=== PATIENT | male | born 1970 | race Caucasian/White ===

== ENCOUNTER 2017-10-23 16:49 | Emergency (ER) | payer MEDICAID, SELFPAY ==
[2017-10-23 16:50] VITALS: BP 145/109; PULSE 76; RESP 18; TEMP 36.4; O2SAT 100; BMI 28.5
[2017-10-23 17:08] LABS: Bacteria 0 SEEN /hpf (None Seen); Mucous, Urine 0 SEEN /hpf (<or=2+); Squamous Epithelial Cells - UA 0 SEEN /hpf (0-5); White Blood Cells 0 SEEN /hpf (0-5)
[2017-10-23 17:09] LABS: Color, Urine Yellow (Yellow); Glucose, Dipstick Normal (Normal); Ketone-Dipstick Negative (Negative); Leukocyte Esterase-Dipstick 25 /ul (Negative); Nitrite-Dipstick Negative (Negative); Occult Blood-Urine 250 /ul (Negative); Protein-Dipstick 30 mg/dl (Negative); Specific Gravity, Urine 1.025 (1.002-1.030); Urine Bilirubin Dipstick Negative (Negative); Urine Clarity Clear (Clear); Urine Urobilinogen 1 mg/dl (Normal)
[2017-10-23 17:15] LABS: Red Blood Cells-Urine 25-50 SEEN /hpf (0-5)
[2017-10-23 17:16] LABS: Yeast-Urine 1+ /hpf (None Seen)
--- NOTE | 2017-10-23 18:10 | CT_ITS ---
STUDY: CT ABDOMEN AND PELVIS WITHOUT CONTRAST REASON FOR EXAM: Male, 47 years old. Dysuria with lower abdominal pain. Patient has history of kidney stones and appendectomy. RADIATION DOSAGE (If Supplied By Facility): CTDIvol = ( 9.99 ) mGy, DLP = ( 809.05 ) mGycm TECHNIQUE: Transaxial images were obtained from the dome of the diaphragm to the symphysis pubis without oral contrast, and without intravenous contrast. Sagittal and coronal images were reconstructed. Individualized dose optimization techniques were used for this CT. COMPARISON: CT of the abdomen and pelvis dated October 11, 2017 and September 13, 2017. FINDINGS: There is bilateral basilar dependent atelectasis. There is heterogeneous groundglass attenuation at the lung bases suggesting possible pneumonia. There is patchy right middle lobe airspace disease. The visualized portions of the heart are within normal limits. There is decreased attenuation of the liver consistent with steatosis. There appears to be sparing of fatty infiltration surrounding the gallbladder fossa. Normal gallbladder and extrahepatic biliary system. Normal spleen. Normal pancreas. Normal bilateral adrenal glands. Normal right kidney. Normal left kidney. Normal visualized stomach. There is no evidence for dilated bowel, ascites or pneumoperitoneum. Small bowel has a grossly normal appearance. Stool is visible throughout the colon with scattered diverticula. There are surgical clips in the region of the appendix consistent with a prior appendectomy. Normal abdominal aorta. Normal inferior vena cava. There is borderline retroperitoneal lymphadenopathy with enlarged nodes no greater than 10mm in the short axis diameter. Normal urinary bladder. Normal visualized prostate gland. There is a small umbilical hernia containing fat. Appears to be ankylosis of the anterior left sacroiliac joint secondary to bridging osteophytes. The skeletal structures are otherwise within normal limits. CT/Abdomen/Pelvis without Cont IMPRESSION: 1. Apparent chronic bilateral basilar airspace disease since previous CT dated August 2017. 2. Hepatic steatosis. 3. No CT evidence of acute intra-abdominal disease. Electronically Signed: Carole Kessler MD at 19:14 EST , Service support ,
[2017-10-23] MEDS: 0.9% Normal Saline 1,000 ML 1000 ML IV ×2 (18:32→18:33)
[2017-10-23 18:35] LABS: Absolute Neutrophil Count 3.3 X10^3/uL (2.0-7.7); Basophil# 0.03 X10^3/uL; Basophil% 0.5 % (0-1); Eosinophil# 0.19 X10^3/uL; Eosinophils% 3.2 % (0-5); Hematocrit 41.4 % (40-54); Lymphocyte % 35.3 % (19-41); Mean Corp Hgb Conc 31.4 g/gl (32-36); Mean Corpuscular Hgb 25.5 pg (27.0-32.0); Mean Corpuscular Volume 81.2 fL (80-94); Mean Platelet Vol. 9.3 fl (6.2-12.0); Monocyte# 0.34 X10^3/uL; Monocyte% 5.7 % (0-10); Neutrophil # 3.28 X10^3/uL (2.7-7.7); Neutrophil % 55.1 % (47-70); POSITIVE COUNT NO; POSITIVE DIFFERENTIAL NO; POSITIVE MORPHOLOGY NO; Platelet Count 225 K/mm3 (150-450); RBC Distribution Width CV 16.7 % (11.6-14.6); RBC Distribution Width SD 50.1 fl (35.1-43.9)
[2017-10-23 18:47] LABS: Anion Gap 7 (5-15); BUN 15 mg/dL (7-18); Calcium,Total 8.3 mg/dL (8.5-10.1); Chloride 108 mmol/L (98-107); Creatinine, Serum 1.07 mg/dL (0.70-1.30); EST Glomerular Filtration Rate 79 mL/min (>60); Est Glom Filt Rate - Afr Amer 96 mL/min (>60); Estimated Creatinine Clearance 98.53 ml/min; Glucose 90 mg/dL (70-110); Potassium 3.9 mmol/L (3.5-5.1); Sodium Level 142 mmol/L (136-145)
--- NOTE | 2017-10-23 19:21 | US_ITS ---
STUDY: SCROTUM ULTRASOUND REASON FOR EXAM: Male, 47 years old. Testicular pain TECHNIQUE: Ultrasound evaluation of the scrotum was performed with color Doppler and static sun-scale imaging. COMPARISON: None. FINDINGS: RIGHT TESTICLE INTRATESTICULAR: There is a normal size of the right testicle. The right testicle measures 4.3 x 3.1 x 2.4 cm. There is a homogenous echotexture. There is normal arterial and normal venous vascularity. There is no demonstrated right testicular mass or cyst. EXTRATESTICULAR: The epididymis is normal in size. The epididymis head measures 1.2 x 1.0 cm. There is normal vascularity of the epididymis. There is no demonstrated epididymal cystic structure. There is a moderate size hydrocele. There is no demonstrated varicocele. There is no demonstrated extratesticular mass or cyst. LEFT TESTICLE INTRATESTICULAR: There is a normal size of the left testicle. The left testicle measures 4.2 x 2.9 x 2.1 cm. There is a homogenous echotexture. There is normal arterial and normal venous vascularity. There is no demonstrated left testicular mass or cyst. EXTRATESTICULAR: The epididymis is normal in size. The epididymis head measures 1.3 x 1 point cm. There is normal vascularity of the epididymis. There is no demonstrated epididymal cystic structure. There is a moderate size hydrocele. There is no demonstrated varicocele. There is no demonstrated extratesticular mass or cyst. US/Testicular with Arterial Flow IMPRESSION: Normal testicles with normal Doppler flow. Moderate bilateral hydroceles. Electronically Signed: Maged Bryant, at 21:24 EST Tel , Service support ,
--- NOTE | 2017-10-23 19:35 | RAD_ITS ---
STUDY: X-RAY CHEST REASON FOR EXAM: Male, 47 years old. Chest pain TECHNIQUE: Frontal and lateral views of the chest COMPARISON: None. FINDINGS: There is atelectasis noted at the lung bases. The lungs are otherwise clear. There are no pleural effusions. There is no pneumothorax. The heart is normal in size. The visualized osseous structures are within normal limits. RAD/Chest PA and Lateral IMPRESSION: Bibasilar atelectasis. Otherwise, clear lungs. Electronically Signed: Maged Bryant, at 21:13 EST Tel , Service support ,
[2017-10-23] MEDS: Ondansetron 4 MG/2 ML Vial IV (19:57)
[2017-10-23 20:02] VITALS: RESP 14
--- NOTE | 2017-10-23 23:03 | ED.DCSUM_ITS ---
- ER Visit Summary Date of Service: 10/23/17 Chief Complaint: Pain with urination History of Present Illness: The patient is a 47 M presenting with dysuria, dark urine, suprapubic abdominal pain. He states that this started 5 days ago. Pain has been persistent. He has had subjective fever. He has had nausea, vomiting. He denies diarrhea or constipation. He has a history of kidney stones. He states the pain is in the suprapubic area and radiates to his groin. Denies other complaints. Physical Examination: Vitals are stable. Patient is afebrile. Alert no acute distress. HEENT exam is unremarkable. Neck is supple. Lungs are clear and equal bilaterally. Heart is regular rate and rhythm. Abdomen is soft suprapubic tenderness with no rebound or guarding. : Normal lie, bilateral mild testicular tenderness. No rash or discharge Extremities are unremarkable. Skin is warm and dry. Remainder of exam is unremarkable. Emergency Department Course and Treatment: CBC, chemistries are unremarkable. Urinalysis shows 25-50 red blood cells, [address] abdomen pelvis shows no acute process. Testicular ultrasound shows normal testicles with normal flow , bilateral hydroceles. Chest x-ray shows atelectasis. Patient given morphine and Zofran with improvement of his pain. On reevaluation patient is resting comfortably. He is advised to follow up with Dr. Kidd. Advised return ED if worsening complaints. Disposition: Discharge home Impression: Hematuria This note was generated with [employer] dictation software. It may contain incorrect words, spelling, and punctuation that were not noted in review of the chart prior to signing ED Disposition - Plan for ED Patient: Chief Complaint: Complaint Referrals: Care Physician,No Primary [Primary Care Provider] -
--- NOTE | 2017-10-23 23:08 | ED.DEP ---
ED Disposition - Plan for ED Patient: Chief Complaint: Complaint Instructions: ED Hematuria Referrals: Care Physician,No Primary [Primary Care Provider] - Timothy Kidd MD [STAFF PHYSICIAN] -
[2017-10-23 23:13] VITALS: BP 126/78; PULSE 80; RESP 16; O2SAT 95
== END 2017-10-23 23:13 | disposition home or self-care (01) ==
PROVIDERS: Emergency Provider Emergency Medicine
DX: R31.9 Hematuria, unspecified (principal); N43.3 Hydrocele, unspecified; Z87.442 Personal history of urinary calculi; J98.11 Atelectasis; Z72.0 Tobacco use
CPT/HCPCS: 71046; 74176; 76870; 80048; 81001; 85025; 87086; 87088; 93976; 96361; 96374; 96375; 99283; J7030; A4216; J2405

== ENCOUNTER 2017-12-09 14:47 | Emergency (ER) | payer MEDICAID, SELFPAY ==
[2017-12-09 14:48] VITALS: BP 154/106; PULSE 88; RESP 18; TEMP 36.6; O2SAT 99; BMI 29.9
--- NOTE | 2017-12-09 15:36 | ED.VISSUMM ---
- ER Visit Summary Date of Service: 12/09/17 Chief Complaint: Back pain History of Present Illness: The patient is a 47 M presenting with 4-5 days of lower back pain. He does not recall specific injury. He has a history of chronic low back pain. He also complains of nausea and decreased appetite. He denies vomiting or diarrhea. Denies fever. Denies chest pain or shortness of breath. Physical Examination: Vitals are stable. Patient is afebrile. Alert no acute distress. HEENT exam is unremarkable. Neck is supple. Lungs are clear and equal bilaterally. Heart is regular rate and rhythm. Abdomen is soft mild suprapubic tenderness, no rebound or guarding Back: mild bilateral paraspinal lumbar muscle tenderness, no midline tenderness Extremities are unremarkable. Skin is warm and dry. No focal neurologic deficit. Remainder of exam is unremarkable. Emergency Department Course and Treatment: Patient is given IV fluids, Toradol, Zofran. CBC, chemistries unremarkable. Urinalysis is unremarkable. Patient is feeling improved on reevaluation. His abdomen is soft and nontender with no guarding or rebound. He is given a prescription for Zofran for home. Advised to follow-up with Dr. Gardner juvenile corrections officer for no doc. Advised return to ED if worsening complaints. Disposition: Discharged home Impression: Back pain acute on chronic, abdominal pain This note was generated with [employer] dictation software. It may contain incorrect words, spelling, and punctuation that were not noted in review of the chart prior to signing ED Disposition - Plan for ED Patient: Chief Complaint: Back Referrals: Care Physician,No Primary [Primary Care Provider] -
[2017-12-09 15:59] LABS: Bacteria 0 SEEN /hpf (None Seen); Mucous, Urine 0 SEEN /hpf (<or=2+); White Blood Cells 0 SEEN /hpf (0-5)
--- NOTE | 2017-12-09 15:59 | ED.RN ---
PT STATES HE HAS TERRIBLE BACK PAIN BUT HAS NO DIFFICULTY RAISING BOTH LEGS OFF THE BED AT THE SAME TIME TO ASSIST HIMSELF IN SITTING. PT DROPPED SOMETHING ON THE FLOOR AND BEND OVER VERY SMOOTHLY AND APPEARED TO BE PAIN FREE WHILE DOING IT. WHEN ASKED PT HOW NAD HIS PAIN WAS HE SAID IT WAS A 10/10 BUT AMBULATED WITHOUT AND SIGN OF DISTRESS OR COMPROMISE.
[2017-12-09 16:12] LABS: Absolute Lymphocyte Count 1.31 X10^3/ul (0.83-4.51); Absolute Neutrophil Count 5.6 X10^3/uL (2.0-7.7); Basophil# 0.03 X10^3/uL; Basophil% 0.4 % (0-1); Eosinophil# 0.06 X10^3/uL; Eosinophils% 0.8 % (0-5); Hematocrit 41.7 % (40-54); Hemoglobin 13.5 g/dl (13.0-16.5); Lymphocyte # 1.31 X10^3/ul (4.0); Lymphocyte % 17.3 % (19-41); Mean Corp Hgb Conc 32.4 g/gl (32-36); Mean Corpuscular Hgb 25.5 pg (27.0-32.0); Mean Corpuscular Volume 78.8 fL (80-94); Mean Platelet Vol. 10.2 fl (6.2-12.0); Monocyte% 6.6 % (0-10); Neutrophil # 5.63 X10^3/uL (2.7-7.7); Neutrophil % 74.5 % (47-70); Platelet Count 258 K/mm3 (150-450); RBC Distribution Width CV 15.9 % (11.6-14.6); Red Blood Count 5.29 M/mm3 (4.6-6.2); White Blood Count 7.6 K/mm3 (4.4-11.0)
[2017-12-09 16:13] LABS: POSITIVE COUNT NO; POSITIVE DIFFERENTIAL NO; POSITIVE MORPHOLOGY NO
[2017-12-09 16:16] LABS: Anion Gap 7 (5-15); BUN 11 mg/dL (7-18); BUN/Creat Ratio 14.3 RATIO (10-20); Calcium,Total 8.6 mg/dL (8.5-10.1); Chloride 107 mmol/L (98-107); Creatinine, Serum 0.77 mg/dL (0.70-1.30); EST Glomerular Filtration Rate 117 mL/min (>60); Est Glom Filt Rate - Afr Amer 141 mL/min (>60); Estimated Creatinine Clearance 136.91 ml/min; Glucose 100 mg/dL (74-106); Potassium 3.9 mmol/L (3.5-5.1); Sodium Level 141 mmol/L (136-145)
[2017-12-09 16:17] LABS: Color, Urine Yellow (Yellow); Glucose, Dipstick Normal (Normal); Ketone-Dipstick Negative (Negative); Leukocyte Esterase-Dipstick Negative /ul (Negative); Nitrite-Dipstick Negative (Negative); Occult Blood-Urine 10 /ul (Negative); Protein-Dipstick Negative (Negative); Urine Bilirubin Dipstick Negative (Negative); Urine Clarity Clear (Clear); Urine Urobilinogen Normal (Normal)
[2017-12-09] MEDS: 0.9% Normal Saline 1,000 ML 1000 ML IV (16:28)
[2017-12-09] MEDS: Ondansetron 4 MG/2 ML Vial IV (16:28)
[2017-12-09] MEDS: Ketorolac 30 MG/ML Syringe IV (16:28)
[2017-12-09 16:55] LABS: Red Blood Cells-Urine 0-5 SEEN /hpf (0-5); Squamous Epithelial Cells - UA 0-5 SEEN /hpf (0-5)
--- NOTE | 2017-12-09 17:44 | ED.DEP ---
ED Disposition - Plan for ED Patient: Chief Complaint: Back Instructions: ED Neck Back Pain General Prescriptions: Ondansetron [Zofran Odt] 4 mg PO Q8H PRN PRN #10 tablet PRN Reason: Nausea Referrals: Care Physician,No Primary [Primary Care Provider] - Dhiraj Gardner DO [STAFF PHYSICIAN] -
[2017-12-09 17:56] VITALS: BP 118/64; PULSE 72; RESP 15; O2SAT 98
== END 2017-12-09 17:56 | disposition home or self-care (01) ==
PROVIDERS: Emergency Provider Emergency Medicine
DX: M54.5 Low back pain (principal); G89.29 Other chronic pain; R10.30 Lower abdominal pain, unspecified; Z72.0 Tobacco use
CPT/HCPCS: 80048; 81001; 85025; 96374; 96375; 99284; J7030; J2405

== ENCOUNTER 2017-12-12 13:48 | Emergency (ER) | payer MEDICAID, SELFPAY ==
[2017-12-12 13:49] VITALS: BP 134/98; PULSE 96; RESP 14; TEMP 36.6; BMI 30.1
--- NOTE | 2017-12-12 15:01 | CT_ITS ---
STUDY: CT ABDOMEN AND PELVIS WITHOUT CONTRAST REASON FOR EXAM: Male, 47 years old. Left flank pain. RADIATION DOSAGE (If Supplied By Facility): CTDIvol = ( 14.44 ) mGy, DLP = ( 802.26 ) mGycm TECHNIQUE: Transaxial images were obtained from the dome of the diaphragm to the symphysis pubis without oral contrast, and without intravenous contrast. Sagittal and coronal images were reconstructed. Individualized dose optimization techniques were used for this CT. COMPARISON: October 23, 2017. FINDINGS: There are chronic interstitial fibrotic changes of the lung bases. The right middle lobe atelectasis. The visualized portions of the heart are within normal limits. There is hepatomegaly with diffuse hepatic enlargement. There is decreased attenuation of the liver consistent with steatosis.There is sparing adjacent to the gallbladder fossa. Normal gallbladder and extrahepatic biliary system. Normal spleen. Normal pancreas. Normal bilateral adrenal glands. Normal right kidney. Normal left kidney. No stones or hydronephrosis. Normal visualized stomach. Normal small intestine. Normal colon. There are surgical clips in the region of the appendix consistent with a prior appendectomy. There is atherosclerotic calcification of the abdominal aorta, without a demonstrated aneurysm. Normal inferior vena cava. There is borderline retroperitoneal lymphadenopathy with enlarged nodes no greater than 10mm in the short axis diameter. Normal urinary bladder. There is no free fluid in the abdomen or pelvis. There is a small umbilical hernia containing fat. Normal osseous structures. CT/Abdomen/Pelvis without Cont IMPRESSION: No stones or hydronephrosis Liver is enlarged with diffuse fatty infiltration. No dilated loops of bowel. Electronically Signed: Erwin Tee MD at 17:05 EDT , Service support ,
[2017-12-12 15:58] LABS: Bacteria 0 SEEN /hpf (None Seen); Mucous, Urine 0 SEEN /hpf (<or=2+); Squamous Epithelial Cells - UA 0 SEEN /hpf (0-5); White Blood Cells 0 SEEN /hpf (0-5)
[2017-12-12 16:05] LABS: Color, Urine Yellow (Yellow); Glucose, Dipstick Normal (Normal); Ketone-Dipstick Negative (Negative); Leukocyte Esterase-Dipstick Negative /ul (Negative); Nitrite-Dipstick Negative (Negative); Occult Blood-Urine 250 /ul (Negative); Protein-Dipstick 15 mg/dl (Negative); Urine Bilirubin Dipstick Negative (Negative); Urine Clarity Sl. Cloudy (Clear); Urine Urobilinogen Normal (Normal)
[2017-12-12] MEDS: 0.9% Normal Saline 1,000 ML 250 ML IV (16:08)
[2017-12-12] MEDS: Ketorolac 30 MG/ML Syringe IV (16:08)
[2017-12-12] MEDS: Ondansetron 4 MG/2 ML Vial IV (16:09)
[2017-12-12 16:12] LABS: Red Blood Cells-Urine > 100 SEEN /hpf (0-5)
--- NOTE | 2017-12-12 17:38 | ED.DCSUM_ITS ---
- ER Visit Summary Date of Service: 12/12/17 Chief Complaint: Left flank/back pain and LLQ since December 07. History of Present Illness: The patient is a 47 M who was seen on December 09. Workup at that time was unremarkable. He presents now with left flank pain and left lower quadrant abdominal pain. States he cannot find a position of comfort. He does have history of renal/ureteral calculi. He denies fever, chills night sweats. He denies hematuria or frequency. Does complain of discomfort with urination. He denies any penile lesions or discharge. He denies testicular pain. There is no history of trauma. He has no history of diverticulosis or diverticulitis. He denies shortness of breath, cough, dyspnea on exertion, orthopnea or PND. He denies any chest pain or palpitations. Review of systems was otherwise negative. Physical Examination: Blood pressure slightly elevated 134/98. Head is atraumatic normocephalic. Pupils are equal round reactive. Extraocular muscles are intact. TMs are pearly white with landmarks noted. Nares patent with no drainage. Posterior pharynx without erythema or exudate. Uvula is midline. There is no dysphonia or dysphasia. Trachea is midline. There is no stridor with auscultation of the neck. Heart is regular without murmur, gallop or rub. S1 and S2 are normal. Lungs are clear to auscultation with good movement of air bilaterally. Abdomen is marked for tenderness left side. There is no guarding or rebound tenderness. Equivocal CVA tenderness on the left. There is no inguinal lymphadenopathy or hernia. No pathology. Neuro exam is nonfocal. Test Results: UA is remarkable for blood on macro and greater than 100 RBCs on micro. There is no evidence of infection. CT of the abdomen and pelvis without contrast reveals no acute urologic pathology. Emergency Department Course and Treatment: Chart from the was reviewed. Because he describes prior history of renal/ureteral calculus, urinary symptoms and flank pain UA was obtained. Sensors blood CT was obtained. He was medicated with Toradol and Zofran. Treatment Plan: Patient's workup on the was unremarkable. Workup today is unremarkable. Patient was informed he may be that 10-50% to has blood in his urine and it is normal. Disposition: Discharge to home with appropriate home going instructions and outpatient referral Impression: Left flank and abdominal pain of unknown etiology Hematuria unknown etiology This note was generated with [employer] dictation software. It may contain incorrect words, spelling, and punctuation that were not noted in review of the chart prior to signing ED Disposition - Plan for ED Patient: Disposition: Home or Assisted Living Chief Complaint: Back Instructions: ED Flank Pain Uncertain Cause Referrals: Care Physician,No Primary [Primary Care Provider] - 3-5 Days if not improving Additional Instructions: Take either ibuprofen or Naprosyn for your pain. Recommend following up with the Dr. turner by your insurance carrier [facility].
[2017-12-12 17:58] VITALS: BP 120/92; PULSE 73; RESP 19; O2SAT 98
== END 2017-12-12 17:59 | disposition home or self-care (01) ==
PROVIDERS: Emergency Provider Emergency Medicine
DX: R10.9 Unspecified abdominal pain (principal); R31.9 Hematuria, unspecified; Z87.442 Personal history of urinary calculi; Z72.0 Tobacco use
CPT/HCPCS: 74176; 81001; 96361; 96374; 96375; 99284; J7030; J2405

== ENCOUNTER 2018-02-04 17:05 | Emergency (ER) | payer MEDICAID, SELFPAY ==
[2018-02-04 17:05] VITALS: BP 160/125; PULSE 98; RESP 16; TEMP 36.9; O2SAT 95; BMI 28.3
--- NOTE | 2018-02-04 17:57 | CT_ITS ---
STUDY: CT BRAIN WITHOUT CONTRAST REASON FOR EXAM: Male, 47 years old. Dizzy, not feeling right. RADIATION DOSAGE (If Supplied By Facility): CTDIvol = ( 44.99 ) mGy, DLP = ( 863.50 ) mGycm TECHNIQUE: Transaxial CT imaging of the brain was performed without administration of intravenous contrast material. Individualized dose optimization techniques were used for this CT. COMPARISON: None. FINDINGS: Normal soft tissue structures. Normal calvarium. Normal size ventricles and extra-axial spaces for the patient's age. Normal white matter tracts of the cerebral hemispheres. Normal basal ganglia and thalami. Normal brainstem. Normal cerebellum. There is no intracranial hemorrhage. There are no findings of an acute ischemic infarction. Normal visualized paranasal sinuses. CT/Brain/Head without Contrast IMPRESSION: Normal unenhanced CT scan of the brain. Electronically Signed: Pineda Ontiveros MD at 18:34 EDT , Service support ,
--- NOTE | 2018-02-04 17:58 | EKG12_ITS ---
Test Reason : Blood Pressure : / mmHG Vent. Rate : 084 BPM Atrial Rate : 084 BPM P-R Int : 128 ms QRS Dur : 098 ms QT Int : 364 ms P-R-T Axes : 056 046 046 degrees QTc Int : 430 ms Sinus rhythm with Premature supraventricular complexes Otherwise normal ECG Confirmed by HAROON ZAMORA, RADHA ([id number]), food expeditor JOHN CROFT ([id number]) on 02/07/2018 1:12:48 PM Referred By: SANDRA Confirmed By:RADHA PATIÑO MD
--- NOTE | 2018-02-04 18:05 | RAD_ITS ---
STUDY: X-RAY CHEST REASON FOR EXAM: Male, 47 years old. Dizziness TECHNIQUE: Frontal and lateral views of the chest. COMPARISON: 10/23/2017 FINDINGS: The lungs are clear and expanded. There is no demonstrated pleural abnormality. Normal size heart. Normal mediastinum and heidy. Normal visualized pulmonary arteries. Normal visualized aortic arch and descending thoracic aorta. Normal visualized thoracic spine. Normal visualized ribs, clavicles, and shoulders. There is no demonstrated abnormality of the visualized soft tissue structures of the upper abdomen. RAD/Chest PA and Lateral IMPRESSION: Normal x-ray examination of the chest. Electronically Signed: Jordy Walker MD at 18:40 EDT Tel , Service support ,
[2018-02-04 18:11] LABS: Absolute Lymphocyte Count 1.67 X10^3/ul (0.83-4.51); Absolute Neutrophil Count 5.4 X10^3/uL (2.0-7.7); Basophil# 0.03 X10^3/uL; Basophil% 0.4 % (0-1); Eosinophil# 0.12 X10^3/uL; Eosinophils% 1.5 % (0-5); Hematocrit 44.2 % (40-54); Hemoglobin 13.9 g/dl (13.0-16.5); Lymphocyte # 1.67 X10^3/ul (4.0); Mean Corp Hgb Conc 31.4 g/gl (32-36); Mean Corpuscular Hgb 25.4 pg (27.0-32.0); Mean Corpuscular Volume 80.7 fL (80-94); Monocyte# 0.76 X10^3/uL; Monocyte% 9.6 % (0-10); Neutrophil # 5.36 X10^3/uL (2.7-7.7); Neutrophil % 67.4 % (47-70); Platelet Count 270 K/mm3 (150-450); RBC Distribution Width CV 16.7 % (11.6-14.6); RBC Distribution Width SD 49.1 fl (35.1-43.9); Red Blood Count 5.48 M/mm3 (4.6-6.2)
[2018-02-04] MEDS: 0.9% Normal Saline 1,000 ML 1000 ML IV (18:22)
[2018-02-04] MEDS: Acetaminophen 500 MG Tablet 1000 MG PO (18:22)
[2018-02-04 18:24] LABS: ALB/GLOB Ratio 1.1 RATIO (0.9-2.4); AST(SGOT) 11 U/L (15-37); Alanine Aminotransfer ALT/SGPT 37 U/L (16-61); Albumin, Serum 3.8 g/dL (3.2-5.0); Alkaline Phosphatase 84 U/L (45-117); Anion Gap 6 (5-15); BUN 8 mg/dL (7-18); BUN/Creat Ratio 8.7 RATIO (10-20); Calcium,Total 8.6 mg/dL (8.5-10.1); Chloride 110 mmol/L (98-107); Creatinine, Serum 0.92 mg/dL (0.70-1.30); EST Glomerular Filtration Rate 95 mL/min (>60); Est Glom Filt Rate - Afr Amer 114 mL/min (>60); Estimated Creatinine Clearance 114.59 ml/min; Globulin 3.4 g/dL (2.2-4.2); Glucose 87 mg/dL (74-106); Protein, Total 7.2 g/dL (6.4-8.2); Sodium Level 142 mmol/L (136-145)
--- NOTE | 2018-02-04 18:30 | CT_ITS ---
STUDY: CT ABDOMEN AND PELVIS WITHOUT CONTRAST REASON FOR EXAM: Male, 47 years old. Dizziness, groin pain RADIATION DOSAGE (If Supplied By Facility): CTDIvol = ( 9.59 ) mGy, DLP = ( 565.76 ) mGycm TECHNIQUE: Transaxial images were obtained from the dome of the diaphragm to the symphysis pubis without oral contrast, and without intravenous contrast. Sagittal and coronal images were reconstructed. Individualized dose optimization techniques were used for this CT. COMPARISON: 12/12/2017 FINDINGS: The visualized lung bases are unremarkable. The visualized portions of the heart are within normal limits. There is decreased attenuation of the liver consistent with steatosis. Normal gallbladder and extrahepatic biliary system. Normal spleen. Normal pancreas. Normal bilateral adrenal glands. Normal right kidney. Normal left kidney. Normal visualized stomach. Normal small intestine. Normal colon. Prior appendectomy. Normal abdominal aorta. Normal inferior vena cava. Normal retroperitoneum. Normal urinary bladder. Normal abdominal wall. Normal osseous structures. CT/Abdomen/Pelvis without Cont IMPRESSION: No evidence of acute intestinal pathology or acute obstructive uropathy. Fatty liver. Electronically Signed: Jordy Walker MD at 19:22 EDT Tel , Service support ,
[2018-02-04 18:35] LABS: POSITIVE COUNT NO; POSITIVE DIFFERENTIAL NO; POSITIVE MORPHOLOGY NO
[2018-02-04] MEDS: Morphine 4 MG/ML Syringe IV (19:02)
[2018-02-04] MEDS: Ondansetron 4 MG/2 ML Vial IV (19:03)
[2018-02-04 19:12] LABS: Mucous, Urine 0 SEEN /hpf (<or=2+); Squamous Epithelial Cells - UA 0 SEEN /hpf (0-5); White Blood Cells 0 SEEN /hpf (0-5)
[2018-02-04 19:16] LABS: Color, Urine Yellow (Yellow); Glucose, Dipstick Normal (Normal); Ketone-Dipstick Negative (Negative); Leukocyte Esterase-Dipstick Negative /ul (Negative); Nitrite-Dipstick Negative (Negative); Occult Blood-Urine Negative /ul (Negative); Protein-Dipstick Negative (Negative); Urine Bilirubin Dipstick Negative (Negative); Urine Clarity Clear (Clear); Urine Urobilinogen Normal (Normal)
[2018-02-04 19:46] LABS: Bacteria 0 SEEN /hpf (None Seen)
[2018-02-04 19:48] LABS: Red Blood Cells-Urine 0-5 SEEN /hpf (0-5)
--- NOTE | 2018-02-04 20:15 | ED.VISSUMM ---
- ER Visit Summary Date of Service: 02/04/18 Chief Complaint: Multiple complaints History of Present Illness: The patient is a 47 M who presents with multiple complaints over the past 5 months. He complains of his ears ringing. He complains of memory loss. He complains of intermittent sharp pains in his head. Complains of headache. He complains of dizziness which she describes as near syncope. He also complains of bilateral groin pain. He also complains of chest pain intermittently for the last 3 weeks. He denies any chest pain currently. He is also had shortness of breath and occasional dry nonproductive cough although he is not short of breath currently. He complains of urinary frequency. Physical Examination: Blood pressure 160/125 vitals otherwise normal. Repeat blood pressure was 137/101. Patient resting comfortably Moist mucous membranes Heart regular rate and rhythm Lungs are clear Abdomen soft nontender Patient has some bilateral tenderness in the groin I do not appreciate an obvious hernia he has a normal genitourinary examination with normal inspection of the testes no erythema no scrotal edema no testicular tenderness Alert No focal or lateralizing neurological deficits no ataxia normal cerebellar testing Test Results: EKG shows sinus rhythm at a rate of 84 with occasional PACs. CBC BMP hepatic function urinalysis troponin all normal. Chest x-ray normal. CT of the head normal. CT of the abdomen shows no acute process. Emergency Department Course and Treatment: Patient's workup is unremarkable. He has an extensive list of complaints. At this time I do not see any evidence of life-threatening illness. I do believe he requires further outpatient workup. He was instructed on specific signs and symptoms which she should return to the emergency department for reevaluation. He was given a referral for a primary care physician. All questions answered bedside. Patient discharged. Treatment Plan: [] Disposition: Discharge Impression: Headache Bilateral groin pain Chest pain Memory loss Dizziness Elevated blood pressure This note was generated with [employer] dictation software. It may contain incorrect words, spelling, and punctuation that were not noted in review of the chart prior to signing ED Disposition - Plan for ED Patient: Chief Complaint: Dizziness Referrals: Care Physician,No Primary [Primary Care Provider] -
[2018-02-04 20:17] VITALS: BP 160/93; PULSE 78
--- NOTE | 2018-02-04 20:19 | ED.DEP ---
ED Disposition - Plan for ED Patient: Chief Complaint: Dizziness Instructions: ED Dizziness UKO, ED Chest Pain Atypical Unkn Cause, ED Strain Groin, ED Hypertension Poss Referrals: Care Physician,No Primary [Primary Care Provider] - Malu Denton MD [STAFF PHYSICIAN] -
== END 2018-02-04 20:23 | disposition home or self-care (01) ==
PROVIDERS: Emergency Provider Emergency Medicine
DX: R51 Headache (principal); R07.9 Chest pain, unspecified; R42 Dizziness and giddiness; R10.32 Left lower quadrant pain; R10.31 Right lower quadrant pain; R41.3 Other amnesia; R03.0 Elevated blood-pressure reading, without diagnosis of hypertension; Z72.0 Tobacco use
CPT/HCPCS: 70450; 71046; 74176; 80053; 81001; 84484; 85025; 93005; 96374; 96375; 99285; J7030; A4216; J2405

== ENCOUNTER 2018-02-05 04:40 | Emergency (ER) | payer MEDICAID, SELFPAY ==
[2018-02-05 04:41] VITALS: BP 145/93; PULSE 85; RESP 18; TEMP 36.4; O2SAT 100; BMI 28.4
--- NOTE | 2018-02-05 04:55 | ED.VISSUMM ---
- ER Visit Summary Date of Service: 02/05/18 Chief Complaint: I am being monitored by [facility] History of Present Illness: The patient is a 47 M reportedly history of schizophrenia, bipolar and ADHD. With the patient currently states that that is not true. It has been dictated on prior evaluations. Patient denies currently being the care of a psychiatrist or primary care physician or the counseling center. He states that [facility] has been monitoring his actions and has hepatitis him for the last year and a half. He is also complaining of dizziness. He denies headache or chest pain. Denies shortness of breath abdominal pain. Said he has not been ill recently. He denies nausea, vomiting, diarrhea or fever. He denies any head trauma. Denies being suicidal or homicidal. Physical Examination: Well-appearing middle-aged male vital signs stable afebrile. No acute distress. Pulse ox 100% on room air no signs of hypoxia. H EENT exam unremarkable. Normal speech. No facial droop. Pupils round reactive light. No signs of trauma to his face or scalp. Neck nontender no lymphadenopathy. Lungs clear all station bilaterally. Heart regular rate and rhythm no murmur. Abdomen soft nontender. He is moving all 4 extremities. They are neurovascularly intact. Calves are nontender without edema or cords. He is moving all 4 extremities. He has equal symmetrical netbackup admin strength. Fingertip to nose heel lynch within normal limits. Back exam nontender. Neurologically is awake and alert. He is following commands. Has no motor deficits. There is no acute smell of alcohol or any obvious signs of acute toxidrome. Test Results: CBC normal. BMP unremarkable. Alcohol level is less than 3 and his tox screen shows positive opiates. Emergency Department Course and Treatment: Patient is paranoid. He will undergo ED mental health screening labs. Treatment Plan: Patient has been calm and relaxed entire time in the emergency department. I spoke to him about his paranoid delusions and he absolutely does not want to talk the counseling center. He is not homicidal or suicidal. He is not disheveled. He does not need to be pink slipped. Disposition: Pt refused crisis evaluation Impression: Paranoid behavior History of schizophrenia and bipolar disorder. This note was generated with [employer] dictation software. It may contain incorrect words, spelling, and punctuation that were not noted in review of the chart prior to signing ED Disposition - Plan for ED Patient: Chief Complaint: Mental Health Referrals: Care Physician,No Primary [Primary Care Provider] -
--- NOTE | 2018-02-05 04:58 | ED.DCSUM_ITS ---
- ER Visit Summary Date of Service: 02/05/18 Chief Complaint: I am being monitored by [facility] History of Present Illness: The patient is a 47 M reportedly history of schizophrenia, bipolar and ADHD. With the patient currently states that that is not true. It has been dictated on prior evaluations. Patient denies currently being the care of a psychiatrist or primary care physician or the counseling center. He states that [facility] has been monitoring his actions and has hepatitis him for the last year and a half. He is also complaining of dizziness. He denies headache or chest pain. Denies shortness of breath abdominal pain. Said he has not been ill recently. He denies nausea, vomiting , diarrhea or fever. He denies any head trauma. Denies being suicidal or homicidal. Physical Examination: Well-appearing middle-aged male vital signs stable afebrile. No acute distress. Pulse ox 100% on room air no signs of hypoxia. H EENT exam unremarkable. Normal speech. No facial droop. Pupils round reactive light. No signs of trauma to his face or scalp. Neck nontender no lymphadenopathy. Lungs clear all station bilaterally. Heart regular rate and rhythm no murmur. Abdomen soft nontender. He is moving all 4 extremities. They are neurovascularly intact. Calves are nontender without edema or cords. He is moving all 4 extremities. He has equal symmetrical administrator of home health strength. Fingertip to nose heel lynch within normal limits. Back exam nontender. Neurologically is awake and alert. He is following commands. Has no motor deficits. There is no acute smell of alcohol or any obvious signs of acute toxidrome. Test Results: CBC normal. BMP unremarkable. Alcohol level is less than 3 and his tox screen shows positive opiates. Emergency Department Course and Treatment: Patient is paranoid. He will undergo ED mental health screening labs. Treatment Plan: Patient has been calm and relaxed entire time in the emergency department. I spoke to him about his paranoid delusions and he absolutely does not want to talk the counseling center. He is not homicidal or suicidal. He is not disheveled. He does not need to be pink slipped. Disposition: Pt refused crisis evaluation Impression: Paranoid behavior History of schizophrenia and bipolar disorder. This note was generated with [employer] dictation software. It may contain incorrect words, spelling, and punctuation that were not noted in review of the chart prior to signing ED Disposition - Plan for ED Patient: Chief Complaint: Mental Health Referrals: Care Physician,No Primary [Primary Care Provider] -
[2018-02-05 05:18] LABS: Absolute Neutrophil Count 6.6 X10^3/uL (2.0-7.7); Basophil# 0.03 X10^3/uL; Basophil% 0.3 % (0-1); Eosinophil# 0.08 X10^3/uL; Eosinophils% 0.9 % (0-5); Hematocrit 43.4 % (40-54); Hemoglobin 13.9 g/dl (13.0-16.5); Lymphocyte % 18.3 % (19-41); Mean Corpuscular Hgb 25.7 pg (27.0-32.0); Mean Corpuscular Volume 80.2 fL (80-94); Mean Platelet Vol. 9.8 fl (6.2-12.0); Monocyte# 0.41 X10^3/uL; Monocyte% 4.7 % (0-10); Neutrophil % 75.7 % (47-70); POSITIVE COUNT NO; POSITIVE DIFFERENTIAL NO; POSITIVE MORPHOLOGY NO; Platelet Count 257 K/mm3 (150-450); RBC Distribution Width CV 16.8 % (11.6-14.6); RBC Distribution Width SD 49.1 fl (35.1-43.9); Red Blood Count 5.41 M/mm3 (4.6-6.2); White Blood Count 8.7 K/mm3 (4.4-11.0)
[2018-02-05 05:23] LABS: Amphetamine Urine VISTA NEGATIVE (<1000 ng/mL); Barbiturate Urine VISTA NEGATIVE (< 200 ng/mL); Benzodiazepine Urine VISTA NEGATIVE (< 200 ng/mL); Cocaine Urine VISTA NEGATIVE (< 300 ng/mL); Ecstacy Urine VISTA NEGATIVE (< 500 ng/mL); Methadone Urine VISTA NEGATIVE (< 300 ng/mL); PCP Urine VISTA NEGATIVE (< 25 ng/mL); THC Urine VISTA NEGATIVE (< 50 ng/mL); Vista UDS pH Range 7
[2018-02-05 05:24] LABS: Anion Gap 8 (5-15); BUN 7 mg/dL (7-18); BUN/Creat Ratio 8.4 RATIO (10-20); Chloride 111 mmol/L (98-107); Creatinine, Serum 0.83 mg/dL (0.70-1.30); EST Glomerular Filtration Rate 107 mL/min (>60); Est Glom Filt Rate - Afr Amer 129 mL/min (>60); Estimated Creatinine Clearance 127.02 ml/min; Glucose 111 mg/dL (74-106); Sodium Level 142 mmol/L (136-145)
[2018-02-05 05:37] LABS: Alcohol, Blood (Medical)-Serum < 3.0 mg/dL
--- NOTE | 2018-02-05 05:46 | ED.DEP ---
ED Disposition - Plan for ED Patient: Disposition: Home or Assisted Living Chief Complaint: Mental Health Instructions: ED Paranoid Schizophrenia Referrals: Counseling,Center [GROUP OF PHYSICIANS] - As soon as possible
== END 2018-02-05 05:53 | disposition home or self-care (01) ==
PROVIDERS: Emergency Provider Emergency Medicine
DX: H81.10 Benign paroxysmal vertigo, unspecified ear (principal); F20.0 Paranoid schizophrenia; F31.9 Bipolar disorder, unspecified; F90.9 Attention-deficit hyperactivity disorder, unspecified type; Z72.0 Tobacco use
CPT/HCPCS: 80048; 80307; 80320; 85025; G0480

== ENCOUNTER 2018-02-05 08:34 | Emergency (ER) | payer MEDICAID, SELFPAY ==
[2018-02-05 08:35] VITALS: BP 163/115; PULSE 89; RESP 18; TEMP 36.6; O2SAT 99; BMI 28.3
--- NOTE | 2018-02-05 08:53 | ED.VISSUMM ---
- ER Visit Summary Date of Service: 02/05/18 Chief Complaint: Room spinning History of Present Illness: The patient is a 47 M presenting complaining of room spinning. He states this has been ongoing for 1-2 months. He states it is worse when he stands or turns his head. He also complains of memory loss which has been ongoing for several months. This is his third visit in the past 24 hours to the emergency department. On his initial visit he had multiple complaints. On his second visit he complained of paranoid thoughts and declined a crisis evaluation. He continues to complain of paranoid thoughts but denies suicidal or homicidal ideation. He initially denied any mental health disorders but later admitted to having schizophrenia and bipolar disorder. He states he is not on any medications. He presents with his mother and girlfriend who would like a counseling center evaluation. Physical Examination: Vitals are stable. Patient is afebrile. Alert no acute distress. HEENT exam is unremarkable. Neck is supple. No meningismus Lungs are clear and equal bilaterally. Heart is regular rate and rhythm. Abdomen is soft nontender nondistended. Extremities are unremarkable. Skin is warm and dry. No focal neurologic deficit. Paranoid thoughts, denies suicidal or homicidal ideation Remainder of exam is unremarkable. Emergency Department Course and Treatment: Patient was given valium po. Alcohol and tox are negative. CT head yesterday showed no acute process. On reevaluation, his symptoms have resolved. He was evaluated by the counseling center in the emergency department. They feel there is no criteria for admission at this time. They set him up for an intake appointment this week. He continues to deny suicidal or homicidal ideation. Family and patient are agreeable with discharge. He is advised return to ED for any worsening complaints. Disposition: Discharge home Impression: Paranoid behavior, positional vertigo This note was generated with [employer] dictation software. It may contain incorrect words, spelling, and punctuation that were not noted in review of the chart prior to signing ED Disposition - Plan for ED Patient: Disposition: Home or Assisted Living Chief Complaint: Headache Instructions: ED BPV Vertigo Prescriptions: Meclizine HCl [Antivert] 12.5 mg PO 4X/DAY PRN PRN #20 tablet PRN Reason: Dizziness Referrals: Counseling,Center [GROUP OF PHYSICIANS] - Sherry Schmitt DO [STAFF PHYSICIAN] - Care Physician,No Primary [Primary Care Provider] -
--- NOTE | 2018-02-05 09:04 | NURSING ---
PAGED THE COUNSELING CENTER FOR PATIENT
--- NOTE | 2018-02-05 09:06 | NURSING ---
RYLAND WOODARD CALLED AND HAS 2 PEOPLE TO SEE AT THE SNF AND THEN HE WILL BE OVER
[2018-02-05] MEDS: diazePAM 2 MG Tablet PO (09:10)
[2018-02-05 09:24] LABS: Amphetamine Urine VISTA NEGATIVE (<1000 ng/mL); Barbiturate Urine VISTA NEGATIVE (< 200 ng/mL); Benzodiazepine Urine VISTA NEGATIVE (< 200 ng/mL); Cocaine Urine VISTA NEGATIVE (< 300 ng/mL); Ecstacy Urine VISTA NEGATIVE (< 500 ng/mL); Methadone Urine VISTA NEGATIVE (< 300 ng/mL); PCP Urine VISTA NEGATIVE (< 25 ng/mL); THC Urine VISTA NEGATIVE (< 50 ng/mL); Vista UDS pH Range 7
[2018-02-05 09:57] LABS: Alcohol, Blood (Medical)-Serum < 3.0 mg/dL
[2018-02-05 10:15] VITALS: BP 129/92; BP 129/96; BP 131/98; PULSE 83; PULSE 87; PULSE 91
[2018-02-05 10:41] VITALS: RESP 15
[2018-02-05 11:42] VITALS: BP 125/85; PULSE 78; RESP 14; O2SAT 100
--- NOTE | 2018-02-05 11:44 | ED.RN ---
PT INFORMED CRISIS COUNSELOR [facility] WILL BE COMING, BUT TIME OF ARRIVAL IS STILL UNKNOWN. THIS RN OFFERED PT FOOD. PT REFUSES AT THIS TIME. PT REPORTS DIZZINESS IS RETURNING. DR. SEYMOUR INFORMED.
[2018-02-05 12:00] VITALS: BP 125/85; PULSE 79; RESP 17; O2SAT 98
--- NOTE | 2018-02-05 12:46 | ED.DEP ---
ED Disposition - Plan for ED Patient: Chief Complaint: Headache Instructions: ED BPV Vertigo Referrals: Care Physician,No Primary [Primary Care Provider] - Sherry Schmitt DO [STAFF PHYSICIAN] - Counseling,Center [GROUP OF PHYSICIANS] -
--- NOTE | 2018-02-05 12:52 | ED.DEP ---
ED Disposition - Plan for ED Patient: Chief Complaint: Headache Instructions: ED BPV Vertigo Prescriptions: Meclizine HCl [Antivert] 12.5 mg PO 4X/DAY PRN PRN #20 tablet PRN Reason: Dizziness Referrals: Counseling,Center [GROUP OF PHYSICIANS] - Sherry Schmitt DO [STAFF PHYSICIAN] - Care Physician,No Primary [Primary Care Provider] -
--- NOTE | 2018-02-05 12:56 | ED.RN ---
PT UPSET WITH BECAUSE NO NEW MEDICATION ORDERED. IV D/C BY THIS RN AND PT DRESSES SELF. RFUSING D.C VITALS. EDUCATED TO WAIT FOR D/C PAPERWORK.
== END 2018-02-05 12:59 | disposition home or self-care (01) ==
PROVIDERS: Emergency Provider Emergency Medicine
DX: H81.10 Benign paroxysmal vertigo, unspecified ear (principal); F20.0 Paranoid schizophrenia; F31.9 Bipolar disorder, unspecified; F90.9 Attention-deficit hyperactivity disorder, unspecified type; Z72.0 Tobacco use
CPT/HCPCS: 80048; 80307; 80320; 85025; 99283; 99284; G0480

== ENCOUNTER 2018-02-13 04:53 | Emergency (ER) | payer MEDICAID, SELFPAY ==
[2018-02-13 04:54] VITALS: BP 129/88; PULSE 80; RESP 16; TEMP 36.6; O2SAT 96; BMI 28.0
--- NOTE | 2018-02-13 05:08 | ED.VISSUMM ---
- ER Visit Summary Date of Service: 02/13/18 Chief Complaint: [] Low back pain History of Present Illness: The patient is a 47 M with low back pain since yesterday. He fell asleep in the car last 4 hours the night made it worse. He has been using Aleve. Hurts in his low back. He has a history of DJD. His movement related. Denies associated symptoms. Frequent visits for back pain Physical Examination: Vital signs reviewed General: Well-nourished well-developed Head: Normocephalic atraumatic Eyes: Pupils equal round and reactive to light extraocular movements intact ENT: TMs clear no hemotympanum no trauma Neck: Nontender full range of motion Cardiovascular: Regular rate rhythm no murmurs normal S1-S2 Respiratory: No distress clear to auscultation bilaterally chest nontender Abdomen: Soft nontender nondistended normal bowel sounds no masses Back: Tenderness lower lumbar spine mild with mild decreased range of motion. Normal gait no CVA tenderness Extremities: Nontender active range of motion ?4 extremities no trauma Skin: Normal color no trauma Neuro alert oriented cranial nerves II through XII intact normal strength sensation reflexes Test Results: [] Emergency Department Course and Treatment: [] At this time I think it is likely musculoskeletal back strain and/or spasm. Given a shot of Toradol. We will continue anti-inflammatories. I do not feel he needs imaging. Treatment Plan: [] Disposition: [] Impression: [] Acute on chronic back pain This note was generated with [employer] dictation software. It may contain incorrect words, spelling, and punctuation that were not noted in review of the chart prior to signing ED Disposition - Plan for ED Patient: Chief Complaint: Back Referrals: Care Physician,No Primary [Primary Care Provider] -
--- NOTE | 2018-02-13 05:09 | ED.DEP ---
ED Disposition - Plan for ED Patient: Disposition: Home or Assisted Living Chief Complaint: Back Instructions: ED Sprain Strain Lumbar Referrals: Care Physician,No Primary [Primary Care Provider] - Evaristo Hudson MD [STAFF PHYSICIAN] -
[2018-02-13] MEDS: Ketorolac 60 MG/2 ML Vial IM (05:26)
[2018-02-13 05:39] VITALS: BP 125/78; PULSE 76; RESP 16; O2SAT 98
== END 2018-02-13 05:41 | disposition home or self-care (01) ==
PROVIDERS: Emergency Provider Emergency Medicine
DX: M54.5 Low back pain (principal); G89.29 Other chronic pain; Z87.442 Personal history of urinary calculi
CPT/HCPCS: 96372

== ENCOUNTER 2018-02-13 17:14 | Emergency (ER) | payer MEDICAID, SELFPAY ==
[2018-02-13 17:16] VITALS: BP 119/93; PULSE 84; RESP 16; TEMP 36.6; O2SAT 100; BMI 25.0
[2018-02-13 17:24] VITALS: BP 128/84; PULSE 80; RESP 16; O2SAT 97
--- NOTE | 2018-02-13 17:30 | ED.VISSUMM ---
- ER Visit Summary Date of Service: 02/13/18 Chief Complaint: Dizziness History of Present Illness: The patient is a 47 M since to the emergency department with dizziness requesting a refill on his Valium. Patient states that he has a history of vertigo. He states that he was taking Valium for years but took himself off of all of his medications within the past year. He states he has been following at the counseling center is being fast tracked to be seen. He states that his dizziness is just returned. He states it is worse when he moves his head. He denies any nausea or vomiting. He denies any other systemic symptoms. Physical Examination: Vital signs reviewed General: Well-nourished, well-developed Head: Normocephalic, atraumatic Eyes: Pupils equal and reactive, extraocular muscles intact Neck, supple, no lymphadenopathy Heart: Regular rate and rhythm Respiratory: No distress, clear bilaterally Abdomen: Soft, nontender, nondistended, no peritoneal signs Back: Nontender Extremities: Nontender, no edema, no cords Skin: Normal color no rash Neuro: Alert and oriented, no focal or lateralizing deficits Test Results: [] Emergency Department Course and Treatment: I did review automated prescription reporting. The patient is a multiple prescriptions for various substances within the past year. I do not feel comfortable prescribing him controlled substances. Patient was given 1 Valium here and I offered him prescription for meclizine. I did admissions counselor him he needs to follow with his primary care physician or the counseling center to have controlled substances written for chronic problems. He will be discharged home. Treatment Plan: [] Disposition: Charge Impression: 1. Vertigo 2. Medication refill This note was generated with [employer] dictation software. It may contain incorrect words, spelling, and punctuation that were not noted in review of the chart prior to signing ED Disposition - Plan for ED Patient: Chief Complaint: Med Refill Instructions: Med Refill Prescriptions: Meclizine HCl 25 mg PO TID PRN PRN #30 tab PRN Reason: Dizziness Referrals: Care Physician,No Primary [Primary Care Provider] -
--- NOTE | 2018-02-13 17:33 | ED.DCSUM_ITS ---
- ER Visit Summary Date of Service: 02/13/18 Chief Complaint: Dizziness History of Present Illness: The patient is a 47 M since to the emergency department with dizziness requesting a refill on his Valium. Patient states that he has a history of vertigo. He states that he was taking Valium for years but took himself off of all of his medications within the past year. He states he has been following at the counseling center is being fast tracked to be seen. He states that his dizziness is just returned. He states it is worse when he moves his head. He denies any nausea or vomiting. He denies any other systemic symptoms. Physical Examination: Vital signs reviewed General: Well-nourished, well-developed Head: Normocephalic, atraumatic Eyes: Pupils equal and reactive, extraocular muscles intact Neck, supple, no lymphadenopathy Heart: Regular rate and rhythm Respiratory: No distress, clear bilaterally Abdomen: Soft, nontender, nondistended, no peritoneal signs Back: Nontender Extremities: Nontender, no edema, no cords Skin: Normal color no rash Neuro: Alert and oriented, no focal or lateralizing deficits Test Results: [] Emergency Department Course and Treatment: I did review automated prescription reporting. The patient is a multiple prescriptions for various substances within the past year. I do not feel comfortable prescribing him controlled substances. Patient was given 1 Valium here and I offered him prescription for meclizine. I did elementary school counselor him he needs to follow with his primary care physician or the counseling center to have controlled substances written for chronic problems. He will be discharged home. Treatment Plan: [] Disposition: Charge Impression: 1. Vertigo 2. Medication refill This note was generated with [employer] dictation software. It may contain incorrect words, spelling, and punctuation that were not noted in review of the chart prior to signing ED Disposition - Plan for ED Patient: Chief Complaint: Med Refill Instructions: Med Refill Prescriptions: Meclizine HCl 25 mg PO TID PRN PRN #30 tab PRN Reason: Dizziness Referrals: Care Physician,No Primary [Primary Care Provider] -
[2018-02-13] MEDS: diazePAM 5 MG Tablet PO (17:42)
[2018-02-13 17:43] VITALS: BP 134/95; PULSE 99; RESP 14; O2SAT 97
== END 2018-02-13 17:44 | disposition home or self-care (01) ==
LOC: ED 17:37
PROVIDERS: Emergency Provider Emergency Medicine
DX: R42 Dizziness and giddiness (principal); M54.5 Low back pain; G89.29 Other chronic pain; Z76.0 Encounter for issue of repeat prescription; Z87.442 Personal history of urinary calculi; Z72.0 Tobacco use
CPT/HCPCS: 96372; 99282

== ENCOUNTER 2018-03-19 13:41 | Emergency (ER) | payer MEDICAID, SELFPAY ==
[2018-03-19 13:42] VITALS: BP 123/72; PULSE 84; RESP 16; TEMP 36.4; O2SAT 98; BMI 27.1
[2018-03-19] MEDS: Ketorolac 60 MG/2 ML Vial IM (14:15)
--- NOTE | 2018-03-19 14:38 | ED.DCSUM_ITS ---
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 indicates do that activity has lumbar back pain there is no radiation to his legs he denies perineal anesthesia or any direct trauma no nausea or vomiting no abdominal pain or paresthesias he presents as he has no primary care physician help manage his pain denies any other past history Physical Examination: [] No distress his vitals are within normal range head neck chest unremarkable the abdomen [place] soft and nontender midline back is nontender the back itself diffusely is nontender he is able to stand and walk without difficulty his strength lower extremities are normal he can heel raise toe raise and walk and knee bend without any difficulty the abdomen is completely nontender upper extremities unremarkable heart tones normal the lungs are clear clinically looks well Test Results: [] Emergency Department Course and Treatment: [] Explained findings to him he agrees to Toradol prescription strength Naprosyn and he will be referred to the [facility] for further management Treatment Plan: [] Disposition: [] Home stable Impression: [] Lumbar back pain related to laborious work This note was generated with [employer] dictation software. It may contain incorrect words, spelling, and punctuation that were not noted in review of the chart prior to signing ED Disposition - Plan for ED Patient: Chief Complaint: Back Referrals: Care Physician,No Primary [Primary Care Provider] -
--- NOTE | 2018-03-19 14:38 | ED.DEP ---
ED Disposition - Plan for ED Patient: Chief Complaint: Back Instructions: ED Spasm Back No Trauma Prescriptions: Naproxen [Naprosyn] 500 mg PO BID PRN #20 tab Referrals: Care Physician,No Primary [Primary Care Provider] -
== END 2018-03-19 14:45 | disposition home or self-care (01) ==
PROVIDERS: Emergency Provider Emergency Medicine
DX: M54.5 Low back pain (principal)
CPT/HCPCS: 96372; 99282

== ENCOUNTER 2018-05-01 09:18 | Emergency (ER) | payer MEDICAID, SELFPAY ==
[2018-05-01 09:19] VITALS: BP 125/75; PULSE 68; RESP 20; TEMP 37; O2SAT 100; BMI 28.2
--- NOTE | 2018-05-01 10:04 | CT_ITS ---
STUDY: CT ABDOMEN AND PELVIS WITHOUT CONTRAST REASON FOR EXAM: Male, 47 years old. Lower abdominal pain with painful urination. RADIATION DOSAGE (If Supplied By Facility): CTDIvol = ( 12.38 ) mGy, DLP = ( 680.65 ) mGycm TECHNIQUE: Transaxial images were obtained from the dome of the diaphragm to the symphysis pubis without oral contrast, and without intravenous contrast. Sagittal and coronal images were reconstructed. Individualized dose optimization techniques were used for this CT. COMPARISON: CT abdomen and pelvis 02/04/2018.. FINDINGS: Body wall soft tissues: CT abdomen and pelvis 02/04/2018. Osseous structures: No acute process. Inferior chest: Mild bibasilar compressive atelectasis. Normal distal esophagus. Normal cardiac base. Hepatobiliary: Normal. Pancreas: No acute process. Spleen: Normal. Adrenal glands: Normal. Urogenital: Normal bilateral kidneys, collecting systems, ureters, urinary bladder, urethra, prostate and seminal vesicles. Pelvic floor and sidewalls and retroperitoneum: No mass or adenopathy. Vasculature: No acute process. Stomach: No acute process. Small bowel and mesentery: Normal. Large bowel: There are postsurgical changes at the base of the cecum suggesting prior appendectomy. Large bowel and rectum are normal. Free fluid or free air: None. CT/Abdomen/Pelvis without Cont IMPRESSION: No acute abdominopelvic process is evident. There is no evidence of urolithiasis. No retained calculus. No secondary evidence of recently completed calculus passage. Electronically Signed: Wilner Choi, at 11:13 EDT Tel , Service support ,
[2018-05-01 10:19] LABS: Absolute Lymphocyte Count 1.16 X10^3/ul (0.83-4.51); Absolute Neutrophil Count 4.4 X10^3/uL (2.0-7.7); Basophil# 0.02 X10^3/uL; Basophil% 0.3 % (0-1); Eosinophils% 1.7 % (0-5); Hematocrit 42.6 % (40-54); Hemoglobin 13.1 g/dl (13.0-16.5); Lymphocyte # 1.16 X10^3/ul (4.0); Lymphocyte % 19.4 % (19-41); Mean Corp Hgb Conc 30.8 g/gl (32-36); Mean Corpuscular Hgb 25.6 pg (27.0-32.0); Mean Corpuscular Volume 83.4 fL (80-94); Mean Platelet Vol. 10.2 fl (6.2-12.0); Monocyte# 0.27 X10^3/uL; Monocyte% 4.5 % (0-10); Neutrophil # 4.41 X10^3/uL (2.7-7.7); Neutrophil % 73.9 % (47-70); Platelet Count 196 K/mm3 (150-450); RBC Distribution Width CV 16.8 % (11.6-14.6); RBC Distribution Width SD 51.7 fl (35.1-43.9); Red Blood Count 5.11 M/mm3 (4.6-6.2)
[2018-05-01 10:22] LABS: POSITIVE COUNT NO; POSITIVE DIFFERENTIAL NO; POSITIVE MORPHOLOGY NO
[2018-05-01] MEDS: 0.9% Normal Saline 1,000 ML 1000 ML IV (10:41)
[2018-05-01] MEDS: Ondansetron 4 MG/2 ML Vial IV (10:42)
[2018-05-01] MEDS: Ketorolac 30 MG/ML Syringe IV (10:43)
[2018-05-01 10:49] VITALS: BP 114/72; PULSE 58; RESP 14; O2SAT 99
[2018-05-01 10:49] LABS: AST(SGOT) 16 U/L (15-37); Alanine Aminotransfer ALT/SGPT 31 U/L (16-61); Alkaline Phosphatase 57 U/L (45-117); Anion Gap 5 (5-15); BUN 8 mg/dL (7-18); BUN/Creat Ratio 9.1 RATIO (10-20); Calcium,Total 8.1 mg/dL (8.5-10.1); Chloride 113 mmol/L (98-107); Creatinine, Serum 0.88 mg/dL (0.70-1.30); EST Glomerular Filtration Rate 100 mL/min (>60); Est Glom Filt Rate - Afr Amer 120 mL/min (>60); Estimated Creatinine Clearance 116.35 ml/min; Globulin 3.1 g/dL (2.2-4.2); Glucose 100 mg/dL (74-106); Lipase 133 U/L (73-393); Potassium 4.2 mmol/L (3.5-5.1); Protein, Total 6.1 g/dL (6.4-8.2); Sodium Level 143 mmol/L (136-145)
--- NOTE | 2018-05-01 11:07 | ED.VISSUMM ---
- ER Visit Summary Date of Service: 05/01/18 Chief Complaint: Abdominal pain History of Present Illness: The patient is a 47 M with lower abdominal pain that started about 3 days ago. This is in the bilateral inguinal region. He says he never had this before. It is associate with nausea, vomiting, and dysuria. He has a history of kidney stones, but they do not feel like this. Physical Examination: Afebrile and vital signs unremarkable. Heart regular. Lungs clear. Abdomen soft and nontender. Back is nontender. Skin appears normal. Test Results: CBC, BMP, hepatic panel, lipase unremarkable. Urinalysis and CT pending. Emergency Department Course and Treatment: Patient treated with fluids, Toradol, and Zofran while awaiting results. Consider GI, , infectious pathologies primarily. While awaiting results, nursing informed me that the patient was leaving. Patient was advised that his results are still pending and we do not have the results of his CAT scan. He voiced understanding to the nurse. He gave no specific reason for wanting to leave. Patient left AGAINST MEDICAL ADVICE. Treatment Plan: As above Disposition: AMA Impression: 1. Abdominal pain This note was generated with [employer] dictation software. It may contain incorrect words, spelling, and punctuation that were not noted in review of the chart prior to signing ED Disposition - Plan for ED Patient: Chief Complaint: Abd Pain Referrals: Care Physician,No Primary [Primary Care Provider] -
--- NOTE | 2018-05-01 11:10 | ED.DEP ---
ED Disposition - Plan for ED Patient: Chief Complaint: Abd Pain Instructions: ED Abdominal Pain Unkn Cause Male
--- NOTE | 2018-05-01 11:10 | ED.RN ---
1057 PT ASKED TO SEE NURSE. RYLEE GREWAL ENTERED ROOM AND PT STATES I WANT THIS IV OUT AND I WANT TO LEAVE, CAN I GET SOME PAPERS SO I CAN LEAVE RYLEE GREWAL STATES OK LET ME TELL THE DOCTOR AND I'LL GET YOU AMA PAPERS DR SMITH AWARE, AMA PAPERS OBTAINED. PT UNDERSTANDS RESULTS ARE NOT BACK AND STATES HE WILL COME BACK TO ED IF HE FEELS WORSE. IV D/C, AMA PAPERS SIGNED.
== END 2018-05-01 11:12 | disposition home or self-care (01) ==
PROVIDERS: Emergency Provider Emergency Medicine
DX: R10.30 Lower abdominal pain, unspecified (principal); Z87.442 Personal history of urinary calculi; F17.210 Nicotine dependence, cigarettes, uncomplicated
CPT/HCPCS: 74176; 80053; 83690; 85025; 96374; 96375; 99283; J7030; J2405

== ENCOUNTER 2018-05-25 03:28 | Emergency (ER) | payer MEDICAID, SELFPAY ==
[2018-05-25 03:29] VITALS: BP 144/91; PULSE 118; RESP 20; TEMP 36.4; O2SAT 97; BMI 29.9
--- NOTE | 2018-05-25 03:41 | ED.DCSUM_ITS ---
- ER Visit Summary Date of Service: 05/25/18 Chief Complaint: [] [place] dizzy at work History of Present Illness: The patient is a 47 M stated he felt lightheaded with little bit of room spinning at work. It came on gradually is gone currently. It helps when he got out of the hot work environment. He does heavy lifting at work in the temperature at work is hot he thinks might of had heat exhaustion. He felt sweaty his face was flushed. He had some mild shortness of breath. His symptoms have resolved. He has had multiple ER visits for various complaints including vertigo. He has had multiple CTs as well and frequent lab work evaluation. Physical Examination: [] Vital signs reviewed General: Well-nourished well-developed Head: Normocephalic atraumatic Eyes: Pupils equal round and reactive to light extraocular movements intact ENT: TMs clear no hemotympanum no trauma Neck: Nontender full range of motion Cardiovascular: Regular cardia with normal rhythm no murmurs normal S1-S2 Respiratory: No distress clear to auscultation bilaterally chest nontender Abdomen: Soft nontender nondistended normal bowel sounds no masses Back: Nontender no CVA tenderness Extremities: Nontender active range of motion ?4 extremities no trauma Skin: Normal color no trauma Neuro alert oriented cranial nerves II through XII intact normal strength sensation reflexes Test Results: [] Emergency Department Course and Treatment: [] Patient given IV fluids Zofran and lab work obtained did lab work shows nothing acute except for chloride 110. BUN 20. At this time I think the patient likely has a little bit of heat exhaustion felt better after treatment. Will be discharged. I do not feel he needs further workup or imaging. Treatment Plan: [] Disposition: [] Impression: [] Heat exhaustion This note was generated with [employer] dictation software. It may contain incorrect words, spelling, and punctuation that were not noted in review of the chart prior to signing ED Disposition - Plan for ED Patient: Chief Complaint: Dizziness Referrals: Care Physician,No Primary [Primary Care Provider] -
[2018-05-25] MEDS: 0.9% Normal Saline 1,000 ML 1000 ML IV (03:44)
[2018-05-25] MEDS: Ondansetron 4 MG/2 ML Vial IV (03:44)
[2018-05-25 03:52] LABS: Absolute Lymphocyte Count 1.67 X10^3/ul (0.83-4.51); Absolute Neutrophil Count 7.1 X10^3/uL (2.0-7.7); Basophil# 0.03 X10^3/uL; Basophil% 0.3 % (0-1); Eosinophils% 1.1 % (0-5); Hematocrit 43.5 % (40-54); Hemoglobin 14.5 g/dl (13.0-16.5); Lymphocyte # 1.67 X10^3/ul (4.0); Lymphocyte % 17.8 % (19-41); Mean Corp Hgb Conc 33.3 g/gl (32-36); Mean Corpuscular Hgb 26.2 pg (27.0-32.0); Mean Corpuscular Volume 78.7 fL (80-94); Mean Platelet Vol. 10.3 fl (6.2-12.0); Monocyte# 0.43 X10^3/uL; Monocyte% 4.6 % (0-10); Neutrophil # 7.11 X10^3/uL (2.7-7.7); Neutrophil % 75.6 % (47-70); POSITIVE COUNT NO; POSITIVE DIFFERENTIAL NO; POSITIVE MORPHOLOGY NO; Platelet Count 270 K/mm3 (150-450); RBC Distribution Width CV 17.4 % (11.6-14.6); RBC Distribution Width SD 49.9 fl (35.1-43.9); Red Blood Count 5.53 M/mm3 (4.6-6.2); White Blood Count 9.4 K/mm3 (4.4-11.0)
[2018-05-25 03:59] LABS: Anion Gap 10 (5-15); BUN 20 mg/dL (7-18); BUN/Creat Ratio 18.3 RATIO (10-20); Calcium,Total 9.3 mg/dL (8.5-10.1); Chloride 110 mmol/L (98-107); Creatinine, Serum 1.09 mg/dL (0.70-1.30); EST Glomerular Filtration Rate 78 mL/min (>60); Est Glom Filt Rate - Afr Amer 94 mL/min (>60); Estimated Creatinine Clearance 93.93 ml/min; Glucose 127 mg/dL (74-106); Potassium 3.7 mmol/L (3.5-5.1); Sodium Level 143 mmol/L (136-145)
--- NOTE | 2018-05-25 04:06 | ED.DEP ---
ED Disposition - Plan for ED Patient: Disposition: Home or Assisted Living Chief Complaint: Dizziness Instructions: ED Exhaustion Heat Referrals: Care Physician,No Primary [Primary Care Provider] -
[2018-05-25 04:57] VITALS: BP 128/87; PULSE 85; RESP 24; O2SAT 99
== END 2018-05-25 05:01 | disposition home or self-care (01) ==
PROVIDERS: Emergency Provider Emergency Medicine
DX: T67.5XXA Heat exhaustion, unspecified, initial encounter (principal); Z87.442 Personal history of urinary calculi; Z72.0 Tobacco use
CPT/HCPCS: 80048; 85025; 96361; 96374; 99285; J7030; A4216; J2405

== ENCOUNTER 2018-07-03 17:23 | Emergency (ER) | payer MEDICAID, SELFPAY ==
[2018-07-03 17:23] VITALS: BP 139/84; PULSE 84; RESP 18; TEMP 36.6; O2SAT 98; BMI 29.7
--- NOTE | 2018-07-03 17:57 | ED.VISSUMM ---
- ER Visit Summary Date of Service: 07/03/18 Chief Complaint: Low back pain History of Present Illness: The patient is a 47 M complaining of 3-day history of low back pain. Denies any trauma. Denies any fever. No prior back surgery. He states this feels like when he strained his back before. H he has been helping his father carry wood recently. He denies any fever. He is on no anticoagulation. He denies any weakness or numbness to his lower extremities. He denies any bowel or bladder retention. States he is urinating normally. Physical Examination: Vital signs stable afebrile. Middle-age male. No acute distress. Sitting upright in bed. Sits up and stands easily without significant pain. HEENT exam unremarkable. Neck nontender. Full range of motion. Lungs clear to auscultation bilaterally. Heart regular rhythm no murmur. Abdomen soft nontender. Normal bowel sounds no peritoneal signs. He is moving all 4 extremities. They are neurovascularly intact. He has 5 out of 5 child support investigator in both upper extremities. Equal symmetrical. Normal sensation. Normal range of motion. He has 5 out of 5 dorsi and plantar flexion flexion bilaterally both lower extremities. No foot drop. No cauda equina. No saddle anesthesia. Normal medial thigh sensation. Normal range of motion of both lower extremities. Negative straight leg raise bilaterally. He can lift both heels off the bed without any difficulty. Back he complains of some mild paralumbar soft tissue tenderness. The spine itself is nontender. There is no signs of trauma. No redness or warmth. No specific vertebral tenderness. Neurologic exam normal. Normal motor strength and sensation of both upper and lower extremities. Test Results: None Emergency Department Course and Treatment: Patient will be treated with NSAIDs at home. He prefers to use [id number] Motrin. He needs no workup at this time. There is no signs of any acute disc or cord compression. Treatment Plan: Motrin 600 mg 3 times a day. Hot shower warm bath. Massage. Disposition: Discharge Impression: Acute back pain secondary to lumbar strain This note was generated with [employer] dictation software. It may contain incorrect words, spelling, and punctuation that were not noted in review of the chart prior to signing ED Disposition - Plan for ED Patient: Chief Complaint: Back Referrals: Care Physician,No Primary [Primary Care Provider] -
--- NOTE | 2018-07-03 18:01 | ED.DCSUM_ITS ---
- ER Visit Summary Date of Service: 07/03/18 Chief Complaint: Low back pain History of Present Illness: The patient is a 47 M complaining of 3-day history of low back pain. Denies any trauma. Denies any fever. No prior back surgery. He states this feels like when he strained his back before. H he has been helping his father carry wood recently. He denies any fever. He is on no anticoagulation. He denies any weakness or numbness to his lower extremities. He denies any bowel or bladder retention. States he is urinating normally. Physical Examination: Vital signs stable afebrile. Middle-age male. No acute distress. Sitting upright in bed. Sits up and stands easily without significant pain. HEENT exam unremarkable. Neck nontender. Full range of motion. Lungs clear to auscultation bilaterally. Heart regular rhythm no murmur. Abdomen soft nontender. Normal bowel sounds no peritoneal signs. He is moving all 4 extremities. They are neurovascularly intact. He has 5 out of 5 associate media director in both upper extremities. Equal symmetrical. Normal sensation. Normal range of motion. He has 5 out of 5 dorsi and plantar flexion flexion bilaterally both lower extremities. No foot drop. No cauda equina. No saddle anesthesia. Normal medial thigh sensation. Normal range of motion of both lower extremities. Negative straight leg raise bilaterally. He can lift both heels off the bed without any difficulty. Back he complains of some mild paralumbar soft tissue tenderness. The spine itself is nontender. There is no signs of trauma. No redness or warmth. No specific vertebral tenderness. Neurologic exam normal. Normal motor strength and sensation of both upper and lower extremities. Test Results: None Emergency Department Course and Treatment: Patient will be treated with NSAIDs at home. He prefers to use [id number] Motrin. He needs no workup at this time. There is no signs of any acute disc or cord compression. Treatment Plan: Motrin 600 mg 3 times a day. Hot shower warm bath. Massage. Disposition: Discharge Impression: Acute back pain secondary to lumbar strain This note was generated with [employer] dictation software. It may contain incorrect words, spelling, and punctuation that were not noted in review of the chart prior to signing ED Disposition - Plan for ED Patient: Chief Complaint: Back Referrals: Care Physician,No Primary [Primary Care Provider] -
--- NOTE | 2018-07-03 18:01 | ED.DEP ---
ED Disposition - Plan for ED Patient: Disposition: Home or Assisted Living Chief Complaint: Back Instructions: ED Sprain Strain Lumbar Referrals: Rm Woodruff MD [STAFF PHYSICIAN] - 1 Week if not improving Additional Instructions: Hot shower and warm bath. Motrin 600 mg 3 times a day for pain and inflammation. Massage. Return if a lot worse. Follow-up with a primary care physician as needed.
== END 2018-07-03 18:12 | disposition home or self-care (01) ==
LOC: ED 18:08
PROVIDERS: Emergency Provider Emergency Medicine
DX: S39.012A Strain of muscle, fascia and tendon of lower back, initial encounter (principal); M54.5 Low back pain; Z72.0 Tobacco use; X58.XXXA Exposure to other specified factors, initial encounter; Y93.89 Activity, other specified; Y92.89 Other specified places as the place of occurrence of the external cause; Y99.8 Other external cause status
CPT/HCPCS: 99283

== ENCOUNTER 2018-09-07 00:17 | Emergency (ER) | payer MEDICAID, SELFPAY ==
[2018-09-07 00:18] VITALS: BP 147/100; PULSE 84; RESP 18; TEMP 36.2; O2SAT 98; BMI 33.0
--- NOTE | 2018-09-07 00:31 | ED.VISSUMM ---
- ER Visit Summary Date of Service: 09/07/18 Chief Complaint: right foot swelling History of Present Illness: The patient is a 47 M worsening right foot swelling after work this evening. Denies any pain. He is on his feet throughout the day. No chest pains or shortness of breath. No orthopnea symptoms. He does have a rash right leg left leg mild pruritic. 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 No fevers. No history of diabetes. Physical Examination: General: Alert and oriented ?3, no acute distress HEENT: Normocephalic, atraumatic. Moist mucosa membranes Neck: supple, nontender. Cardiovascular: Regular rate and rhythm, no murmurs Respiratory: Normal breath sounds, symmetric, no distress Abdomen: Soft, nontender, nondistended Extremities: Nontender, minimal lower extremity pitting edema bilaterally. A slight increased swelling right distal leg and foot. Pulses are intact distally. There is no calf or medial thigh pain bilaterally. Neuro: no focal neurological deficits. Skin: Patches rash right lower extremity at the proximal leg and upper thigh. Nontender with no induration and no drainage. Left leg patch distal left leg and proximal thigh. Nontender. No drainage. Skin intact. Test Results: [] Emergency Department Course and Treatment: Discussed peripheral edema right lower extremity with the patient. He is nontender with pulses intact. Raffi wrap provided, discussed elevation. No risk factors for DVT. 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 Given short course of steroids. He will follow-up with his PCP. Treatment Plan: [] Disposition: Discharge Impression: 1. Peripheral edema 2. Contact dermatitis This note was generated with [employer] dictation software. It may contain incorrect words, spelling, and punctuation that were not noted in review of the chart prior to signing ED Disposition - Plan for ED Patient: Disposition: Home or Assisted Living Chief Complaint: Lower Extremity Injury Diagnosis: Peripheral edema, Contact dermatitis Instructions: ED Leg Swelling Bilateral, ED Dermatitis Contact Prescriptions: predniSONE tablet 40 mg PO DAILY #14 tablet Referrals: Care Physician,No Primary [Primary Care Provider] - Additional Instructions: follow up with your doctor in 1 week.
[2018-09-07] MEDS: predniSONE 20 MG Tablet 40 MG PO (00:32)
--- NOTE | 2018-09-07 00:35 | ED.DCSUM_ITS ---
- ER Visit Summary Date of Service: 09/07/18 Chief Complaint: right foot swelling History of Present Illness: The patient is a 47 M worsening right foot swelling after work this evening. Denies any pain. He is on his feet throughout the day. No chest pains or shortness of breath. No orthopnea symptoms. He does have a rash right leg left leg mild pruritic. 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 No fevers. No history of diabetes. Physical Examination: General: Alert and oriented ?3, no acute distress HEENT: Normocephalic, atraumatic. Moist mucosa membranes Neck: supple, nontender. Cardiovascular: Regular rate and rhythm, no murmurs Respiratory: Normal breath sounds, symmetric, no distress Abdomen: Soft, nontender, nondistended Extremities: Nontender, minimal lower extremity pitting edema bilaterally. A slight increased swelling right distal leg and foot. Pulses are intact distally. There is no calf or medial thigh pain bilaterally. Neuro: no focal neurological deficits. Skin: Patches rash right lower extremity at the proximal leg and upper thigh. Nontender with no induration and no drainage. Left leg patch distal left leg and proximal thigh. Nontender. No drainage. Skin intact. Test Results: [] Emergency Department Course and Treatment: Discussed peripheral edema right lower extremity with the patient. He is nontender with pulses intact. Raffi wrap provided, discussed elevation. No risk factors for DVT. 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 Given short course of steroids. He will follow-up with his PCP. Treatment Plan: [] Disposition: Discharge Impression: 1. Peripheral edema 2. Contact dermatitis This note was generated with [employer] dictation software. It may contain incorrect words, spelling, and punctuation that were not noted in review of the chart prior to signing ED Disposition - Plan for ED Patient: Disposition: Home or Assisted Living Chief Complaint: Lower Extremity Injury Diagnosis: Peripheral edema, Contact dermatitis Instructions: ED Leg Swelling Bilateral, ED Dermatitis Contact Prescriptions: predniSONE tablet 40 mg PO DAILY #14 tablet Referrals: Care Physician,No Primary [Primary Care Provider] - Additional Instructions: follow up with your doctor in 1 week.
--- OUTSIDE RECORDS SUMMARY | 2018-10-23 23:08 | XMS RPT_ITS ---
:1970 Author Organization OHIP Support Name Relationship Address Phone ARTIFLEX Unavailable [address] + [address] [place] [address] RONAK HICKEYY Unavailable [address] + [place] [address] MARI TRINH Unavailable [address] + [address] [place] [address] ARTIFLEX Unavailable [address] + [address] [place] [address] RUPERTO JOSSY Unavailable [address] + [place] [address] MARI, TRINH Unavailable [address] + [address] [place] [address] ARTIFLEX Unavailable [address] + [address] [place] [address] RUPERTO, JOSSY Unavailable [address] + [place] [address] MARI TRINH Unavailable [address] + [address] [place] [address] RUPERTO JOSSY Unavailable [address] + [place] [address] MARI TRINH Unavailable [address] + [address] [place] [address] UE Unavailable Unavailable Unavailable RUPERTO, JOSSY Unavailable [address] + [place] [address] MARI, TRINH Unavailable [address] + [address] [place] [address] UE Unavailable Unavailable Unavailable RUPERTO, JOSSY Unavailable [address] + [place] [address] MARI, TRINH Unavailable [address] + [address] [place] [address] EVERETT Unavailable [address] + [place] [address] RUPERTO, JOSSY Unavailable [address] + [place] [address] MARI, TRINH Unavailable [address] + [address] [place] [address] EVERETT Unavailable [address] + [place] [address] RUPERTO, JOSSY Unavailable [address] + [place] [address] MARI, TRINH Unavailable [address] + [address] [place] [address] UE Unavailable Unavailable Unavailable PADMINI, TRINH Unavailable Unavailable + NOT GIVEN Unavailable Unavailable Unavailable PADMINI, TRINH Unavailable Unavailable + NOT GIVEN Unavailable Unavailable Unavailable RUPERTO, JOSSY Unavailable [address] + [place] [address] MARI, TRINH Unavailable [address] + [address] [place] [address] UE Unavailable Unavailable Unavailable RUPERTO, JOSSY Unavailable [address] + [place] [address] MARI, TRINH Unavailable [address] + [address] [place] [address] UE Unavailable Unavailable Unavailable RUPERTO, JOSSY Unavailable [address] + [place] [address] MARI, TRINH Unavailable [address] + [address] [place] [address] UE Unavailable Unavailable Unavailable RUPERTO, JOSSY Unavailable [address] + [place] [address] MARI, TRINH Unavailable [address] + [address] [place] [address] UE Unavailable Unavailable Unavailable RUPERTO, JOSSY Unavailable [address] + [place] [address] MARI, TRINH Unavailable [address] + [address] [place] [address] UE Unavailable Unavailable Unavailable RUPERTO, JOSSY Unavailable [address] + [place] [address] MARI, TRINH Unavailable [address] + [address] [place] [address] UE Unavailable Unavailable Unavailable PADMINI, TRINH Unavailable Unavailable + NOT GIVEN Unavailable Unavailable Unavailable RUPERTO, JOSSY Unavailable [address] + [place] [address] MARI, TRINH Unavailable [address] + [address] [place] [address] UE Unavailable Unavailable Unavailable RUPERTO, JOSSY Unavailable [address] + [place] [address] MARI, TRINH Unavailable [address] [facility] [address] + [address] [place] [address] UE Unavailable Unavailable Unavailable PADMINI, TRINH Unavailable Unavailable + NOT GIVEN Unavailable Unavailable Unavailable Care Team Providers Name Role Phone Primay Care Physicia, No Primary Care Unavailable Shakir Ingram Attending Unavailable Maged Spring Attending Unavailable Primay Care Physicia, No Referring Unavailable Primay Care Physicia, No Primary Care Unavailable Maurice Gannon Attending Unavailable Primay Care Physicia, No Primary Care Unavailable Suman Scott Attending Unavailable Primay Care Physicia, No Primary Care Unavailable Diana Roper Attending Unavailable Primay Care Physicia, No Primary Care Unavailable Diana Roper Attending Unavailable Primay Care Physicia, No Primary Care Unavailable Kuldeep Gutpa Attending Unavailable Primay Care Physicia, No Primary Care Unavailable Guilherme Dueñas Attending Unavailable Primay Care Physicia, No Primary Care Unavailable Hi Ribeiro Attending Unavailable Primay Care Physicia, No Primary Care Unavailable Diana Roper Attending Unavailable Primay Care Physicia, No Primary Care Unavailable Marty Le Attending Unavailable Primay Care Physicia, No Primary Care Unavailable Suman Mary Attending Unavailable Primay Care Physicia, No Primary Care Unavailable Hannah Wei Attending Unavailable Primay Care Physicia, No Primary Care Unavailable Manoj Irby Attending Unavailable Primay Care Physicia, No Primary Care Unavailable Marty Le Attending Unavailable Primay Care Physicia, No Primary Care Unavailable Hi Ribeiro Attending Unavailable CARLOS SALAS Admitting Unavailable CARLOS SALAS Attending Unavailable NO, DOCTOR ON Referring Unavailable CARLOS SALAS Primary Care Unavailable NO, DOCTOR ON Consulting Unavailable LAWS, DR JONI Orona Admitting Unavailable LAWS, DR JONI Orona Attending Unavailable NO, DOCTOR ON Referring Unavailable LAWS, DR JONI Orona Primary Care Unavailable NO, DOCTOR ON Consulting Unavailable ELENO CHOE DO Admitting Unavailable DIDURELENO DO Attending Unavailable NO, DOCTOR ON Referring Unavailable ELENO CHOE DO Primary Care Unavailable NO, DOCTOR ON Consulting Unavailable VOLBRIAN Ferguson DO Admitting Unavailable VOLLBRIAN DO Attending Unavailable NO, DOCTOR ON Referring Unavailable VOLLBRIAN DO Primary Care Unavailable NO, DOCTOR ON Consulting Unavailable Doug Noonan Admitting Unavailable Doug Noonan Attending Unavailable No Doctor Assigned, Nodr Primary Care Unavailable Harjeet, Dr. Batsheva Azul Attending Unavailable Harjeet, Dr. Batsheva Azul Referring Unavailable Harjeet, Dr. Batsheva Azul Primary Care Unavailable Harjeet, Dr. Batsheva Azul Attending Unavailable Harjeet, Dr. Batsheva Azul Referring Unavailable Harjeet, Dr. Batsheva Azul Primary Care Unavailable Harjeet, Dr. Batsheva Azul Attending Unavailable Harjeet, Dr. Batsheva Azul Primary Care Unavailable PROBLEMS PROBLEMS DATE TYPE CONDITION / CODE ATTENDING STATUS SOURCE 10/16/2018 Unknown J02.9 - Acute RuSuman barrientos Active [place] pharyngitis, Community unspecified / Hospital J02.9(ICD-10) Repository 05/26/2018 Unknown R10.9 - Mahamed, Manoj Active [place] Unspecified [facility] abdominal pain / Hospital R10.9(ICD-10) Repository PROCEDURES PROCEDURES No Procedure Records FoundRESULTS RESULTS PROGRESS Observed: 10/06/2018 Status: COMPLETED Source: [place] 10:28 AM [facility] REPOSITORY HNO ID: [id number] Author: Jarad Vang Service: (none) Author Type: Technology Solutions Architect Type: Progress Notes Filed: 10/06/2018 10:31 AM Note Text: ED Follow Up: Patient discharged from [facility] ED on 10/04/18. 1. How are you feeling since your ED visit? Phone number no longer in service. Have your symptoms improved or resolved? Phone number no longer in service. 2. Were you prescribed any medications while in the ED or advised to stop any medication? Phone number no longer in service. - If yes, were you able to fill your prescriptions? Phone number no longer in service. -if stopped medication, what was the medication? Phone number no longer in service. 3. Were you advised to schedule a follow up appointment with your provider? Phone number no longer in service. - If no, Do you feel like you need an appointment scheduled? Phone number no longer in service. - If yes, Do you need this scheduled now or has this already been scheduled? Phone number no longer in service. 4. Were you able to contact the office or solids control technician provider prior to your ED visit? Phone number no longer in service. 5. Is there anything else I can do for you today? Phone number no longer in service. Pt seen at [facility] 10/04/18 for Viral Sinuitis. Could not leave message as phone number is no longer in service. Jarad Vang MA CNPTOUTREACH Observed: 10/06/2018 Status: COMPLETED Source: [place] 12:00 AM [facility] REPOSITORY Patient Outreach (AGINTMLW) ELENO LEBLANC ([id number]) 1970 M DEF Date Time Provider Department 1/11/19 DIANE PLAZA AGINTMLW During your visit today, we recorded the following information about you: Jarad Vang MA 10/06/2018 10:31 AM Signed ED Follow Up: Patient discharged from [facility] ED on 10/04/18. 1. How are you feeling since your ED visit? Phone number no longer in service. Have your symptoms improved or resolved? Phone number no longer in service. 2. Were you prescribed any medications while in the ED or advised to stop any medication? Phone number no longer in service. - If yes, were you able to fill your prescriptions? Phone number no longer in service. -if stopped medication, what was the medication? Phone number no longer in service. 3. Were you advised to schedule a follow up appointment with your provider? Phone number no longer in service. - If no, Do you feel like you need an appointment scheduled? Phone number no longer in service. - If yes, Do you need this scheduled now or has this already been scheduled? Phone number no longer in service. 4. Were you able to contact the office or solids control technician provider prior to your ED visit? Phone number no longer in service. 5. Is there anything else I can do for you today? Phone number no longer in service. Pt seen at [facility] 10/04/18 for Viral Sinuitis. Could not leave message as phone number is no longer in service. Jarad Vang MA Allergies As of Date: 10/06/2018 (No Known Allergies) Date Reviewed: 01/19/2017 Reviewed by: Diane Plaza - Fully Assessed Reason for Visit: ER F/U [41] Prescriptions as of 10/06/2018 Sig: LOPERAMIDE 2 MG TABLET Take 1 tablet by mouth as nee* ONDANSETRON 4 MG DISINTEGRATI* Take 1 tablet by mouth every * NICOTINE 21 MG/24 HR DAILY TR* Apply 1 Patch as directed katelyn* NICOTINE (POLACRILEX) 2 MG BU* Place 2 mg between cheek and * DEXTROAMPHETAMINE-AMPHETAMINE* Take 1 tablet by mouth twice * CLONAZEPAM 1 MG TABLET Take 0.5 tablets by mouth twi* OMEPRAZOLE 20 MG CAPSULE,DARIN* Take 1 capsule by mouth once * Problem List As Of Date 10/06/2018 Noted Resolved Mitral valve disorder [I05.9] INVALID FOR*10/28/2016 ADHD (attention deficit hyperactivity disorder)*INVALID FOR* Chronic back pain [M54.9, G89.29] INVALID FOR* 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] INVALID FOR* Encounter Status:Closed by JARAD VANG MA on 10/06/18 EMERGENCY DEPARTMENT Observed: 10/04/2018 Status: F Source: [place] SUMMARY 4:22 PM REPOSITORY [facility] Medical Records Department [address] [place] [address] Emergency Department Summary 10/04/18 1229 MR#: [id number] Acct: [id number] Name: ELENO LEBLANC Rep #: [id number] : 1970 48 From: Suman Scott MD PCP: Edmund Proctor, No Primary Status: DEP ER - ER Visit Summary Date of Service: 10/04/18 Chief Complaint: Sore throat cough History of Present Illness: The patient is a 48 M presenting for evaluation secondary to a respiratory illness. Patient reports that over the course last 4 days he has had runny nose sore throat congestion and a nonproductive cough. Denies any presence of fevers. Denies any nausea vomiting or diarrhea associated with this. Patient is concerned because he missed work for this. Physical Examination: Vital signs within normal limits. Well- nourished male no acute distress. No sinus tenderness. Swollen nasal turbinates noted. Oropharynx clear. Neck supple. Heart regular rate and rhythm lungs sound clear. Test Results: None indicated Emergency Department Course and Treatment: Patient presented for evaluation secondary to respiratory illness. This appears consistent with viral sinusitis. Patient will be treated with Afrin and Sanjuanasin-DM Disposition: Discharged Impression: 1. Viral sinusitis This note was generated with Whitetruffle dictation software. It may contain incorrect words, spelling, and punctuation that were not noted in review of the chart prior to signing ED Disposition - Plan for ED Patient: Disposition: Home or Assisted Living Chief Complaint: Cold Sx Diagnosis: Acute non-recurrent sinusitis Instructions: ED Upper Resp Infec No Abx Tx Prescriptions: Guaifenesin/Dextromethorphan [Mucinex Dm ER 1,200-60 mg Tab] 1 ea PO BID PRN PRN #[id number].[id number] PRN Reason: Cough Referrals: Care Physician,No Primary [Primary Care Provider] - What to do if you have Problems For any increased pain, shortness of breath, bleeding, nausea or vomiting, chest pain, or any unexpected problems, contact your Primary Care Provider. Call [facility] ([phone]) or report to the closest Emergency Room. Call 911 if necessary. 10/04/18 1622 <Electronically signed by Suman Scott MD> Date Suman Scott MD Cosigner Signature (If Indicated): Date CC: No Primary Care Physician PROGRESS Observed: 09/08/2018 Status: COMPLETED Source: [place] 10:59 AM [facility] REPOSITORY O ID: [id number] Author: Lynne Bañuelos Service: (none) Author Type: Technology Solutions Architect Type: Progress Notes Filed: 09/08/2018 11:02 AM Note Text: ED Follow Up: Patient discharged from [facility] ED on 09/07/18. 1. How are you feeling since your ED visit? Left message Have your symptoms improved or resolved? left message 2. Were you prescribed any medications while in the ED or advised to stop any medication? no report, left message - If yes, were you able to fill your prescriptions? Not applicable -if stopped medication, what was the medication? na 3. Were you advised to schedule a follow up appointment with your provider? left message - If no, Do you feel like you need an appointment scheduled? left message - If yes, Do you need this scheduled now or has this already been scheduled? left message 4. Were you able to contact the office or solids control technician provider prior to your ED visit? left message 5. Is there anything else I can do for you today? Not applicable Patient was seen in [facility] for right leg edema and instructed on message to all office with how he is feeling. Lynne Bañuelos CMA CNPTOUTREACH Observed: 09/08/2018 Status: COMPLETED Source: [place] 12:00 AM [facility] REPOSITORY Patient Outreach (AGFAMPLE) ELENO LEBLANC ([id number]) 1970 M DEF Date Time Provider Department 09/08/18 LYNNE BAÑUELOS ([facility]) DEEJAY During your visit today, we recorded the following information about you: Lynne Bañuelos CMA 09/08/2018 11:02 AM Signed ED Follow Up: Patient discharged from [facility] ED on 09/07/18. 1. How are you feeling since your ED visit? Left message Have your symptoms improved or resolved? left message 2. Were you prescribed any medications while in the ED or advised to stop any medication? no report, left message - If yes, were you able to fill your prescriptions? Not applicable -if stopped medication, what was the medication? na 3. Were you advised to schedule a follow up appointment with your provider? left message - If no, Do you feel like you need an appointment scheduled? left message - If yes, Do you need this scheduled now or has this already been scheduled? left message 4. Were you able to contact the office or solids control technician provider prior to your ED visit? left message 5. Is there anything else I can do for you today? Not applicable Patient was seen in [facility] for right leg edema and instructed on message to all office with how he is feeling. Lynne Bañuelos CMA Allergies As of Date: 09/08/2018 (No Known Allergies) Date Reviewed: 01/19/2017 Reviewed by: Diane Plaza - Fully Assessed Reason for Visit: ED Follow Up [973] Prescriptions as of 09/08/2018 Sig: CLONAZEPAM 1 MG TABLET Take 0.5 tablets by mouth twi* DEXTROAMPHETAMINE-AMPHETAMINE* Take 1 tablet by mouth twice * LOPERAMIDE 2 MG TABLET Take 1 tablet by mouth as nee* NICOTINE 21 MG/24 HR DAILY TR* Apply 1 Patch as directed katelyn* NICOTINE (POLACRILEX) 2 MG BU* Place 2 mg between cheek and * OMEPRAZOLE 20 MG CAPSULE,DARIN* Take 1 capsule by mouth once * ONDANSETRON 4 MG DISINTEGRATI* Take 1 tablet by mouth every * Problem List As Of Date 09/08/2018 Noted Resolved Mitral valve disorder [I05.9] INVALID FOR*10/28/2016 ADHD (attention deficit hyperactivity disorder)*INVALID FOR* Chronic back pain [M54.9, G89.29] INVALID FOR* 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 Status: Signed Intake Vital Signs09/07/18 Body Mass Index (BMI) 33.0 09/07/18 Height 6 ft 09/07/18 Weight: 245 lb Intake Visit Reasons: Swollen Foot Chief Complaint: Right lower extremity swelling, rash Cellulose Insulation Helper Required: No Accompanied by: self Is patient in pain?: No (pt denies pain) Allergies No Known Allergies Allergy (Verified 09/07/18 09:18) [facility] Social History Smoking Status: Current every day smoker alcohol intake: never HPI HPI Chief Complaint: Right lower extremity swelling, rash Details: ELENO LEBLANC, is a 47 M who presents to the office today for initial evaluation right lower leg and foot swelling first noticed yesterday morning. 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 He notes his right foot feels slightly cool to touch. He notes no loss of sensation or strength in his ankle and digits x5. He does note mild Discomfort in the right leg. He notes pain to the same is aggravated to touch and with prolonged weightbearing. He notes no complaints of chest pains or shortness of breath. Patient admits to being a tobacco smoker. He notes no other associated symptoms and no other alleviating or aggravating factors. ROS Const Constitutional: No other (ROS negative x10 other than as noted above.) Exam Const General: cooperative, healthy appearing, no acute distress, comfortable Nutritional Appearance: average body habitus Orientation: alert, awake, oriented x3 HENMT Head: normal to inspection Ears: hearing grossly normal bilaterally, external ears normal Nose: external nose normal Eyes General: appearance normal, both eyes and all related structures Neck Neck: normal visual inspection, full ROM, no lymphadenopathy, no meningeal signs, supple Neck mass: No Thyroid: thyroid normal Lymphatic: no lymphadenopathy noted Chest Chest palpation AND inspection: normal inspection of the chest Resp Effort AND Inspection: normal respiratory effort, able to speak in complete sentences, symmetric chest movement, no cough Auscultation: Bilateral: Clear to Auscultation Cardio Palpation: normal PMI Rate: regular rate Rhythm: regular rhythm Heart Sounds: S1 normal, S2 normal, no gallops, no murmurs, no rubs Pulses: radial pulses present, dorsalis pedis pulses present, posterior tibial pulses present, other (Mild right calf tenderness to palpation) GI Inspection: normal to inspection Palpation: soft Skin Lesions: no lesions Rashes: rashes noted (Fine erythematous papular lesions bilateral anterior lower legs) Neuro General: alert, awake, oriented x3, gait normal Cognition: normal cognition Speech: speech normal Gait: normal gait Motor: muscle tone normal throughout Sensory Exam: no sensory deficits noted Extrem General: normal to inspection (Except right distal half of RLE and R foot swelling/erythema) Psych Appearance: grossly normal Mental Status: mental status grossly normal Mood: congruent mood Affect: normal affect Speech and Movement: speech and movement normal Attitude: cooperative Thought Process: normal Thought Content: normal Judgment: judgment good Assessment AND Plan Problems 1. Right leg swelling M79.89 2. Contact dermatitis L25.9 Plan Due to acute onset of unilateral symptoms as described above, recommend report to emergency room at this time for further evaluation. Patient states acknowledging understanding all the above. This note was generated with [employer] software. It may contain incorrect words, spelling, and punctuation that were not noted in checking the note before signing. Coding Level of Care Code Off vis,est,level 3 Diagnoses Right leg swelling M79.89 Contact dermatitis L25.9 09/07/18 0958 <Electronically signed by Maged BERNAL> Date Maged BERNAL Cosigner Signature: Date (if applicable) CC: EMERGENCY DEPARTMENT Observed: 09/07/2018 Status: F Source: [place] SUMMARY 9:50 AM REPOSITORY [facility] Medical Records Department [address] [facility] [place] [address] Emergency Department Summary 09/07/18 0927 MR#: [id number] Acct: [id number] Name: ELENO LEBLANC Rep #: [id number] : 1970 47 From: Maurice Gannon DO PCP: Care Physician, No Primary Status: PRE ER - ER Visit Summary Date of Service: 09/07/18 Chief Complaint: Right leg swelling History of Present Illness: The patient is a 47 M who presents with right leg swelling. Patient was seen here last night and was instructed to elevate his leg. Patient has no risk factors for DVT. Patient was also diagnosed with contact dermatitis and was given a prescription for prednisone. Patient states he followed up today at the [facility]. Patient was referred to the emergency department from the [facility]. Patient denies any calf pain. Patient denies any chest pain or shortness of breath. Patient denies any recent trauma or injury. Physical Examination: Vital signs are stable. Patient is afebrile. Patient is in no acute distress. Oral mucosa is pink and moist. Neck is supple. Trachea is midline. There is no JVD noted. Heart was regular rate and rhythm. Lungs are clear and equal bilaterally. Abdomen is soft. Bowel sounds are normal. Extremities are intact. There is 1+ edema of the right lower extremity. There is no edema of the left. There is no calf tenderness. Homans sign is negative. Remaining physical exam is within normal limits. Emergency Department Course and Treatment: I do not feel venous duplex of the lower extremities necessary at this time. Patient has no risk factor for DVT. Patient has no calf tenderness and no signs of DVT. Patient was instructed to elevate his right leg. Patient was instructed to follow-up with his primary care physician in 5-7 days. Patient understood and was agreeable with the plan. All questions were answered. Patient was given a note for work for the next couple days. Disposition: Discharged home Impression: Right leg edema This note was generated with Whitetruffle dictation software. It may contain incorrect words, spelling, and punctuation that were not noted in review of the chart prior to signing ED Disposition - Plan for ED Patient: Disposition: Home or Assisted Living Chief Complaint: Edema Diagnosis: Peripheral edema Instructions: ED Leg Swelling Unilateral Referrals: Care Physician,No Primary [Primary Care Provider] - What to do if you have Problems For any increased pain, shortness of breath, bleeding, nausea or vomiting, chest pain, or any unexpected problems, contact your Primary Care Provider. Call [facility] ([phone]) or report to the closest Emergency Room. Call 911 if necessary. 09/07/18 0950 <Electronically signed by Maurice Gannon DO> Date Maurice Gannon DO Cosigner Signature (If Indicated): Date CC: No Primary Care Physician EMERGENCY DEPARTMENT Observed: 09/07/2018 Status: F Source: [place] SUMMARY 12:35 AM REPOSITORY [facility] Medical Records Department [address] [place] [address] Emergency Department Summary 09/07/18 0031 MR#: [id number] Acct: [id number] Name: ELENO LEBLANC Rep #: [id number] : 1970 47 From: Shakir Wei PCP: Care Physician, No Primary Status: PRE ER - ER Visit Summary Date of Service: 09/07/18 Chief Complaint: right foot swelling History of Present Illness: The patient is a 47 M worsening right foot swelling after work this evening. Denies any pain. He is on his feet throughout the day. No chest pains or shortness of breath. No orthopnea symptoms. He does have a rash right leg left leg mild pruritic. 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 No fevers. No history of diabetes. Physical Examination: General: Alert and oriented 3, no acute distress HEENT: Normocephalic, atraumatic. Moist mucosa membranes Neck: supple, nontender. Cardiovascular: Regular rate and rhythm, no murmurs Respiratory: Normal breath sounds, symmetric, no distress Abdomen: Soft, nontender, nondistended Extremities: Nontender, minimal lower extremity pitting edema bilaterally. A slight increased swelling right distal leg and foot. Pulses are intact distally. There is no calf or medial thigh pain bilaterally. Neuro: no focal neurological deficits. Skin: Patches rash right lower extremity at the proximal leg and upper thigh. Nontender with no induration and no drainage. Left leg patch distal left leg and proximal thigh. Nontender. No drainage. Skin intact. Test Results: [] Emergency Department Course and Treatment: Discussed peripheral edema right lower extremity with the patient. He is nontender with pulses intact. Raffi wrap provided, discussed elevation. No risk factors for DVT. 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 Given short course of steroids. He will follow-up with his PCP. Treatment Plan: [] Disposition: Discharge Impression: 1. Peripheral edema 2. Contact dermatitis This note was generated with [employer]et[employer] dictation software. It may contain incorrect words, spelling, and punctuation that were not noted in review of the chart prior to signing ED Disposition - Plan for ED Patient: Disposition: Home or Assisted Living Chief Complaint: Lower Extremity Injury Diagnosis: Peripheral edema, Contact dermatitis Instructions: ED Leg Swelling Bilateral, ED Dermatitis Contact Prescriptions: predniSONE tablet 40 mg PO DAILY #14 tablet Referrals: Care Physician,No Primary [Primary Care Provider] - Additional Instructions: follow up with your doctor in 1 week. What to do if you have Problems For any increased pain, shortness of breath, bleeding, nausea or vomiting, chest pain, or any unexpected problems, contact your Primary Care Provider. Call [employer] [facility] ([phone]) or report to the closest Emergency Room. Call 911 if necessary. 09/07/18 0035 <Electronically signed by Shakir Wei> Date Shakir Wei Cosigner Signature (If Indicated): Date CC: No Primary Care Physician EMERGENCY DEPARTMENT Observed: 07/04/2018 Status: F Source: [place] [facility] 12:20 AM REPOSITORY [facility] Medical Records Department [address] [place] [address] Emergency Department Summary 07/03/18 1757 MR#: [id number] Acct: [id number] Name: ELENO LEBLANC Umu Rep #: [id number] : 1970 47 From: Hi Ribeiro MD PCP: Care Physician, No Primary Status: DEP ER - ER Visit Summary Date of Service: 07/03/18 Chief Complaint: Low back pain History of Present Illness: The patient is a 47 M complaining of 3-day history of low back pain. Denies any trauma. Denies any fever. No prior back surgery. He states this feels like when he strained his back before. H he has been helping his father carry wood recently. He denies any fever. He is on no anticoagulation. He denies any weakness or numbness to his lower extremities. He denies any bowel or bladder retention. States he is urinating normally. Physical Examination: Vital signs stable afebrile. Middle- age male. No acute distress. Sitting upright in bed. Sits up and stands easily without significant pain. HEENT exam unremarkable. Neck nontender. Full range of motion. Lungs clear to auscultation bilaterally. Heart regular rhythm no murmur. Abdomen soft nontender. Normal bowel sounds no peritoneal signs. He is moving all 4 extremities. They are neurovascularly intact. 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 Equal symmetrical. Normal sensation. Normal range of motion. He has 5 out of 5 dorsi and plantar flexion flexion bilaterally both lower extremities. No foot drop. No cauda equina. No saddle anesthesia. Normal medial thigh sensation. Normal range of motion of both lower extremities. Negative straight leg raise bilaterally. He can lift both heels off the bed without any difficulty. Back he complains of some mild paralumbar soft tissue tenderness. The spine itself is nontender. There is no signs of trauma. No redness or warmth. No specific vertebral tenderness. Neurologic exam normal. Normal motor strength and sensation of both upper and lower extremities. Test Results: None Emergency Department Course and Treatment: Patient will be treated with NSAIDs at home. He prefers to use [id number] Motrin. He needs no workup at this time. There is no signs of any acute disc or cord compression. Treatment Plan: Motrin 600 mg 3 times a day. Hot shower warm bath. Massage. Disposition: Discharge Impression: Acute back pain secondary to lumbar strain This note was generated with Whitetruffle dictation software. It may contain incorrect words, spelling, and punctuation that were not noted in review of the chart prior to signing ED Disposition - Plan for ED Patient: Chief Complaint: Back Referrals: Care Physician,No Primary [Primary Care Provider] - What to do if you have Problems For any increased pain, shortness of breath, bleeding, nausea or vomiting, chest pain, or any unexpected problems, contact your Primary Care Provider. Call [facility] ([phone]) or report to the closest Emergency Room. Call 911 if necessary. 07/04/18 0020 <Electronically signed by Hi Ribeiro MD> Date Hi Ribeiro MD Cosigner Signature (If Indicated): Date CC: No Primary Care Physician DISCHARGE INSTRUCTION Observed: 07/04/2018 Status: F Source: [place] 12:20 AM REPOSITORY [facility] Medical Records Department [address] [place] [address] Discharge Instruction 07/03/18 1801 MR#: [id number] Acct: [id number] Name: ELENO LEBLANC Rep #: [id number] : 1970 47 From: Hi Ribeiro MD PCP: Care Physician, No Primary Status: DEP ER ED Disposition - Plan for ED Patient: Disposition: Home or Assisted Living Chief Complaint: Back Instructions: ED Sprain Strain Lumbar Referrals: Rm Woodruff MD [STAFF PHYSICIAN] - 1 Week if not improving Additional Instructions: Hot shower and warm bath. Motrin 600 mg 3 times a day for pain and inflammation. Massage. Return if a lot worse. Follow-up with a primary care physician as needed. What to do if you have Problems For any increased pain, shortness of breath, bleeding, nausea or vomiting, chest pain, or any unexpected problems, contact your Primary Care Provider. Call [employer] [facility] ([phone]) or report to the closest Emergency Room. Call 911 if necessary. 07/04/18 0020 <Electronically signed by Hi Ribeiro MD> Date Hi Ribeiro MD Cosigner Signature (If Indicated): Date CC: No Primary Care Physician EMERGENCY DEPARTMENT Observed: 05/25/2018 Status: F Source: [place] SUMMARY 6:48 AM REPOSITORY [facility] Medical Records Department [address] [place] [address] Emergency Department Summary 05/25/18 0339 MR#: [id number] Acct: [id number] Name: ELENO LEBLANC Rep #: [id number] : 1970 47 From: Marty Le MD PCP: Care Physician, No Primary Status: DEP ER - ER Visit Summary Date of Service: 05/25/18 Chief Complaint: [] [place] dizzy at work History of Present Illness: The patient is a 47 M stated he felt lightheaded with little bit of room spinning at work. It came on gradually is gone currently. It helps when he got out of the hot work environment. He does heavy lifting at work in the temperature at work is hot he thinks might of had heat exhaustion. He felt sweaty his face was flushed. He had some mild shortness of breath. His symptoms have resolved. He has had multiple ER visits for various complaints including vertigo. He has had multiple CTs as well and frequent lab work evaluation. Physical Examination: [] Vital signs reviewed General: Well-nourished well-developed Head: Normocephalic atraumatic Eyes: Pupils equal round and reactive to light extraocular movements intact ENT: TMs clear no hemotympanum no trauma Neck: Nontender full range of motion Cardiovascular: Regular cardia with normal rhythm no murmurs normal S1-S2 Respiratory: No distress clear to auscultation bilaterally chest nontender Abdomen: Soft nontender nondistended normal bowel sounds no masses Back: Nontender no CVA tenderness Extremities: Nontender active range of motion 4 extremities no trauma Skin: Normal color no trauma Neuro alert oriented cranial nerves II through XII intact normal strength sensation reflexes Test Results: [] Emergency Department Course and Treatment: [] Patient given IV fluids Zofran and lab work obtained did lab work shows nothing acute except for chloride 110. BUN 20. At this time I think the patient likely has a little bit of heat exhaustion felt better after treatment. Will be discharged. I do not feel he needs further workup or imaging. Treatment Plan: [] Disposition: [] Impression: [] Heat exhaustion This note was generated with Whitetruffle dictation software. It may contain incorrect words, spelling, and punctuation that were not noted in review of the chart prior to signing ED Disposition - Plan for ED Patient: Chief Complaint: Dizziness Referrals: Care Physician,No Primary [Primary Care Provider] - What to do if you have Problems For any increased pain, shortness of breath, bleeding, nausea or vomiting, chest pain, or any unexpected problems, contact your Primary Care Provider. Call [facility] ([phone]) or report to the closest Emergency Room. Call 911 if necessary. 05/25/18 4080 <Electronically signed by Marty Le MD> Date Marty Le MD Cosigner Signature (If Indicated): Date CC: No Primary Care Physician DISCHARGE INSTRUCTION Observed: 05/25/2018 Status: F Source: [place] 6:48 AM REPOSITORY [facility] Medical Records Department [address] [place] [address] Discharge Instruction 05/25/18 0406 MR#: [id number] Acct: [id number] Name: ELENO LEBLANC Rep #: [id number] : 1970 47 From: Marty Le MD PCP: Care Physician, No Primary Status: DEP ER ED Disposition - Plan for ED Patient: Disposition: Home or Assisted Living Chief Complaint: Dizziness Instructions: ED Exhaustion Heat Referrals: Care Physician,No Primary [Primary Care Provider] - What to do if you have Problems For any increased pain, shortness of breath, bleeding, nausea or vomiting, chest pain, or any unexpected problems, contact your Primary Care Provider. Call [facility] ([phone]) or report to the closest Emergency Room. Call 911 if necessary. 05/25/18 0648 <Electronically signed by Marty Le MD> Date Marty Le MD Cosigner Signature (If Indicated): Date CC: No Primary Care Physician CBC W/DIFF, AUTOMATED Collected: 05/25/2018 Status: F Source: [facility] 3:40 AM REPOSITORY TYPE CODE TESTS RESULT OUT OF RANGE REFERENCE UNITS LAB L100.1000 4.4-11.0 K/mm3 Normal WBC 9.4 LAB L100.1200 4.6-6.2 M/mm3 Normal RBC 5.53 LAB L100.1300 13.0-16.5 g/dl Normal HGB 14.5 LAB L100.1400 40-54 % Normal HCT 43.5 LAB L100.1500 80-94 fL Low MCV 78.7 LAB L100.1600 27.0-32.0 pg Low MCH 26.2 LAB L100.1700 32-36 g/gl Normal MCHC 33.3 LAB L100.1810 11.6-14.6 % High RDW CV 17.4 LAB L100.1820 35.1-43.9 fl High RDW SD 49.9 LAB L100.1900 150-450 K/mm3 Normal PLT 270 LAB L100.2000 6.2-12.0 fl Normal MPV 10.3 LAB L100.2100 47-70 % High NEUT% 75.6 LAB L100.2200 19-41 % Low LY% 17.8 LAB L100.2300 0-10 % Normal MONO% 4.6 LAB L100.2400 0-5 % Normal EO% 1.1 LAB L100.2500 0-1 % Normal BASO% 0.3 LAB L100.2550 0.0-0.9 % Normal IM GRAN % 0.600 Result Comment: IG% - Immature Granulocytes (promyelocytes, myelocytes and metamyelocytes) > 1% indicates that a LEFT SHIFT is Present. LAB L100.2620 2.0-7.7 X10 3/uL Normal Absolute Neut 7.1 LAB L100.2720 0.83-4.51 X10 3/ul Normal Absolute Lymph 1.67 Performed By: #### L100.0100 #### [facility] [address] [place], [address] BASIC METABOLIC Collected: 05/25/2018 Status: F Source: [place] PROFILE ([facility]) 3:40 AM REPOSITORY TYPE CODE TESTS RESULT OUT OF RANGE REFERENCE UNITS LAB L501.0100 74-106 mg/dL High GLU 127 Result Comment: Fasting Glucose result greater than or equal to 126 mg/dL suggests DIABETES MELLITUS per A.D.A. criteria. Please note revised GLUCOSE reference range effective 2017. LAB L501.1000 7-18 mg/dL High BUN 20 LAB L501.1100 0.70-1.30 mg/dL Normal CREAT,SERUM 1.09 Result Comment: The validity of the calculated GFR AND GFRAA in patients over 70 years has not been determined. Clinical correlation is essential. LAB L501.1110 >60 mL/min Normal EST GFR 78 Result Comment: Non- GFR Calc LAB L501.1115 >60 mL/min Normal EST GFR - AA 94 Result Comment: GFR Calc LAB L501.1255 ml/min Normal Estimated CRCL 93.93 LAB L501.1300 10-20 RATIO Normal BUN/CRE 18.3 LAB L501.2200 8.5-10 mg/dL Normal .1 CA 9.3 LAB L501.5300 136-14 mmol/L Normal 5 NA 143 LAB L501.5600 3.5-5. mmol/L Normal 1 K 3.7 LAB L501.5900 98-107 mmol/L High CL 110 LAB L501.6100 21.0-3 mmol/L Normal 2.0 CO2 23.0 LAB L501.6200 5-15 Normal GAP 10 Performed By: #### L500.2500 #### [facility] [address] [facility] [place], [address] EMERGENCY DEPARTMENT Observed: 05/02/2018 Status: F Source: [place] SUMMARY 7:55 AM REPOSITORY [facility] Medical Records Department [address] [place] [address] Emergency Department Summary 05/01/18 1107 MR#: [id number] Acct: [id number] Name: ELENO LEBLANC Rep #: [id number] : 1970 47 From: Manoj Irby MD PCP: Care Physician, No Primary Status: DEP ER - ER Visit Summary Date of Service: 05/01/18 Chief Complaint: Abdominal pain History of Present Illness: The patient is a 47 M with lower abdominal pain that started about 3 days ago. This is in the bilateral inguinal region. He says he never had this before. It is associate with nausea, vomiting, and dysuria. He has a history of kidney stones, but they do not feel like this. Physical Examination: Afebrile and vital signs unremarkable. Heart regular. Lungs clear. Abdomen soft and nontender. Back is nontender. Skin appears normal. Test Results: CBC, BMP, hepatic panel, lipase unremarkable. Urinalysis and CT pending. Emergency Department Course and Treatment: Patient treated with fluids, Toradol, and Zofran while awaiting results. Consider GI, , infectious pathologies primarily. While awaiting results, nursing informed me that the patient was leaving. Patient was advised that his results are still pending and we do not have the results of his CAT scan. He voiced understanding to the nurse. He gave no specific reason for wanting to leave. Patient left AGAINST MEDICAL ADVICE. Treatment Plan: As above Disposition: AMA Impression: 1. Abdominal pain This note was generated with [employer] software. It may contain incorrect words, spelling, and punctuation that were not noted in review of the chart prior to signing ED Disposition - Plan for ED Patient: Chief Complaint: Abd Pain Referrals: Care Physician,No Primary [Primary Care Provider] - What to do if you have Problems For any increased pain, shortness of breath, bleeding, nausea or vomiting, chest pain, or any unexpected problems, contact your Primary Care Provider. Call [employer] [facility] ([phone]) or report to the closest Emergency Room. Call 911 if necessary. 05/02/18 0755 <Electronically signed by Manoj Irby MD> Date Manoj Irby MD Cosigner Signature (If Indicated): Date CC: No Primary Care Physician DISCHARGE INSTRUCTION Observed: 05/02/2018 Status: F Source: [place] 7:55 AM REPOSITORY [facility] Medical Records Department [address] [facility] [place] [address] Discharge Instruction 05/01/18 1110 MR#: [id number] Acct: [id number] Name: ELENO LEBLANC Rep #: [id number] : 1970 47 From: Manoj Irby MD PCP: Care Physician, No Primary Status: [facility] ER ED Disposition - Plan for ED Patient: Chief Complaint: Abd Pain Instructions: ED Abdominal Pain Unkn Cause Male What to do if you have Problems For any increased pain, shortness of breath, bleeding, nausea or vomiting, chest pain, or any unexpected problems, contact your Primary Care Provider. Call [facility] ([phone]) or report to the closest Emergency Room. Call 911 if necessary. 05/02/18 0755 <Electronically signed by Manoj Irby MD> Date Manoj Irby MD Cosigner Signature (If Indicated): Date CC: No Primary Care Physician CBC W/DIFF, AUTOMATED Collected: 05/01/2018 Status: F Source: [place] 10:10 AM REPOSITORY TYPE CODE TESTS RESULT OUT OF RANGE REFERENCE UNITS LAB L100.1000 4.4-11.0 K/mm3 Normal WBC 6.0 LAB L100.1200 4.6-6.2 M/mm3 Normal RBC 5.11 LAB L100.1300 13.0-16.5 g/dl Normal HGB 13.1 LAB L100.1400 40-54 % Normal HCT 42.6 LAB L100.1500 80-94 fL Normal MCV 83.4 LAB L100.1600 27.0-32.0 pg Low MCH 25.6 LAB L100.1700 32-36 g/gl Low MCHC 30.8 LAB L100.1810 11.6-14.6 % High RDW CV 16.8 LAB L100.1820 35.1-43.9 fl High RDW SD 51.7 LAB L100.1900 150-450 K/mm3 Normal PLT 196 LAB L100.2000 6.2-12.0 fl Normal MPV 10.2 LAB L100.2100 47-70 % High NEUT% 73.9 LAB L100.2200 19-41 % Normal LY% 19.4 LAB L100.2300 0-10 % Normal MONO% 4.5 LAB L100.2400 0-5 % Normal EO% 1.7 LAB L100.2500 0-1 % Normal BASO% 0.3 LAB L100.2550 0.0-0.9 % Normal IM GRAN % 0.200 Result Comment: IG% - Immature Granulocytes (promyelocytes, myelocytes and metamyelocytes) > 1% indicates that a LEFT SHIFT is Present. LAB L100.2620 2.0-7.7 X10 3/uL Normal Absolute Neut 4.4 LAB L100.2720 0.83-4.51 X10 3/ul Normal Absolute Lymph 1.16 Performed By: #### L100.0100 #### [facility] [address] [place], [place], [address] COMPREHENSIVE METABOLIC Collected: 05/01/2018 Status: F Source: [facility] 10:10 AM REPOSITORY TYPE CODE TESTS RESULT OUT OF RANGE REFERENCE UNITS LAB L501.0100 74-106 mg/dL Normal GLU 100 Result Comment: Fasting Glucose result from 100 to 125 mg/dL suggests IMPAIRED HOMEOSTASIS per A.D.A. criteria. Please note revised GLUCOSE reference range effective 2017. LAB L501.1000 7-18 mg/dL Normal BUN 8 LAB L501.1100 0.70-1.30 mg/dL Normal CREAT,SERUM 0.88 Result Comment: The validity of the calculated GFR AND GFRAA in patients over 70 years has not been determined. Clinical correlation is essential. LAB L501.1110 >60 mL/min Normal EST GFR 100 Result Comment: Non- GFR Calc LAB L501.1115 >60 mL/min Normal EST GFR - AA 120 Result Comment: GFR Calc LAB L501.1255 ml/min Normal Estimated CRCL 116.35 LAB L501.1300 10-20 RATIO Low BUN/CRE 9.1 LAB L501.1500 6.4-8. g/dL Low 2 T PROT 6.1 LAB L501.1800 3.2-5. g/dL Low 0 ALB 3.0 LAB L501.1950 2.2-4. g/dL 2 GLOB Normal 3.1 LAB L501.2000 0.9-2. RATIO 4 A/G Normal 1.0 LAB L501.2200 8.5-10 mg/dL Low .1 CA 8.1 LAB L501.4100 15-37 U/L AST Normal 16 LAB L501.4305 45-117 U/L ALK P Normal 57 LAB L501.4405 16-61 U/L ALT Normal 31 LAB L501.4600 0.20-1 mg/dL .00 T BILI Normal 0.40 LAB L501.5300 136-14 mmol/L 5 NA Normal 143 LAB L501.5600 3.5-5. mmol/L 1 K Normal 4.2 LAB L501.5900 98-107 mmol/L High CL 113 LAB L501.6100 21.0-3 mmol/L 2.0 CO2 Normal 25.0 LAB L501.6200 5-15 GAP Normal 5 Performed By: #### L500.4050, L501.2450 #### [facility] [address] [place], [address] LIPASE Collected: 05/01/2018 Status: F Source: [place] 10:10 AM REPOSITORY TYPE CODE TESTS RESULT OUT OF RANGE REFERENCE UNITS LAB 01.2450 73-393 U/L Normal LIPASE 133 Performed By: #### L500.4050, L501.2450 #### [facility] [address] [place], [address] ABDOMEN/PELVIS WITHOUT Observed: 05/01/2018 Status: F Source: [facility] CONT 10:05 AM REPOSITORY [facility] Imaging Services [address] [place] [address] Abdomen/Pelvis without Cont MR#: [id number] Acct: [id number] Name: ELENO LEBLANC Rep #: [id number] : 1970 M 47 From: Wilner Choi MD PCP: Care Physician, No Primary Status: DEP ER Study: Abdomen/Pelvis without Cont Date of Exam: 05/01/18 Exam# [id number] Ordering Dr: Manoj Irby MD STUDY: CT ABDOMEN AND PELVIS WITHOUT CONTRAST REASON FOR EXAM: Male, 47 years old. Lower abdominal pain with painful urination. RADIATION DOSAGE (If Supplied By Facility): CTDIvol = ( 12.38 ) mGy, DLP = ( 680.65 ) mGycm TECHNIQUE: Transaxial images were obtained from the dome of the diaphragm to the symphysis pubis without oral contrast, and without intravenous contrast. Sagittal and coronal images were reconstructed. Individualized dose optimization techniques were used for this CT. COMPARISON: CT abdomen and pelvis 02/04/2018.. FINDINGS: Body wall soft tissues: CT abdomen and pelvis 02/04/2018. Osseous structures: No acute process. Inferior chest: Mild bibasilar compressive atelectasis. Normal distal esophagus. Normal cardiac base. Hepatobiliary: Normal. Pancreas: No acute process. Spleen: Normal. Adrenal glands: Normal. Urogenital: Normal bilateral kidneys, collecting systems, ureters, urinary bladder, urethra, prostate and seminal vesicles. Pelvic floor and sidewalls and retroperitoneum: No mass or adenopathy. Vasculature: No acute process. Stomach: No acute process. Small bowel and mesentery: Normal. Large bowel: There are postsurgical changes at the base of the cecum suggesting prior appendectomy. Large bowel and rectum are normal. Free fluid or free air: None. CT/Abdomen/Pelvis without Cont IMPRESSION: No acute abdominopelvic process is evident. There is no evidence of urolithiasis. No retained calculus. No secondary evidence of recently completed calculus passage. Electronically Signed: Wilner Choi, at 11:13 EDT Tel , Service support , CC: No Primary Care Physician; Manoj Irby MD Route Delivery Supervisor: Signed OFFICE VISIT (PHYSICAL Observed: 04/07/2018 Status: UNK Source: [facility]) 5:22 PM HOSPITALS REPOSITORY Chief Complaint OPI addiction Reference Documentation See scanned note Office Note: . History of Present Illness Patient presents for buprenorphine induction. 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 The medication is in the stapled original bag. Patient is obviously in withdrawal Review of Systems Constitutional: no fever, no chills, not feeling tired, no recent weight gain and no recent weight loss. ENT: no nosebleeds. Cardiovascular: no chest pain. Respiratory: no shortness of breath and no cough. Gastrointestinal: no abdominal pain, no nausea, no diarrhea and no vomiting. Musculoskeletal: no arthralgias. Integumentary: no rashes and no skin wound. Neurological: no headache. Psychiatric: no sleep disturbances and no depression. Endocrine: no muscle cramps. Hematologic/Lymphatic: no swollen glands and no tendency for easy bruising. 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) Cocaine abuse (305.60) (F14.10) Opioid abuse (305.50) (F11.10) Tobacco abuse (305.1) (Z72.0) Past Medical History History of Lumbar radiculitis (724.4) (M54.16) Surgical History History of Appendectomy History of Tonsillectomy 1989 Family History Family history of Healthy adult Family history of Healthy adult Social History Caffeine use (V49.89) (Z78.9) Completed 12th grade Currently working Daily caffeine consumption Has no children History of tobacco abuse (V15.82) (Z87.891) No alcohol use Single Smokes 2 packs of cigarettes per day (305.1) (F17.210) Allergies No Known Allergies Recorded By: Robby Heart; 04/06/2018 12:46:11 PM Current Meds Suboxone 8-2 MG Sublingual Film; One sublingal film twice per day; Therapy: [id number] to (Evaluate:[id number]); Last Rx:[id number] Ordered Rx By: Batsheva Cosby; Dispense: 7 Days ; #:14 Film; Refill: 0;For: ADHD, adult residual type; [place]SANA = N; Print Rx; Msg to Pharmacy: [id number] Fill on/after 04-06-2018 Start 04-06-2018 Vitals Vital Signs Recorded: 07Apr2018 12:43PM Heart Rate64 [id number] Height6 ft [id number] lb BMI Thkpqqyimk82.48 BSA Calculated2.18 Diagnoses/Problems Opioid abuse (305.50) (F11.10) Cocaine abuse (305.60) (F14.10) 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 Hands shaking, nervous. Skin: flushed, no needle odom Addiction Clinic Opioid abuse, remission Cocaine abuse, remission Amphetamine abuse, remission All medication in original container and no used wrappers Induction completed without complication. Patient released with the remainder of his medication. [ x ] Smoking cessation. Counseled [ ] Weight loss: Behavioral modification, exercise, diet. [ ] Exercise routine 20 minutes each day. [ ] Constipation. Discussed diet, fiber, water, exercise, medications. [x ] QANDA to patient satisfaction Addiction control [ ] good [ ] fair [ x] poor Acceptable [ ] yes [ x] no Functional level [ x ] full [ ] moderate [ ] sedentary [ ] light sedentary Home exercises [ ] Controlled Substance Contract: risk, benefit, aberrant behavior, abuse discussed 04-06-2018 Notice of Privacy Practices: 04-06-2018 Opioid Risk: High 04-06-2018 OARRS reviewed w/ patient 0 04-06-2018 (11-24-2017 14.40 mg buprenorphine) I have personally reviewed the OARRS report for this patient. This report is scanned into the electronic medical record. I have considered the risks of abuse, dependence, addiction and diversion. I elle katelyn that it is clinically appropriate for this patient to be prescribed this medication. Urine drug test 04-06-2018 Pending Follow-up [ ]1 month [x] 1 week [ ] 2 weeks [ ] 3 week[ ] months Follow-up prn also [x] Procedure: Patient understands and agrees to the procedure. [ ] Risks, benefits, and instructions have been given. [ ] See PCP health maintenance/immunizations. Additional person at the clinic appointment: Time Time Stamp_: Time Spent With Patient: 60 minutes of which greater than 50 percent was spent counseling and or coordinating care. End of Encounter Meds Suboxone 8-2 MG Sublingual Film (Buprenorphine HCl-Naloxone HCl); One sublingal film twice per day; Therapy: [id number] to (Evaluate:[id number]); Last Rx:[id number] Ordered Signatures Electronically signed by : Batsheva Cosby MD; Apr 07 2018 5:22PM EST (Author) OFFICE VISIT (PHYSICAL Observed: 04/06/2018 Status: UNK Source: [facility]) 7:35 PM HOSPITALS REPOSITORY Chief Complaint OPI addiction Reference Documentation See scanned note Office Note: . History of Present Illness This is a 47 yo male who has addiction to pain medication. His addiction began in 2000. He was being treated for a work injury to the lower back. He was initially treated with morphine and later OxyCont in. He was seen in this clinic in 2004. His used of prescription medication begain to get out of control in 2004 or 2005. He just needed more of the pills. Later, it was real bad while was in [facility]. He was spending about $150.00 per day until he started on Opana with $200.00 to $400.00 daily habit. He went into treatment August 2017. He was treated with Suboxone. He did well for five months . He was unable to work and go to the mandatory classes so he drop out of the classes. He started taking pills off the street again. He also used uppers and cocaine. He denies stealing, sexual favors, r unning drugs. He worked in [employer] to pay for his habit. He denies and other controlled medications or street drugs including marijuana. He last used Tuesday -- opioid. The day before he used a line of speed or cocaine. Overdoses: none Seizure: none SI/HI: none Employment: [employer], [employer] Education: 12th grade. Did not graduate. Legal: none Home life: lives with girlfriend. Going okay. Review of Systems Constitutional: no fever, no chills, not feeling tired, no recent weight gain and no recent weight loss. ENT: no nosebleeds. Cardiovascular: no chest pain. Respiratory: no shortness of breath and no cough. Gastrointestinal: no abdominal pain, no nausea, no diarrhea and no vomiting. Musculoskeletal: no arthralgias. Integumentary: no rashes and no skin wound. Neurological: no headache. Psychiatric: no sleep disturbances and no depression. Endocrine: no muscle cramps. Hematologic/Lymphatic: no swollen glands and no tendency for easy bruising. Active Problems Opioid abuse (305.50) (F11.10) Past Medical History History of Lumbar radiculitis (724.4) (M54.16) Surgical History History of Appendectomy History of Tonsillectomy 1989 Family History Family history of Healthy adult Family history of Healthy adult Social History Caffeine use (V49.89) (Z78.9) Completed 12th grade Currently working Daily caffeine consumption Has no children History of tobacco abuse (V15.82) (Z87.891) No alcohol use Single Smokes 2 packs of cigarettes per day (305.1) (F17.210) Allergies No Known Allergies Recorded By: Robby Heart; 04/06/2018 12:46:11 PM Vitals Vital Signs Recorded: 06Apr2018 12:45PM Heart Rate60 Ohhlbxyr408 Yzigexljn68 Height6 ft Fogncf641 lb BMI Gbsnbkxuci86.35 BSA Calculated2.17 Diagnoses/Problems Opioid abuse (305.50) (F11.10) Tobacco abuse (305.1) (Z72.0) History of Lumbar radiculitis (724.4) (M54.16) History of Tonsillectomy 1989 Family history of Healthy adult : Mother, Father History of tobacco abuse (V15.82) (Z87.891) Caffeine use (V49.89) (Z78.9) Currently working Has no children No alcohol use ADHD, adult residual type (314.01) (F90.8) 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) Cocaine abuse (305.60) (F14.10) Orders ADHD, adult residual type Start: Suboxone 8-2 MG Sublingual Film (Buprenorphine HCl- Naloxone HCl); One sublingal film twice per day Rx By: Batsheva Cosby; Dispense: 7 Days ; #:14 Film; Refill: 0;For: ADHD, adult residual type; OKSANA = N; Print Rx; Msg to Pharmacy: [id number] Fill on/after 04-06-2018 Start 04-06-2018 Opioid abuse Benzodiazepines Confirm, Urine; Status:Active; Requested for:06Apr2018; Perform:Lab Services - Lab To Draw (Non-Blood Test); Due:05Jul2018;Ordered; For:Opioid abuse; Ordered By:Batsheva Cosby; Cannabinoid Screen, Urine; Status:Active; Requested for:[id number]; Perform:Lab Services - Lab To Draw (Non-Blood Test); Due:05Jul2018;Ordered; For:Opioid abuse; Ordered By:Batsheva Cosby; Cocaine Confirm, Urine; Status:Active; Requested for:[id number]; Perform:Lab Services - Lab To Draw (Non-Blood Test); Due:05Jul2018;Ordered; For:Opioid abuse; Ordered By:Batsheva Cosby; Drug Screen, Pain Management with Reflex if Positive; Status:Active; Requested for:[id number]; Perform:Lab Services - Lab To Draw (Non-Blood Test); Due:05Jul2018;Ordered; For:Opioid abuse; Ordered By:Batsheva Cosby; Fentanyl Confirm, Urine; Status:Hold For - Specimen/Data Collection; Requested for:06Apr2018; Perform:Lab Services - Office to Draw (Non-Blood Test); Due:05Jul2018;Ordered; For:Opioid abuse; Ordered By:Batsheva Cosby; Opiates, oxycodone/ oxymorphone confirm, urine; Status:Hold For - Specimen/Data Collection; Requested for:06Apr2018; Perform:Lab Services - Office to Draw (Non-Blood Test); Due:05Jul2018;Ordered; For:Opioid abuse; Ordered By:Batsheva Cosby; Provider Impressions Pleasant, NAD, affect full, OX3A Fidgeting, Skin: flushed, no needle odom, no erythema or increased heat. Static posture: WNL PERRLA CN II-XII grossly intact TM/fundi not checked - Rhombreg - Pronator driftNL CASSIE UL/LL HEENT NC/ATOral edentulous upper and lower No Thyromegaly, Lymphadenopathy, Bruits, JVD Ht RRR No R, G, M Lungs CAP Abdomen +BS all quads- HSM- masses - POP Cervical ROM: Full all planes Tone: NL. POP: None. Bilateral upper strength: 5/5 Muscle bulk: NL Sensation: NL LT Jts - effusion- heat- crepitus- synovitisNL ROM Muscle Stretch Reflexes bilateral: Biceps: 2+ Triceps: 2+ BR: 2+ Thoracic ROM: FROM Lumbar ROM: FROM Tone: normal. Straight leg raising: Right, NL Left, NL Hips ROM. Full. Bilateral Lower limb strength: 5/5 POP: None Muscle bulk: NL Sensation: NL LT Knees: NL Gait: WNLHeel walk: NLToe walk: NL Muscle Stretch Reflexes bilateral: Knees: 2+ Achilles tendons: 2+ Toes down going bilaterally OPIOID RISK TOOLDate: __[id number] FemaleMale 1.Family History of Substance Abuse a.Alcohol1[ ]3 b.Illegal Drugs2[ ]3 c.Prescription Drugs 4[ ]4 2.Personal History of Substance Abuse a.Alcohol3[ ]3 b.Illegal Drugs4[ x ]4 c.Prescription Drugs 5[ x ]5 3.Age 16-45 years1[ x ]1 4.History of Preadolescence Sexual Abuse1[ ]0 5.Psychological Disease a.Atten-Deficit/Hyperactivity* 2[ x ]2 b.Disorder c.Obsessive Compulsive Disorder d.Bipolar Disorder 6.Schizophrenia 7.Depression 1[ ]1 Total Score __12 Risk Category__High Low Risk 0-3 Moderate Risk 4-7 High Risk >7 Addiction Clinic Opioid abuse, remission Cocaine abuse, remission Amphetamine abuse, remission Patient appears to be a good candidate for transfer to this outpatient addiction clinic. Regimen to be followed in clinic discussed. Meetings 3/wk with documentation Counseling Documentation forwarded to this office Keep daily journal All medication in original container and used wrappers Obtain recent lab from his other addiction clinic. 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 He was unable to obtain medication. He brought the prescription back to clinic. 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 He is restricted to only one pharmacy. It [place] drive away. He will need a RTW slip on tomorrow. [ x ] Smoking cessation. Counseled [ ] Weight loss: Behavioral modification, exercise, diet. [ ] Exercise routine 20 minutes each day. [ ] Constipation. Discussed diet, fiber, water, exercise, medications. [x ] QANDA to patient satisfaction Addiction control [ ] good [ ] fair [ x] poor Acceptable [ ] yes [ x] no Functional level [ x ] full [ ] moderate [ ] sedentary [ ] light sedentary Home exercises [ ] Controlled Substance Contract: risk, benefit, aberrant behavior, abuse discussed 04-06-2018 Notice of Privacy Practices: 04-06-2018 Opioid Risk: High 04-06-2018 OARRS reviewed w/ patient 0 04-06-2018 (11-24-2017 14.40 mg buprenorphine) I have personally reviewed the OARRS report for this patient. This report is scanned into the electronic medical record. I have considered the risks of abuse, dependence, addiction and diversion. I elle katelyn that it is clinically appropriate for this patient to be prescribed this medication. Urine drug test 04-06-2018 Pending Follow-up [ ]1 month [x] 1 week [ ] 2 weeks [ ] 3 week[ ] months Follow-up prn also [x] Procedure: Patient understands and agrees to the procedure. [ ] Risks, benefits, and instructions have been given. [ ] See PCP health maintenance/immunizations. Additional person at the clinic appointment: Time Time Stamp_UH: Time Spent With Patient: 120 minutes of which greater than 50 percent was spent counseling and or coordinating care. End of Encounter Meds Suboxone 8-2 MG Sublingual Film (Buprenorphine HCl-Naloxone HCl); One sublingal film twice per day; Therapy: [id number] to (Evaluate:[id number]); Last Rx:[id number] Ordered Signatures Electronically signed by : Batsheva Cosby MD; Apr 06 2018 7:35PM EST (Author) DRUG SCREEN,PAIN Collected: 04/06/2018 Status: F Source: [facility] W/ REFLEX 3:37 PM HOSPITALS REPOSITORY TYPE CODE TESTS RESULT OUT OF REFERENCE UNITS RANGE LAB PMCOM(LOINC ) DRUG SCREEN SEE BELOW COMMENT. Result Comment: Drug screen results are presumptive and should not be used to assess compliance with prescribed medication. Definitive confirmatory drug testing has been added to this sample for any positive screen result and will be reported separately. . Toxicology screening results are reported qualitatively. The concentration must be greater than or equal to the cutoff to be reported as positive. The concentration at which the screening test can detect an individual drug or metabolite varies. The absence of expected drug(s) and/or drug metabolite(s) may indicate non-compliance, inappropriate timing of specimen collection relative to drug administration, poor drug absorption, diluted/adulterated urine, or limitations of testing. For medical purposes only; not valid for forensic use. . Interpretive questions should be directed to the laboratory medical directors. LAB AMPH(LOINC) NEGATIVE AMPHETAMINE PRESUMPTIVE SCREEN,U NEGATIVE Result Comment: CUTOFF LEVEL: 500 NG/ML Cross-reactivity has been reported with high concentrations of the following drugs: buproprion, chloroquine, chlorpromazine, ephedrine, mephentermine, fenfluramine, phentermine, phenylpropanolamine, pseudoephedrine, and propranolol. LAB RADHA(LOINC) NEGATIVE BARBITURATES PRESUMPTIVE SCREEN,U NEGATIVE Result Comment: CUTOFF LEVEL: 200 NG/ML LAB BENZO(LOINC) NEGATIVE BENZODIAZEPINES SCREEN,U PRESUMPTIVE NEGATIVE Result Comment: CUTOFF LEVEL: 200 NG/ML Benzodiazepine Confirmatory testing has been sent to a reference laboratory and will be reported separately. Although the benzodiazepine screening test provides rapid results; the confirmatory test provide the most sensitive and specific assessment of drug presence or absence in the urine. LAB ERLIN(LOINC) NEGATIVE CANNABINOIDS PRESUMPTIVE SCREEN,U NEGATIVE Result Comment: CUTOFF LEVEL: 50 NG/ML LAB COCAI(LOINC) NEGATIVE COCAINE PRESUMPTIVE METABOLITE NEGATIVE SCREEN,U Result Comment: CUTOFF LEVEL: 150 NG/ML LAB METHD(LOINC) NEGATIVE PRESUMPTIVE METHADONE NEGATIVE SCREEN,U Result Comment: CUTOFF LEVEL: 150 NG/ML The metabolite L-kpwzx-bwiizjbsietkkx (LAAM) is not detected by this method in concentrations that would be found in the urine of patients on LAAM therapy. LAB OPIAT(LOINC) NEGATIVE PRESUMPTIVE OPIATES NEGATIVE SCREEN,U Result Comment: CUTOFF LEVEL: 300 NG/ML The opiate screen does not detect fentanyl, meperidine, or tramadol. Oxycodone is not consistently detected (refer to Oxycodone Screen, Urine result). Opiate/Oxycodone Confirmatory testing has been sent to a reference laboratory and will be reported separately. Although the screening tests provide rapid results; the confirmatory tests provide the most sensitive and specific assessment of drug presence or absence in the urine. LAB PCP(LOINC) NEGATIVE PCP PRESUMPTIVE SCREEN,U NEGATIVE Result Comment: CUTOFF LEVEL: 25 NG/ML Cross-reactivity has been reported with dextromethorphan. Performed By: #### DSPMR #### [facility] [address] [place] [address] OPIATE CONFIRMATION,URINE Collected: Status: F Source: [facility] 04/06/2018 3:37 PM HOSPITALS REPOSITORY TYPE CODE TESTS RESULT OUT OF RANGE REFERENCE UNITS LAB 6ACET(LOINC ng/mL ) <10 6-ACETYLMORP KANG Result Comment: INTERPRETIVE INFORMATION: Opiates, Urine, Quantitative Methodology: Quantitative Liquid Chromatography-Tandem Mass Spectrometry Positive cutoff: 20 ng/mL except as specified below 6-acetylmorphine 10 ng/mL For medical purposes only; not valid for forensic use. Identification of specific drug(s) taken by specimen donor is problematic due to common metabolites, some of which are prescription drugs themselves. The absence of expected drug(s) and/or drug metabolite(s) may indicate non-compliance, inappropriate timing of specimen collection relative to drug administration, poor drug absorption, diluted/adulterated urine, or limitations of testing. All drug analytes covered are in the non-glucuronidated (free) forms. The concentration value must be greater than or equal to the cutoff to be reported as positive. A very small amount of an unexpected drug analyte in the presence of a large amount of an expected drug analyte may reflect pharmaceutical impurity. Interpretive questions should be directed to the laboratory. Test developed and characteristics determined by [facility]. See Compliance Statement B: [facility]/ LAB GRANULATING BLENDER(LOINC) ng/mL CODEINE <20 LAB HYCOD(LOINC) ng/mL HYDROCODONE <20 LAB HYMOR(LOINC) ng/mL HYDROMORPHONE <20 LAB MORPR(LOINC) ng/mL MORPHINE <20 LAB NORHY(LOINC) ng/mL NORHYDROCODONE <20 Result Comment: Performed by [facility], [address] [facility] [address] [place] [address] www.[email or web address], Elie Olguin MD - Lab. Director LAB NOROX(LOINC) ng/mL NOROXYCODONE 86 Result Comment: Noroxycodone is a metabolite of oxycodone; consistent with use of a drug containing oxycodone. LAB NOROM(LOINC) ng/mL NOROXYMORPHONE <20 LAB OXYCR(LOINC) ng/mL OXYCODONE <20 LAB OXYMO(LOINC) ng/mL OXYMORPHONE <20 Performed By: #### OPIC2 #### [facility] [address] [place] [address] FENTANYL CONFIRM, Collected: 04/06/2018 Status: F Source: [facility] 3:37 PM HOSPITALS REPOSITORY TYPE CODE TESTS RESULT OUT OF REFERENCE UNITS RANGE LAB NORFU(LOIN ng/mL C) NORFENTANYL CONFIRM,U <1.0 Result Comment: Performed by [facility], [address] [facility] [place] [address] www.[email or web address], Elie Olguin MD - Lab. Director LAB FENUR(LOINC) ng/mL FENTANYL CONFIRM,U <1.0 Result Comment: INTERPRETIVE INFORMATION: Fentanyl and Metabolite, Urine Methodology: Quantitative Liquid Chromatography-Tandem Mass Spectrometry Positive cutoff: 1.0 ng/mL For medical purposes only; not valid for forensic use. The absence of expected drug(s) and/or drug metabolite(s) may indicate non-compliance, inappropriate timing of specimen collection relative to drug administration, poor drug absorption, diluted/adulterated urine, or limitations of testing. The concentration value must be greater than or equal to the cutoff to be reported as positive. Interpretive questions should be directed to the laboratory. Test developed and characteristics determined by [facility]. See Compliance Statement B: [facility]/ Performed By: #### FENTU #### [facility] [address] [place] [address] BENZODIAZEPINES CONF,URINE Collected: 04/06/2018 Status: F Source: [facility] 3:37 PM HOSPITALS REPOSITORY TYPE CODE TESTS RESULT OUT OF RANGE REFERENCE UNITS LAB BEACL(LOINC ng/mL ) <5 7-AMINOCLONA ZEPAM LAB BEALP(LOINC ng/mL ) <5 ALPHA-HYDROX YALPRAZOLAM LAB BEAMD(LOINC ng/mL ) <20 ALPHA-HYRDOX YMIDAZOLAM Result Comment: Performed by [facility], [address] [facility] [place] [facility] [address] www.[email or web address], Elie Olguin MD - Lab. Director LAB BENAL(LOINC) ng/mL ALPRAZOLAM <5 LAB BECDO(LOINC) ng/mL CHLORDIAZEPOXIDE <20 LAB BE7AC(LOINC) ng/mL CLONAZEPAM <5 LAB BEDIA(LOINC) ng/mL DIAZEPAM <20 Result Comment: INTERPRETIVE INFORMATION: Benzodiazepines, Urine, Quantitative Methodology: Quantitative Liquid Chromatography-Tandem Mass Spectrometry Positive cutoff: 20 ng/mL unless specified below: Alprazolam 5 ng/mL Alpha-hydroxyalprazolam 5 ng/mL Clonazepam 5 ng/mL 7-aminoclonazepam 5 ng/mL For medical purposes only; not valid for forensic use. Identification of specific drug(s) taken by specimen donor is problematic due to common metabolites, some of which are prescription drugs themselves. The absence of expected drug(s) and/or drug metabolite(s) may indicate non-compliance, inappropriate timing of specimen collection relative to drug administration, poor drug absorption, diluted/adulterated urine, or limitations of testing. The concentration value must be greater than or equal to the cutoff to be reported as positive. Interpretive questions should be directed to the laboratory. Test developed and characteristics determined by [facility]. See Compliance Statement B: [facility] LAB BENLO(LOINC) ng/mL LORAZEPAM <20 LAB BEMDZ(LOINC) ng/mL MIDAZOLAM <20 LAB BENNO(LOINC) ng/mL NORDIAZEPAM <20 LAB BENOX(LOINC) ng/mL OXAZEPAM <20 LAB BENTM(LOINC) ng/mL TEMAZEPAM <20 Performed By: #### BENCN #### [facility] [address] [place] [address] OPIATE CONFIRMATION,URINE Collected: Status: F Source: [facility] 04/06/2018 3:37 PM HOSPITALS REPOSITORY TYPE CODE TESTS RESULT OUT OF RANGE REFERENCE UNITS LAB 6ACET(LOINC ng/mL ) <10 6-ACETYLMORP KANG Result Comment: INTERPRETIVE INFORMATION: Opiates, Urine, Quantitative Methodology: Quantitative Liquid Chromatography-Tandem Mass Spectrometry Positive cutoff: 20 ng/mL except as specified below 6-acetylmorphine 10 ng/mL For medical purposes only; not valid for forensic use. Identification of specific drug(s) taken by specimen donor is problematic due to common metabolites, some of which are prescription drugs themselves. The absence of expected drug(s) and/or drug metabolite(s) may indicate non-compliance, inappropriate timing of specimen collection relative to drug administration, poor drug absorption, diluted/adulterated urine, or limitations of testing. All drug analytes covered are in the non-glucuronidated (free) forms. The concentration value must be greater than or equal to the cutoff to be reported as positive. A very small amount of an unexpected drug analyte in the presence of a large amount of an expected drug analyte may reflect pharmaceutical impurity. Interpretive questions should be directed to the laboratory. Test developed and characteristics determined by [facility]. See Compliance Statement B: [facility]/[facility] LAB GRANULATING BLENDER(LOINC) ng/mL CODEINE <20 LAB HYCOD(LOINC) ng/mL HYDROCODONE <20 LAB HYMOR(LOINC) ng/mL HYDROMORPHONE <20 LAB MORPR(LOINC) ng/mL MORPHINE <20 LAB NORHY(LOINC) ng/mL NORHYDROCODONE <20 Result Comment: Performed by [facility], [address] [place] [address],[place] [address] www.[email or web address], Elie Olguin MD - Lab. Director LAB NOROX(LOINC) ng/mL NOROXYCODONE 84 Result Comment: Noroxycodone is a metabolite of oxycodone; consistent with use of a drug containing oxycodone. LAB NOROM(LOINC) ng/mL NOROXYMORPHONE <20 LAB OXYCR(LOINC) ng/mL OXYCODONE <20 LAB OXYMO(LOINC) ng/mL OXYMORPHONE <20 Performed By: #### OPIC2 #### [facility] [address] [place] [address] COCAINE CONFIRM,URINE Collected: 04/06/2018 Status: F Source: [facility] 3:37 PM HOSPITALS REPOSITORY TYPE CODE TESTS RESULT OUT OF RANGE REFERENCE UNITS LAB COCME(LOINC ng/mL ) <50 BENZOYLECGON INE,U Result Comment: INTERPRETIVE INFORMATION: Cocaine Metabolite, Urine, Quantitative Methodology: Quantitative Gas Chromatography-Mass Spectrometry. Positive cutoff: 50 ng/mL For medical purposes only; not valid for forensic use. The concentration value must be greater than or equal to the cutoff to be reported as positive. Interpretive questions should be directed to the laboratory. Test developed and characteristics determined by [facility]. See Compliance Statement B: [facility]/ Performed by [facility], [address] [place] [address],[place] [address] www.[employer], Elie Olguin MD - Lab. Director Performed By: #### COCCN #### [facility] [address] [place] [id number] EMERGENCY DEPARTMENT Observed: 03/19/2018 Status: F Source: [place] SUMMARY 3:24 PM REPOSITORY [facility] Medical Records Department [address] [facility] [place] [address] Emergency Department Summary 03/19/18 1436 MR#: [id number] Acct: [id number] Name: ELENO LEBLANC Rep #: [id number] : 1970 47 From: Hannah Wei MD PCP: [facility] Physician, No Primary Status: DEP ER 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 indicates do that activity has lumbar back pain there is no radiation to his legs he denies perineal anesthesia or any direct trauma no nausea or vomiting no abdominal pain or paresthesias he presents as he has no primary care physician help manage his pain denies any other past history Physical Examination: [] No distress his vitals are within normal range head neck chest unremarkable the abdomen Apsley soft and nontender midline back is nontender the back itself diffusely is nontender he is able to stand and walk without difficulty his strength lower extremities are normal he can heel raise toe raise and walk and knee bend without any difficulty the abdomen is completely nontender upper extremities unremarkable heart tones normal the lungs are clear clinically looks well Test Results: [] Emergency Department Course and Treatment: [] Explained findings to him he agrees to Toradol prescription strength Naprosyn and he will be referred to [facility] for further management Treatment Plan: [] Disposition: [] Home stable Impression: [] Lumbar back pain related to laborious work This note was generated with Whitetruffle dictation software. It may contain incorrect words, spelling, and punctuation that were not noted in review of the chart prior to signing ED Disposition - Plan for ED Patient: Chief Complaint: Back Referrals: Care Physician,No Primary [Primary Care Provider] - What to do if you have Problems For any increased pain, shortness of breath, bleeding, nausea or vomiting, chest pain, or any unexpected problems, contact your Primary Care Provider. Call [facility] ([phone]) or report to the closest Emergency Room. Call 911 if necessary. 03/19/18 1524 <Electronically signed by Hannah Wei MD> Date Hannah Wei MD Cosigner Signature (If Indicated): Date CC: No Primary Care Physician DISCHARGE INSTRUCTION Observed: 03/19/2018 Status: F Source: [facility] 2:39 PM [facility] Medical Records Department [address] [place] [address] Discharge Instruction 03/19/18 1438 MR#: [id number] Acct: [id number] Name: ELENO LEBLANC Rep #: [id number] : 1970 47 From: Hannah Wei MD PCP: Care Physician, No Primary Status: REG ER ED Disposition - Plan for ED Patient: Chief Complaint: Back Instructions: ED Spasm Back No Trauma Prescriptions: Naproxen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 middle-aged male vital signs stable afebrile. No acute distress. Pulse ox 100% on room air no signs of hypoxia. H EENT exam unremarkable. Normal speech. No facial droop. Pupils round reactive light. No signs of trauma to his face or scalp. Neck nontender no lymphadenopathy. Lungs clear all station bilaterally. Heart regular rate and rhythm no murmur. Abdomen soft nontender. He is moving all 4 extremities. They are neurovascularly intact. Calves are nontender without edema or cords. He is moving all 4 extremities. He has equal symmetrical pumping station supervisor strength. Fingertip to nose heel lynch within normal limits. Back exam nontender. Neurologically is awake and alert. He is following commands. Has no motor deficits. There is no acute smell of alcohol or any obvious signs of acute toxidrome. Test Results: CBC normal. BMP unremarkable. Alcohol level is less than 3 and his tox screen shows positive opiates. Emergency Department Course and Treatment: Patient is paranoid. He will undergo ED mental health screening labs. Treatment Plan: Patient has been calm and relaxed entire time in the emergency department. I spoke to him about his paranoid delusions and he absolutely does not want to talk the counseling center. He is not homicidal or suicidal. He is not disheveled. He does not need to be pink slipped. Disposition: Pt refused crisis evaluation Impression: Paranoid behavior History of schizophrenia and bipolar disorder. This note was generated with Whitetruffle dictation software. It may contain incorrect words, spelling, and punctuation that were not noted in review of the chart prior to signing ED Disposition - Plan for ED Patient: Chief Complaint: Mental Health Referrals: Care Physician,No Primary [Primary Care Provider] - What to do if you have Problems For any increased pain, shortness of breath, bleeding, nausea or vomiting, chest pain, or any unexpected problems, contact your Primary Care Provider. Call [facility] ([phone]) or report to the closest Emergency Room. Call 911 if necessary. 02/06/18 0336 <Electronically signed by Hi Ribeiro MD> Date Hi Ribeiro MD Cosigner Signature (If Indicated): Date CC: No Primary Care Physician DISCHARGE INSTRUCTION Observed: 02/06/2018 Status: F Source: [place] 3:36 AM REPOSITORY [facility] Medical Records Department [address] [place] [address] Discharge Instruction 02/05/18 0546 MR#: [id number] Acct: [id number] Name: ELENO LEBLANC Rep #: [id number] : 1970 47 From: Hi Ribeiro MD PCP: Care Physician, No Primary Status: DEP ER ED Disposition - Plan for ED Patient: Disposition: Home or Assisted Living Chief Complaint: Mental Health Instructions: ED Paranoid Schizophrenia Referrals: Counseling,Center [GROUP OF PHYSICIANS] - As soon as possible What to do if you have Problems For any increased pain, shortness of breath, bleeding, nausea or vomiting, chest pain, or any unexpected problems, contact your Primary Care Provider. Call [facility] ([phone]) or report to the closest Emergency Room. Call 911 if necessary. 02/06/18 0336 <Electronically signed by Hi Ribeiro MD> Date Hi Ribeiro MD Cosigner Signature (If Indicated): Date CC: No Primary Care Physician EMERGENCY DEPARTMENT Observed: 02/05/2018 Status: F Source: [place] SUMMARY 2:53 PM [facility] Medical Records Department [address] [place] [address] Emergency Department Summary 02/05/18 0853 MR#: [id number] Acct: [id number] Name: ELENO LEBLANC Rep #: [id number] : 1970 47 From: Diana Roper MD PCP: Care Physician, No Primary Status: DEP ER - ER Visit Summary Date of Service: 02/05/18 Chief Complaint: Room spinning History of Present Illness: The patient is a 47 M presenting complaining of room spinning. He states this has been ongoing for 1-2 months. He states it is worse when he stands or turns his head. He also complains of memory loss which has been ongoing for several months. This is his third visit in the past 24 hours to the emergency department. On his initial visit he had multiple complaints. On his second visit he complained of paranoid thoughts and declined a crisis evaluation. He continues to complain of paranoid thoughts but denies suicidal or homicidal ideation. He initially denied any mental health disorders but later admitted to having schizophrenia and bipolar disorder. He states he is not on any medications. He presents with his mother and girlfriend who would like a counseling center evaluation. Physical Examination: Vitals are stable. Patient is afebrile. Alert no acute distress. HEENT exam is unremarkable. Neck is supple. No meningismus Lungs are clear and equal bilaterally. Heart is regular rate and rhythm. Abdomen is soft nontender nondistended. Extremities are unremarkable. Skin is warm and dry. No focal neurologic deficit. Paranoid thoughts, denies suicidal or homicidal ideation Remainder of exam is unremarkable. Emergency Department Course and Treatment: Patient was given valium po. Alcohol and tox are negative. CT head yesterday showed no acute process. On reevaluation, his symptoms have resolved. He was evaluated by the counseling center in the emergency department. They feel there is no criteria for admission at this time. They set him up for an intake appointment this week. He continues to deny suicidal or homicidal ideation. Family and patient are agreeable with discharge. He is advised return to ED for any worsening complaints. Disposition: Discharge home Impression: Paranoid behavior, positional vertigo This note was generated with Whitetruffle dictation software. It may contain incorrect words, spelling, and punctuation that were not noted in review of the chart prior to signing ED Disposition - Plan for ED Patient: Disposition: Home or Assisted Living Chief Complaint: Headache Instructions: ED BPV Vertigo Prescriptions: Meclizine HCl [Antivert] 12.5 mg PO 4X/DAY PRN PRN #20 tablet PRN Reason: Dizziness Referrals: Counseling,Center [GROUP OF PHYSICIANS] - Sherry Schmitt DO [STAFF PHYSICIAN] - Care Physician,No Primary [Primary Care Provider] - What to do if you have Problems For any increased pain, shortness of breath, bleeding, nausea or vomiting, chest pain, or any unexpected problems, contact your Primary Care Provider. Call [employer] [facility] ([phone]) or report to the closest Emergency Room. Call 911 if necessary. 02/05/18 1453 <Electronically signed by Diana Roper MD> Date Diana Roper MD Cosigner Signature (If Indicated): Date CC: No Primary Care Physician DISCHARGE INSTRUCTION Observed: 02/05/2018 Status: F Source: [place] 12:53 PM REPOSITORY [facility] Medical Records Department [address] [place] [address] Discharge Instruction 02/05/18 125 MR#: [id number] Acct: [id number] Name: ELENO LEBLANC Rep #: [id number] : 1970 47 From: Diana Roper MD PCP: Care Physician, No Primary Status: REG ER ED Disposition - Plan for ED Patient: Chief Complaint: Headache Instructions: ED BPV Vertigo Prescriptions: Meclizine HCl [Antivert] 12.5 mg PO 4X/DAY PRN PRN #20 tablet PRN Reason: Dizziness Referrals: Counseling,Center [GROUP OF PHYSICIANS] - Sherry Schmitt DO [STAFF PHYSICIAN] - Care Physician,No Primary [Primary Care Provider] - What to do if you have Problems For any increased pain, shortness of breath, bleeding, nausea or vomiting, chest pain, or any unexpected problems, contact your Primary Care Provider. Call [facility] ([phone]) or report to the closest Emergency Room. Call 911 if necessary. 02/05/18 1253 <Electronically signed by Diana Roper MD> Date Diana Roper MD Cosigner Signature (If Indicated): Date CC: No Primary Care Physician DISCHARGE INSTRUCTION Observed: 02/05/2018 Status: F Source: [place] 12:47 PM REPOSITORY [facility] Medical Records Department [address] [place] [address] Discharge Instruction 02/05/18 1246 MR#: [id number] Acct: [id number] Name: ELENO LEBLANC Rep #: [id number] : 1970 47 From: Diana Roper MD PCP: Care Physician, No Primary Status: REG ER ED Disposition - Plan for ED Patient: Chief Complaint: Headache Instructions: ED BPV Vertigo Referrals: Care Physician,No Primary [Primary Care Provider] - Sherry Schmitt DO [STAFF PHYSICIAN] - Counseling,Center [GROUP OF PHYSICIANS] - What to do if you have Problems For any increased pain, shortness of breath, bleeding, nausea or vomiting, chest pain, or any unexpected problems, contact your Primary Care Provider. Call [facility] ([phone]) or report to the closest Emergency Room. Call 911 if necessary. 02/05/18 1247 <Electronically signed by Diana Roper MD> Date Diana Roper MD Cosigner Signature (If Indicated): Date CC: No Primary Care Physician ALCOHOL, BLOOD Collected: 02/05/2018 Status: F Source: [facility] (MEDICAL)-SERUM 9:05 AM REPOSITORY TYPE CODE TESTS RESULT OUT OF RANGE REFERENCE UNITS LAB L501.9100 mg/dL Normal SERUM < 3.0 ETOH Result Comment: The serum:whole blood ethanol ratio is approximately 1.14 and varies slightly with hematocrit. Medical Alcohol reference interval and critical value in non-tolerant individuals; 50 - 100 Impairment 100 Intoxication 100 - 250 Severe Poisoning 250 - 400 Deep/possible fatal coma Performed By: #### L501.9100 #### [facility] [address] [place], [place], [address] URINE DRUG SCREEN Collected: 02/05/2018 Status: F Source: [facility] (VISTA) 9:00 AM REPOSITORY TYPE CODE TESTS RESULT OUT OF RANGE REFERENCE UNITS LAB L505.0075 TO BE Normal CONFIRMED Result Comment: CONFIRMATORY TESTING FOR ALL POSITIVE URINE DRUG SCREEN RESULTS WILL ONLY BE SENT OUT UPON PHYSICIAN ORDER. VISTA Urine Drug Screen methods provide only preliminary analytical test results. A more specific alternate chemical method must be used in order to obtain a confirmed analytical result. Gas chromatography/mass spectrometery (GC/MS) is the preferred confirmatory method. Clinical consideration and professional judgement should be applied to any drug of abuse test result, particularly when preliminary positive results are used. URINE TCA TESTING MUST BE ORDERED SEPARATELY. USE TEST MNEMONIC: [facility] LAB L505.5005 VISTA UDS PH 7 Normal LAB L505.5015 <1000 ng/mL AMPHETAMINES Normal NEGATIVE LAB L505.5025 < 200 ng/mL BARBITIURATES Normal NEGATIVE LAB L505.5035 < 200 ng/mL BENZODIAZIPINE Normal NEGATIVE LAB L505.5045 < 300 ng/mL COCAINE Normal NEGATIVE LAB L505.5055 < 500 ng/mL ECSTACY Normal NEGATIVE LAB L505.5065 < 300 ng/mL METHADONE Normal NEGATIVE LAB L505.5075 < 300 ng/mL OPIATES Normal NEGATIVE LAB L505.5085 < 25 ng/mL PCP Normal NEGATIVE LAB L505.5095 < 50 ng/mL THC Normal NEGATIVE Performed By: #### L505.5000 #### [facility] [address] [place], [address] URINE DRUG SCREEN Collected: 02/05/2018 Status: F Source: [facility] (VISTA) 5:00 AM REPOSITORY TYPE CODE TESTS RESULT OUT OF RANGE REFERENCE UNITS LAB L505.0075 TO BE Normal CONFIRMED Result Comment: CONFIRMATORY TESTING FOR ALL POSITIVE URINE DRUG SCREEN RESULTS WILL ONLY BE SENT OUT UPON PHYSICIAN ORDER. VISTA Urine Drug Screen methods provide only preliminary analytical test results. A more specific alternate chemical method must be used in order to obtain a confirmed analytical result. Gas chromatography/mass spectrometery (GC/MS) is the preferred confirmatory method. Clinical consideration and professional judgement should be applied to any drug of abuse test result, particularly when preliminary positive results are used. URINE TCA TESTING MUST BE ORDERED SEPARATELY. USE TEST MNEMONIC: [facility] LAB L505.5005 VISTA UDS PH 7 Normal LAB L505.5015 <1000 ng/mL AMPHETAMINES Normal NEGATIVE LAB L505.5025 < 200 ng/mL BARBITIURATES Normal NEGATIVE LAB L505.5035 < 200 ng/mL BENZODIAZIPINE Normal NEGATIVE LAB L505.5045 < 300 ng/mL COCAINE Normal NEGATIVE LAB L505.5055 < 500 ng/mL ECSTACY Normal NEGATIVE LAB L505.5065 < 300 ng/mL METHADONE Normal NEGATIVE LAB L505.5075 < 300 High ng/mL OPIATES POSITIVE LAB L505.5085 < 25 ng/mL PCP Normal NEGATIVE LAB L505.5095 < 50 ng/mL THC Normal NEGATIVE Performed By: #### L505.5000 #### [facility] [address] [place], [address] CBC W/DIFF, AUTOMATED Collected: 02/05/2018 Status: F Source: [place] 5:00 AM REPOSITORY TYPE CODE TESTS RESULT OUT OF RANGE REFERENCE UNITS LAB L100.1000 4.4-11.0 K/mm3 Normal WBC 8.7 LAB L100.1200 4.6-6.2 M/mm3 Normal RBC 5.41 LAB L100.1300 13.0-16.5 g/dl Normal HGB 13.9 LAB L100.1400 40-54 % Normal HCT 43.4 LAB L100.1500 80-94 fL Normal MCV 80.2 LAB L100.1600 27.0-32.0 pg Low MCH 25.7 LAB L100.1700 32-36 g/gl Normal MCHC 32.0 LAB L100.1810 11.6-14.6 % High RDW CV 16.8 LAB L100.1820 35.1-43.9 fl High RDW SD 49.1 LAB L100.1900 150-450 K/mm3 Normal PLT 257 LAB L100.2000 6.2-12.0 fl Normal MPV 9.8 LAB L100.2100 47-70 % High NEUT% 75.7 LAB L100.2200 19-41 % Low LY% 18.3 LAB L100.2300 0-10 % Normal MONO% 4.7 LAB L100.2400 0-5 % Normal EO% 0.9 LAB L100.2500 0-1 % Normal BASO% 0.3 LAB L100.2550 0.0-0.9 % Normal IM GRAN % 0.100 Result Comment: IG% - Immature Granulocytes (promyelocytes, myelocytes and metamyelocytes) > 1% indicates that a LEFT SHIFT is Present. LAB L100.2620 2.0-7.7 X10 3/uL Normal Absolute Neut 6.6 LAB L100.2720 0.83-4.51 X10 3/ul Normal Absolute Lymph 1.60 Performed By: #### L100.0100 #### [facility] [address] [place], [address] BASIC METABOLIC Collected: 02/05/2018 Status: F Source: [place] PROFILE (BMP) 5:00 AM REPOSITORY TYPE CODE TESTS RESULT OUT OF RANGE REFERENCE UNITS LAB L501.0100 74-106 mg/dL High GLU 111 Result Comment: Fasting Glucose result from 100 to 125 mg/dL suggests IMPAIRED HOMEOSTASIS per A.D.A. criteria. Please note revised GLUCOSE reference range effective 2017. LAB L501.1000 7-18 mg/dL Normal BUN 7 LAB L501.1100 0.70-1.30 mg/dL Normal CREAT,SERUM 0.83 Result Comment: The validity of the calculated GFR AND GFRAA in patients over 70 years has not been determined. Clinical correlation is essential. LAB L501.1110 >60 mL/min Normal EST GFR 107 Result Comment: Non- GFR Calc LAB L501.1115 >60 mL/min Normal EST GFR - AA 129 Result Comment: GFR Calc LAB L501.1255 ml/min Normal Estimated CRCL 127.02 LAB L501.1300 10-20 RATIO Low BUN/CRE 8.4 LAB L501.2200 8.5-10 mg/dL .1 CA Normal 9.0 LAB L501.5300 136-14 mmol/L 5 NA Normal 142 LAB L501.5600 3.5-5. mmol/L 1 K Normal 4.0 LAB L501.5900 98-107 mmol/L High CL 111 LAB L501.6100 21.0-3 mmol/L 2.0 CO2 Normal 23.0 LAB L501.6200 5-15 GAP Normal 8 Performed By: #### L500.2500 #### [facility] [address] [place], [address] ALCOHOL, BLOOD Collected: 02/05/2018 Status: F Source: [place] (MEDICAL)-SERUM 5:00 AM REPOSITORY TYPE CODE TESTS RESULT OUT OF RANGE REFERENCE UNITS LAB L501.9100 mg/dL Normal SERUM < 3.0 ETOH Result Comment: The serum:whole blood ethanol ratio is approximately 1.14 and varies slightly with hematocrit. Medical Alcohol reference interval and critical value in non-tolerant individuals; 50 - 100 Impairment 100 Intoxication 100 - 250 Severe Poisoning 250 - 400 Deep/possible fatal coma Performed By: #### L501.9100 #### [facility] [address] [place], [address] DISCHARGE INSTRUCTION Observed: 02/04/2018 Status: F Source: [place] 8:20 PM REPOSITORY [facility] Medical Records Department [address] [place] [address] Discharge Instruction 02/04/182018 MR#: [id number] Acct: [id number] Name: ELENO LEBLANC Rep #: [id number] : 1970 47 From: Guilherme Dueñas MD PCP: Edmund Physician, No Primary Status: REG ER ED Disposition - Plan for ED Patient: Chief Complaint: Dizziness Instructions: ED Dizziness UKO, ED Chest Pain Atypical Unkn Cause, ED Strain Groin, ED Hypertension Poss Referrals: Care Physician,No Primary [Primary Care Provider] - Malu Denton MD [STAFF PHYSICIAN] - What to do if you have Problems For any increased pain, shortness of breath, bleeding, nausea or vomiting, chest pain, or any unexpected problems, contact your Primary Care Provider. Call [facility] ([phone]) or report to the closest Emergency Room. Call 911 if necessary. 02/04/182019 <Electronically signed by Guilherme Dueñas MD> Date Guilherme Dueñas MD Cosigner Signature (If Indicated): Date CC: No Primary Care Physician EMERGENCY DEPARTMENT Observed: 02/04/2018 Status: F Source: [place] SUMMARY 8:19 PM REPOSITORY [facility] Medical Records Department [address] [place] [address] Emergency Department Summary 02/04/182014 MR#: [id number] Acct: [id number] Name: ELENO LEBLANC Rep #: [id number] : 1970 47 From: Guilherme Dueñas MD PCP: Care Physician, No Primary Status: REG ER - ER Visit Summary Date of Service: 02/04/18 Chief Complaint: Multiple complaints History of Present Illness: The patient is a 47 M who presents with multiple complaints over the past 5 months. He complains of his ears ringing. He complains of memory loss. He complains of intermittent sharp pains in his head. Complains of headache. He complains of dizziness which she describes as near syncope. He also complains of bilateral groin pain. He also complains of chest pain intermittently for the last 3 weeks. He denies any chest pain currently. He is also had shortness of breath and occasional dry nonproductive cough although he is not short of breath currently. He complains of urinary frequency. Physical Examination: Blood pressure 160/125 vitals otherwise normal. Repeat blood pressure was 137/101. Patient resting comfortably Moist mucous membranes Heart regular rate and rhythm Lungs are clear Abdomen soft nontender Patient has some bilateral tenderness in the groin I do not appreciate an obvious hernia he has a normal genitourinary examination with normal inspection of the testes no erythema no scrotal edema no testicular tenderness Alert No focal or lateralizing neurological deficits no ataxia normal cerebellar testing Test Results: EKG shows sinus rhythm at a rate of 84 with occasional PACs. CBC BMP hepatic function urinalysis troponin all normal. Chest x-ray normal. CT of the head normal. CT of the abdomen shows no acute process. Emergency Department Course and Treatment: Patient's workup is unremarkable. He has an extensive list of complaints. At this time I do not see any evidence of life-threatening illness. I do believe he requires further outpatient workup. He was instructed on specific signs and symptoms which she should return to the emergency department for reevaluation. He was given a referral for a primary care physician. All questions answered bedside. Patient discharged. Treatment Plan: [] Disposition: Discharge Impression: Headache Bilateral groin pain Chest pain Memory loss Dizziness Elevated blood pressure This note was generated with Whitetruffle dictation software. It may contain incorrect words, spelling, and punctuation that were not noted in review of the chart prior to signing ED Disposition - Plan for ED Patient: Chief Complaint: Dizziness Referrals: Care Physician,No Primary [Primary Care Provider] - What to do if you have Problems For any increased pain, shortness of breath, bleeding, nausea or vomiting, chest pain, or any unexpected problems, contact your Primary Care Provider. Call [facility] ([phone]) or report to the closest Emergency Room. Call 911 if necessary. 02/04/18 2019 <Electronically signed by Guilherme Dueñas MD> Date Guilherme Dueñas MD Cosigner Signature (If Indicated): Date CC: No Primary Care Physician URINALYSIS, COMPLETE Collected: 02/04/2018 Status: F Source: [facility]J 7:05 PM REPOSITORY Order Comment: Order Date: 02/04/18 How was Urine Obtained? CLEAN CATCH TYPE CODE TESTS RESULT OUT OF RANGE REFERENCE UNITS LAB L400.3000 Yellow COLOR Normal Yellow LAB L400.3050 Clear Normal CLARITY Clear LAB L400.3200 Normal mg/dl Normal GLUCOSE, UR Normal LAB L400.3300 Negative mg/dL Normal BILIRUBIN URINE Negative LAB L400.3400 Negative mg/dl Normal KETONE UR Negative LAB L400.3465 1.002-1.030 Normal SP.GR. DIPSTX 1.010 LAB L400.3550 5.0 - 8.0 pH UR Normal 7.0 LAB L400.3600 Negative mg/dl PROT Normal DIPSTX Negative LAB L400.3700 Normal mg/dl Normal UROBILI Normal LAB L400.3750 Negative Normal NITRITE UR Negative LAB L400.3780 Negative /ul Normal OCCULT BLOOD-UR Negative LAB L400.3800 Negative /ul LEUK Normal ESTERASE Negative LAB L400.4050 0-5 /hpf WBC 0 Normal SEEN LAB L400.4100 0-5 /hpf Normal RBC-UA 0-5 SEEN Result Comment: RARE SPERMATOZOA PRESENT LAB L400.4150 0-5 /hpf Normal SQUAM EPI 0 SEEN LAB L400.4300 None Seen /hpf Normal BACTERIA 0 SEEN LAB L400.4350 <or=2+ /hpf Normal MUCUS, URINE 0 SEEN Performed By: #### L400.0001 #### [facility] [address] [place], [address] ABDOMEN/PELVIS WITHOUT Observed: 02/04/2018 Status: F Source: [place] CONT 6:31 PM REPOSITORY [facility] Imaging Services [address] [place] [address] Abdomen/Pelvis without Cont MR#: [id number] Acct: [id number] Name: ELENO LEBLANC [employer] Rep #: [id number] : 1970 M 47 From: Jordy Walker MD PCP: Care Physician, No Primary Status: REG ER Study: Abdomen/Pelvis without Cont Date of Exam: 02/04/18 Exam# [id number] Ordering Dr: Guilherme Dueñas MD STUDY: CT ABDOMEN AND PELVIS WITHOUT CONTRAST REASON FOR EXAM: Male, 47 years old. Dizziness, groin pain RADIATION DOSAGE (If Supplied By Facility): CTDIvol = ( 9.59 ) mGy, DLP = ( 565.76 ) mGycm TECHNIQUE: Transaxial images were obtained from the dome of the diaphragm to the symphysis pubis without oral contrast, and without intravenous contrast. Sagittal and coronal images were reconstructed. Individualized dose optimization techniques were used for this CT. COMPARISON: 12/12/2017 FINDINGS: The visualized lung bases are unremarkable. The visualized portions of the heart are within normal limits. There is decreased attenuation of the liver consistent with steatosis. Normal gallbladder and extrahepatic biliary system. Normal spleen. Normal pancreas. Normal bilateral adrenal glands. Normal right kidney. Normal left kidney. Normal visualized stomach. Normal small intestine. Normal colon. Prior appendectomy. Normal abdominal aorta. Normal inferior vena cava. Normal retroperitoneum. Normal urinary bladder. Normal abdominal wall. Normal osseous structures. CT/Abdomen/Pelvis without Cont IMPRESSION: No evidence of acute intestinal pathology or acute obstructive uropathy. Fatty liver. Electronically Signed: Jordy Walker MD at 19:22 EDT Tel , Service support , CC: No Primary Care Physician; Guilherme Dueñas MD Route Delivery Supervisor: Signed BRAIN/HEAD WITHOUT Observed: 02/04/2018 Status: F Source: [place] CONTRAST 5:59 PM REPOSITORY [facility] Imaging Services [address] [place] [address] Brain/Head without Contrast MR#: [id number] Acct: [id number] Name: ELENO LEBLANC Rep #: [id number] : 1970 M 47 From: Patrick Ontiveros MD PCP: Care Physician, No Primary Status: REG ER Study: Brain/Head without Contrast Date of Exam: 02/04/18 Exam# [id number] Ordering Dr: Guilherme Dueñas MD STUDY: CT BRAIN WITHOUT CONTRAST REASON FOR EXAM: Male, 47 years old. Dizzy, not feeling right. RADIATION DOSAGE (If Supplied By Facility): CTDIvol = ( 44.99 ) mGy, DLP = ( 863.50 ) mGycm TECHNIQUE: Transaxial CT imaging of the brain was performed without administration of intravenous contrast material. Individualized dose optimization techniques were used for this CT. COMPARISON: None. FINDINGS: Normal soft tissue structures. Normal calvarium. Normal size ventricles and extra-axial spaces for the patient's age. Normal white matter tracts of the cerebral hemispheres. Normal basal ganglia and thalami. Normal brainstem. Normal cerebellum. There is no intracranial hemorrhage. There are no findings of an acute ischemic infarction. Normal visualized paranasal sinuses. CT/Brain/Head without Contrast IMPRESSION: Normal unenhanced CT scan of the brain. Electronically Signed: Pineda Ontiveros MD at 18:34 EDT , Service support , CC: No Primary Care Physician; Guilherme Dueñas MD Route Delivery Supervisor: Signed CHEST PA AND LATERAL Observed: 02/04/2018 Status: F Source: [place] 5:59 PM REPOSITORY [facility] Imaging Services [address] [place] [address] Chest PA and Lateral MR#: [id number] Acct: [id number] Name: ELENO LEBLANC Rep #: [id number] : 1970 M 47 From: Jordy Walker MD PCP: Care Physician, No Primary Status: REG ER Study: Chest PA and Lateral Date of Exam: 02/04/18 Exam# [id number] Ordering Dr: Guilherme Dueñas MD STUDY: X-RAY CHEST REASON FOR EXAM: Male, 47 years old. Dizziness TECHNIQUE: Frontal and lateral views of the chest. COMPARISON: 10/23/2017 FINDINGS: The lungs are clear and expanded. There is no demonstrated pleural abnormality. Normal size heart. Normal mediastinum and heidy. Normal visualized pulmonary arteries. Normal visualized aortic arch and descending thoracic aorta. Normal visualized thoracic spine. Normal visualized ribs, clavicles, and shoulders. There is no demonstrated abnormality of the visualized soft tissue structures of the upper abdomen. RAD/Chest PA and Lateral IMPRESSION: Normal x-ray examination of the chest. Electronically Signed: Jordy Walker MD at 18:40 EDT Tel , Service support , CC: No Primary Care Physician; Guilherme Dueñas MD Route Delivery Supervisor: Signed COMPREHENSIVE METABOLIC Collected: 02/04/2018 Status: F Source: [facility] PROFIL 5:25 PM REPOSITORY TYPE CODE TESTS RESULT OUT OF RANGE REFERENCE UNITS LAB L501.0100 74-106 mg/dL Normal GLU 87 Result Comment: Please note revised GLUCOSE reference range effective 2017. LAB L501.1000 7-18 mg/dL Normal BUN 8 LAB L501.1100 0.70-1.30 mg/dL Normal CREAT,SERUM 0.92 Result Comment: The validity of the calculated GFR AND GFRAA in patients over 70 years has not been determined. Clinical correlation is essential. LAB L501.1110 >60 mL/min Normal EST GFR 95 Result Comment: Non- GFR Calc LAB L501.1115 >60 mL/min Normal EST GFR - AA 114 Result Comment: GFR Calc LAB L501.1255 ml/min Normal Estimated CRCL 114.59 LAB L501.1300 10-20 RATIO Low BUN/CRE 8.7 LAB L501.1500 6.4-8. g/dL 2 T PROT Normal 7.2 LAB L501.1800 3.2-5. g/dL 0 ALB Normal 3.8 LAB L501.1950 2.2-4. g/dL 2 GLOB Normal 3.4 LAB L501.2000 0.9-2. RATIO 4 A/G Normal 1.1 LAB L501.2200 8.5-10 mg/dL .1 CA Normal 8.6 LAB L501.4100 15-37 U/L Low AST 11 LAB L501.4305 45-117 U/L ALK P Normal 84 LAB L501.4405 16-61 U/L ALT Normal 37 LAB L501.4600 0.20-1 mg/dL .00 T BILI Normal 0.30 LAB L501.5300 136-14 mmol/L 5 NA Normal 142 LAB L501.5600 3.5-5. mmol/L 1 K Normal 4.0 LAB L501.5900 98-107 mmol/L High CL 110 LAB L501.6100 21.0-3 mmol/L 2.0 CO2 Normal 26.0 LAB L501.6200 5-15 GAP Normal 6 Performed By: #### L500.4050, L501.4010 #### [facility] [address] [place], [address] TROPONIN-I Collected: 02/04/2018 Status: F Source: [place] 5:25 PM REPOSITORY TYPE CODE TESTS RESULT OUT OF RANGE REFERENCE UNITS LAB L501.4010 <0.045 ng/mL Normal < 0.015 TROPONIN-I Result Comment: TROPONIN-I EXPECTED VALUES <0.045 NEGATIVE 0.045 - 0.590 AT RISK OF MN > OR = 0.600 SUGGEST MN Not every elevated troponin is indicative of MN. These values should be used with clinical judgement in examining the patient's clinical picture for diagnosis. To establish a diagnosis of MN versus myocardial injury, there must be a demonstrated rise and/or fall in the troponin values, in addition to ischemic symptoms, EKG changes, new regional wall motion abnormality, and/or angiographical evidence. PLEASE NOTE: REFERENCE RANGES EDITED 18 Performed By: #### L500.4050, L501.4010 #### [facility] [address] [facility] [place], [address] CBC W/DIFF, AUTOMATED Collected: 02/04/2018 Status: F Source: [place] 5:25 PM REPOSITORY TYPE CODE TESTS RESULT OUT OF RANGE REFERENCE UNITS LAB L100.1000 4.4-11.0 K/mm3 Normal WBC 8.0 LAB L100.1200 4.6-6.2 M/mm3 Normal RBC 5.48 LAB L100.1300 13.0-16.5 g/dl Normal HGB 13.9 LAB L100.1400 40-54 % Normal HCT 44.2 LAB L100.1500 80-94 fL Normal MCV 80.7 LAB L100.1600 27.0-32.0 pg Low MCH 25.4 LAB L100.1700 32-36 g/gl Low MCHC 31.4 LAB L100.1810 11.6-14.6 % High RDW CV 16.7 LAB L100.1820 35.1-43.9 fl High RDW SD 49.1 LAB L100.1900 150-450 K/mm3 Normal PLT 270 LAB L100.2000 6.2-12.0 fl Normal MPV 10.0 LAB L100.2100 47-70 % Normal NEUT% 67.4 LAB L100.2200 19-41 % Normal LY% 21.0 LAB L100.2300 0-10 % Normal MONO% 9.6 LAB L100.2400 0-5 % Normal EO% 1.5 LAB L100.2500 0-1 % Normal BASO% 0.4 LAB L100.2550 0.0-0.9 % Normal IM GRAN % 0.100 Result Comment: IG% - Immature Granulocytes (promyelocytes, myelocytes and metamyelocytes) > 1% indicates that a LEFT SHIFT is Present. LAB L100.2620 2.0-7.7 X10 3/uL Normal Absolute Neut 5.4 LAB L100.2720 0.83-4.51 X10 3/ul Normal Absolute Lymph 1.67 Performed By: #### L100.0100 #### [facility] [address], [address] XR SPINE LUMBOSACRAL Observed: 01/06/2018 Status: F Source: [facility] MINIMUM 4 VIEWS 1:34 PM [facility] REPOSITORY Exam Date/Time: 01/06/2018 13:38 EDT Reason for Exam: Back pain Report XR SPINE LUMBOSACRAL MINIMUM 4 VIEWS CLINICAL STATEMENT: Back pain. COMPARISON: None. TECHNIQUE: AP, oblique, and lateral views with a lateral cone- down view of the lumbosacral junction. FINDINGS: There are 5 lumbar type segments. The vertebral bodies and intervertebral disc spaces are maintained in height. The pedicles are intact. No listhesis or obvious osseous destructive lesion. Sacroiliac joints appear unremarkable. IMPRESSION: Unremarkable lumbar spine series. No acute osseous abnormality or listhesis. FINAL REPORT Dictated: 01/06/2018 1:59 pm Hi Michelle DO Signed (Electronic Signature): 01/06/2018 1:59 pm Signed by: Hi Michelle DO Technologist: [facility] EMERGENCY DEPARTMENT Observed: 12/12/2017 Status: F Source: [place] SUMMARY 5:40 PM REPOSITORY [facility] Medical Records Department [address] [place] [address] Emergency Department Summary 12/12/17 1732 MR#: [id number] Acct: [id number] Name: ELENO LEBLANC Rep #: [id number] : 1970 47 From: Kuldeep Gupta MD PCP: Care Physician, No Primary Status: REG ER - ER Visit Summary Date of Service: 12/12/17 Chief Complaint: Left flank/back pain and LLQ since December 07. History of Present Illness: The patient is a 47 M who was seen on December 09. Workup at that time was unremarkable. He presents now with left flank pain and left lower quadrant abdominal pain. States he cannot find a position of comfort. He does have history of renal/ureteral calculi. He denies fever, chills night sweats. He denies hematuria or frequency. Does complain of discomfort with urination. He denies any penile lesions or discharge. He denies testicular pain. There is no history of trauma. He has no history of diverticulosis or diverticulitis. He denies shortness of breath, cough, dyspnea on exertion, orthopnea or PND. He denies any chest pain or palpitations. Review of systems was otherwise negative. Physical Examination: Blood pressure slightly elevated 134/98. Head is atraumatic normocephalic. Pupils are equal round reactive. Extraocular muscles are intact. TMs are pearly white with landmarks noted. Nares patent with no drainage. Posterior pharynx without erythema or exudate. Uvula is midline. There is no dysphonia or dysphasia. Trachea is midline. There is no stridor with auscultation of the neck. Heart is regular without murmur, gallop or rub. S1 and S2 are normal. Lungs are clear to auscultation with good movement of air bilaterally. Abdomen is marked for tenderness left side. There is no guarding or rebound tenderness. Equivocal CVA tenderness on the left. There is no inguinal lymphadenopathy or hernia. No pathology. Neuro exam is nonfocal. Test Results: UA is remarkable for blood on macro and greater than 100 RBCs on micro. There is no evidence of infection. CT of the abdomen and pelvis without contrast reveals no acute urologic pathology. Emergency Department Course and Treatment: Chart from the was reviewed. Because he describes prior history of renal/ureteral calculus, urinary symptoms and flank pain UA was obtained. Sensors blood CT was obtained. He was medicated with Toradol and Zofran. Treatment Plan: Patient's workup on the was unremarkable. Workup today is unremarkable. Patient was informed he may be that 10-50% to has blood in his urine and it is normal. Disposition: Discharge to home with appropriate home going instructions and outpatient referral Impression: Left flank and abdominal pain of unknown etiology Hematuria unknown etiology This note was generated with Whitetruffle dictation software. It may contain incorrect words, spelling, and punctuation that were not noted in review of the chart prior to signing ED Disposition - Plan for ED Patient: Disposition: Home or Assisted Living Chief Complaint: Back Instructions: ED Flank Pain Uncertain Cause Referrals: Care Physician,No Primary [Primary Care Provider] - 3-5 Days if not improving Additional Instructions: Take either ibuprofen or Naprosyn for your pain. Recommend following up with the Dr. turner by your insurance carrier [employer]. What to do if you have Problems For any increased pain, shortness of breath, bleeding, nausea or vomiting, chest pain, or any unexpected problems, contact your Primary Care Provider. Call [facility] ([phone]) or report to the closest Emergency Room. Call 911 if necessary. 12/12/17 1740 <Electronically signed by Kuldeep Gupta MD> Date Kuldeep Gupta MD Cosigner Signature (If Indicated): Date CC: No Primary Care Physician URINALYSIS, COMPLETE Collected: 12/12/2017 Status: F Source: [facility] 3:50 PM REPOSITORY Order Comment: Order Date: 12/12/17 Has pt arrived? Y How was Urine Obtained? CLEAN CATCH TYPE CODE TESTS RESULT OUT OF RANGE REFERENCE UNITS LAB L400.3000 Yellow COLOR Normal Yellow LAB L400.3050 Clear Normal CLARITY Sl. Cloudy LAB L400.3200 Normal mg/dl Normal GLUCOSE, UR Normal LAB L400.3300 Negative mg/dL Normal BILIRUBIN URINE Negative LAB L400.3400 Negative mg/dl Normal KETONE UR Negative LAB L400.3465 1.002-1.030 Normal SP.GR. DIPSTX 1.020 LAB L400.3550 5.0 - 8.0 pH UR Normal 6.0 LAB L400.3600 Negative mg/dl High PROT 15 DIPSTX LAB L400.3700 Normal mg/dl Normal UROBILI Normal LAB L400.3750 Negative Normal NITRITE UR Negative LAB L400.3780 Negative /ul High OCCULT BLOOD-UR 250 LAB L400.3800 Negative /ul LEUK Normal ESTERASE Negative LAB L400.4050 0-5 /hpf WBC 0 Normal SEEN LAB L400.4100 0-5 /hpf > Normal RBC-UA 100 SEEN LAB L400.4150 0-5 /hpf SQUAM 0 Normal EPI SEEN LAB L400.4300 None Seen /hpf 0 Normal BACTERIA SEEN LAB L400.4350 <or=2+ /hpf 0 Normal MUCUS, URINE SEEN Performed By: #### L400.0001 #### [facility] [address] [facility] [place], [address] ABDOMEN/PELVIS WITHOUT Observed: 12/12/2017 Status: F Source: [place] CONT 3:02 PM REPOSITORY [facility] Imaging Services [address] [place] [address] Abdomen/Pelvis without Cont MR#: [id number] Acct: [id number] Name: ELENO LEBLANC Rep #: [id number] : 1970 M 47 From: Erwin Tee MD PCP: Care Physician, No Primary Status: REG ER Study: Abdomen/Pelvis without Cont Date of Exam: 12/12/17 Exam# [id number] Ordering Dr: Kuldeep Gupta MD STUDY: CT ABDOMEN AND PELVIS WITHOUT CONTRAST REASON FOR EXAM: Male, 47 years old. Left flank pain. RADIATION DOSAGE (If Supplied By Facility): CTDIvol = ( 14.44 ) mGy, DLP = ( 802.26 ) mGycm TECHNIQUE: Transaxial images were obtained from the dome of the diaphragm to the symphysis pubis without oral contrast, and without intravenous contrast. Sagittal and coronal images were reconstructed. Individualized dose optimization techniques were used for this CT. COMPARISON: October 23, 2017. FINDINGS: There are chronic interstitial fibrotic changes of the lung bases. The right middle lobe atelectasis. The visualized portions of the heart are within normal limits. There is hepatomegaly with diffuse hepatic enlargement. There is decreased attenuation of the liver consistent with steatosis.There is sparing adjacent to the gallbladder fossa. Normal gallbladder and extrahepatic biliary system. Normal spleen. Normal pancreas. Normal bilateral adrenal glands. Normal right kidney. Normal left kidney. No stones or hydronephrosis. Normal visualized stomach. Normal small intestine. Normal colon. There are surgical clips in the region of the appendix consistent with a prior appendectomy. There is atherosclerotic calcification of the abdominal aorta, without a demonstrated aneurysm. Normal inferior vena cava. There is borderline retroperitoneal lymphadenopathy with enlarged nodes no greater than 10mm in the short axis diameter. Normal urinary bladder. There is no free fluid in the abdomen or pelvis. There is a small umbilical hernia containing fat. Normal osseous structures. CT/Abdomen/Pelvis without Cont IMPRESSION: No stones or hydronephrosis Liver is enlarged with diffuse fatty infiltration. No dilated loops of bowel. Electronically Signed: Erwin Tee MD at 17:05 EDT , Service support , CC: No Primary Care Physician; Kuldeep Gupta MD Route Delivery Supervisor: Signed DISCHARGE INSTRUCTION Observed: 12/09/2017 Status: F Source: [place] 5:45 PM REPOSITORY [facility] Medical Records Department [address] [place] [address] Discharge Instruction 12/09/17 1744 MR#: [id number] Acct: [id number] Name: ELENO LEBLANC Rep #: [id number] : 1970 47 From: Diana Roper MD PCP: Care Physician, No Primary Status: REG ER ED Disposition - Plan for ED Patient: Chief Complaint: Back Instructions: ED Neck Back Pain General Prescriptions: Ondansetron [Zofran Odt] 4 mg PO Q8H PRN PRN #10 tablet PRN Reason: Nausea Referrals: Care Physician,No Primary [Primary Care Provider] - Dhiraj Gardner, [STAFF PHYSICIAN] - What to do if you have Problems For any increased pain, shortness of breath, bleeding, nausea or vomiting, chest pain, or any unexpected problems, contact your Primary Care Provider. Call [facility] ([phone]) or report to the closest Emergency Room. Call 911 if necessary. 12/09/17 1745 <Electronically signed by Diana Roper MD> Date Diana Roper MD Cosigner Signature (If Indicated): Date CC: No Primary Care Physician EMERGENCY DEPARTMENT Observed: 12/09/2017 Status: F Source: [place] SUMMARY 5:44 PM REPOSITORY [facility] Medical Records Department [address] [place] [address] Emergency Department Summary 12/09/17 1536 MR#: [id number] Acct: [id number] Name: ELENO LEBLANC Rep #: [id number] : 1970 47 From: Diana Roper MD PCP: Edmund Physician, No Primary Status: REG ER - ER Visit Summary Date of Service: 12/09/17 Chief Complaint: Back pain History of Present Illness: The patient is a 47 M presenting with 4-5 days of lower back pain. He does not recall specific injury. He has a history of chronic low back pain. He also complains of nausea and decreased appetite. He denies vomiting or diarrhea. Denies fever. Denies chest pain or shortness of breath. Physical Examination: Vitals are stable. Patient is afebrile. Alert no acute distress. HEENT exam is unremarkable. Neck is supple. Lungs are clear and equal bilaterally. Heart is regular rate and rhythm. Abdomen is soft mild suprapubic tenderness, no rebound or guarding Back: mild bilateral paraspinal lumbar muscle tenderness, no midline tenderness Extremities are unremarkable. Skin is warm and dry. No focal neurologic deficit. Remainder of exam is unremarkable. Emergency Department Course and Treatment: Patient is given IV fluids, Toradol, Zofran. CBC, chemistries unremarkable. Urinalysis is unremarkable. Patient is feeling improved on reevaluation. His abdomen is soft and nontender with no guarding or rebound. He is given a prescription for Zofran for home. Advised to follow-up with Dr. Gadrner solids control technician for no doc. Advised return to ED if worsening complaints. Disposition: Discharged home Impression: Back pain acute on chronic, abdominal pain This note was generated with Whitetruffle dictation software. It may contain incorrect words, spelling, and punctuation that were not noted in review of the chart prior to signing ED Disposition - Plan for ED Patient: Chief Complaint: Back Referrals: Care Physician,No Primary [Primary Care Provider] - What to do if you have Problems For any increased pain, shortness of breath, bleeding, nausea or vomiting, chest pain, or any unexpected problems, contact your Primary Care Provider. Call [facility] ([phone]) or report to the closest Emergency Room. Call 911 if necessary. 12/09/17 9904 <Electronically signed by Diana Roper MD> Date Diana Roper MD Cosigner Signature (If Indicated): Date CC: No Primary Care Physician CBC W/DIFF, AUTOMATED Collected: 12/09/2017 Status: F Source: [facility] 3:55 PM REPOSITORY TYPE CODE TESTS RESULT OUT OF RANGE REFERENCE UNITS LAB L100.1000 4.4-11.0 K/mm3 Normal WBC 7.6 LAB L100.1200 4.6-6.2 M/mm3 Normal RBC 5.29 LAB L100.1300 13.0-16.5 g/dl Normal HGB 13.5 LAB L100.1400 40-54 % Normal HCT 41.7 LAB L100.1500 80-94 fL Low MCV 78.8 LAB L100.1600 27.0-32.0 pg Low MCH 25.5 LAB L100.1700 32-36 g/gl Normal MCHC 32.4 LAB L100.1810 11.6-14.6 % High RDW CV 15.9 LAB L100.1820 35.1-43.9 fl High RDW SD 46.0 LAB L100.1900 150-450 K/mm3 Normal PLT 258 LAB L100.2000 6.2-12.0 fl Normal MPV 10.2 LAB L100.2100 47-70 % High NEUT% 74.5 LAB L100.2200 19-41 % Low LY% 17.3 LAB L100.2300 0-10 % Normal MONO% 6.6 LAB L100.2400 0-5 % Normal EO% 0.8 LAB L100.2500 0-1 % Normal BASO% 0.4 LAB L100.2550 0.0-0.9 % Normal IM GRAN % 0.400 Result Comment: IG% - Immature Granulocytes (promyelocytes, myelocytes and metamyelocytes) > 1% indicates that a LEFT SHIFT is Present. LAB L100.2620 2.0-7.7 X10 3/uL Normal Absolute Neut 5.6 LAB L100.2720 0.83-4.51 X10 3/ul Normal Absolute Lymph 1.31 Performed By: #### L100.0100 #### [facility] [address] [place], [address] BASIC METABOLIC Collected: 12/09/2017 Status: F Source: [facility] PROFILE (BMP) 3:55 PM REPOSITORY TYPE CODE TESTS RESULT OUT OF RANGE REFERENCE UNITS LAB L501.0100 74-106 mg/dL Normal GLU 100 Result Comment: Fasting Glucose result from 100 to 125 mg/dL suggests IMPAIRED HOMEOSTASIS per A.D.A. criteria. Please note revised GLUCOSE reference range effective 2017. LAB L501.1000 7-18 mg/dL Normal BUN 11 LAB L501.1100 0.70-1.30 mg/dL Normal CREAT,SERUM 0.77 Result Comment: The validity of the calculated GFR AND GFRAA in patients over 70 years has not been determined. Clinical correlation is essential. LAB L501.1110 >60 mL/min Normal EST GFR 117 Result Comment: Non- GFR Calc LAB L501.1115 >60 mL/min Normal EST GFR - AA 141 Result Comment: GFR Calc LAB L501.1255 ml/min Normal Estimated CRCL 136.91 LAB L501.1300 10-20 RATIO BUN/CRE Normal 14.3 LAB L501.2200 8.5-10 mg/dL .1 CA Normal 8.6 LAB L501.5300 136-14 mmol/L 5 NA Normal 141 LAB L501.5600 3.5-5. mmol/L 1 K Normal 3.9 LAB L501.5900 98-107 mmol/L CL Normal 107 LAB L501.6100 21.0-3 mmol/L 2.0 CO2 Normal 27.0 LAB L501.6200 5-15 GAP Normal 7 Performed By: #### L500.2500 #### [facility] [address] [place], [place], [address] URINALYSIS, COMPLETE Collected: 12/09/2017 Status: F Source: MJ 3:54 PM REPOSITORY Order Comment: Order Date: 12/09/17 Has pt arrived? Y How was Urine Obtained? CLEAN CATCH TYPE CODE TESTS RESULT OUT OF RANGE REFERENCE UNITS LAB L400.3000 Yellow COLOR Normal Yellow LAB L400.3050 Clear Normal CLARITY Clear LAB L400.3200 Normal mg/dl Normal GLUCOSE, UR Normal LAB L400.3300 Negative mg/dL Normal BILIRUBIN URINE Negative LAB L400.3400 Negative mg/dl Normal KETONE UR Negative LAB L400.3465 1.002-1.030 Normal SP.GR. DIPSTX 1.010 LAB L400.3550 5.0 - 8.0 pH UR Normal 7.0 LAB L400.3600 Negative mg/dl PROT Normal DIPSTX Negative LAB L400.3700 Normal mg/dl Normal UROBILI Normal LAB L400.3750 Negative Normal NITRITE UR Negative LAB L400.3780 Negative /ul High 10 OCCULT BLOOD-UR LAB L400.3800 Negative /ul LEUK Normal ESTERASE Negative LAB L400.4050 0-5 /hpf WBC 0 Normal SEEN LAB L400.4100 0-5 /hpf Normal RBC-UA 0-5 SEEN LAB L400.4150 0-5 /hpf SQUAM Normal EPI 0-5 SEEN LAB L400.4300 None Seen /hpf 0 Normal BACTERIA SEEN LAB L400.4350 <or=2+ /hpf 0 Normal MUCUS, URINE SEEN Performed By: #### L400.0001 #### [facility] [address] [place], [place], [address] DISCHARGE INSTRUCTION Observed: 10/23/2017 Status: F Source: [place] 11:09 PM REPOSITORY [facility] Medical Records Department [address] [place] [address] Discharge Instruction 10/23/172307 MR#: [id number] Acct: [id number] Name: BENJIELENO Umu Rep #: [id number] : 1970 47 From: Diana Roper MD PCP: Edmund Physician, No Primary Status: REG ER ED Disposition - Plan for ED Patient: Chief Complaint: Complaint Instructions: ED Hematuria Referrals: Care Physician,No Primary [Primary Care Provider] - Timothy Kidd MD [STAFF PHYSICIAN] - What to do if you have Problems For any increased pain, shortness of breath, bleeding, nausea or vomiting, chest pain, or any unexpected problems, contact your Primary Care Provider. Call [facility] ([phone]) or report to the closest Emergency Room. Call 911 if necessary. 10/23/172308 <Electronically signed by Diana Roper MD> Date Diana Roper MD Cosigner Signature (If Indicated): Date CC: No Primary Care Physician EMERGENCY DEPARTMENT Observed: 10/23/2017 Status: F Source: [place] SUMMARY 11:08 PM REPOSITORY [facility] Medical Records Department [address] [place] [address] Emergency Department Summary 10/23/17 2303 MR#: [id number] Acct: [id number] Name: ELENO LEBLANC Rep #: [id number] : 1970 47 From: Diana Roper MD PCP: Care Physician, No Primary Status: REG ER - ER Visit Summary Date of Service: 10/23/17 Chief Complaint: Pain with urination History of Present Illness: The patient is a 47 M presenting with dysuria, dark urine, suprapubic abdominal pain. He states that this started 5 days ago. Pain has been persistent. He has had subjective fever. He has had nausea, vomiting. He denies diarrhea or constipation. He has a history of kidney stones. He states the pain is in the suprapubic area and radiates to his groin. Denies other complaints. Physical Examination: Vitals are stable. Patient is afebrile. Alert no acute distress. HEENT exam is unremarkable. Neck is supple. Lungs are clear and equal bilaterally. Heart is regular rate and rhythm. Abdomen is soft suprapubic tenderness with no rebound or guarding. : Normal lie, bilateral mild testicular tenderness. No rash or discharge Extremities are unremarkable. Skin is warm and dry. Remainder of exam is unremarkable. Emergency Department Course and Treatment: CBC, chemistries are unremarkable. Urinalysis shows 25-50 red blood cells, [address] abdomen pelvis shows no acute process. Testicular ultrasound shows normal testicles with normal flow, bilateral hydroceles. Chest x-ray shows atelectasis. Patient given morphine and Zofran with improvement of his pain. On reevaluation patient is resting comfortably. He is advised to follow up with Dr. Kidd. Advised return ED if worsening complaints. Disposition: Discharge home Impression: Hematuria This note was generated with Whitetruffle dictation software. It may contain incorrect words, spelling, and punctuation that were not noted in review of the chart prior to signing ED Disposition - Plan for ED Patient: Chief Complaint: Complaint Referrals: Care Physician,No Primary [Primary Care Provider] - What to do if you have Problems For any increased pain, shortness of breath, bleeding, nausea or vomiting, chest pain, or any unexpected problems, contact your Primary Care Provider. Call [facility] ([phone]) or report to the closest Emergency Room. Call 911 if necessary. 10/23/17 2308 <Electronically signed by Diana Roper MD> Date Diana Roper MD Cosigner Signature (If Indicated): Date CC: No Primary Care Physician CHEST PA AND LATERAL Observed: 10/23/2017 Status: F Source: [place] 7:37 PM REPOSITORY [facility] Imaging Services [address] [place] [address] Chest PA and Lateral MR#: [id number] Acct: [id number] Name: ELENO LEBLANC Umu Rep #: [id number] : 1970 M 47 From: Maged Bryant MD PCP: Care Physician, No Primary Status: REG ER Study: Chest PA and Lateral Date of Exam: 10/23/17 Exam# [id number] Ordering Dr: Diana Roper MD STUDY: X-RAY CHEST REASON FOR EXAM: Male, 47 years old. Chest pain TECHNIQUE: Frontal and lateral views of the chest COMPARISON: None. FINDINGS: There is atelectasis noted at the lung bases. The lungs are otherwise clear. There are no pleural effusions. There is no pneumothorax. The heart is normal in size. The visualized osseous structures are within normal limits. RAD/Chest PA and Lateral IMPRESSION: Bibasilar atelectasis. Otherwise, clear lungs. Electronically Signed: Maged Bryant, at 21:13 EST Tel , Service support , CC: No Primary Care Physician; Diana Roper MD Route Delivery Supervisor: Signed TESTICULAR WITH Observed: 10/23/2017 Status: F Source: MJ ARTERIAL FLOW 7:22 PM REPOSITORY [facility] Imaging Services [address] [place] [address] Testicular with Arterial Flow MR#: [id number] Acct: [id number] Name: ELENO LEBLANC Rep #: [id number] : 1970 M 47 From: Maged Bryant MD PCP: Care Physician, No Primary Status: REG ER Study: Testicular with Arterial Flow Date of Exam: 10/23/17 Exam# [id number] Ordering Dr: Diana Roper MD STUDY: SCROTUM ULTRASOUND REASON FOR EXAM: Male, 47 years old. Testicular pain TECHNIQUE: Ultrasound evaluation of the scrotum was performed with color Doppler and static sun-scale imaging. COMPARISON: None. FINDINGS: RIGHT TESTICLE INTRATESTICULAR: There is a normal size of the right testicle. The right testicle measures 4.3 x 3.1 x 2.4 cm. There is a homogenous echotexture. There is normal arterial and normal venous vascularity. There is no demonstrated right testicular mass or cyst. EXTRATESTICULAR: The epididymis is normal in size. The epididymis head measures 1.2 x 1.0 cm. There is normal vascularity of the epididymis. There is no demonstrated epididymal cystic structure. There is a moderate size hydrocele. There is no demonstrated varicocele. There is no demonstrated extratesticular mass or cyst. LEFT TESTICLE INTRATESTICULAR: There is a normal size of the left testicle. The left testicle measures 4.2 x 2.9 x 2.1 cm. There is a homogenous echotexture. There is normal arterial and normal venous vascularity. There is no demonstrated left testicular mass or cyst. EXTRATESTICULAR: The epididymis is normal in size. The epididymis head measures 1.3 x 1 point cm. There is normal vascularity of the epididymis. There is no demonstrated epididymal cystic structure. There is a moderate size hydrocele. There is no demonstrated varicocele. There is no demonstrated extratesticular mass or cyst. US/Testicular with Arterial Flow IMPRESSION: Normal testicles with normal Doppler flow. Moderate bilateral hydroceles. Electronically Signed: Maged Parmarjeffryshashi, at 21:24 EST Tel , Service support , CC: No Primary Care Physician; Diana Roper MD Route Delivery Supervisor: Signed CBC W/DIFF, AUTOMATED Collected: 10/23/2017 Status: F Source: [place] 6:29 PM REPOSITORY TYPE CODE TESTS RESULT OUT OF RANGE REFERENCE UNITS LAB L100.1000 4.4-11.0 K/mm3 Normal WBC 6.0 LAB L100.1200 4.6-6.2 M/mm3 Normal RBC 5.10 LAB L100.1300 13.0-16.5 g/dl Normal HGB 13.0 LAB L100.1400 40-54 % Normal HCT 41.4 LAB L100.1500 80-94 fL Normal MCV 81.2 LAB L100.1600 27.0-32.0 pg Low MCH 25.5 LAB L100.1700 32-36 g/gl Low MCHC 31.4 LAB L100.1810 11.6-14.6 % High RDW CV 16.7 LAB L100.1820 35.1-43.9 fl High RDW SD 50.1 LAB L100.1900 150-450 K/mm3 Normal PLT 225 LAB L100.2000 6.2-12.0 fl Normal MPV 9.3 LAB L100.2100 47-70 % Normal NEUT% 55.1 LAB L100.2200 19-41 % Normal LY% 35.3 LAB L100.2300 0-10 % Normal MONO% 5.7 LAB L100.2400 0-5 % Normal EO% 3.2 LAB L100.2500 0-1 % Normal BASO% 0.5 LAB L100.2550 0.0-0.9 % Normal IM GRAN % 0.200 Result Comment: IG% - Immature Granulocytes (promyelocytes, myelocytes and metamyelocytes) > 1% indicates that a LEFT SHIFT is Present. LAB L100.2620 2.0-7.7 X10 3/uL Normal Absolute Neut 3.3 LAB L100.2720 0.83-4.51 X10 3/ul Normal Absolute Lymph 2.10 Performed By: #### L100.0100 #### [facility] [address] [place], [address] BASIC METABOLIC Collected: 10/23/2017 Status: F Source: [place]J PROFILE (BMP) 6:29 PM REPOSITORY TYPE CODE TESTS RESULT OUT OF RANGE REFERENCE UNITS LAB L501.0100 70-110 mg/dL Normal GLU 90 LAB L501.1000 7-18 mg/dL Normal BUN 15 LAB L501.1100 0.70-1.30 mg/dL Normal 1.07 CREAT,SERUM Result Comment: The validity of the calculated GFR AND GFRAA in patients over 70 years has not been determined. Clinical correlation is essential. LAB L501.1110 >60 mL/min Normal EST GFR 79 Result Comment: Non- GFR Calc LAB L501.1115 >60 mL/min Normal EST GFR - AA 96 Result Comment: GFR Calc LAB L501.1255 ml/min Normal Estimated CRCL 98.53 LAB L501.1300 10-20 RATIO Normal BUN/CRE 14.0 LAB L501.2200 8.5-10 mg/dL Low .1 CA 8.3 LAB L501.5300 136-14 mmol/L Normal 5 NA 142 LAB L501.5600 3.5-5. mmol/L Normal 1 K 3.9 LAB L501.5900 98-107 mmol/L High CL 108 LAB L501.6100 21.0-3 mmol/L Normal 2.0 CO2 27.0 LAB L501.6200 5-15 Normal GAP 7 Performed By: #### L500.2500 #### [facility] [address] [place], [place], [address] ABDOMEN/PELVIS WITHOUT Observed: 10/23/2017 Status: F Source: [place] CONT 6:10 PM REPOSITORY [facility] Imaging Services [address] [place] [address] Abdomen/Pelvis without Cont MR#: [id number] Acct: [id number] Name: ELENO LEBLANC Rep #: [id number] : 1970 M 47 From: Carole Croft MD PCP: Care Physician, No Primary Status: REG ER Study: Abdomen/Pelvis without Cont Date of Exam: 10/23/17 Exam# [id number] Ordering Dr: Diana Roper MD STUDY: CT ABDOMEN AND PELVIS WITHOUT CONTRAST REASON FOR EXAM: Male, 47 years old. Dysuria with lower abdominal pain. Patient has history of kidney stones and appendectomy. RADIATION DOSAGE (If Supplied By Facility): CTDIvol = ( 9.99 ) mGy, DLP = ( 809.05 ) mGycm TECHNIQUE: Transaxial images were obtained from the dome of the diaphragm to the symphysis pubis without oral contrast, and without intravenous contrast. Sagittal and coronal images were reconstructed. Individualized dose optimization techniques were used for this CT. COMPARISON: CT of the abdomen and pelvis dated October 11, 2017 and September 13, 2017. FINDINGS: There is bilateral basilar dependent atelectasis. There is heterogeneous groundglass attenuation at the lung bases suggesting possible pneumonia. There is patchy right middle lobe airspace disease. The visualized portions of the heart are within normal limits. There is decreased attenuation of the liver consistent with steatosis. There appears to be sparing of fatty infiltration surrounding the gallbladder fossa. Normal gallbladder and extrahepatic biliary system. Normal spleen. Normal pancreas. Normal bilateral adrenal glands. Normal right kidney. Normal left kidney. Normal visualized stomach. There is no evidence for dilated bowel, ascites or pneumoperitoneum. Small bowel has a grossly normal appearance. Stool is visible throughout the colon with scattered diverticula. There are surgical clips in the region of the appendix consistent with a prior appendectomy. Normal abdominal aorta. Normal inferior vena cava. There is borderline retroperitoneal lymphadenopathy with enlarged nodes no greater than 10mm in the short axis diameter. Normal urinary bladder. Normal visualized prostate gland. There is a small umbilical hernia containing fat. Appears to be ankylosis of the anterior left sacroiliac joint secondary to bridging osteophytes. The skeletal structures are otherwise within normal limits. CT/Abdomen/Pelvis without Cont IMPRESSION: 1. Apparent chronic bilateral basilar airspace disease since previous CT dated August 2017. 2. Hepatic steatosis. 3. No CT evidence of acute intra-abdominal disease. Electronically Signed: Carole Croft MD at 19:14 EST , Service support , CC: No Primary Care Physician; Diana Roper MD Route Delivery Supervisor: Signed URINALYSIS, COMPLETE Collected: 10/23/2017 Status: F Source: [place] 5:00 PM REPOSITORY Order Comment: How was Urine Obtained? CLEAN CATCH TYPE CODE TESTS RESULT OUT OF RANGE REFERENCE UNITS LAB L400.3000 Yellow COLOR Normal Yellow LAB L400.3050 Clear Normal CLARITY Clear LAB L400.3200 Normal mg/dl Normal GLUCOSE, UR Normal LAB L400.3300 Negative mg/dL Normal BILIRUBIN URINE Negative LAB L400.3400 Negative mg/dl Normal KETONE UR Negative LAB L400.3465 1.002-1.030 Normal SP.GR. DIPSTX 1.025 LAB L400.3550 5.0 - 8.0 pH UR Normal 5.0 LAB L400.3600 Negative mg/dl High PROT 30 DIPSTX LAB L400.3700 Normal mg/dl High 1 UROBILI LAB L400.3750 Negative Normal NITRITE UR Negative LAB L400.3780 Negative /ul High OCCULT BLOOD-UR 250 LAB L400.3800 Negative /ul High LEUK 25 ESTERASE LAB L400.4050 0-5 /hpf WBC 0 Normal SEEN LAB L400.4100 0-5 /hpf Normal RBC-UA 25-50 SEEN LAB L400.4150 0-5 /hpf SQUAM 0 Normal EPI SEEN LAB L400.4300 None Seen /hpf 0 Normal BACTERIA SEEN LAB L400.4350 <or=2+ /hpf 0 Normal MUCUS, URINE SEEN LAB L400.5200 None Seen /hpf 1+ Normal YEAST-URINE Performed By: #### L400.0001 #### [facility] [address] [place], [address] Observed: 10/23/2017 Status: F Source: [place]J CULTURE, URINE 5:00 PM REPOSITORY Order Date: 10/23/17 Has pt arrived? Y Urine Culture Below infection level. ORGANISM 1: Mixed Gram Positive Organisms Mancos Count <1000 MIX CULTURE Mixed contaminants. Submit a new specimen if indicated. Performed By: #### M100.0650 #### [facility] [address] [place], [address] EMERGENCY DEPARTMENT Observed: 10/22/2017 Status: F Source: [facility] SUMMARY 10:00 AM [facility] EMERGENCY DEPARTMENT SUMMARY NAME NUMBER SEX AGE ADMIT DISC TYPE MED.RECORD# BENJI Sanz [id number] M 47 10/15/17 10/15/17 Pal [id number] ROOM:ER-F DATE OF :1970 PHYSICIAN NO.:[id number] PHYSICIAN NAME:E-Sign Carlos Salas M.D. PHYSICIAN:NO DOCTOR ON ADMISSION SHEET CHIEF COMPLAINT: Back pain. HISTORY OF PRESENT ILLNESS: The patient is a 47-year-old male who presents to the emergency room because of pain in his lower back. He states it happened after lifting a bag of concrete mix. The pain is localized to the back. No radiation according to him. No trouble urinating. No numbness or tingling to the extremities. No trouble breathing. No other associated symptoms. PAST MEDICAL HISTORY: Although he denied chronic pain, he gives a history of kidney stones in the past. MEDICATIONS: Looking at his OARRS report, he is on Suboxone. He denied having a prescription lately, and he states that he is not on it anymore, but he just got one filled on the 4th of this month for 28 day supply. He also has been visiting many different locations and different prescribers, as well as different pharmacies, and I did it feel it would be appropriate to give him any narcotic pain medications. He states he did not want any narcotics, and just something to help with the pain. He is agreeable to take Flexeril. REVIEW OF SYSTEMS: As per assessment sheet. PHYSICAL EXAMINATION: He is well-appearing, alert, awake, color is good. Heart regular rhythm. No murmurs, gallops, or rubs. Lungs are clear to auscultation. No rales, rhonchi, or wheezes. Back: Tender in the left lumbar area. No midline tenderness. EMERGENCY DEPARTMENT COURSE AND TREATMENT: The patient was given a prescription for Flexeril. He was discharged home. DIAGNOSIS: Acute back strain. PLAN/DISPOSITION: Discharge plan as above. Discharge condition is stable. D: Carlos Salas MD TD: 18:57 JOB #: [id number] Electronically signed by: ESorin Salas M.D. 10/22/17 09:59 Transcribed by: am 10/16/2017 00:14 ELECTRONICALLY SIGNED BY: Dc Salas M.D. 10/22/17 09:59 ALLERGIES ALLERGIES DATE TYPE / CODE NAME / CODE REACTION SEVERITY SOURCE 10/04/2018 Drug No Known Unknown [place] Allergy/362443543(S Allergies/F0019 [facility] [place] [address]([place] Hospital Repository Drug/428587645(SNOM No Known Restorationist ED CT) Allergies [facility] Repository Environmental 09/13/17 (-) U Abad Brandzahida Allergy/790393477(S MRSA SCREEN [facility]) Hospital Repository ENCOUNTERS ENCOUNTERS ADMIT/DISCHARGE ACCOUNT ADMITTING ENCOUNTER LOCATION SOURCE NUMBER CLASS 10/04/2018/10/04/19 [id number] Emergency [facility] 19 [facility] ing:ED Repository 09/07/2018/09/07/20 [id number] Emergency [place] Mj 18 [facility] ing:ED Repository 09/07/2018/09/07/20 [id number] Ambulatory BMSBuilding:B [place] 18 [facility] Repository 09/07/2018/09/07/20 [id number] Emergency [address] ing:ED Repository 07/03/2018/07/03/20 [id number] Emergency [address] ing:ED Repository 05/25/2018/05/25/20 [id number] Emergency [facility] 18 [facility] ing:ED Repository 05/01/2018/05/01/20 [id number] Emergency Mj Mj 18 [facility] ing:ED Repository 04/18/2018 [id number] Ambulatory [address] [place] [address] Repository 04/07/2018 [id number] Ambulatory [address] [place] [address] Repository 04/06/2018 [id number] Ambulatory [address] [place] [address] Repository 03/19/2018/03/19/20 [id number] Emergency Mj Mj[address] [facility] ing:ED Repository 03/05/2018/03/05/20 [id number] BRIAN WHITE [facility] oom: ERBed: [facility] Repository 02/26/2018/02/27/20 [id number] ELENO CHOE Emergency BuildinR [facility] 18 DO oom: ERBed: [facility] Repository 02/13/2018/02/14/20 [id number] Emergency Mj[address] [facility] ing:ED Repository 02/13/2018/02/14/20 [id number] Emergency Mj [place] [facility] ing:ED Repository 02/05/2018/02/06/20 [id number] [place] [facility] ing:ED Repository 02/05/2018/02/06/20 [id number] Emergency [address] ing:ED Repository 02/04/2018/02/05/20 [id number] Emergency Mj [place] [facility] ing:ED Repository 01/06/2018/01/07/20 [id number] Doug Noonan Emergency [place] [address] [facility] ing:[facility] EDRoom: WR Repository 12/12/2017/12/13/19 [id number] [place] [facility] ing:ED Repository 12/12/2017/12/13/[id number] JONI LAWS [facility] C oom: ERBed: [facility] Repository 12/09/2017/12/10/19 [id number] Emergency Mj [place] ing:ED Repository 10/23/2017/10/23/19 [id number] Emergency Mj Mj 18 [facility] ing:ED Repository 10/15/2017/10/15/19 [id number] ZAYDA SALASJeronimo Emergency Buildin[address] [place] [address] 18 oom: ERBed: [facility] Repository PAYERS PAYERS ENCOUNTER GUARANTOR PAYER SUBSCRIBER SOURCE 10/04/2018 ELENO Sanz Primary Insurance:[facility] ELENO LEBLANC[address] [facility] PLANPolSouth Central Regional Medical CenterB: [facility] Number: [id number] [id number] Repository [address]Oso: ([phone]) Date:4062-57-00HI [phone] () [address] [place] [address]SG: 10/04/2018 Secondary NOT GIVENUNK [place] Insurance:SELF PAY [facility] Number: Effective Repository Date:2018-10-04 09/07/2018 ELEON Sanz Primary Insurance:[facility] ELENO LEBLANC[address] [facility] PLANHCA [facility] HospitalB: [facility] Number: [id number] [id number] Repository [address]Jwn: ([phone]) Date:3153-10-55XA [phone] () [address] [place] [address] 54388OS: 09/07/2018 Secondary NOT GIVENUNK [place] Insurance:SELF PAY [facility] Number: Effective Repository Date:2018-09-07 09/07/2018 ELENO Sanz Primary Insurance:[facility] ELENO LEBLANC[address] [facility] PLANHCA [facility]le[facility] HospitalB: [facility] Number: [id number] [id number] Repository [address]Edi: ([phone]) Date:0582-36-84QE [phone] () [address] [place] [address] 25916HC: 09/07/2018 Secondary NOT GIVENUNK [place] Insurance:SELF PAY [facility] Number: Effective Repository Date:2018-09-07 09/07/2018 ELENO Sanz Primary Insurance:[facility] ELENO LEBLANC[address] [facility]: Community [place] [address] Number: [id number] [address] [id number] Repository [address]Dkd: [phone]) Date:6275-55-25WZ [phone] () [address] [place] [address]AA: 09/07/2018 Secondary NOT GIVENUNK Mj Insurance:SELF PAY [facility] Number: Effective Repository Date:2018-09-07 07/03/2018 ELENO Sanz Primary Insurance:[facility] ELENO LEBLANC[address] [facility]: [facility] [place] Number: [id number] [address] [id number] Repository [address]Kum: ([phone]) Date:5267-68-09KC [phone] () [address] [place] [address] 81477QQ: 07/03/2018 Secondary NOT GIVENUNK Mj Insurance:SELF PAY [facility] Number: Effective Repository Date:2018-07-03 05/25/2018 ELENO Sanz Primary Insurance:[facility] ELENO LEBLANC[address] [facility]Or[facility]: [facility] [place] Number: [id number] [address] [id number] Repository [address]Udr: ([phone]) Date:5123-59-18YS [phone] () [address] [place] [address] 76855AO: 05/25/2018 Secondary NOT GIVENUNK Mj Insurance:SELF PAY [facility] Number: Effective Repository Date:2018-05-25 05/01/2018 ELENO Sanz Primary Insurance:[facility] ELENO LEBLANC[address] [facility]Or[facility]: [facility] [place] Number: [id number] [id number] Repository [address]Yrd: ([phone]) Date:4727-28-62WJ [phone] () [address] [place] [address] 634[address]FP: 05/01/2018 Secondary NOT GIVENUNK [place] Insurance:SELF PAY [facility] Number: Effective Repository Date:2018-05-01 04/18/2018 ELENO Sanz Primary ELENO Sanz [facility]: Insurance:[facility]: [facility] [id number] Repository [facility]ELVan Diest Medical CenterPolicy Number: [address] [place] [id number] [place], [place] [address]Urh: (330) Date:Plan Name:[facility] [address]Icr: (HP) O [address] [phone] (HP) [address]VO: 04/07/2018 ELENO Sanz Primary ELENO Sanz [facility]: Insurance:[facility]: [facility] [id number] Repository [facility]ELUniversity [facility] Iowa Hospitals and Clinicsicy Number: [address] [place] [id number] [place], [place] [address]Czi: ([phone]) Date:Plan Name:[facility] [address]Uie: () O [address] [phone] () 125[address]BE: 04/06/2018 ELENO Sanz Primary ELENO [facility]: Insurance:[facility]: [facility] [id number] Repository [facility] Number: [address] [place] [id number] [place], [place] [address]Clu: ([phone]) Date:Plan Name:[facility] [address]Nug: (HP) O [address] [phone] (HP) [address]OP: 03/19/2018 ELENO Sanz Primary Insurance:[facility] [address] [id number] [facility] PLANOr[facility]: [facility] Number: [id number] [address] [id number] Repository [address]Axq: ([phone]) Date:3530-21-92MC [phone] (HP) [address] [place] [address] 975[address]XQ: 03/19/2018 Secondary NOT GIVENUNK [place] Insurance:SELF PAY [facility] Number: Effective Repository Date:2018-03-19 03/05/2018 ELENO Sanz Primary ELENO HALEB: [facility] [id number] [place], [place] [address]T PLAN OUTPATPolicy [address] Repository [address] Number: [address], [place] [address]Ntf: (330 [id number] [phone] (HP) Date:Plan Name:X4 02/26/2018 ELENO Sanz Primary ELENO HALEB: [facility]: [facility] E [facility]ALTHCARE [facility] [id number] [place] [address] PLAN OUTPATPolicy [address] Repository [address] Number: [address], [place] [address]Byp: 330 [id number] [phone] (HP) Date:Plan Name:X4 02/13/2018 ELENO Sanz Primary Insurance:[facility] ELENO LEBLANC[address] E [facility] PLANHCA [facility] HospitalB: [facility] Number: [id number] Hospital [address], [place] [id number] Repository [address]Yiu: ([phone]) Date:4653-05-60DS [phone] () [address] [place] [address] 21147EW: 02/13/2018 Secondary NOT GIVENUNK [place] Insurance:SELF PAY [facility] Number: Effective Repository Date:2018-02-13 02/13/2018 ELENO Sanz Primary Insurance:[facility] ELENO LEBLANC[address] [facility] PLANHCA [facility] HospitalB: [facility] Number: [id number] [facility] [address], [place] [id number] Repository [address]Anr: ([phone]) Date:4289-71-60AP [phone] () [address] [place] [address] [id number]: 02/13/2018 Secondary NOT GIVENUNK Mj Insurance:SELF PAY [facility] Number: Effective Repository Date:2018-02-13 02/05/2018 ELENO Sanz Primary Insurance:[facility] ELENO LEBLANC[address] [facility] [place]: [facility] STAPT Number: [id number] [id number] Repository [address]Ckw: ([phone]) Date:3901-68-15[address] () [address] [place] [address] 34673IP: 02/05/2018 Secondary NOT GIVENUNK [place] Insurance:SELF PAY [facility] Number: Effective Repository Date:2018-02-05 02/05/2018 ELENO Sanz Primary Insurance:[facility] ELENO Floresashwini LE[address]ANC[address] [facility]: [facility] STAPT Number: [id number] [id number] Repository [address]Mcr: ([phone]) Date:[id number] [address] () [address] [place] [address] 46828MZ: 02/05/2018 Secondary NOT GIVENUNK [place] Insurance:SELF PAY [facility] Number: Effective Repository Date:2018-02-05 02/04/2018 ELENO Sanz Primary Insurance:[facility] ELENO Floresashwini LEBLANC[address] [facility]: [facility] STAPT Number: [id number] [id number] Repository [address]Vey: ([phone]) Date:2416-00-20IF [address] () [address] [place] [address] 56652YW: 02/04/2018 Secondary NOT GIVENUNK [place] Insurance:SELF PAY [facility] Number: Effective Repository Date:2018-02-04 01/06/2018 ELENO Sanz Primary ELENO Sanz [facility]: Insurance:[facility]: [facility] [id number] System [facility] Number: Effective [facility] Repository [facility] [place] Date:2018-01-06 - [facility] [place] [address]Lqg: [phone] [id number] 352[address]Wez: () Name:CD:[id number] [address] () [address] [place] [address] 90099IA: 12/12/2017 ELENO Sanz Primary Insurance:[facility] ELENO LEBLANC[address] [facility] PLANPolSouth [facility] Regional Medical CenterB: [facility] STAPT Number: [id number] [facility] [address] [id number] Repository [address]Exo: [phone]) Date:5584-89-61ZK [phone] (HP) [address] [place] [address] 18275AU: 12/12/2017 Secondary NOT GIVENUNK Mj Insurance:SELF PAY [facility] Number: Effective Repository Date:2017-12-12 12/12/2017 ELENO Sanz Primary ELENO [facility]oney [facility]: Insurance:[facility]: [facility] E [facility] [id number] Hospital [facility] OUTPATPolicy E [facility] Repository [place] Number: [id number] [address]Swi: ([phone] [id number] [phone] (HP) Date:Plan Name:X4 12/09/2017 ELENO Sanz Primary Insurance:[facility] ELENO Sanz Mj [address] [facility]: [facility] STAPT Number: [id number] Hospital [address], [place] [id number] Repository [address]Ong: ([phone]) Date:7383-30-24XB [phone] (HP) [address] [place] [address] 35737KP: 12/09/2017 Secondary NOT GIVENUNK Mj Insurance:SELF PAY [facility] Number: Effective Repository Date:2017-12-09 10/23/2017 ELENO Sanz Primary Insurance:[facility] ELENO Floresashwini [address] E [facility] PLANHCA [facility] HospitalB: [facility] STAPT Number: [id number] [facility] [address], [place] [id number] Repository [address]Gah: ([phone]) Date:7890-77-24MB [phone] (HP) [address] [place] [address] 27896GV: 10/23/2017 Secondary NOT GIVENUNK Mj Insurance:SELF PAY [facility] Number: Effective Repository Date:2017-10-23 10/15/[address] [facility]: Insurance:[facility]: [facility] [id number] E [facility] [id number] [facility] PLAN OUTPATPolicy E [facility] Repository [address], [place] Number: [id number] [address]Zbo: [phone] [id number] [phone] () Date:Plan Name:X4
== END 2018-09-07 00:46 | disposition home or self-care (01) ==
LOC: ED 00:43
PROVIDERS: Emergency Provider Emergency Medicine
DX: R60.0 Localized edema (principal); L25.9 Unspecified contact dermatitis, unspecified cause; Z72.0 Tobacco use
CPT/HCPCS: 99283

== ENCOUNTER 2018-09-07 09:17 | Emergency (ER) | payer MEDICAID, SELFPAY ==
[2018-09-07 08:45] VITALS: BMI 33.0
[2018-09-07 09:19] VITALS: BP 158/92; PULSE 82; RESP 16; TEMP 36.8; O2SAT 98; BMI 33.0
--- NOTE | 2018-09-07 09:27 | ED.VISSUMM ---
- ER Visit Summary Date of Service: 09/07/18 Chief Complaint: Right leg swelling History of Present Illness: The patient is a 47 M who presents with right leg swelling. Patient was seen here last night and was instructed to elevate his leg. Patient has no risk factors for DVT. Patient was also diagnosed with contact dermatitis and was given a prescription for prednisone. Patient states he followed up today at the [facility]. Patient was referred to the emergency department from the [facility]. Patient denies any calf pain. Patient denies any chest pain or shortness of breath. Patient denies any recent trauma or injury. Physical Examination: Vital signs are stable. Patient is afebrile. Patient is in no acute distress. Oral mucosa is pink and moist. Neck is supple. Trachea is midline. There is no JVD noted. Heart was regular rate and rhythm. Lungs are clear and equal bilaterally. Abdomen is soft. Bowel sounds are normal. Extremities are intact. There is 1+ edema of the right lower extremity. There is no edema of the left. There is no calf tenderness. Homans sign is negative. Remaining physical exam is within normal limits. Emergency Department Course and Treatment: I do not feel venous duplex of the lower extremities necessary at this time. Patient has no risk factor for DVT. Patient has no calf tenderness and no signs of DVT. Patient was instructed to elevate his right leg. Patient was instructed to follow-up with his primary care physician in 5-7 days. Patient understood and was agreeable with the plan. All questions were answered. Patient was given a note for work for the next couple days. Disposition: Discharged home Impression: Right leg edema This note was generated with [employer] dictation software. It may contain incorrect words, spelling, and punctuation that were not noted in review of the chart prior to signing ED Disposition - Plan for ED Patient: Disposition: Home or Assisted Living Chief Complaint: Edema Diagnosis: Peripheral edema Instructions: ED Leg Swelling Unilateral Referrals: Care Physician,No Primary [Primary Care Provider] -
--- NOTE | 2018-09-07 09:44 | ED.DCSUM_ITS ---
- ER Visit Summary Date of Service: 09/07/18 Chief Complaint: Right leg swelling History of Present Illness: The patient is a 47 M who presents with right leg swelling. Patient was seen here last night and was instructed to elevate his leg. Patient has no risk factors for DVT. Patient was also diagnosed with contact dermatitis and was given a prescription for prednisone. Patient states he followed up today at the [facility]. Patient was referred to the emergency department from the [facility]. Patient denies any calf pain. Patient denies any chest pain or shortness of breath. Patient denies any recent trauma or injury. Physical Examination: Vital signs are stable. Patient is afebrile. Patient is in no acute distress. Oral mucosa is pink and moist. Neck is supple. Trachea is midline. There is no JVD noted. Heart was regular rate and rhythm. Lungs are clear and equal bilaterally. Abdomen is soft. Bowel sounds are normal. Extremities are intact. There is 1+ edema of the right lower extremity. There is no edema of the left. There is no calf tenderness. Homans sign is negative. Remaining physical exam is within normal limits. Emergency Department Course and Treatment: I do not feel venous duplex of the lo wer extremities necessary at this time. Patient has no risk factor for DVT. Patient has no calf tenderness and no signs of DVT. Patient was instructed to elevate his right leg. Patient was instructed to follow-up with his primary care physician in 5-7 days. Patient understood and was agreeable with the plan. All questions were answered. Patient was given a note for work for the next couple days. Disposition: Discharged home Impression: Right leg edema This note was generated with [employer] dictation software. It may contain incorrect words, spelling, and punctuation that were not noted in review of the chart prior to signing ED Disposition - Plan for ED Patient: Disposition: Home or Assisted Living Chief Complaint: Edema Diagnosis: Peripheral edema Instructions: ED Leg Swelling Unilateral Referrals: Care Physician,No Primary [Primary Care Provider] -
--- OUTSIDE RECORDS SUMMARY | 2018-10-24 04:10 | XMS RPT_ITS ---
:1970 Author Organization OHIP Support Name Relationship Address Phone [employer] Unavailable [address] + [address] [place] [address] RONAK HICKEYY Unavailable [address] + [place] [address] MARI TRINH Unavailable [address] + [address] [place] [address] [employer] Unavailable [address] + [address] [place] [address] RUPERTO JOSSY Unavailable [address] + [place] [address] MARI, TRINH Unavailable [address] + [address] [place] [address] [employer] Unavailable [address] + [address] [place] [address] RUPERTO, JOSSY Unavailable [address] + [place] [address] MARI TRINH Unavailable [address] + [address] [place] [address] RUPERTO JOSSY Unavailable [address] + [place] [address] MARI TRINH Unavailable [address] + [address] [place] [address] UE Unavailable Unavailable Unavailable RUPERTO, JOSSY Unavailable [address] + [place] [address] MARI, TRINH Unavailable [address] + [address] [place] [address] UE Unavailable Unavailable Unavailable RUPERTO, JOSSY Unavailable [address] + [place] [address] MARI, TRINH Unavailable [address] + [address] [place] [address] EVERETT Unavailable [address] + [place] [address] RUPERTO, JOSSY Unavailable [address] + [place] [address] MARI, TRINH Unavailable [address] + [address] [place] [address] EVERETT Unavailable [address] + [place] [address] RUPERTO, JOSSY Unavailable [address] + [place] [address] MARI, TRINH Unavailable [address] + [address] [place] [address] UE Unavailable Unavailable Unavailable PADMINI, TRINH Unavailable Unavailable + NOT GIVEN Unavailable Unavailable Unavailable PADMINI, TRINH Unavailable Unavailable + NOT GIVEN Unavailable Unavailable Unavailable RUPERTO, JOSSY Unavailable [address] + [place] [address] MARI, TRINH Unavailable [address] + [address] [place] [address] UE Unavailable Unavailable Unavailable RUPERTO, JOSSY Unavailable [address] + [place] [address] MARI, TRINH Unavailable [address] + [address] [place] [address] UE Unavailable Unavailable Unavailable RUPERTO, JOSSY Unavailable [address] + [place] [address] MARI, TRINH Unavailable [address] + [address] [place] [address] UE Unavailable Unavailable Unavailable RUPERTO, JOSSY Unavailable [address] + [place] [address] MARI, TRINH Unavailable [address] + [address] [place] [address] UE Unavailable Unavailable Unavailable RUPERTO, JOSSY Unavailable [address] + [place] [address] MARI, TRINH Unavailable [address] + [address] [place] [address] UE Unavailable Unavailable Unavailable RUPERTO, JOSSY Unavailable [address] + [place] [address] MARI, TRINH Unavailable [address] + [address] [place] [address] UE Unavailable Unavailable Unavailable PADMINI, TRINH Unavailable Unavailable + NOT GIVEN Unavailable Unavailable Unavailable RUPERTO, JOSSY Unavailable [address] + [place] [address] MARI, TRINH Unavailable [address] + [address] [place] [address] UE Unavailable Unavailable Unavailable RUPERTO, JOSSY Unavailable [address] + [place] [address] MARI, TRINH Unavailable [address] [facility] [address] + [address] [place] [address] UE Unavailable Unavailable Unavailable PADMINI, TRINH Unavailable [...] Care Physicia, No Primary Care Unavailable Kuldeep Gupta Attending Unavailable Primay Care Physicia, No Primary [...] Primary Care Unavailable Suman Scott Attending Unavailable CARLOS SALAS Admitting Unavailable CARLOS [...] Attending Unavailable NO, DOCTOR ON Referring Unavailable VOLBRIAN Ferguson DO Primary Care Unavailable NO, DOCTOR ON [...] STATUS SOURCE 10/16/2018 Unknown J02.9 - Acute Suman Scott Active [facility] unspecified [facility] Hospital J02.9(ICD-10) Repository 05/26/2018 Unknown R10.9 - Mahamed, Manoj Active [facility] Unspecified [facility] abdominal pain / Hospital R10.9(ICD-10) Repository PROCEDURES PROCEDURES No Procedure Records FoundRESULTS RESULTS PROGRESS Observed: 10/06/2018 Status: COMPLETED Source: [place] 10:28 AM [facility] REPOSITORY HNO ID: [id number] Author: Jarad Vang Service: (none) Author Type: Pullman Conductor Type: Progress Notes Filed: 10/06/2018 10:31 AM Note Text: ED Follow Up: Patient discharged from [facility] ED on 10/04/18. 1. How are you [...] you able to contact the office or national expansion recruiter provider prior to your ED visit? Phone number no longer in service. 5. Is there anything else I can do for you today? Phone number no longer in service. Pt seen at [facility] 10/04/18 for Viral Sinuitis. Could not leave message as phone number is no longer in service. Jarad Vang MA CNPTOUTREACH Observed: 10/06/2018 Status: COMPLETED Source: [place] 12:00 AM [facility] REPOSITORY Patient Outreach (AGINTMLW) ELENO LEBLANC ([id number]) 1970 M DEF Date Time Provider Department 1/11/19 DIANE PLAZA AGINTMLW During your visit today, we recorded the following information about you: Jarad Vang MA 10/06/2018 10:31 AM Signed ED Follow Up: Patient discharged from [facility] ED on 10/04/18. 1. How are you [...] you able to contact the office or national expansion recruiter provider prior to your ED visit? Phone number no longer in service. 5. Is there anything else I can do for you today? Phone number no longer in service. Pt seen at [facility] 10/04/18 for Viral Sinuitis. Could not [...] EMERGENCY DEPARTMENT Observed: 10/04/2018 Status: F Source: [place] SUMMARY 4:22 PM [facility] REPOSITORY [facility] Medical Records Department [address] [place] [address] Emergency Department Summary 10/04/18 1229 MR#: [id number] Acct: [id number] Name: ELENO LEBLANC Rep #: [id number] : 1970 48 From: Suman Scott MD [...] Viral sinusitis This note was generated with Cinexio dictation software. It may contain incorrect words, [...] your Primary Care Provider. Call [facility] ([phone]) or report to the closest Emergency Room. Call 911 if necessary. 10/04/18 1622 <Electronically signed by Suman Scott MD> Date Suman Scott MD Cosigner Signature (If Indicated): Date CC: No Primary Care Physician PROGRESS Observed: 09/08/2018 Status: COMPLETED Source: [place] 10:59 AM [facility] [place] REPOSITORY O ID: [id number] Author: Lynne Bañuelos Service: (none) Author Type: Pullman Conductor Type: Progress Notes Filed: 09/08/2018 11:02 AM Note Text: ED Follow Up: Patient discharged from [facility] ED on 09/07/18. 1. How are you [...] you able to contact the office or national expansion recruiter provider prior to your ED visit? left message 5. Is there anything else I can do for you today? Not applicable Patient was seen in [facility] for right leg edema and instructed on message to all office with how he is feeling. Lynne Bañuelos CMA CNPTOUTREACH Observed: 09/08/2018 Status: COMPLETED Source: [place] 12:00 AM [facility] [place] REPOSITORY Patient Outreach (AGFAMPLE) ELENO LEBLANC ([id number]) 1970 M DEF Date Time Provider Department 09/08/18 LYNNE BAÑUELOS ([facility]) DEEJAY During your visit today, we recorded the following information about you: Lynne Bañuelos CMA 09/08/2018 11:02 AM Signed ED Follow Up: Patient discharged from [facility] ED on 09/07/18. 1. How are you [...] you able to contact the office or national expansion recruiter provider prior to your ED visit? left message 5. Is there anything else I can do for you today? Not applicable Patient was seen in [facility] for right leg edema and instructed on [...] CARE VISIT Observed: 09/07/2018 Status: F Source: [place] REPORT 9:58 AM [facility] REPOSITORY [facility] [address] [place] [address] [address] [place] [address] OFFICE VISIT Date of Service: 09/07/18 MR#: [id number] Acct: [id number] Name: ELENO LEBLANC Rep #: [id number] : 1970 Provider: Maged BERNAL Age/Sex: 47/M Location: [facility] Status: Signed Intake Vital Signs09/07/18 Body Mass Index (BMI) 33.0 09/07/18 Height 6 ft 09/07/18 Weight: 245 lb Intake Visit Reasons: Swollen Foot Chief Complaint: Right lower extremity swelling, rash Loop Cutter Required: No Accompanied by: self Is patient in pain?: No (pt denies pain) Allergies No Known Allergies Allergy (Verified 09/07/18 09:18) [facility] Social History Smoking Status: Current every day [...] the above. This note was generated with Spiced Bitsation software. It may contain incorrect words, spelling, and punctuation that were not noted in checking the note before signing. Coding Level of Care Code Off vis,est,level 3 Diagnoses Right leg swelling M79.89 Contact dermatitis L25.9 09/07/18 0958 <Electronically signed by Maged BERNAL> Date Maged BERNAL Cosigner Signature: Date (if applicable) CC: EMERGENCY DEPARTMENT Observed: 09/07/2018 Status: F Source: [place] SUMMARY 9:50 AM [facility] REPOSITORY [facility] Medical Records Department [address] [facility] [address] Emergency Department Summary 09/07/18 0927 MR#: [id number] Acct: [id number] Name: ELENO LEBLANC Rep #: [id number] : 1970 47 From: Maurice Gannon DO [...] states he followed up today at the [facility]. Patient was referred to the emergency department from the [facility]. Patient denies any calf pain. Patient [...] leg edema This note was generated with Cinexio dictation software. It may contain incorrect words, [...] your Primary Care Provider. Call [facility] ([phone]) or report to the closest Emergency Room. Call 911 if necessary. 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 No fevers. [...] Contact dermatitis This note was generated with Cinexio dictation software. It may contain incorrect words, [...] problems, contact your Primary Care Provider. Call [facility] ([phone]) or report to the closest Emergency Room. Call 911 if necessary. 09/07/18 0035 <Electronically signed by Shakir Wei> Date Shakir Wei Cosigner Signature (If Indicated): Date CC: No Primary Care Physician EMERGENCY DEPARTMENT Observed: 07/04/2018 Status: F Source: [place] SUMMARY 12:20 AM [facility] REPOSITORY [facility] Medical Records Department [address] [place] [address] Emergency Department Summary 07/03/18 1757 MR#: [id number] Acct: [id number] Name: ELENO LEBLANC Umu Rep #: [id number] : 1970 47 From: Hi Ribeiro MD [...] intact. 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 Equal symmetrical. Normal [...] NSAIDs at home. He prefers to use idhj-ids-fdcnunc Motrin. He needs no workup at this time. There is no signs of any acute disc or cord compression. Treatment Plan: Motrin 600 mg 3 times a day. Hot shower warm bath. Massage. Disposition: Discharge Impression: Acute back pain secondary to lumbar strain This note was generated with Cinexio dictation software. It may contain incorrect words, [...] your Primary Care Provider. Call [facility] ([phone]) or report to the closest Emergency Room. Call 911 if necessary. 07/04/18 0020 <Electronically signed by Hi Ribeiro MD> Date Hi Ribeiro MD Cosigner Signature (If Indicated): Date CC: No Primary Care Physician DISCHARGE INSTRUCTION Observed: 07/04/2018 Status: F Source: [place] 12:20 AM [facility] REPOSITORY [facility] Medical Records Department [address] [place] [address] Discharge Instruction 07/03/18 1801 MR#: [id number] Acct: [id number] Name: ELENO LEBLANC Rep #: [id number] : 1970 47 From: Hi Ribeiro MD [...] problems, contact your Primary Care Provider. Call [facility] ([phone]) or report to the closest Emergency Room. Call 911 if necessary. 07/04/18 0020 <Electronically signed by Hi Ribeiro MD> Date Hi Ribeiro MD Cosigner Signature (If Indicated): Date CC: No Primary Care Physician EMERGENCY DEPARTMENT Observed: 05/25/2018 Status: F Source: [place] SUMMARY 6:48 AM [facility] REPOSITORY [facility] Medical Records Department [address] [place] [address] Emergency Department Summary 05/25/18 0339 MR#: [id number] Acct: [id number] Name: ELENO LEBLANC Rep #: [id number] : 1970 47 From: Marty Le MD PCP: Care Physician, No Primary Status: DEP ER - ER Visit Summary Date of Service: 05/25/18 Chief Complaint: [] [place] dizzy at work History of Present Illness: [...] Heat exhaustion This note was generated with Cinexio dictation software. It may contain incorrect words, [...] your Primary Care Provider. Call [facility] ([phone]) or report to the closest Emergency Room. Call 911 if necessary. 05/25/18 9749 <Electronically signed by Marty Le MD> Date Marty Le MD Cosigner Signature (If Indicated): Date CC: No Primary Care Physician DISCHARGE INSTRUCTION Observed: 05/25/2018 Status: F Source: [place] 6:48 AM [facility] REPOSITORY [facility] Medical Records Department [address] [place] [address] Discharge Instruction 05/25/18 0406 MR#: [id number] Acct: [id number] Name: ELENO LEBLANC Rep #: [id number] : 1970 47 From: Marty Le MD [...] your Primary Care Provider. Call [facility] ([phone]) or report to the closest Emergency Room. Call 911 if necessary. 05/25/18 0648 <Electronically signed by Marty Le MD> Date Marty Le MD Cosigner Signature (If Indicated): Date CC: No Primary Care Physician CBC W/DIFF, AUTOMATED Collected: 05/25/2018 Status: F Source: [place] 3:40 AM [facility] REPOSITORY TYPE CODE TESTS RESULT OUT [...] Lymph 1.67 Performed By: #### L100.0100 #### [facility] [address] [place], [address] BASIC METABOLIC Collected: 05/25/2018 Status: F Source: [place] PROFILE ([facility]) 3:40 AM [facility] REPOSITORY TYPE CODE TESTS RESULT OUT [...] GAP 10 Performed By: #### L500.2500 #### [facility] [address] [facility] [place], [address] EMERGENCY DEPARTMENT Observed: 05/02/2018 Status: F Source: [place] SUMMARY 7:55 AM [facility] REPOSITORY [facility] Medical Records Department [address] [place] [address] Emergency Department Summary 05/01/18 1107 MR#: [id number] Acct: [id number] Name: ELENO LEBLANC Rep #: [id number] : 1970 47 From: Manoj Irby MD [...] Abdominal pain This note was generated with Spiced Bitsation software. It may contain incorrect words, spelling, [...] problems, contact your Primary Care Provider. Call [facility] ([phone]) or report to the closest Emergency Room. Call 911 if necessary. 05/02/18 0755 <Electronically signed by Manoj Irby MD> Date Manoj Irby MD Cosigner Signature (If Indicated): Date CC: No Primary Care Physician DISCHARGE INSTRUCTION Observed: 05/02/2018 Status: F Source: [place] 7:55 AM [facility] REPOSITORY [facility] Medical Records Department [address] [facility] [place] [address] Discharge Instruction 05/01/18 1110 MR#: [id number] Acct: [id number] Name: ELENO LEBLANC Rep #: [id number] : 1970 47 From: Manoj Irby MD PCP: Care Physician, No Primary Status: [facility] ER ED Disposition - Plan for ED Patient: Chief Complaint: Abd Pain Instructions: ED Abdominal Pain Unkn Cause Male What to do if you have Problems For any increased pain, shortness of breath, bleeding, nausea or vomiting, chest pain, or any unexpected problems, contact your Primary Care Provider. Call [facility] ([phone]) or report to the closest Emergency Room. Call 911 if necessary. 05/02/18 0755 <Electronically signed by Manoj Irby MD> Date Manoj Irby MD Cosigner Signature (If Indicated): Date CC: No Primary Care Physician CBC W/DIFF, AUTOMATED Collected: 05/01/2018 Status: F Source: [place] 10:10 AM [facility] REPOSITORY TYPE CODE TESTS RESULT OUT [...] Lymph 1.16 Performed By: #### L100.0100 #### [facility] [address] [place], [place], [address] COMPREHENSIVE METABOLIC Collected: 05/01/2018 Status: F Source: [facility] 10:10 AM [facility] REPOSITORY TYPE CODE TESTS RESULT OUT [...] 5 Performed By: #### L500.4050, L501.2450 #### [facility] [address] [place], [address] LIPASE Collected: 05/01/2018 Status: F Source: [place] 10:10 AM [facility] REPOSITORY TYPE CODE TESTS RESULT OUT OF RANGE REFERENCE UNITS LAB 01.2450 73-393 U/L Normal LIPASE 133 Performed By: #### L500.4050, L501.2450 #### [facility] [address] [place], [address] ABDOMEN/PELVIS WITHOUT Observed: 05/01/2018 Status: F Source: [place] CONT 10:05 AM [facility] REPOSITORY [facility] Imaging Services [address] [place] [address] Abdomen/Pelvis without Cont MR#: [id number] Acct: [id number] Name: ELENO LEBLANC Rep #: [id number] : 1970 M 47 From: Wilner Chio MD PCP: Care Physician, No Primary Status: DEP ER Study: Abdomen/Pelvis without Cont Date of Exam: 05/01/18 Exam# [id number] Ordering Dr: Manoj Irby MD STUDY: CT [...] No Primary Care Physician; Manoj Irby MD Communications Maintainer: Signed OFFICE VISIT (PHYSICAL Observed: 04/07/2018 Status: UNK Source: [facility]) 5:22 PM HOSPITALS REPOSITORY Chief Complaint OPI addiction Reference Documentation See scanned note Office Note: . History of Present Illness Patient presents for buprenorphine induction. He was unable to medicinal plant picker his medication on yesterday. The medication is [...] One sublingal film twice per day; Therapy: 76Tbq3799 to (Evaluate:32Jho7543); Last Rx:[id number] Ordered Rx By: Batsheva Cosby; Dispense: 7 Days ; #:14 Film; Refill: 0;For: ADHD, adult residual type; [place]SANA = N; Print Rx; Msg to Pharmacy: [id number] Fill on/after 04-06-2018 Start 04-06-2018 Vitals Vital Signs Recorded: 07Apr2018 12:43PM Heart Rate64 Tgcxcrys532 Xlbhvthho64 Height6 ft Efpnml460 lb BMI Uvvlqdsdeq15.48 BSA Calculated2.18 Diagnoses/Problems Opioid abuse (305.50) (F11.10) [...] One sublingal film twice per day; Therapy: 87Nqy9980 to (Evaluate:99Rot3297); Last Rx:[id number] Ordered Signatures Electronically signed by : Batsheva Cosyb MD; Apr 07 2018 5:22PM EST (Author) OFFICE VISIT (PHYSICAL Observed: 04/06/2018 Status: UNK Source: [facility]) 7:35 PM HOSPITALS REPOSITORY [...] it was real bad while was in [facility]. He was spending about $150.00 per day [...] favors, r unning drugs. He worked in [employer] to pay for his habit. He denies and other controlled medications or street drugs including marijuana. He last used Tuesday -- opioid. The day before he used a line of speed or cocaine. Overdoses: none Seizure: none SI/HI: none Employment: [employer] company Education: 12th grade. Did not graduate. [...] Vital Signs Recorded: 06Apr2018 12:45PM Heart Rate60 Hjngyoqb833 Trccnfhza81 Height6 ft Qurwxd209 lb BMI Ssmvfofxur50.35 BSA Calculated2.17 Diagnoses/Problems Opioid abuse (305.50) (F11.10) [...] = N; Print Rx; Msg to Pharmacy: [id number] Fill on/after 04-06-2018 Start 04-06-2018 Opioid abuse Benzodiazepines Confirm, Urine; Status:Active; Requested for:06Apr2018; Perform:Lab Services - Lab To Draw (Non-Blood Test); Due:05Jul2018;Ordered; For:Opioid abuse; Ordered By:Batsheva Cosby; Cannabinoid Screen, Urine; Status:Active; Requested for:59Nen8176; Perform:Lab Services - Lab To Draw (Non-Blood Test); Due:05Jul2018;Ordered; For:Opioid abuse; Ordered By:Batsheva Cosby; Cocaine Confirm, Urine; Status:Active; Requested for:72Nvh1276; Perform:Lab Services - Lab To Draw (Non-Blood Test); Due:05Jul2018;Ordered; For:Opioid abuse; Ordered By:Batsheva Cosby; Drug Screen, Pain Management with Reflex if Positive; Status:Active; Requested for:40Otr9737; Perform:Lab Services - Lab To Draw (Non-Blood [...] Toes down going bilaterally OPIOID RISK TOOLDate: __[id number] FemaleMale 1.Family History of Substance Abuse a.Alcohol1[ [...] his other addiction clinic. Patient went to [facility] pharmacy to medicinal plant picker his medication. He was unable to obtain medication. He brought the prescription back to clinic. He agrees to medicinal plant picker his medication in the morning and bring [...] One sublingal film twice per day; Therapy: 62Oyq6875 to (Evaluate:67Iip9284); Last Rx:[id number] Ordered Signatures Electronically signed by : Batsheva [...] Comment: CUTOFF LEVEL: 150 NG/ML The metabolite J-hghzj-phjlpjkzwgtrcr (LAAM) is not detected by this method [...] with dextromethorphan. Performed By: #### DSPMR #### [facility] [address] [place] [address] OPIATE CONFIRMATION,URINE Collected: Status: F Source: [facility] 04/06/2018 3:37 PM HOSPITALS REPOSITORY TYPE CODE [...] laboratory. Test developed and characteristics determined by [employer]. See Compliance Statement B: [facility]/ LAB CCU NURSE(LOINC) ng/mL CODEINE <20 LAB HYCOD(LOINC) ng/mL HYDROCODONE <20 LAB HYMOR(LOINC) ng/mL HYDROMORPHONE <20 LAB MORPR(LOINC) ng/mL MORPHINE <20 LAB NORHY(LOINC) ng/mL NORHYDROCODONE <20 Result Comment: Performed by [facility], [address] [facility] [place] [address] www.[email or web address], Elie Olguin MD - Lab. Director LAB NOROX(LOINC) ng/mL NOROXYCODONE 86 Result Comment: Noroxycodone is a metabolite of oxycodone; consistent with use of a drug containing oxycodone. LAB NOROM(LOINC) ng/mL NOROXYMORPHONE <20 LAB OXYCR(LOINC) ng/mL OXYCODONE <20 LAB OXYMO(LOINC) ng/mL OXYMORPHONE <20 Performed By: #### OPIC2 #### [facility] [address] [place] [address] FENTANYL CONFIRM, Collected: 04/06/2018 Status: F Source: [facility] 3:37 PM HOSPITALS REPOSITORY TYPE CODE TESTS RESULT OUT OF REFERENCE UNITS RANGE LAB NORFU(LOIN ng/mL C) NORFENTANYL CONFIRM,U <1.0 Result Comment: Performed by [facility], [address] [facility] [place] [address] www.[email or web address], Elie Olguin MD - Lab. Director LAB [...] laboratory. Test developed and characteristics determined by [facility]. See Compliance Statement B: [facility]/ Performed By: #### FENTU #### [facility] [address] [place] [address] BENZODIAZEPINES CONF,URINE Collected: 04/06/2018 Status: F Source: [facility] 3:37 PM HOSPITALS REPOSITORY TYPE CODE TESTS RESULT OUT OF RANGE REFERENCE UNITS LAB BEACL(LOINC ng/mL ) <5 7-AMINOCLONA ZEPAM LAB BEALP(LOINC ng/mL ) <5 ALPHA-HYDROX YALPRAZOLAM LAB BEAMD(LOINC ng/mL ) <20 ALPHA-HYRDOX YMIDAZOLAM Result Comment: Performed by [facility], [address] [facility] [place] [address] www.[facility], Elie Olguin MD - Lab. Director LAB [...] laboratory. Test developed and characteristics determined by [facility]. See Compliance Statement B: [facility]/[employer] LAB BENLO(LOINC) ng/mL LORAZEPAM <20 LAB BEMDZ(LOINC) ng/mL MIDAZOLAM <20 LAB BENNO(LOINC) ng/mL NORDIAZEPAM <20 LAB BENOX(LOINC) ng/mL OXAZEPAM <20 LAB BENTM(LOINC) ng/mL TEMAZEPAM <20 Performed By: #### BENCN #### [facility] [address] [place] [address] OPIATE CONFIRMATION,URINE Collected: Status: F Source: [facility] 04/06/2018 3:37 PM HOSPITALS REPOSITORY TYPE CODE [...] laboratory. Test developed and characteristics determined by [facility]. See Compliance Statement B: [facility]/CS LAB CCU NURSE(LOINC) ng/mL CODEINE <20 LAB HYCOD(LOINC) ng/mL HYDROCODONE <20 LAB HYMOR(LOINC) ng/mL HYDROMORPHONE <20 LAB MORPR(LOINC) ng/mL MORPHINE <20 LAB NORHY(LOINC) ng/mL NORHYDROCODONE <20 Result Comment: Performed by [facility], [address] [place] [address],[place] [address] [email or web address], Elie Olguin MD - Lab. Director LAB NOROX(LOINC) ng/mL NOROXYCODONE 84 Result Comment: Noroxycodone is a metabolite of oxycodone; consistent with use of a drug containing oxycodone. LAB NOROM(LOINC) ng/mL NOROXYMORPHONE <20 LAB OXYCR(LOINC) ng/mL OXYCODONE <20 LAB OXYMO(LOINC) ng/mL OXYMORPHONE <20 Performed By: #### OPIC2 #### [facility] [address] [place] [address] COCAINE CONFIRM,URINE Collected: 04/06/2018 Status: F Source: [place] 3:37 PM [facility] REPOSITORY TYPE CODE TESTS [...] laboratory. Test developed and characteristics determined by [facility]. See Compliance Statement B: [facility]/ Performed by [facility], [address] [place] [address],[place] [address] [email or web address], Elie Olguin MD - Lab. Director Performed By: #### COCCN #### [facility] [address] [place] [address] EMERGENCY DEPARTMENT Observed: 03/19/2018 Status: F Source: [place] SUMMARY 3:24 PM [facility] REPOSITORY [facility] Medical Records Department [address] [facility] [place] [address] Emergency Department Summary 03/19/18 1436 MR#: [id number] Acct: [id number] Name: ELENO LEBLANC Rep #: [id number] : 1970 47 From: Hannah Wei MD [...] and he will be referred to the [place] [facility] for further management Treatment Plan: [] Disposition: [] Home stable Impression: [] Lumbar back pain related to laborious work This note was generated with Cinexio dictation software. It may contain incorrect words, [...] your Primary Care Provider. Call [facility] ([phone]) or report to the closest Emergency Room. Call 911 if necessary. 03/19/18 1524 <Electronically signed by Hannah Wei MD> Date Hannah Wei MD Cosigner Signature (If Indicated): Date CC: No Primary Care Physician DISCHARGE INSTRUCTION Observed: 03/19/2018 Status: F Source: [place] 2:39 PM [facility] Medical Records Department [address] [place] [address] Discharge Instruction 03/19/18 1438 MR#: [id number] Acct: [id number] Name: ELENO LEBLANC Rep #: [id number] : 1970 47 From: Hannah Wei MD [...] your Primary Care Provider. Call [facility] ([phone]) or report to the closest Emergency Room. Call 911 if necessary. 03/19/18 1439 <Electronically signed by Hannah Wei MD> Date Hannah Wei MD Cosigner Signature (If Indicated): Date CC: No Primary Care Physician EMERGENCY REPORT Observed: 03/08/2018 Status: F Source: [place] 1:52 AM [facility] EMERGENCY ROOM REPORT NAME ACCOUNT SEX AGE ADMIT DISCHARGE PT MED. RECORD# NUMBER DATE DATE TYPE ELENO LEBLANC [id number] M 47 03/05/18 03/05/18 3 M [id number] ROOM: ER DATE OF : 1970 DICTATING [...] are intact. Ambulatory in the ED. Normal fmgcvz-pg-yrjm and qgue-jz-nkxb bilaterally. Negative for dysdiadochokinesia. The patient was [...] Brian White DO 03/05/18 17:32 JOB #: [id number] Transcribed By: gary 03/06/18 08:16 Electronically signed by: BRIAN WHITE DO 03/08/18 01:51 Page 2 of 2 ELENO LEBLANC Emergency Room Report EMERGENCY REPORT Observed: 02/28/2018 Status: F Source: [place] 7:55 AM [facility] EMERGENCY ROOM REPORT NAME ACCOUNT SEX AGE ADMIT DISCHARGE PT MED. RECORD# NUMBER DATE DATE TYPE BENJI ELENO [id number] M 47 02/26/18 02/26/18 3 M [id number] ROOM: ER DATE OF : 1970 DICTATING [...] motor or sensory deficits are noted. Hand coal carrier are strong and symmetric. Neurologic examination shows the patient to be alert and oriented x4. The patient is pleasant, cooperative, normal affect. Skin is warm and dry. No diaphoresis or rash. DIAGNOSTIC DATA: EKG at 1332 hours shows a normal sinus rhythm at a rate of 82 beats per minute. No acute ST segment changes are noted. [place] is approximately [address] brain showed [...] physician, so I will refer him to [facility] for follow up in 3 to 5 days. The patient was discharged in a clinically stable condition. Nursing notes reviewed. Dictated By: Eleno Choe DO 02/26/18 17:25 JOB #: [id number] Transcribed By: am 02/26/18 17:50 Electronically signed by: E-Sign: Dr. Eleno Choe D.O. 02/28/18 07:54 Page 2 of 3 ELENO LEBLANC Emergency Room Report Page 3 of 3 ELENO LEBLANC Emergency Room Report CBC Collected: 02/26/2018 Status: F Source: [place] 2:50 PM [facility] REPOSITORY TYPE CODE TESTS RESULT OUT OF [...] 7.10 x10EE3/U L Neut # 4.00 LAB [place] #(LOINC) 0.20 - 1.00 x10EE3/U L [place] # 0.40 LAB EO #(LOINC) 0.00 - 0.50 x10EE3/U L EO # 0.20 LAB Baso #(LOINC) 0.00 - 0.10 x10EE3/U L Baso # 0.10 LAB MANUAL DIFF(LOINC) MANUAL DIFF N/A LAB MORPHOLOGY(LOINC ) MORPHOLOGY N/A Result Comment: {CD] Performed By: #### [id number] #### [facility],[address] [place] [address] TROPONIN Collected: 02/26/2018 Status: F Source: [facility] 2:50 PM [facility] REPOSITORY TYPE CODE TESTS RESULT OUT OF [...] such as heterophile antibodies). Performed By: #### [id number] #### [facility],[address] [place] [address] CMP WITH EGFR Collected: 02/26/2018 Status: F Source: [facility] 2:50 PM [facility] REPOSITORY TYPE CODE TESTS RESULT OUT OF [...] OF AGE AND OLDER. Performed By: #### [id number] #### [place] [address] MAGNESIUM Collected: 02/26/2018 Status: F Source: [facility] 2:50 PM [facility] REPOSITORY TYPE CODE TESTS RESULT OUT OF REFERENCE UNITS RANGE LAB MAGNESIUM( 1.6 - 2.6 mg/dl LOINC) MAGNESIUM 2.1 Performed By: #### [id number] #### [place] [address] CHEST 1 VIEW Observed: 02/26/2018 Status: F Source: [facility] 2:11 PM [facility] REPOSITORY [place] [address] Patient: ELENO LEBLANC Phone#: : 1970 Age: 47 Gender: M Pt. Type: ER Account: [id number] Location: [facility] Ordering: ELENO CHOE Exam Date: 02/26/2018/13:58 Family Phys: NO DOCTOR Charge Code: 981141 Physician: [place] Order #: [id number] DLP Dose#: PROCEDURE: X-RAY CHEST 1 VIEW [...] W/O CONTRAST Observed: 02/26/2018 Status: F [facility] PM [place] [address] Patient: ELENO LEBLANCBenita Phone#: : 1970 Age: 47 Gender: M Pt. Type: ER Account: [id number] Location: [facility] Ordering: ELENO CHOE Exam Date: 02/26/2018/14:06 Family Phys: NO DOCTOR Charge Code: 346988 Physician: [place] Order #: [id number] DLP Dose#: PROCEDURE: CT BRAIN WITHOUT CONTRAST [...] Status: F Source: [place] SUMMARY 2:24 AM [facility] REPOSITORY [facility] Medical Records Department [address] [place] [address] Emergency Department Summary 02/13/18 0508 MR#: [id number] Acct: [id number] Name: ELENO LEBLANC Rep #: [id number] : 1970 47 From: Marty Le MD [...] back pain This note was generated with Spiced Bitsation software. It may contain incorrect words, spelling, [...] your Primary Care Provider. Call [facility] ([phone]) or report to the closest Emergency Room. Call 911 if necessary. 02/14/18223 <Electronically signed by Marty Le MD> Date Marty Le MD Cosigner Signature (If Indicated): Date CC: No Primary Care Physician DISCHARGE INSTRUCTION Observed: 02/14/2018 Status: F Source: [place] 2:24 AM [facility] REPOSITORY [facility] Medical Records Department [address] [place] [address] Discharge Instruction 02/13/18 0509 MR#: [id number] Acct: [id number] Name: ELENO LEBLANC Rep #: [id number] : 1970 47 From: Marty Le MD PCP: Edmund Physician, No Primary Status: [facility] ER ED Disposition - Plan for ED [...] your Primary Care Provider. Call [facility] ([phone]) or report to the closest Emergency Room. Call 911 if necessary. 02/14/18223 <Electronically signed by Marty Le MD> Date Marty Le MD Cosigner Signature (If Indicated): Date CC: No Primary Care Physician EMERGENCY DEPARTMENT Observed: 02/13/2018 Status: F Source: [place] SUMMARY 8:52 PM [facility] REPOSITORY [facility] Medical Records Department [address] [place] [address] Emergency Department Summary 02/13/18 1730 MR#: [id number] Acct: [id number] Name: ELENO LEBLANC Rep #: [id number] : 1970 47 From: Suman Mary MD [...] offered him prescription for meclizine. I did business and financial counsel him he needs to follow with his primary care physician or the counseling center to have controlled substances written for chronic problems. He will be discharged home. Treatment Plan: [] Disposition: Charge Impression: 1. Vertigo 2. Medication refill This note was generated with Cinexio dictation software. It may contain incorrect words, [...] your Primary Care Provider. Call [facility] ([phone]) or report to the closest Emergency Room. Call 911 if necessary. 02/13/182051 <Electronically signed by Suman Mary MD> Date Smuan Mary MD Cosigner Signature (If Indicated): Date CC: No Primary Care Physician 12 LEAD ELECTROCARDIOGRAM Observed: 02/07/2018 Status: F Source: [place] 1:13 PM [facility] REPOSITORY [facility] Cardiovascular Services [address] [place] [address] 12 Lead EKG 02/04/18 1823 MR#: [id number] Acct: [id number] Name: ELENO LEBLANC Umu Rep #: [id number] : 1970 47 From: Remigio Meeks MD [...] Confirmed by REMIGIO MEEKS MD ([id number]), editor publications JOHN CROFT ([id number]) on 02/07/2018 1:12:48 PM Referred By: SANDRA Confirmed By:REMIGIO MEEKS MD 02/07/18 1312 Date Remigio Meeks MD CC: No Primary Care Physician; Guilherme Dueñas MD Signed EMERGENCY DEPARTMENT Observed: 02/06/2018 Status: F Source: [place] SUMMARY 3:36 AM [facility] REPOSITORY [facility] Medical Records Department [address] [place] [address] Emergency Department Summary 02/05/18 0455 MR#: [id number] Acct: [id number] Name: ELENO LEBLANC Rep #: [id number] : 1970 47 From: Hi Ribeiro MD PCP: Care Physician, No Primary Status: DEP ER - ER Visit Summary Date of Service: 02/05/18 Chief Complaint: I am being monitored by [employer] History of Present Illness: The patient is a 47 M reportedly history of schizophrenia, bipolar and ADHD. With the patient currently states that that is not true. It has been dictated on prior evaluations. Patient denies currently being the care of a psychiatrist or primary care physician or the counseling center. He states that [employer] has been monitoring his actions and has [...] all 4 extremities. He has equal symmetrical warehouse assembly worker strength. Fingertip to nose heel lynch within [...] bipolar disorder. This note was generated with Cinexio dictation software. It may contain incorrect words, [...] your Primary Care Provider. Call [facility] ([phone]) or report to the closest Emergency Room. Call 911 if necessary. 02/06/18 0336 <Electronically signed by Hi Ribeiro MD> Date Hi Ribeiro MD Cosigner Signature (If Indicated): Date CC: No Primary Care Physician DISCHARGE INSTRUCTION Observed: 02/06/2018 Status: F Source: [place] 3:36 AM [facility] REPOSITORY [facility] Medical Records Department [address] [place] [address] Discharge Instruction 02/05/18 0546 MR#: [id number] Acct: [id number] Name: ELENO LEBLANC Rep #: [id number] : 1970 47 From: Hi Ribeiro MD [...] your Primary Care Provider. Call [facility] ([phone]) or report to the closest Emergency Room. Call 911 if necessary. 02/06/18 0336 <Electronically signed by Hi Ribeiro MD> Date Hi Ribeiro MD Cosigner Signature (If Indicated): Date CC: No Primary Care Physician EMERGENCY DEPARTMENT Observed: 02/05/2018 Status: F Source: [place] SUMMARY 2:53 PM [facility] Medical Records Department [address] [place] [address] Emergency Department Summary 02/05/18 0853 MR#: [id number] Acct: [id number] Name: ELENO LEBLANC Rep #: [id number] : 1970 47 From: Diana Roper MD [...] positional vertigo This note was generated with Cinexio dictation software. It may contain incorrect words, [...] problems, contact your Primary Care Provider. Call [facility] ([phone]) or report to the closest Emergency Room. Call 911 if necessary. 02/05/18 1453 <Electronically signed by Diana Roper MD> Date Diana Roper MD Cosigner Signature (If Indicated): Date CC: No Primary Care Physician DISCHARGE INSTRUCTION Observed: 02/05/2018 Status: F Source: [place] 12:53 PM [facility] REPOSITORY [facility] Medical Records Department [address] [place] [address] Discharge Instruction 02/05/18 125 MR#: [id number] Acct: [id number] Name: ELENO LEBLANC Rep #: [id number] : 1970 47 From: Diana Roper MD [...] your Primary Care Provider. Call [facility] ([phone]) or report to the closest Emergency Room. Call 911 if necessary. 02/05/18 1253 <Electronically signed by Diana Roper MD> Date Diana Roper MD Cosigner Signature (If Indicated): Date CC: No Primary Care Physician DISCHARGE INSTRUCTION Observed: 02/05/2018 Status: F Source: [place] 12:47 PM [facility] REPOSITORY [facility] Medical Records Department [address] [place] [address] Discharge Instruction 02/05/18 1246 MR#: [id number] Acct: [id number] Name: ELENO LEBLANC Rep #: [id number] : 1970 47 From: Diana Roper MD [...] your Primary Care Provider. Call [facility] ([phone]) or report to the closest Emergency Room. Call 911 if necessary. 02/05/18 1247 <Electronically signed by Diana Roper MD> Date Diana Roper MD Cosigner Signature (If Indicated): Date CC: No Primary Care Physician ALCOHOL, BLOOD Collected: 02/05/2018 Status: F Source: [place]J (MEDICAL)-SERUM 9:05 AM [facility] REPOSITORY TYPE CODE TESTS RESULT OUT [...] fatal coma Performed By: #### L501.9100 #### [facility] [address] [place], [place], [address] URINE DRUG SCREEN Collected: 02/05/2018 Status: F Source: [place]J (VISTA) 9:00 AM [facility] REPOSITORY TYPE CODE TESTS RESULT OUT [...] Normal NEGATIVE Performed By: #### L505.5000 #### [facility] [address] [place], [address] URINE DRUG SCREEN Collected: 02/05/2018 Status: F Source: [place] (VISTA) 5:00 AM [facility] REPOSITORY TYPE CODE TESTS RESULT OUT [...] Normal NEGATIVE Performed By: #### L505.5000 #### [facility] [address] [place], [address] CBC W/DIFF, AUTOMATED Collected: 02/05/2018 Status: F Source: [place] 5:00 AM [facility] REPOSITORY TYPE CODE TESTS RESULT OUT [...] Lymph 1.60 Performed By: #### L100.0100 #### [facility] [address] [place], [address] BASIC METABOLIC Collected: 02/05/2018 Status: F Source: [place] PROFILE (BMP) 5:00 AM [facility] REPOSITORY TYPE CODE TESTS RESULT OUT [...] Normal 8 Performed By: #### L500.2500 #### [facility] [address] [place], [address] ALCOHOL, BLOOD Collected: 02/05/2018 Status: F Source: [place] (MEDICAL)-SERUM 5:00 AM [facility] REPOSITORY TYPE CODE TESTS RESULT OUT [...] fatal coma Performed By: #### L501.9100 #### [facility] [address] [place], [address] DISCHARGE INSTRUCTION Observed: 02/04/2018 Status: F Source: [place] 8:20 PM [facility] REPOSITORY [facility] Medical Records Department [address] [place] [address] Discharge Instruction 02/04/182018 MR#: [id number] Acct: [id number] Name: ELENO LEBLANC Rep #: [id number] : 1970 47 From: Guilherme Dueñas MD [...] your Primary Care Provider. Call [facility] ([phone]) or report to the closest Emergency Room. Call 911 if necessary. 02/04/182019 <Electronically signed by Guilherme Dueñas MD> Date Guilherme Dueñas MD Cosigner Signature (If Indicated): Date CC: No Primary Care Physician EMERGENCY DEPARTMENT Observed: 02/04/2018 Status: F Source: [place] SUMMARY 8:19 PM [facility] REPOSITORY [facility] Medical Records Department [address] [place] [address] Emergency Department Summary 02/04/182014 MR#: [id number] Acct: [id number] Name: ELENO LEBLANC Rep #: [id number] : 1970 47 From: Guilherme Dueñas MD [...] blood pressure This note was generated with Cinexio dictation software. It may contain incorrect words, [...] your Primary Care Provider. Call [facility] ([phone]) or report to the closest Emergency Room. Call 911 if necessary. 02/04/18 2019 <Electronically signed by Guilherme Dueñas MD> Date Guilherme Dueñas MD Cosigner Signature (If Indicated): Date CC: No Primary Care Physician URINALYSIS, COMPLETE Collected: 02/04/2018 Status: F Source: [place] 7:05 PM [facility] REPOSITORY Order Comment: Order Date: 02/04/18 How [...] 0 SEEN Performed By: #### L400.0001 #### [facility] [address] [facility] [place], [address] ABDOMEN/PELVIS WITHOUT Observed: 02/04/2018 Status: F Source: [place] CONT 6:31 PM [facility] REPOSITORY [facility] Imaging Services [address] [place] [address] Abdomen/Pelvis without Cont MR#: [id number] Acct: [id number] Name: ELENO LEBLANC Umu Rep #: [id number] : 1970 M 47 From: Jordy Walker MD PCP: Care Physician, No Primary Status: REG ER Study: Abdomen/Pelvis without Cont Date of Exam: 02/04/18 Exam# [id number] Ordering Dr: Guilherme Dueñas MD STUDY: CT [...] No Primary Care Physician; Guilherme Dueñas MD Communications Maintainer: Signed BRAIN/HEAD WITHOUT Observed: 02/04/2018 Status: F Source: [place] CONTRAST 5:59 PM [facility] REPOSITORY [facility] Imaging Services [address] [place] [address] Brain/Head without Contrast MR#: [id number] Acct: [id number] Name: ELENO LEBLANC Rep #: [id number] : 1970 M 47 From: Patrick Ontiveros MD PCP: Care Physician, No Primary Status: REG ER Study: Brain/Head without Contrast Date of Exam: 02/04/18 Exam# [id number] Ordering Dr: Guilherme Dueñas MD STUDY: CT [...] No Primary Care Physician; Guilherme Dueñas MD Communications Maintainer: Signed CHEST PA AND LATERAL Observed: 02/04/2018 Status: F Source: [place] 5:59 PM [facility] REPOSITORY [facility] Imaging Services [address] [place] [address] Chest PA and Lateral MR#: [id number] Acct: [id number] Name: ELENO LEBLANC Rep #: [id number] : 1970 M 47 From: Jordy Walker MD PCP: Care Physician, No Primary Status: REG ER Study: Chest PA and Lateral Date of Exam: 02/04/18 Exam# [id number] Ordering Dr: Guilherme Dueñas MD STUDY: X-RAY [...] No Primary Care Physician; Guilherme Dueñas MD Communications Maintainer: Signed COMPREHENSIVE METABOLIC Collected: 02/04/2018 Status: F Source: [place]J PROFIL 5:25 PM [facility] REPOSITORY TYPE CODE TESTS RESULT OUT [...] 6 Performed By: #### L500.4050, L501.4010 #### [facility] [address] [facility] [place], [address] TROPONIN-I Collected: 02/04/2018 Status: F Source: [place] 5:25 PM [facility] REPOSITORY TYPE CODE TESTS RESULT OUT OF RANGE REFERENCE UNITS LAB L501.4010 <0.045 ng/mL Normal < 0.015 TROPONIN-I Result Comment: TROPONIN-I EXPECTED VALUES <0.045 NEGATIVE 0.045 - 0.590 AT RISK OF MO > OR = 0.600 SUGGEST MO Not every elevated troponin is indicative of MO. These values should be used with clinical judgement in examining the patient's clinical picture for diagnosis. To establish a diagnosis of MO versus myocardial injury, there must be a demonstrated rise and/or fall in the troponin values, in addition to ischemic symptoms, EKG changes, new regional wall motion abnormality, and/or angiographical evidence. PLEASE NOTE: REFERENCE RANGES EDITED 18 Performed By: #### L500.4050, L501.4010 #### [facility] [address] [facility] [place], [address] CBC W/DIFF, AUTOMATED Collected: 02/04/2018 Status: F Source: [place] 5:25 PM [facility] REPOSITORY TYPE CODE TESTS RESULT OUT [...] Lymph 1.67 Performed By: #### L100.0100 #### [facility] [address] [address] [place], [address] XR SPINE LUMBOSACRAL Observed: 01/06/2018 Status: F Source: [facility] MINIMUM 4 VIEWS 1:34 PM [facility] REPOSITORY Exam Date/Time: 01/06/2018 13:38 EDT Reason [...] EMERGENCY DEPARTMENT Observed: 12/12/2017 Status: F Source: [place] SUMMARY 5:40 PM [facility] REPOSITORY [facility] Medical Records Department [address] [place] [address] Emergency Department Summary 12/12/17 1732 MR#: [id number] Acct: [id number] Name: ELENO LEBLANC Rep #: [id number] : 1970 47 From: Kuldeep Gupta MD [...] unknown etiology This note was generated with Cinexio dictation software. It may contain incorrect words, [...] the Dr. turner by your insurance carrier [employer]. What to do if you have Problems For any increased pain, shortness of breath, bleeding, nausea or vomiting, chest pain, or any unexpected problems, contact your Primary Care Provider. Call [facility] ([phone]) or report to the closest Emergency Room. Call 911 if necessary. 12/12/17 1740 <Electronically signed by Kuldeep Gupta MD> Date Kuldeep Gupta MD Cosigner Signature (If Indicated): Date CC: No Primary Care Physician URINALYSIS, COMPLETE Collected: 12/12/2017 Status: F Source: [place]J 3:50 PM [facility] REPOSITORY Order Comment: Order Date: 12/12/17 Has [...] URINE SEEN Performed By: #### L400.0001 #### [facility] [address] [facility] [place], [address] ABDOMEN/PELVIS WITHOUT Observed: 12/12/2017 Status: F Source: [place] CONT 3:02 PM [facility] REPOSITORY [facility] Imaging Services [address] [place] [address] Abdomen/Pelvis without Cont MR#: [id number] Acct: [id number] Name: ELENO LEBLANC Rep #: [id number] : 1970 M 47 From: Erwin Tee MD PCP: Care Physician, No Primary Status: REG ER Study: Abdomen/Pelvis without Cont Date of Exam: 12/12/17 Exam# [id number] Ordering Dr: Kuldeep Gupta MD STUDY: CT [...] No Primary Care Physician; Kuldeep Gupta MD Communications Maintainer: Signed DISCHARGE INSTRUCTION Observed: 12/09/2017 Status: F Source: [place] 5:45 PM [facility] REPOSITORY [facility] Medical Records Department [address] [place] [address] Discharge Instruction 12/09/17 1744 MR#: [id number] Acct: [id number] Name: ELENO LEBLANC Rep #: [id number] : 1970 47 From: Diana Roper MD [...] your Primary Care Provider. Call [facility] ([phone]) or report to the closest Emergency Room. Call 911 if necessary. 12/09/17 1745 <Electronically signed by Diana Roper MD> Date Diana Roper MD Cosigner Signature (If Indicated): Date CC: No Primary Care Physician EMERGENCY DEPARTMENT Observed: 12/09/2017 Status: F Source: [place] SUMMARY 5:44 PM [facility] REPOSITORY [facility] Medical Records Department [address] [place] [address] Emergency Department Summary 12/09/17 1536 MR#: [id number] Acct: [id number] Name: ELENO LEBLANC Rep #: [id number] : 1970 47 From: Diana Roper MD [...] for home. Advised to follow-up with Dr. Gardner national expansion recruiter for no doc. Advised return to ED if worsening complaints. Disposition: Discharged home Impression: Back pain acute on chronic, abdominal pain This note was generated with Cinexio dictation software. It may contain incorrect words, [...] your Primary Care Provider. Call [facility] ([phone]) or report to the closest Emergency Room. Call 911 if necessary. 12/09/17 5334 <Electronically signed by Diana Roper MD> Date Diana Roper MD Cosigner Signature (If Indicated): Date CC: No Primary Care Physician CBC W/DIFF, AUTOMATED Collected: 12/09/2017 Status: F Source: MJ 3:55 PM [facility] REPOSITORY TYPE CODE TESTS RESULT OUT [...] Lymph 1.31 Performed By: #### L100.0100 #### [facility] [address] [place], [address] BASIC METABOLIC Collected: 12/09/2017 Status: F Source: MJ PROFILE (BMP) 3:55 PM [facility] REPOSITORY TYPE CODE TESTS RESULT OUT [...] Normal 7 Performed By: #### L500.2500 #### [facility] [address] [place], [place], [address] URINALYSIS, COMPLETE Collected: 12/09/2017 Status: F Source: MJ 3:54 PM [facility] REPOSITORY Order Comment: Order Date: 12/09/17 Has [...] URINE SEEN Performed By: #### L400.0001 #### [facility] [address] [place], [place], [address] DISCHARGE INSTRUCTION Observed: 10/23/2017 Status: F Source: [place] 11:09 PM [facility] REPOSITORY [facility] Medical Records Department [address] [place] [address] Discharge Instruction 10/23/172307 MR#: [id number] Acct: [id number] Name: BENJIELENO Umu Rep #: [id number] : 1970 47 From: Diana Roper MD [...] your Primary Care Provider. Call [facility] ([phone]) or report to the closest Emergency Room. Call 911 if necessary. 10/23/172308 <Electronically signed by Diana Roper MD> Date Diana Roper MD Cosigner Signature (If Indicated): Date CC: No Primary Care Physician EMERGENCY DEPARTMENT Observed: 10/23/2017 Status: F Source: [place] SUMMARY 11:08 PM [facility] REPOSITORY [facility] Medical Records Department [address] [place] [address] Emergency Department Summary 10/23/17 2303 MR#: [id number] Acct: [id number] Name: ELENO LEBLANC Rep #: [id number] : 1970 47 From: Diana Roper MD [...] Impression: Hematuria This note was generated with Cinexio dictation software. It may contain incorrect words, [...] your Primary Care Provider. Call [facility] ([phone]) or report to the closest Emergency Room. Call 911 if necessary. 10/23/17 2308 <Electronically signed by Diana Roper MD> Date Diana Roper MD Cosigner Signature (If Indicated): Date CC: No Primary Care Physician CHEST PA AND LATERAL Observed: 10/23/2017 Status: F Source: [place] 7:37 PM [facility] REPOSITORY [facility] Imaging Services [address] [place] [address] Chest PA and Lateral MR#: [id number] Acct: [id number] Name: ELENO LEBLANC Umu Rep #: [id number] : 1970 M 47 From: Maged Bryant MD PCP: Care Physician, No Primary Status: REG ER Study: Chest PA and Lateral Date of Exam: 10/23/17 Exam# [id number] Ordering Dr: Diana Roper MD STUDY: X-RAY [...] No Primary Care Physician; Diana Roper MD Communications Maintainer: Signed TESTICULAR WITH Observed: 10/23/2017 Status: F Source: MJ ARTERIAL FLOW 7:22 PM [facility] REPOSITORY [facility] Imaging Services [address] [place] [address] Testicular with Arterial Flow MR#: [id number] Acct: [id number] Name: ELENO LEBLANC Rep #: [id number] : 1970 M 47 From: Maged Bryant MD PCP: Care Physician, No Primary Status: REG ER Study: Testicular with Arterial Flow Date of Exam: 10/23/17 Exam# [id number] Ordering Dr: Diana Roper MD STUDY: SCROTUM [...] No Primary Care Physician; Diana Roper MD Communications Maintainer: Signed CBC W/DIFF, AUTOMATED Collected: 10/23/2017 Status: F Source: [place] 6:29 PM [facility] REPOSITORY TYPE CODE TESTS RESULT OUT [...] Lymph 2.10 Performed By: #### L100.0100 #### [facility] [address] [place], [address] BASIC METABOLIC Collected: 10/23/2017 Status: F Source: MJ PROFILE (BMP) 6:29 PM [facility] REPOSITORY TYPE CODE TESTS RESULT OUT [...] GAP 7 Performed By: #### L500.2500 #### [facility] [address] [place], [place], [address] ABDOMEN/PELVIS WITHOUT Observed: 10/23/2017 Status: F Source: MJ CONT 6:10 PM [facility] REPOSITORY [facility] Imaging Services [address] [place] [address] Abdomen/Pelvis without Cont MR#: [id number] Acct: [id number] Name: ELENO LEBLANC Rep #: [id number] : 1970 M 47 From: Carole Croft MD PCP: Care Physician, No Primary Status: REG ER Study: Abdomen/Pelvis without Cont Date of Exam: 10/23/17 Exam# [id number] Ordering Dr: Diana Roper MD STUDY: CT [...] No Primary Care Physician; Diana Roper MD Communications Maintainer: Signed URINALYSIS, COMPLETE Collected: 10/23/2017 Status: F Source: [place] 5:00 PM [facility] REPOSITORY Order Comment: How was Urine Obtained? [...] Normal YEAST-URINE Performed By: #### L400.0001 #### [facility] [address] [place], [address] Observed: 10/23/2017 Status: F Source: MJ CULTURE, URINE 5:00 PM [facility] REPOSITORY Order Date: 10/23/17 Has pt arrived? Y Urine Culture Below infection level. ORGANISM 1: Mixed Gram Positive Organisms Cameron Count <1000 MIX CULTURE Mixed contaminants. Submit a new specimen if indicated. Performed By: #### M100.0650 #### [facility] [address] [place], [address] EMERGENCY DEPARTMENT Observed: 10/22/2017 Status: F Source: [facility] SUMMARY 10:00 AM [facility] SUMMARY NAME NUMBER SEX AGE ADMIT DISC TYPE MED.RECORD# BENJI Sanz [id number] M 47 10/15/17 10/15/17 Pal [id number] ROOM:ER-F DATE OF :1970 PHYSICIAN NO.:[id number] PHYSICIAN NAME:E-Sign Carlos Salas M.D. PHYSICIAN:NO DOCTOR [...] Carlos Salas MD TD: 18:57 JOB #: [id number] Electronically signed by: ESorin Salas M.D. 10/22/17 09:59 Transcribed by: am 10/16/2017 00:14 ELECTRONICALLY SIGNED BY: Dc Salas M.D. 10/22/17 09:59 ALLERGIES ALLERGIES DATE TYPE / CODE NAME / CODE REACTION SEVERITY SOURCE 10/04/2018 Drug No Known Unknown [facility] Allergy/332938872(S Allergies/F0019 [facility] [place] [address]([place]NORM[facility] Hospital Repository Drug/512627591(SNOM No Known [facility] ED CT) Allergies [facility] Repository Environmental 09/13/17 (-) U Abad Brandzahida Allergy/550904356(S MRSA SCREEN [facility] Hospital Repository ENCOUNTERS ENCOUNTERS ADMIT/DISCHARGE ACCOUNT ADMITTING ENCOUNTER LOCATION SOURCE NUMBER CLASS 10/04/2018/10/04/19 [id number] Emergency [facility] 19 [facility] ing:ED Repository 09/07/2018/09/07/20 [id number] Emergency [facility]j 18 [facility] ing:ED Repository 09/07/2018/09/07/20 [id number] Ambulatory BMSBuilding:B [facility] [address] [facility] Repository 09/07/2018/09/07/20 [id number] Emergency [address] ing:ED Repository 07/03/2018/07/03/20 [id number] Emergency [address] ing:ED Repository 05/25/2018/05/25/20 [id number] Emergency [facility] 18 [facility] ing:ED Repository 05/01/2018/05/01/20 [id number] Emergency Mj Mj 18 [facility] Hospital ing:ED Repository 04/18/2018 [id number] Ambulatory [address] [place] [address] Repository 04/07/2018 [id number] Ambulatory [address] [place] [address] Repository 04/06/2018 [id number] Ambulatory [address] [place] [address] Repository 03/19/2018/03/19/20 [id number] Emergency Mj Mj[address] Hospital ing:ED Repository 03/05/2018/03/05/20 [id number] BRIAN WHITE [facility] oom: ERBed: [facility] Repository 02/26/2018/02/27/20 [id number] ELENO CHOE Emergency BuildinR [facility] 18 DO oom: ERBed: [facility] Repository 02/13/2018/02/14/20 [id number] Emergency Mj[address] Hospital ing:ED Repository 02/13/2018/02/14/20 [id number] Emergency [facility] [facility] ing:ED Repository 02/05/2018/02/06/20 [id number] Emergency [facility] [facility] ing:ED Repository 02/05/2018/02/06/20 [id number] Emergency [address] ing:ED Repository 02/04/2018/02/05/20 [id number] Emergency Mj [facility] Hospital ing:ED Repository 01/06/2018/01/07/20 [id number] Doug Noonan Emergency [place] [address] [facility] ing:[facility] EDRoom: WR Repository 12/12/2017/12/13/19 [id number] Emergency [facility] [facility] ing:ED Repository 12/12/2017/12/13/[id number] JONI LAWS [facility] C oom: ERBed: [facility] Repository 12/09/2017/12/10/19 [id number] Emergency [place] [facility] ing:ED Repository 10/23/2017/10/23/19 [id number] Emergency Mj Mj 18 [facility] ing:ED Repository 10/15/2017/10/15/19 [id number] ZAYDA SALASJeronimo Emergency Buildin[address] [place] [address] 18 oom: ERBed: F [facility] Repository PAYERS PAYERS ENCOUNTER GUARANTOR PAYER SUBSCRIBER SOURCE 10/04/2018 ELENO Sanz Primary Insurance:[facility] EL[address] LE[address] [facility] PLANPolFranklin County Memorial HospitalB: [facility] Number: [id number] [id number] Repository [address]Usm: ([phone]) Date:3522-72-38RA [phone] () [address] [place] [address] 630[address]LR: 10/04/2018 Secondary NOT GIVENUNK [facility] Insurance:SELF PAY [facility] Number: Effective Repository Date:2018-10-04 09/07/2018 ELENO Sanz Primary Insurance:[facility] EL[address] LEBLANC[address] [facility] PLANHCA Florida Pasadena HospitalB: [facility] Number: [id number] [id number] Repository [address]Fiz: [phone]) Date:2698-14-76CV [phone] () [address] [place] [address] 19314XN: 09/07/2018 Secondary NOT GIVENUNK Mj Insurance:SELF PAY [facility] Number: Effective Repository Date:2018-09-07 09/07/2018 ELENO Sanz Primary Insurance:[facility] ELENO LEBLANC[address] [facility] PLANHCA Florida Pasadena HospitalB: [facility] Number: [id number] [id number] Repository [address]Ott: (740) Date:1679-64-56XJ [phone] () [address] [place] [address] 96218OO: 09/07/2018 Secondary NOT GIVENUNK [facility] Insurance:SELF PAY [facility] Number: Effective Repository Date:2018-09-07 09/07/2018 ELENO Sanz Primary Insurance:[facility] ELENO LEBLANC[address] [facility]: Community [address] Number: [id number] [address] [id number] Repository [address]Luz: (330) Date:9270-96-94NW [phone] () [address] [place] [address] 71376OP: 09/07/2018 Secondary NOT GIVENUNK Mj Insurance:SELF PAY [facility] Number: Effective Repository Date:2018-09-07 07/03/2018 ELENO Sanz Primary Insurance:[facility] ELENO LEBLANC[address] [facility] PLANDeSoto Memorial Hospital: [facility] [address] Number: [id number] [address] [id number] Repository [address]Pqe: ([phone]) Date:2812-29-79TD [phone] () [address] [place] [address] 16421PS: 07/03/2018 Secondary NOT GIVENUNK Mj Insurance:SELF PAY [facility] Number: Effective Repository Date:2018-07-03 05/25/2018 ELENO Sanz Primary Insurance:[facility] ELENO LEBLANC[address] [facility] PLANDeSoto Memorial Hospital: [facility] [place] Number: [id number] [address] [id number] Repository [address]Fjh: (330) Date:3483-58-90RZ [phone] () [address] [place] [address] 23058AQ: 05/25/2018 Secondary NOT GIVENUNK Mj Insurance:SELF PAY [facility] Number: Effective Repository Date:2018-05-25 05/01/2018 ELENO Sanz Primary Insurance:[facility] ELENO LEBLANC[address] [facility] PLANDeSoto Memorial Hospital: [facility] [place] Number: [id number] [id number] Repository [address]Pxa: (330) Date:1957-55-35CS [phone] () [address] [place] [address] 86781MV: 05/01/2018 Secondary NOT GIVENUNK [facility] Insurance:SELF PAY [facility] Number: Effective Repository Date:2018-05-01 04/18/2018 ELENO Sanz Primary ELENO [facility]z [facility]: Insurance:[facility]: [facility] [id number] Repository [facility]ELPocahontas Community HospitalPolicy Number: [address] [place] [id number] [place], [place] [address]Yed: (330) Date:Plan Name:[facility] [address]Yqa: (HP) O [address] [phone] (HP) [address]UM: 04/07/2018 ELENO Sanz Primary ELENO Sanz [facility]: Insurance:[facility]: [facility] [id number] Repository [facility]-Bl[facility] Children[facility] Hospitalicy Number: [address] [place] [id number] [place], [place] [address]Pzn: (330) Date:Plan Name:[facility] [address]Fxu: () O [address] [phone] () 660[address]JE: 04/06/2018 ELENO Sanz Primary ELENO [facility]: Insurance:[facility]: [facility] [id number] Repository [facility] Number: [address] [place] [id number] [place], [place] [address]Pli: (330) Date:Plan Name:[facility] [address]Vpo: (HP) O [address] [phone] (HP) 165[address]LQ: 03/19/2018 ELENO Sanz Primary Insurance:[facility] [address] [id number] E [facility] PLANDeSoto Memorial Hospital: [facility] Number: [id number] [address] [id number] Repository [address]Ejm: (330) Date:1785-94-72RG [phone] (HP) [address] [place] [address] 16108NO: 03/19/2018 Secondary NOT GIVENUNK [facility] Insurance:SELF PAY [facility] Number: Effective Repository Date:2018-03-19 03/05/2018 ELENO Sanz Primary ELENO HALEB: [facility]: [facility] [id number] [place], [place] [address]T PLAN OUTPATPolicy [address] Repository [address] [place] Number: [address], [place] [address]Jcw: (330 [id number] [id number] [phone] (HP) Date:Plan Name:X4 02/26/2018 ELENO Sanz Primary ELENO HALEB: Insurance[facility]: [facility] E [facility] [id number] [place] [address] PLAN OUTPATPolicy [address] Repository [address] [place] Number: [address], [place] [address]Rev: 330 [id number] [phone] (HP) Date:Plan Name:X4 02/13/2018 ELENO Sanz Primary Insurance:[facility] ELENO LEBLANC[address] E [facility] PLANHCA Florida Pasadena HospitalB: [facility] Number: [id number] Hospital [address], [place] [id number] Repository [address]Dta: (330) Date:5793-11-37FL [phone] () [address] [place] [address] 99380CM: 02/13/2018 Secondary NOT GIVENUNK [facility] Insurance:SELF PAY [facility] Number: Effective Repository Date:2018-02-13 02/13/2018 ELENO Sanz Primary Insurance:[facility] ELENO LEBLANC[address] E [facility] PLANHCA Florida Pasadena HospitalB: [facility] Number: [id number] [facility] [address], [place] [id number] Repository [address]Deq: (330) Date:9492-68-45EV [phone] () [address] [place] [address] 01994CK: 02/13/2018 Secondary NOT GIVENUNK Mj Insurance:SELF PAY [facility] Number: Effective Repository Date:2018-02-13 02/05/2018 ELENO Sanz Primary Insurance:[facility] ELENO LEBLANC[address] E [facility] GEORGEDOB: [facility] [address] Number: [id number] [id number] Repository [address]Ivf: (330) Date:8856-98-67MK [address] () [address] [place] [address] 29412EJ: 02/05/2018 Secondary NOT GIVENUNK [facility] Insurance:SELF PAY [facility] Number: Effective Repository Date:2018-02-05 02/05/2018 ELENO Sanz Primary Insurance:[facility] ELENO Floresashwini LEBLANC[address] E [facility] ServicesB: [facility] [address] Number: [id number] [id number] Repository [address]Wbf: (330) Date:4694-07-68IJ [address] () [address] [place] [address] 92510HD: 02/05/2018 Secondary NOT GIVENUNK [facility] Insurance:SELF PAY [facility] Number: Effective Repository Date:2018-02-05 02/04/2018 ELENO Sanz Primary Insurance:[facility] ELENO Floresashwini LEBLANC[address] [facility]: [facility] [address] Number: [id number] [id number] Repository [address]Qfs: (330) Date:4493-88-90ZH [address] () [address] [place] [address] 52994FD: 02/04/2018 Secondary NOT GIVENUNK [facility] Insurance:SELF PAY [facility] Number: Effective Repository Date:2018-02-04 01/06/2018 ELENO Sanz Primary ELENO Sazn [facility]: Insurance:[facility]: [facility] [id number] System [facility] Number: Effective [facility] Repository [facility] Hospitalcarrie [place] Date:2018-01-06 - [facility] [place] [address]Xns: [phone]) [id number] [address]Vbm: () Name:CD:[id number] [address] () [address] [place] [address] 97164EG: 12/12/2017 ELENO Sanz Primary Insurance:[facility] ELENO LEBLANC[address] [facility] PLANPolFranklin County Memorial HospitalB: [facility] [address] Number: [id number] Hospital [address], [place] [id number] Repository [address]Fae: (330) Date:4311-64-79SV [phone] (HP) [address] [place] [address] 97943MH: 12/12/2017 Secondary NOT GIVENUNK Mj Insurance:SELF PAY [facility] Number: Effective Repository Date:2017-12-12 12/12/2017 ELENO Sanz Primary ELENO Mahoney [facility]: Insurance:[facility]: [facility] [id number] Hospital [facility] PLAN OUTPATPolicy E [facility] Repository [place] Number: [address] [place] [address]Xwm: (722) [id number] [phone] (HP) Date:Plan Name:X4 12/09/2017 ELENO Sanz Primary Insurance:[facility] ELENO Sanz Mj [id number] [facility]: [facility] [address] Number: [id number] Hospital [address], [place] [id number] Repository [address]Gtq: (330) Date:8833-41-22EM [phone] (HP) [address] [place] [address] 79052NG: 12/09/2017 Secondary NOT GIVENUNK Mj Insurance:SELF PAY [facility] Number: Effective Repository Date:2017-12-09 10/23/2017 ELENO Sanz Primary Insurance:[facility] ELENO Floresashwini LEBLANC[address] E [facility] PLANHCA [facility] HospitalB: [facility] [address] Number: [id number] [facility] [address], [place] [id number] Repository [address]Gfz: (330) Date:4145-33-91OP [phone] (HP) [address] [place] [address] 84332YJ: 10/23/2017 Secondary NOT GIVENUNK Mj Insurance:SELF PAY Community INSURANCEPolicy Hospital Number: Effective Repository Date:2017-10-23 10/15/2017 ELENO Mahoney [facility]: Insurance:[facility]: [facility] [id number] [facility] [id number] [facility] PLAN OUTPATPolicy E [facility] Repository [address], [place] Number: [id number] [address]Hug: ([phone]) [id number] [phone] () Date:Plan Name:X4
== END 2018-09-07 10:08 | disposition home or self-care (01) ==
LOC: ED 10:05
PROVIDERS: Emergency Provider Emergency Medicine
DX: R60.0 Localized edema (principal); Z72.0 Tobacco use; L25.9 Unspecified contact dermatitis, unspecified cause
CPT/HCPCS: 99282; 99283

== ENCOUNTER 2018-10-04 11:49 | Emergency (ER) | payer MEDICAID, SELFPAY ==
[2018-10-04 11:51] VITALS: BP 143/88; PULSE 83; RESP 18; TEMP 36.9; O2SAT 98; BMI 33.0
--- NOTE | 2018-10-04 12:33 | ED.DCSUM_ITS ---
- ER Visit Summary Date of Service: 10/04/18 Chief Complaint: Sore throat cough History of Present Illness: The patient is a 48 M presenting for evaluation secondary to a respiratory illness. Patient reports that over the course last 4 days he has had runny nose sore throat congestion and a nonproductive cough. Denies any presence of fevers. Denies any nausea vomiting or diarrhea associated with this. Patient is concerned because he missed work for this. Physical Examination: Vital signs within normal limits. Well-nourished male no acute distress. No sinus tenderness. Swollen nasal turbinates noted. Oropharynx clear. Neck supple. Heart regular rate and rhythm lungs sound clear. Test Results: None indicated Emergency Department Course and Treatment: Patient presented for evaluation secondary to respiratory illness. This appears consistent with viral sinusitis. Patient will be treated with [facility] Disposition: Discharged Impression: 1. Viral sinusitis This note was generated with [employer] dictation software. It may contain incorrect words, spelling, and punctuation that were not noted in review of the chart prior to signing ED Disposition - Plan for ED Patient: Disposition: Home or Assisted Living Chief Complaint: Cold Sx Diagnosis: Acute non-recurrent sinusitis Instructions: ED Upper Resp Infec No Abx Tx Prescriptions: Guaifenesin/Dextromethorphan [Mucinex Dm ER 1,200-60 mg Tab] 1 ea PO BID PRN PRN #12 [id number] PRN Reason: Cough Referrals: Care Physician,No Primary [Primary Care Provider] -
[2018-10-04] MEDS: Oxymetazoline 0.05% 1 SPRAY SPRAY.BTL 2 SPRAY NASAL (12:46)
[2018-10-04] MEDS: guaiFENesin Dm 10 ML UDC PO (12:51)
== END 2018-10-04 12:52 | disposition home or self-care (01) ==
PROVIDERS: Emergency Provider Emergency Medicine
DX: J32.9 Chronic sinusitis, unspecified (principal); B97.89 Other viral agents as the cause of diseases classified elsewhere; Z72.0 Tobacco use; Z79.899 Other long term (current) drug therapy
CPT/HCPCS: 99283

== ENCOUNTER 2018-12-14 09:13 | Emergency (ER) | payer MEDICAID, SELFPAY ==
[2018-12-14 09:14] VITALS: BP 149/79; PULSE 82; RESP 20; TEMP 36.6; O2SAT 98; BMI 33.0
--- NOTE | 2018-12-14 09:24 | ED.VISSUMM ---
- ER Visit Summary Date of Service: 12/14/18 Chief Complaint: Bumps in groin History of Present Illness: The patient is a 48 M who tells me that he has bumps in his groin. They have been intermittently coming and going for the month. He had a large wound that drained fluid. He does have a history of boils according to him. He denies fevers. He has many small bumps in his groin bilaterally now. Nothing is draining at this time. Denies any redness. Physical Examination: Vital signs reviewed. Skin exam reveals folliculitis in the groin bilaterally. There are no abscesses currently. No significant erythema. These areas are mildly tender. Test Results: None performed Emergency Department Course and Treatment: Patient appears to have folliculitis of the groin area. He will be treated with antibiotics. He will follow-up with his PCP Treatment Plan: [] Disposition: Discharge Impression: Folliculitis This note was generated with E[employer] dictation software. It may contain incorrect words, spelling, and punctuation that were not noted in review of the chart prior to signing ED Disposition - Plan for ED Patient: Referrals: Care Physician,No Primary [Primary Care Provider] -
--- NOTE | 2018-12-14 09:25 | ED.DEP ---
ED Disposition - Plan for ED Patient: Disposition: Home or Assisted Living Instructions: ED Folliculitis Prescriptions: Doxycycline 100 mg PO BID #14 cap Mupirocin [Bactroban] 1 applic TOPICAL TID #1 tube Referrals: Care Physician,No Primary [Primary Care Provider] -
== END 2018-12-14 09:54 | disposition home or self-care (01) ==
LOC: ED 09:37
PROVIDERS: Emergency Provider Emergency Medicine
DX: L73.9 Follicular disorder, unspecified (principal); Z72.0 Tobacco use; Z79.899 Other long term (current) drug therapy
CPT/HCPCS: 99283

== ENCOUNTER 2019-02-21 09:15 | Emergency (ER) | payer MEDICAID, SELFPAY ==
[2019-02-20 08:14] VITALS: BMI 33.0
[2019-02-21 09:15] VITALS: BP 152/90; PULSE 87; RESP 18; TEMP 36.2; O2SAT 97; BMI 32.0
--- NOTE | 2019-02-21 09:32 | ED.VISSUMM ---
- ER Visit Summary Date of Service: 02/21/19 Chief Complaint: Back pain and anxiety History of Present Illness: The patient is a 48 M who presents with back pain that is been getting worse since last night. Patient states he has a history of sciatica and states this feels similar to prior episodes. Patient states the pain is worse with certain movements. Patient states the pain is better when he is at rest. Patient denies any radiation of the pain. Patient denies any paresthesias or weakness. Patient denies any bowel or bladder changes. Patient denies any saddle anesthesia. Patient describes his pain is sharp. Patient states the pain is over the lower lumbar area but worse on the left. Patient also admits to some increasing anxiety due to the pain. Patient states he does not have a primary care physician and usually follows up with the urgent care clinic. Patient states he is trying to establish with a primary care physician. Physical Examination: Vital signs are stable. Patient is afebrile. Patient is in no acute distress. Musculoskeletal exam reveals tenderness over the left lumbar paraspinal muscles and sciatic notch. There is no midline tenderness. There is no bony crepitance or step-off. There is good range of motion. Strength is 5/5 bilateral knee upper and lower extremities. Sensation was intact bilaterally in the upper and lower extremities. Deep tendon reflexes were 2+/4 in the patellar and Achilles reflexes bilaterally. Emergency Department Course and Treatment: Patient was given a dose of Valium here. Patient was instructed to follow-up with his primary care physician in 5 to 7 days. Patient was instructed to return if any bowel or bladder changes. Patient was instructed to return if worse in any way. Patient was given a note for work for today. Patient understood and was agreeable with the plan. All questions were answered. Disposition: Discharge home Impression: Sciatica This note was generated with [employer] dictation software. It may contain incorrect words, spelling, and punctuation that were not noted in review of the chart prior to signing ED Disposition - Plan for ED Patient: Disposition: Home or Assisted Living Diagnosis: Sciatica Instructions: ED Sciatica Referrals: Care Physician,No Primary [Primary Care Provider] - 5-7 Days
[2019-02-21] MEDS: diazePAM 2 MG Tablet PO (09:54)
== END 2019-02-21 09:55 | disposition home or self-care (01) ==
PROVIDERS: Emergency Provider Emergency Medicine
DX: M54.42 Lumbago with sciatica, left side (principal); F41.9 Anxiety disorder, unspecified; Z72.0 Tobacco use; Z79.899 Other long term (current) drug therapy
CPT/HCPCS: 99283

== ENCOUNTER → 2019-02-23 | Outpatient (CLI) | payer MEDICAID, SELFPAY ==
[2019-02-23 11:31] VITALS: BMI 32.0
--- NOTE | 2019-02-23 11:35 | RAD_ITS ---
STUDY: X-RAY CHEST REASON FOR EXAM: Male, 48 years old. Cough TECHNIQUE: PA and lateral views of the chest. COMPARISON: 02/04/2018 FINDINGS: The lungs are clear and expanded. There is no demonstrated pleural abnormality. Normal size heart. Normal mediastinum and heidy. Normal visualized pulmonary arteries. Normal visualized aortic arch and descending thoracic aorta. Normal visualized thoracic spine. Normal visualized ribs, clavicles, and shoulders. There is no demonstrated abnormality of the visualized soft tissue structures of the upper abdomen. RAD/Chest PA and Lateral IMPRESSION: Normal x-ray examination of the chest. Electronically Signed: Wilner Mcgill MD at 12:37 EDT Tel , Service support ,
== END | disposition home or self-care (01) ==
LOC: HPRAD 11:34
PROVIDERS: Referring Provider Physician Assistant Surgical; Visit Provider Physician Assistant Surgical
DX: J02.9 Acute pharyngitis, unspecified (principal)
CPT/HCPCS: 71046

== ENCOUNTER 2019-03-02 07:32 | Emergency (ER) | payer MEDICAID, SELFPAY ==
[2019-02-23 11:31] VITALS: BMI 32.0
[2019-03-02 07:33] VITALS: BP 155/99; PULSE 82; RESP 18; TEMP 36.6; O2SAT 99; BMI 30.9
--- NOTE | 2019-03-02 07:48 | ED.DCSUM_ITS ---
History of Present Illness Chief Complaint: Abscess Informant: Patient Onset: Days - 2 to 3 days ago Context: Sudden Onset Timing: Continuous Quality: Swelling proximal medial left thigh Location: proximal medial left thigh Current Severity: Mild Maximum Severity: Mild Worsened by: Nothing Relieved by: Nothing Associated Symptoms: No associated symptoms Narrative: Patient is a 48-year-old male with no sniffing past medical history and no al lergies who presents with abscess proximal medial left thigh noted a couple days ago. He denies fever, chills or night sweats. He denies history of rheumatic fever, murmur, SBE or being immune suppressed. He has no other symptoms. Prior similar symptoms: Yes Recent Illness/Hospitalization: No - Past Medical History (1) No significant past medical history Status: Acute Past Medical History - Allergies and Home Meds Allergies/Adverse Reactions: Allergies No Known Allergies Allergy (Verified 03/02/19 07:34) Primary Care Physician: Care Physician,No Primary [Primary Care Provider] - Surgical History: appendectomy Lives: Spouse/ Significant Other Smoking Status: Current every day smoker Alcohol: None Drugs: None - Family History Maternal Family History: Reports: No pertinent history Review of Systems General: Denies: Chills, Fever, Malaise, Subjective, Sweats, Weight loss, - Respiratory: Reports: Cough. Denies: Dyspnea, Sputum, Dyspnea on exertion Gastrointestinal: Denies: Nausea, Vomiting, Diarrhea Musculoskeletal: Denies: Myalgias, Arthralgias, Neck pain, Back pain, Swelling, Extremity Pain Skin: Reports: Abscess. Denies: Rash, Abrasions, Wounds Neurological: Denies: Headache, Weakness, Parasthesia, Numbness Hematologic: Denies: Easy bruising, Easy bleeding Allergy: Denies: Uticaria, Swelling of the mouth, Swelling of the tongue Physical Exam Vital Signs/Narrative: Vital Signs Temp Pulse Resp BP Pulse Ox 03/02/19 07:33 97.9 F 82 18 155/99 H 99 Inital Vital Signs reviewed: Yes General: Well nourished, Well developed, No Acute Distress Head: Normocephalic, Atraumatic Eyes: Perrl, EOMI. Negative for: Pale conjunctiva, Scleral icterus, - ENT: Moist mucous membranes, No rhinorrhea Neck: Supple, Nontender Cardiovascular: Regular rate, Regular rhythm, No murmurs, Normal S1, Normal S2 Respiratory: No distress, CTA bilaterally, Chest nontender : - - External genitalia normal. Extremities: Nontender, No edema, - - Proximal medial left thigh is remarkable for slight discoloration with fluctuant consistent with abscess. There is no inguinal lymphadenopathy. Skin: Normal color, No rash, No Trauma. Negative for: Cyanosis, Diaphoresis, Jaundice Neurological: Alert, Oriented x3, Cranial nerves II-XII grossly intact, Normal Strength, Normal Sensation Psychological: Normal affect, Normal Mood Diagnostic/Tx/Re-eval - Medical Decision Making Patient has an abscess without evidence of cellulitis. Patient was informed treatment is I&D. Patient was explained what this would entail. He had no questions. He gave verbal consent. These read procedure note. Procedures Procedure(s): Patient was prepped dry sterile manner. Written consent was obtained. The area was anesthetized 1% lidocaine by local infiltration and field block. Incision was made using 10 blade. Length of incision 2.5 cm. There was free flow of purulent material. Blunt dissection was undertaken with 2 additional pockets found. Approximately 5 cc of purulent material noted. Cavity was irrigated. Wick was placed. Patient tolerated procedure well. Complex abscess ED Disposition - Plan for ED Patient: Disposition: Home or Assisted Living Diagnosis: Abscess of left thigh Instructions: ED Abscess IandD Referrals: Care Physician,No Primary [Primary Care Provider] - Segundo Fish MD [NON-STAFF] - 2 Days for wound check Additional Instructions: Have with removed in 2 to 3 days. If you are unable to be seen by your primary care physician you may return to the emergency department for wound reassessment and removal of wick.
== END 2019-03-02 08:38 | disposition home or self-care (01) ==
PROVIDERS: Emergency Provider Emergency Medicine
DX: L02.416 Cutaneous abscess of left lower limb (principal); F17.200 Nicotine dependence, unspecified, uncomplicated
CPT/HCPCS: 10060; 99282

== ENCOUNTER 2019-03-04 06:20 | Emergency (ER) | payer MEDICAID, SELFPAY ==
[2019-03-04 06:20] VITALS: BP 143/95; PULSE 94; RESP 18; TEMP 36.4; O2SAT 98; BMI 32.2
--- NOTE | 2019-03-04 06:34 | ED.VISSUMM ---
- ER Visit Summary Date of Service: 03/04/19 Chief Complaint: Back pain History of Present Illness: The patient is a 48 M presenting with back pain for about a week, he tells me he lifts heavy stuff at work, no radiation to his leg no bowel or bladder compromise no urinary retention. No fever or chills Physical Examination: Otherwise normal exam patient has right-sided paraspinal back pain negative straight leg cast. He has normal plantar flexion dorsiflexion of both feet. Both great toes do suprapubic pain or mass. Emergency Department Course and Treatment: We will treat with analgesia and muscle relaxants. He was given Naprosyn and Flexeril for home Disposition: Discharge stable condition Impression: Lumbar strain This note was generated with Bar[employer] dictation software. It may contain incorrect words, spelling, and punctuation that were not noted in review of the chart prior to signing ED Disposition - Plan for ED Patient: Disposition: Home or Assisted Living Instructions: ED Low Back Pain Injury Prescriptions: Naproxen [Naprosyn] 500 mg PO BID PRN #20 tab cycloBENZAPRine HCl [Flexeril] 10 mg PO TID PRN #20 tab PRN Reason: Muscle Spasm Referrals: Kirstin Lewis DO [STAFF PHYSICIAN] - 1 Week
--- NOTE | 2019-03-04 06:37 | ED.DCSUM_ITS ---
- ER Visit Summary Date of Service: 03/04/19 Chief Complaint: Back pain History of Present Illness: The patient is a 48 M presenting with back pain for about a week, he tells me he lifts heavy stuff at work, no radiation to his leg no bowel or bladder compromise no urinary retention. No fever or chills Physical Examination: Otherwise normal exam patient has right-sided paraspinal back pain negative straight leg cast. He has normal plantar flexion dorsiflexion of both feet. Both great toes do suprapubic pain or mass. Emergency Department Course and Treatment: We will treat with analgesia and muscle relaxants. He was given Naprosyn and Flexeril for home Disposition: Discharge stable condition Impression: Lumbar strain This note was generated with [employer] dictation software. It may contain incorrect words, spelling, and punctuation that were not noted in review of the chart prior to signing ED Disposition - Plan for ED Patient: Disposition: Home or Assisted Living Instructions: ED Low Back Pain Injury Prescriptions: Naproxen [Naprosyn] 500 mg PO BID PRN #20 tab cycloBENZAPRine HCl [Flexeril] 10 mg PO TID PRN #20 tab PRN Reason: Muscle Spasm Referrals: Kirstin Lewis DO [STAFF PHYSICIAN] - 1 Week
[2019-03-04] MEDS: Orphenadrine 60 MG/2 ML Ampul IM (06:41)
[2019-03-04] MEDS: Ketorolac 30 MG/ML Syringe IM (06:41)
== END 2019-03-04 07:09 | disposition home or self-care (01) ==
LOC: ED 07:02
PROVIDERS: Emergency Provider Emergency Medicine
DX: S39.012A Strain of muscle, fascia and tendon of lower back, initial encounter (principal); Z72.0 Tobacco use; X50.0XXA Overexertion from strenuous movement or load, initial encounter; Y93.89 Activity, other specified; Y92.89 Other specified places as the place of occurrence of the external cause; Y99.8 Other external cause status
CPT/HCPCS: 96372; 99283

== ENCOUNTER 2019-03-11 12:11 | Emergency (ER) | payer MEDICAID, SELFPAY ==
[2019-03-11 12:13] VITALS: BP 140/82; PULSE 80; RESP 15; TEMP 35.7; O2SAT 96; BMI 31.6
--- NOTE | 2019-03-11 12:31 | ED.DCSUM_ITS ---
History of Present Illness Chief Complaint: Abscess Informant: Patient Onset: Weeks Current Severity: Mild Narrative: Patient complains that one he is having lumbar back pain that usually takes Valium for he is out of it #2 he indicates he has papules in his medial thigh regions that seem to come and go and he wants those addressed, he has had 1 or 2 of these areas I&D in the past he is not prone or known to have MRSA he indicates the papules are related to his work activities that causes quite a bit of sweat to that area normal bowel bladder habits no other complaints Past Medical History - Allergies and Home Meds Allergies/Adverse Reactions: Allergies No Known Allergies Allergy (Verified 03/11/19 12:15) Primary Care Physician: Care Physician,No Primary [Primary Care Provider] - Surgical History: appendectomy Smoking Status: Heavy Smoker (>10/day) - Family History Maternal Family History: Reports: No pertinent history Review of Systems General: Denies: Chills, Fever, Sweats Eyes: Denies: Visual changes - bilaterally, Diplopia ENT: Denies: Rhinorrhea, Sore throat Cardiovascular: Denies: Chest pain, Palpitations Respiratory: Denies: Dyspnea, Cough, Dyspnea on exertion Gastrointestinal: Denies: Abdominal pain, Nausea, Vomiting, Diarrhea, Melena, Hematochezia Genitourinary: Denies: Dysuria, Hematuria, Frequency Musculoskeletal: Denies: Back pain, Extremity Pain Skin: Denies: Rash, Wounds Neurological: Denies: Headache, Weakness, Numbness Physical Exam Vital Signs/Narrative: Vital Signs Temp Pulse Resp BP Pulse Ox 03/11/19 12:13 96.3 F L 80 15 140/82 H 96 : - - He has unremarkable exam he points to the area to the right medial thigh that is basically up 0.5 mm soft nontender not inflamed papule that is had for some time the exam is otherwise unremarkable there is no testicular tenderness no lymphadenopathy no other complaints Diagnostic/Tx/Re-eval - Medical Decision Making I explained to the patient this time is no signs of active infection in his area or thighs if he is concerned about that chronic papule he should see his outpatient providers he also indicates he needs a Valium tablet related to his chronic back pain he will be given 5 mg of Valium and [facility] return for change in symptoms he understands that no prescriptions will be given Final impression home stable Right medial thigh papule chronic ED Disposition - Plan for ED Patient: Instructions: ED Sprain Strain Lumbar Referrals: Care Physician,No Primary [Primary Care Provider] - Additional Instructions: Follow-up with your outpatient providers for the right thigh papule keep the area clean and dry use antibiotic ointment
[2019-03-11] MEDS: diazePAM 5 MG Tablet PO (12:39)
== END 2019-03-11 12:49 | disposition home or self-care (01) ==
LOC: ED 12:49
PROVIDERS: Emergency Provider Emergency Medicine
DX: R23.8 Other skin changes (principal); F17.200 Nicotine dependence, unspecified, uncomplicated; G89.29 Other chronic pain; M54.5 Low back pain
CPT/HCPCS: 99283

== ENCOUNTER 2019-04-07 14:47 | Emergency (ER) | payer MEDICAID, SELFPAY ==
[2019-03-22 10:10] VITALS: BMI 31.6
[2019-04-07 14:48] VITALS: BP 152/91; PULSE 67; RESP 16; TEMP 36.9; O2SAT 97; BMI 30.9
--- NOTE | 2019-04-07 15:03 | ED.VISSUMM ---
- ER Visit Summary Date of Service: 04/07/19 Chief Complaint: Sciatica History of Present Illness: The patient is a 48 M who tells me he has an upcoming appointment on Tuesday of next week with Dr. Torres to establish new primary care and to discuss his anxiety. He states that the anxiety is not really why he is here it is more of his sciatica. He states he was at one time was in pain management for sciatica. He last had a prescription for Valium several years ago. He is in a Suboxone clinic. He states that when he was in pain management he would use of Valium and it would help his pain in his left buttock. He denies any bowel or bladder dysfunction. No radicular symptoms. Is been acting up on him for the past 2 to 3 days. Physical Examination: Afebrile vital signs are stable Patient has tenderness palpation over the piriformis muscle. Otherwise negative exam Emergency Department Course and Treatment: I did review his automated reporting prescription report. Everything he tells me has been truthful. He does have an upcoming appointment with primary care. I will write him a total of 9 Valium. Patient was advised on stretching techniques. Return if worsening or concerns Impression: 1. Left sciatica This note was generated with [employer] dictation software. It may contain incorrect words, spelling, and punctuation that were not noted in review of the chart prior to signing ED Disposition - Plan for ED Patient: Disposition: Home or Assisted Living Instructions: Understanding Sciatica Prescriptions: Diazepam [Valium] 5 mg PO Q8 PRN #9 tab PRN Reason: sciatica Prescription Printed Referrals: Jasmin Torres MD [STAFF PHYSICIAN] - Keep [place] appointment
[2019-04-07 15:20] VITALS: BP 146/93; PULSE 83; RESP 16; O2SAT 98
== END 2019-04-07 15:19 | disposition home or self-care (01) ==
LOC: ED 15:15
PROVIDERS: Emergency Provider Emergency Medicine
DX: M54.32 Sciatica, left side (principal); Z72.0 Tobacco use
CPT/HCPCS: 99282

== ENCOUNTER 2019-05-14 11:34 | Emergency (ER) | payer MEDICAID, SELFPAY ==
[2019-05-14 11:34] VITALS: BP 136/83; PULSE 78; RESP 18; TEMP 36.2; O2SAT 98; BMI 31.5
--- NOTE | 2019-05-14 11:48 | ED.DCSUM_ITS ---
- ER Visit Summary Date of Service: 05/14/19 Chief Complaint: [Back pain] History of Present Illness: The patient is a 48 M [ presents to the emergency department complaint of back pain is ago. Patient states that he has had no trauma. Patient states pain is been continuous. Patient states he does do a l ot of repetitive motions at work as well as lifting. He does not want claimant under Workmen's Comp. He denies any chest pain or shortness of breath. Patient states that when the pain severe he starts to sweat. He denies urinary symptoms. He denies hematuria. He denies pain rating down his legs. He denies loss of bowel or bladder function. He denies any weakness to the extremities. He denies fever or recent illness. Denies chest pain or shortness of breath.] Physical Examination: [HEENT-PERRLA, EOMI. Cranial nerves II through XII grossly intact. TMs clear. Mucous membranes moist. No adenopathy. Cardiovascular-regular rate and rhythm without murmur or ectopy Lungs-clear to auscultation, chest wall stable without crepitus or subcu emphysema Abdomen-normoactive bowel sounds, soft, nontender, no rebound or rigidity, no peritoneal signs. Back exam-patient has some mild tenderness over the right lumbar paraspinal musculature. No real tenderness in the midline. Patient has negative straight leg raises. Deep tendon reflexes are plus 2 out of 4 bilaterally at the patella and Achilles. Patient has normal L5 extension bilaterally. Patient has normal sensation to light touch. Extremities-intact ?4, normal range of motion, normal pulses, atraumatic] Test Results: [None indicated] Emergency Department Course and Treatment: [] Treatment Plan: [Patient will be given a prescription for Agate, Flexeril, and naproxen. Patient advised to follow-up with his primary care physician within next 5 to 7 days. Patient given work restrictions.] Disposition: [Discharged home in stable condition] Impression: [Lumbar strain] This note was generated with [employer] dictation software. It may contain incorrect words, spelling, and punctuation that were not noted in review of the chart prior to signing ED Disposition - Plan for ED Patient: Referrals: Care Physician,No Primary [Primary Care Provider] -
--- NOTE | 2019-05-14 11:51 | DCINST.ED_ITS ---
ED Disposition - Plan for ED Patient: Instructions: Back Sprain/Strain Prescriptions: cycloBENZAPRine HCl [Flexeril] 10 mg PO TID PRN #20 tab PRN Reason: Muscle Spasm Prescription Printed Naproxen [Naprosyn] 500 mg PO BID PRN #20 tab Prescription Printed Hydrocodone Bitart/Apap 5-325 [[place] 5MG-325MG] 1 tab PO Q4H PRN PRN 2 Days #15 tab PRN Reason: Pain Prescription Printed Referrals: Care Physician,No Primary [Primary Care Provider] - Jasmin Torres MD [STAFF PHYSICIAN] - 5-7 Days
== END 2019-05-14 12:06 | disposition home or self-care (01) ==
LOC: ED 11:52
PROVIDERS: Emergency Provider Emergency Medicine
DX: S39.012A Strain of muscle, fascia and tendon of lower back, initial encounter (principal); G89.29 Other chronic pain; Z72.0 Tobacco use; X50.3XXA Overexertion from repetitive movements, initial encounter; Y93.89 Activity, other specified; Y92.89 Other specified places as the place of occurrence of the external cause; Y99.0 Civilian activity done for income or pay
CPT/HCPCS: 99282

== ENCOUNTER 2019-05-17 04:42 | Emergency (ER) | payer MEDICAID, SELFPAY ==
[2019-05-17 04:43] VITALS: BP 150/84; PULSE 75; RESP 14; TEMP 36.8; O2SAT 99; BMI 31.5
--- NOTE | 2019-05-17 04:52 | ED.DCSUM_ITS ---
- ER Visit Summary Date of Service: 05/17/19 Chief Complaint: Back pain History of Present Illness: The patient is a 48 M who presents the emergency department with back pain. Patient states that he was seen a few days ago in the emergency department given naproxen and Flexeril. He states that yesterday he went to go back to work and thinks he may have overdid it (lifting heavy garage doors) yesterday when he woke up the pain was worse. He describes his left low back radiating to the legs. No bowel or bladder dysfunction. No acute muscle weakness. No IV drug use. States that he recently finished the Suboxone program that he was on. He is not taking Valium for his anxiety at the current time (this was a previous ED visit). He denies any fever or rashes. Physical Examination: Afebrile vital signs stable Gen: Well-nourished well-developed Head: Normocephalic atraumatic Eyes: Perrl EOMI ENT: TMs clear no rhinorrhea moist mucous membranes Neck: Supple no lymphadenopathy no JVD nontender CVS: Regular rate rhythm no murmurs normal S1-S2 Respiratory: No distress clear to auscultation bilaterally chest nontender Abdomen: Soft nontender nondistended normal bowel sounds no masses Back: Tender to palpation in the lower left lumbar musculature (when asked the patient sit up, he does not seem to have any difficulty sitting up and moving his legs off the bed.) Extremity: Nontender no edema Skin: Normal color no rash Neuro: alert orientated ?3 CN II-XII intact normal strength sensation reflexes Psych: Normal affect normal mood Emergency Department Course and Treatment: Patient received a dose of Toradol and Norflex. He is asked for a work note which I will provide. He was advised to rest and apply heat and stretching. Impression: 1. Acute lumbar muscle strain This note was generated with [employer] dictation software. It may contain incorrect words, spelling, and punctuation that were not noted in review of the chart prior to signing ED Disposition - Plan for ED Patient: Disposition: Home or Assisted Living Instructions: BACK PAIN w/ SCIATICA, Back Sprain/Strain Referrals: Jasmin Torres MD [Primary Care Provider] - 1 Week if not improving
[2019-05-17] MEDS: Ketorolac 60 MG/2 ML Vial IM (05:00)
[2019-05-17] MEDS: Orphenadrine 60 MG/2 ML Ampul IM (05:01)
[2019-05-17 05:19] VITALS: BP 146/60; PULSE 82; RESP 18; O2SAT 96
== END 2019-05-17 05:21 | disposition home or self-care (01) ==
PROVIDERS: Emergency Provider Emergency Medicine; Family Provider Internal Medicine; PCP Internal Medicine
DX: S39.012A Strain of muscle, fascia and tendon of lower back, initial encounter (principal); Z72.0 Tobacco use; Z79.1 Long term (current) use of non-steroidal anti-inflammatories (NSAID); Z79.899 Other long term (current) drug therapy; X50.0XXA Overexertion from strenuous movement or load, initial encounter; Y93.89 Activity, other specified; Y92.89 Other specified places as the place of occurrence of the external cause; Y99.0 Civilian activity done for income or pay
CPT/HCPCS: 96372; 99282

== ENCOUNTER 2019-05-31 10:13 | Emergency (ER) | payer MEDICAID, SELFPAY ==
[2019-05-18 08:44] VITALS: BMI 31.5
[2019-05-31 10:14] VITALS: BP 124/82; PULSE 61; RESP 18; TEMP 36.4; O2SAT 99; BMI 30.9
--- NOTE | 2019-05-31 10:55 | ED.VIS.GEN ---
History of Present Illness Chief Complaint: Med Refill Narrative: Patient presenting requesting medication refill. Patient states that he deals with anxiety and takes Valium as needed. Patient states that he has had a prescription for 9 pills of Valium that he had filled the middle part of March, and he ran out about 3 days ago. He has a primary care appointment coming in 5 days. He reports that he is exhibiting signs of anxiety. He denies being suicidal homicidal or hallucinating. Past Medical History - Allergies and Home Meds Allergies/Adverse Reactions: Allergies No Known Allergies Allergy (Verified 05/31/19 10:17) Primary Care Physician: Jasmin Torres MD [Primary Care Provider] - Past Medical History: - - Anxiety Surgical History: appendectomy Smoking Status: Current every day smoker - Family History Maternal Family History: Family History (Last Updated 05/18/19 @ 08:41 by Sowmya Khalil) Mother Diabetes Uncle Cancer Family History: Reports: No pertinent history Review of Systems All systems negative except as indicated Psych: Reports: Anxiety Physical Exam Vital Signs/Narrative: Vital Signs Temp Pulse Resp BP Pulse Ox 05/31/19 10:14 97.5 F L 61 18 124/82 H 99 Inital Vital Signs reviewed: Yes General: Well nourished, Well developed, No Acute Distress Head: Normocephalic, Atraumatic Eyes: Perrl, EOMI ENT: Moist mucous membranes, No rhinorrhea Neck: Supple, Nontender Cardiovascular: Regular rate, Regular rhythm, No murmurs Respiratory: No distress, CTA bilaterally, Chest nontender Abdomen: Soft, Nontender, Nondistended, Normal bowel sounds Back: Nontender, Normal Inspection Extremities: Nontender, No edema Skin: Normal color, No rash Neurological: Alert, Oriented x3, Cranial nerves II-XII grossly intact, Normal Strength, Normal Sensation Psychological: Normal affect, Normal Mood Diagnostic/Tx/Re-eval - Medical Decision Making Patient presented requesting a prescription for Valium. I reviewed the patient's records, he had a single prescription for Valium filled to the middle part of March and has not had any other benzodiazepines filled since then. He is on Suboxone, but does not seem to be abusing narcotic prescriptions. Patient will be provided with a prescription for Valium, and was instructed to follow-up with his primary care physician for further prescription in the future. ED Disposition - Plan for ED Patient: Disposition: Home or Assisted Living Diagnosis: Anxiety Instructions: Med Refill Prescriptions: Diazepam [Valium] 5 mg PO DAILY PRN 5 Days #5 tab PRN Reason: Anxiety Prescription Printed Referrals: Jasmin Torres MD [Primary Care Provider] - Keep [place] appointment
[2019-05-31] MEDS: diazePAM 5 MG Tablet PO (11:02)
[2019-05-31 11:03] VITALS: RESP 18
== END 2019-05-31 11:03 | disposition home or self-care (01) ==
PROVIDERS: Emergency Provider Emergency Medicine; Family Provider Internal Medicine; PCP Internal Medicine
DX: F41.9 Anxiety disorder, unspecified (principal); Z76.0 Encounter for issue of repeat prescription; F17.200 Nicotine dependence, unspecified, uncomplicated
CPT/HCPCS: 99283

== ENCOUNTER 2019-07-05 10:41 | Emergency (ER) | payer MEDICAID, SELFPAY ==
[2019-06-05 09:10] VITALS: BMI 30.9
[2019-07-05 10:43] VITALS: BP 108/65; PULSE 81; RESP 17; TEMP 36.4; O2SAT 99; BMI 29.8
--- NOTE | 2019-07-05 11:00 | ED.VISSUMM ---
- ER Visit Summary Date of Service: 07/05/19 Chief Complaint: Anxiety History of Present Illness: The patient is a 48 M with a history of anxiety and panic attacks. Presents today for a subsequent panic attack. Requesting Valium. This has helped in the past. He does not have a current prescription. He called the counseling center, and they said they would call him back. Denies suicidal thoughts. Denies chest pain or any other associated symptoms. Physical Examination: Afebrile and vital signs unremarkable. Alert and oriented. No suicidal thoughts. He does report anxiety and occasional panic attacks but otherwise his thought content is normal. Heart regular. Lungs clear. Skin appears normal. Calm and cooperative. Test Results: None indicated Emergency Department Course and Treatment: Patient received 1 dose of Valium here. He was advised that he would likely benefit from long-term management and that Valium has risks. I also advised that we will not prescribe intermission coordinator Valium as it is a controlled substance. He should follow-up with the counseling center for further management. Return for suicidal thoughts or any other new or worsening issues. Treatment Plan: As above Disposition: Discharge Impression: 1. Anxiety with panic This note was generated with [employer] software. It may contain incorrect words, spelling, and punctuation that were not noted in review of the chart prior to signing ED Disposition - Plan for ED Patient: Referrals: Jasmin Torres MD [Primary Care Provider] -
--- NOTE | 2019-07-05 11:03 | ED.DEP ---
ED Disposition - Plan for ED Patient: Instructions: Panic Attack Additional Instructions: Follow-up with counseling center
[2019-07-05] MEDS: diazePAM 2 MG Tablet PO (11:19)
== END 2019-07-05 11:23 | disposition home or self-care (01) ==
LOC: ED 11:10
PROVIDERS: Emergency Provider Emergency Medicine; Family Provider Internal Medicine; PCP Internal Medicine
DX: F41.0 Panic disorder [episodic paroxysmal anxiety] (principal); Z72.0 Tobacco use; Z79.899 Other long term (current) drug therapy
CPT/HCPCS: 99283

== ENCOUNTER 2019-07-10 10:47 | Emergency (ER) | payer MEDICAID, SELFPAY ==
[2019-07-10 10:48] VITALS: BP 132/90; PULSE 76; RESP 18; TEMP 36.6; O2SAT 99; BMI 31.8
--- NOTE | 2019-07-10 11:01 | ED.VISSUMM ---
- ER Visit Summary Date of Service: 07/10/19 Chief Complaint: [Anxiety] History of Present Illness: The patient is a 48 M [presents to the emergency department complaint of anxiety. Patient states that he has been dealing with it for some time. Patient has been to the emergency department for same and typically will get a dose of Valium. Patient has an appointment with psychiatrist in about 10 days. Patient used to be on PRN Valium. Patient states that a dose of Valium typically will resolve his issues for 3 or 4 days. Patient denies any suicidal ideation. Patient denies homicidal ideation. Denies any chest pain or shortness of breath. Feels anxious and jittery. Patient feels tense.] Physical Examination: [HEENT-PERRLA, EOMI. Cranial nerves II through XII grossly intact. TMs clear. Mucous membranes moist. No adenopathy. Cardiovascular-regular rate and rhythm without murmur or ectopy Lungs-clear to auscultation, chest wall stable without crepitus or subcu emphysema Abdomen-normoactive bowel sounds, soft, nontender, no rebound or rigidity, no peritoneal signs. Extremities-intact ?4, normal range of motion, normal pulses, atraumatic] Test Results: [None indicated] Emergency Department Course and Treatment: [Patient was given Valium 5 mg p.o.] Treatment Plan: [Follow-up with psychiatrist.] Disposition: [Discharged home in stable condition] Impression: [Anxiety] This note was generated with [employer] dictation software. It may contain incorrect words, spelling, and punctuation that were not noted in review of the chart prior to signing ED Disposition - Plan for ED Patient: Referrals: Jasmin Torres MD [Primary Care Provider] -
--- NOTE | 2019-07-10 11:04 | ED.DEP ---
ED Disposition - Plan for ED Patient: Instructions: Anxiety Reaction Referrals: Jasmin Torres MD [Primary Care Provider] - 3-5 Days Additional Instructions: see your psychiatrist
[2019-07-10] MEDS: diazePAM 5 MG Tablet PO (11:13)
== END 2019-07-10 11:22 | disposition home or self-care (01) ==
LOC: ED 11:15
PROVIDERS: Emergency Provider Emergency Medicine; Family Provider Internal Medicine; PCP Internal Medicine
DX: F41.1 Generalized anxiety disorder (principal); F90.9 Attention-deficit hyperactivity disorder, unspecified type; Z72.0 Tobacco use; Z79.899 Other long term (current) drug therapy
CPT/HCPCS: 99282

== ENCOUNTER 2019-07-12 13:53 | Emergency (ER) | payer MEDICAID, SELFPAY ==
[2019-07-12 13:54] VITALS: BP 151/82; PULSE 77; RESP 16; TEMP 36.6; O2SAT 97; BMI 31.0
--- NOTE | 2019-07-12 14:12 | ED.DCSUM_ITS ---
History of Present Illness Chief Complaint: Back Informant: Patient Onset: Yesterday Context: Sudden Onset Injury: Lifting, Twisting, Bending Timing: Continuous Quality: Dull, Aching Current Severity: Mild Maximum Severity: Moderate Worsened by: improves with: Movement, Ambulation, Bending, Lifting, Night time pain Relieved by: Nothing Associated Symptoms: - - Nuys bowel bladder dysfunction. He denies radicular pain. He denies saddle paresthesia or anesthesia. He denies foot drop. Narrative: Patient is a 48-year-old male presents with acute left-sided back pain after moving a refrigerator/freezer yesterday. There is no history of direct trauma. Prior similar symptoms: No Recent Illness/Hospitalization: No - Past Medical History (1) No significant past medical history Status: Acute Past Medical History - Allergies and Home Meds Allergies/Adverse Reactions: Allergies No Known Allergies Allergy (Verified 07/12/19 13:55) Primary Care Physician: Jasmin Torres MD [Primary Care Provider] - Prior records reviewed: Yes Surgical History: appendectomy Lives: Alone Smoking Status: Current every day smoker Drugs: None - Family History Maternal Family History: Family History (Last Updated 05/18/19 @ 08:41 by Sowmya Khalil) Mother Diabetes Uncle Cancer Family History: Reports: No pertinent history Review of Systems General: Denies: Chills, Fever, Malaise, Subjective, Sweats Eyes: Denies: Visual changes - bilaterally, Blurred Vision - bilaterally, Diplopia Cardiovascular: Denies: Chest pain, Palpitations Respiratory: Denies: Dyspnea, Cough, Sputum, Dyspnea on exertion Gastrointestinal: Denies: Abdominal pain, Nausea, Vomiting, Diarrhea, Constipation Genitourinary: Denies: Dysuria, Hematuria, Frequency Musculoskeletal: Reports: Back pain. Denies: Myalgias, Arthralgias, Neck pain, Swelling, Extremity Pain Skin: Denies: Rash, Wounds Neurological: Denies: Weakness, Parasthesia, Numbness Physical Exam Vital Signs/Narrative: Vital Signs Temp Pulse Resp BP Pulse Ox 07/12/19 13:54 97.9 F 77 16 151/82 H 97 Inital Vital Signs reviewed: Yes General: Well nourished, Well developed Head: Normocephalic, Atraumatic Eyes: Perrl, EOMI. Negative for: Pale conjunctiva, Scleral icterus ENT: Moist mucous membranes, No rhinorrhea Neck: Supple, Nontender, No lymphadenopathy, No JVD Cardiovascular: Regular rate, Regular rhythm, No murmurs, Normal S1, Normal S2 Respiratory: No distress, CTA bilaterally, Chest nontender Back: Normal Inspection, Paraspinal Tenderness - Left side only, Negative SLR - Right, Negative SLR - Left. Negative for: Nontender, Surgical Scar, Well- Healed, Spinal tenderness Extremeties: Nontender, No edema Skin: Normal color, No rash Neuro: Negative for: Weakness Reflexes: Right Patellar, Right Achilles, Left Patellar, Left Achilles, - - 1+ deep tendon reflex and symmetric.. Negative for: Right Babinski, Left Clonus, Left Babinski Psychological: Normal affect Diagnostic/Tx/Re-eval - Medical Decision Making She has acute lumbar strain secondary to moving a refrigerator/freezer. He has no neurovascular findings. He has no constitutional symptoms. Laboratory testing are not indicated. Imaging is not indicated. Will treat with anti- inflammatory. Patient states he has Naprosyn at home. ED Disposition - Plan for ED Patient: Disposition: Home or Assisted Living Diagnosis: Right low back pain Instructions: Back Sprain/Strain Referrals: Jasmin Torres MD [Primary Care Provider] - 1 Week if not improving Additional Instructions: Take 1 Naprosyn tablet twice a day for the next 3 to 5 days. Avoid activity that causes you increased pain. Apply ice 20 to 30 minutes per application 6-8 times a day.
== END 2019-07-12 14:25 | disposition home or self-care (01) ==
LOC: ED 14:23
PROVIDERS: Emergency Provider Emergency Medicine; Family Provider Internal Medicine; PCP Internal Medicine
DX: M54.5 Low back pain (principal); F17.200 Nicotine dependence, unspecified, uncomplicated
CPT/HCPCS: 99282

== ENCOUNTER 2019-07-13 05:53 | Emergency (ER) | payer MEDICAID, SELFPAY ==
[2019-07-12 13:54] VITALS: BMI 31.0
[2019-07-13 05:54] VITALS: BP 139/81; PULSE 75; RESP 16; TEMP 36.3; O2SAT 98; BMI 31.3
[2019-07-13] MEDS: Ketorolac 60 MG/2 ML Vial IM (06:07)
[2019-07-13] MEDS: diazePAM 5 MG Tablet PO (06:08)
--- NOTE | 2019-07-13 06:13 | ED.DCSUM_ITS ---
- ER Visit Summary Date of Service: 07/13/19 Chief Complaint: Back pain History of Present Illness: The patient is a 48 M who states that 2 days ago he was moving a refrigerator/freezer and injured his low back mostly on the left. He notes there is nothing in the midline at all on the lateral aspect. He d enies any bowel or bladder dysfunction. No muscle weakness or loss of sensation. No fevers no rashes. No recent IV drug use. Patient is no longer on Suboxone having completed his program. He is to take diazepam but tells me that his doctor wants him to get up from a therapist. Patient does have a history of recurrent low back pain Physical Examination: Afebrile vital signs are stable Gen: Well-nourished well-developed Head: Normocephalic atraumatic Eyes: Perrl EOMI ENT: TMs clear no rhinorrhea moist mucous membranes Neck: Supple no lymphadenopathy no JVD nontender CVS: Regular rate rhythm no murmurs normal S1-S2 Respiratory: No distress clear to auscultation bilaterally chest nontender Abdomen: Soft nontender nondistended normal bowel sounds no masses Back: Tender palpation over the lumbar paraspinal musculature. There is no erythema rash or fluctuance to suggest an abscess. Extremity: Nontender no edema Skin: Normal color no rash Neuro: alert orientated ?3 CN II-XII intact normal strength sensation normal patellar and Achilles reflexes bilaterally reflexes patient has an antalgic gait gait cerebellar Psych: Normal affect normal mood Emergency Department Course and Treatment: Patient was given a dose of Toradol and a oral dose of Valium. Patient will be discharged home with continued supportive care. I will write for a few Valium for muscle relaxant to use. Continued anti-inflammatories Impression: 1. Acute lumbar muscle strain This note was generated with [employer] dictation software. It may contain incorrect words, spelling, and punctuation that were not noted in review of the chart prior to signing ED Disposition - Plan for ED Patient: Disposition: Home or Assisted Living Instructions: Back Sprain/Strain Prescriptions: Diazepam [Valium] 5 mg PO Q8 PRN #10 tab PRN Reason: Muscle Spasm Prescription Printed Referrals: Jasmin Torres MD [Primary Care Provider] - 1 Week if not improving Additional Instructions: Continued use of naproxen or Motrin 800 mg every 8 hours. Valium for muscle spasm Heat and gentle stretching.
[2019-07-13 06:41] VITALS: RESP 16
== END 2019-07-13 06:41 | disposition home or self-care (01) ==
PROVIDERS: Emergency Provider Emergency Medicine; Family Provider Internal Medicine; PCP Internal Medicine
DX: S39.012A Strain of muscle, fascia and tendon of lower back, initial encounter (principal); Z72.0 Tobacco use; X50.0XXA Overexertion from strenuous movement or load, initial encounter; Y93.89 Activity, other specified; Y92.89 Other specified places as the place of occurrence of the external cause; Y99.8 Other external cause status
CPT/HCPCS: 96372; 99282

== ENCOUNTER 2019-07-17 06:04 | Emergency (ER) | payer MEDICAID, SELFPAY ==
[2019-07-17 06:05] VITALS: BP 128/71; PULSE 70; RESP 18; TEMP 36.7; O2SAT 100; BMI 31.3
--- NOTE | 2019-07-17 06:17 | ED.VIS.GEN ---
History of Present Illness Chief Complaint: Back Informant: Patient Onset: Days Context: Sudden Onset Timing: Continuous Narrative: Patient is a 48-year-old male presenting with back pain. Patient injured his back about a week ago while he was trying to lift a refrigerator. He is been having spasm and pain in his left lower back since then. Patient describes his pain is achy. Is worse with movement and lying flat. He has a history of sciatica and says that it is aggravating him. He denies any numbness, incontinence or weakness of his legs. Patient has previously received Valium from the ER and states that is helping but he is running out so he came back to the emergency room. Patient has not set up a follow-up appointment this PCP. Patient does have a history of Suboxone use. He denies any IV drug use. He denies any other complaints at this time. Patient has also been taking Naprosyn twice a day. Past Medical History - Allergies and Home Meds Allergies/Adverse Reactions: Allergies No Known Allergies Allergy (Verified 07/17/19 06:08) Primary Care Physician: Jasmin Torres MD [Primary Care Provider] - Past Medical History: - - Chronic back pain Surgical History: appendectomy Smoking Status: Current every day smoker - Family History Maternal Family History: Family History (Last Updated 05/18/19 @ 08:41 by Sowmya Khalil) Mother Diabetes Uncle Cancer Family History: Reports: No pertinent history Review of Systems All systems negative except as indicated Musculoskeletal: Reports: Back pain Physical Exam Vital Signs/Narrative: Vital Signs Temp Pulse Resp BP Pulse Ox 07/17/19 06:05 98.1 F 70 18 128/71 H 100 Inital Vital Signs reviewed: Yes General: Well nourished, Well developed, No Acute Distress Head: Normocephalic, Atraumatic Eyes: Perrl, EOMI ENT: Moist mucous membranes, No rhinorrhea Neck: Supple, Nontender Cardiovascular: Regular rate, Regular rhythm, No murmurs Respiratory: No distress, CTA bilaterally, Chest nontender Abdomen: Soft, Nontender, Nondistended, Normal bowel sounds. Negative for: Pulsatile mass Back: Normal Inspection, - - Left lumbar paraspinal tenderness and spasm appreciated, no midline tenderness, no step-off sign. Negative for: CVA tenderness, Spinal tenderness Extremities: Nontender, No edema Skin: Normal color, No rash Neurological: Alert, Oriented x3, Cranial nerves II-XII grossly intact, Normal Strength, Normal Sensation, Normal Gait. Negative for: Parasthesia Psychological: Normal affect, Normal Mood Diagnostic/Tx/Re-eval - Medical Decision Making Patient is evaluated for back pain. He has been seen twice in the ER for the same complaint. He has no acute change in his symptoms today. He has no signs or symptoms consistent with cauda equina syndrome. Patient is given a dose of Valium and will be given a 1 day supply prescription. He is counseled that he must follow-up with his primary care doctor for further evaluation and management. I did check oarrs reports which is consistent with the patient's story. Does show the patient last filled his Suboxone on 06/04/2019. Patient is counseled on signs and symptoms requiring return to the emergency room. Patient verbalizes agreement and understand this plan. Patient discharged home in stable and improved condition. ED Disposition - Plan for ED Patient: Disposition: Home or Assisted Living Diagnosis: Lumbar back sprain Instructions: BACK SPASM, No Trauma Prescriptions: Diazepam [Valium] 5 mg PO TID PRN 1 Days #3 tab PRN Reason: Spasms Prescription Printed Referrals: Jasmin Torres MD [Primary Care Provider] - Additional Instructions: It is very important that you follow-up with your primary care doctor for this. Return to the emergency room if you develop new symptoms such as weakness of the legs or urinary incontinence. Continue to use Naprosyn as well as heat. Call your primary care doctor today.
[2019-07-17] MEDS: diazePAM 5 MG Tablet PO (06:21)
[2019-07-17 06:27] VITALS: BP 128/71; PULSE 70; RESP 18; O2SAT 100
== END 2019-07-17 06:28 | disposition home or self-care (01) ==
PROVIDERS: Emergency Provider Emergency Medicine; Family Provider Internal Medicine; PCP Internal Medicine
DX: S33.5XXD Sprain of ligaments of lumbar spine, subsequent encounter (principal); F17.200 Nicotine dependence, unspecified, uncomplicated; X50.0XXD Overexertion from strenuous movement or load, subsequent encounter
CPT/HCPCS: 99283

== ENCOUNTER 2019-07-19 05:08 | Emergency (ER) | payer MEDICAID, SELFPAY ==
[2019-07-18 15:21] VITALS: BMI 31.3
[2019-07-19 05:09] VITALS: BP 143/102; PULSE 81; RESP 18; TEMP 36.4; O2SAT 94; BMI 31.6
[2019-07-19] MEDS: Orphenadrine 60 MG/2 ML Ampul IM (05:25)
[2019-07-19] MEDS: Ketorolac 60 MG/2 ML Vial IM (05:25)
--- NOTE | 2019-07-19 05:27 | ED.DCSUM_ITS ---
- ER Visit Summary Date of Service: 07/19/19 Chief Complaint: Back pain History of Present Illness: The patient is a 48 M with lumbar back pain for days. This started after he was moving a refrigerator. He was seen multiple times for this. He has been taking naproxen, Tylenol, and Valium. He has a history of back pain and is planning to follow-up with pain management on July 30. Physical Examination: Afebrile and vital signs unremarkable. Left cloth washer back tender to palpation. Straight leg raise negative. Neurovascular intact distally. Test Results: None indicated Emergency Department Course and Treatment: Patient has myofascial back pain. Nothing to suggest fracture, cauda equina, abscess, vascular issue, GI or problems. Patient will be treated with Toradol and Norflex. I advised that we will not treat him with controlled substances. He needs to follow-up with pain management for further chronic pain control. Treatment Plan: As above Disposition: Discharge Impression: 1. Lumbar back pain This note was generated with [employer] dictation software. It may contain incorrect words, spelling, and punctuation that were not noted in review of the chart prior to signing ED Disposition - Plan for ED Patient: Referrals: Jasmin Torres MD [Primary Care Provider] -
--- NOTE | 2019-07-19 05:28 | ED.DEP ---
ED Disposition - Plan for ED Patient: Instructions: Back Sprain/Strain Prescriptions: cycloBENZAPRine HCl [Flexeril] 10 mg PO TID PRN #20 tab PRN Reason: Muscle Spasm Prescription Printed Referrals: Jasmin Torres MD [Primary Care Provider] -
[2019-07-19 05:52] VITALS: PULSE 80; RESP 16
== END 2019-07-19 06:00 | disposition home or self-care (01) ==
LOC: ED 05:33
PROVIDERS: Emergency Provider Emergency Medicine; Family Provider Internal Medicine; PCP Internal Medicine
DX: M54.5 Low back pain (principal); S39.012D Strain of muscle, fascia and tendon of lower back, subsequent encounter; X50.0XXD Overexertion from strenuous movement or load, subsequent encounter; Z72.0 Tobacco use
CPT/HCPCS: 96372; 99282

== ENCOUNTER → 2019-08-09 | Outpatient (CLI) | payer MEDICAID, SELFPAY ==
[2019-07-19 05:09] VITALS: BMI 31.6
[2019-08-09 09:20] LABS: AST(SGOT) 23 U/L (15-37); Alanine Aminotransfer ALT/SGPT 37 U/L (16-61); Albumin, Serum 3.7 g/dL (3.2-5.0); Alkaline Phosphatase 65 U/L (45-117); Bilirubin, Direct 0.12 mg/dL (0.00-0.30); Globulin 3.4 g/dL (2.2-4.2); Protein, Total 7.1 g/dL (6.4-8.2)
[2019-08-09 10:09] LABS: Hepatitis B Surface Antigen Non-Reactive (Nonreactive); Hepatitis C Antibody Non-Reactive (Nonreactive)
== END | disposition home or self-care (01) ==
PROVIDERS: Family Provider Internal Medicine; PCP Internal Medicine
DX: R63.0 Anorexia (principal); R53.81 Other malaise; R11.0 Nausea
CPT/HCPCS: 36415; 80076; 86803; 87340

== ENCOUNTER 2019-08-17 10:16 | Emergency (ER) | payer MEDICAID, SELFPAY ==
[2019-08-17 10:17] VITALS: BP 139/78; PULSE 67; RESP 18; TEMP 36.6; O2SAT 98; BMI 30.9
--- NOTE | 2019-08-17 11:42 | ED.DCSUM_ITS ---
History of Present Illness Chief Complaint: Anxiety Narrative: Patient presenting secondary to anxiety and back pain. Patient states that he has a history of both. He reports that he takes as needed Valium had a very infrequent interval. He has been out of it for about a month. He states that he is having an exacerbation of his anxiety and is requesting a dose. He does not have an appointment with his primary care physician on till August. Patient denies being suicidal homicidal or hallucinating. He has mild lower back pain with some radicular symptoms going down the left leg that are unchanged. He denies any bowel or bladder incontinence fevers or history of IV drug abuse. Past Medical History - Allergies and Home Meds Allergies/Adverse Reactions: Allergies No Known Allergies Allergy (Verified 08/17/19 10:19) Primary Care Physician: Jasmin Torres MD [Primary Care Provider] - Past Medical History: - - Anxiety and chronic back pain Surgical History: appendectomy Smoking Status: Current every day smoker - Family History Maternal Family History: Family History (Last Reviewed 07/18/19 @ 15:20 by Marsha Saha) Mother Diabetes Uncle Cancer Family History: Reports: No pertinent history Review of Systems All systems negative except as indicated General: Denies: Chills, Fever, Sweats Eyes: Denies: Visual changes - bilaterally, Diplopia ENT: Denies: Rhinorrhea, Sore throat Cardiovascular: Denies: Chest pain, Palpitations Respiratory: Denies: Dyspnea, Cough, Dyspnea on exertion Gastrointestinal: Denies: Abdominal pain, Nausea, Vomiting, Diarrhea, Melena, Hematochezia Genitourinary: Denies: Dysuria, Hematuria, Frequency Musculoskeletal: Reports: Back pain Skin: Denies: Rash, Wounds Neurological: Denies: Headache, Weakness, Numbness Psych: Reports: - - Anxiety Physical Exam Vital Signs/Narrative: Vital Signs Temp Pulse Resp BP Pulse Ox 08/17/19 10:17 98 F 67 18 139/78 H 98 Inital Vital Signs reviewed: Yes General: Well nourished, Well developed, No Acute Distress Head: Normocephalic, Atraumatic Eyes: Perrl, EOMI ENT: Moist mucous membranes, No rhinorrhea Neck: Supple, Nontender Cardiovascular: Regular rate, Regular rhythm, No murmurs Respiratory: No distress, CTA bilaterally, Chest nontender Abdomen: Soft, Nontender, Nondistended, Normal bowel sounds Back: Nontender, Normal Inspection. Negative for: Spinal tenderness Extremities: Nontender, No edema Skin: Normal color, No rash Neurological: Alert, Oriented x3, Cranial nerves II-XII grossly intact, Normal Strength, Normal Sensation, - - 5 out of 5 strength at the hip knee ankle and foot. Normal sensation over all dermatomes. Normal distal pulses. Psychological: Normal affect, Normal Mood Diagnostic/Tx/Re-eval - Medical Decision Making Patient secondary to anxiety. He was given a dose of Valium in the emergency d epartment. I reviewed his prescription reporting record, and he only has a very few intermittent prescription for Valium, nothing concerning for abuse at this time. Patient will be sent home with #3 Valium. ED Disposition - Plan for ED Patient: Disposition: Home or Assisted Living Diagnosis: Anxiety Instructions: Anxiety Reaction Prescriptions: Diazepam [Valium] 5 mg PO Q8 PRN #3 tab PRN Reason: Muscle Spasm Prescription Printed Referrals: Jasmin Torres MD [Primary Care Provider] - As soon as possible
[2019-08-17] MEDS: diazePAM 5 MG Tablet PO (11:50)
--- NOTE | 2019-08-17 12:00 | CM.ED ---
SOCIAL WORK INFORMANT: TRIAGE NURSE, DELILAH AND DR. CAPPS REASON FOR REFERRAL: CONSIDER FOR ED CARE PLAN DISCUSSED CASE WITH NURSING AND DR. CAPPS. REFERRAL FOR ED CARE PLAN RECEIVED. PATIENT LEFT BEFORE THIS WORKER ABLE TO MEET WITH PATIENT. Gabe JONES SPIRAL MACHINE OPERATOR, SOFTWARE QUALITY TEST ENGINEER.
== END 2019-08-17 11:59 | disposition home or self-care (01) ==
PROVIDERS: Emergency Provider Emergency Medicine; Family Provider Internal Medicine; PCP Internal Medicine
DX: F41.9 Anxiety disorder, unspecified (principal); G89.29 Other chronic pain; M54.9 Dorsalgia, unspecified; F17.210 Nicotine dependence, cigarettes, uncomplicated
CPT/HCPCS: 99283

== ENCOUNTER → 2019-09-28 09:22 | Outpatient (CLI) | payer MEDICAID, SELFPAY ==
[2019-09-28 10:37] LABS: Absolute Lymphocyte Count 1.64 X10^3/uL (0.83-4.51); Absolute Neutrophil Count 5.6 X10^3/uL (2.0-7.7); Basophil# 0.06 X10^3/uL; Basophil% 0.7 % (0-1); Eosinophil# 0.25 X10^3/uL; Eosinophils% 3.1 % (0-5); Hematocrit 45.3 % (40-54); Hemoglobin 14.8 g/dL (13.0-16.5); Lymphocyte # 1.64 X10^3/ul (4.0); Lymphocyte % 20.1 % (19-41); Mean Corp Hgb Conc 32.7 g/dL (32-36); Mean Corpuscular Hgb 28.4 pg (27.0-32.0); Mean Corpuscular Volume 86.9 fL (80-94); Mean Platelet Vol. 10.6 fl (6.2-12.0); Monocyte# 0.55 X10^3/uL; Monocyte% 6.7 % (0-10); NRBC Flagged by Analyzer 0 % (0-5); Neutrophil # 5.56 X10^3/uL (2.7-7.7); Neutrophil % 68.3 % (47-70); Platelet Count 222 K/mm3 (150-450); RBC Distribution Width CV 13.2 % (11.6-14.6); RBC Distribution Width SD 41.1 fl (35.1-43.9); Red Blood Count 5.21 M/mm3 (4.6-6.2); White Blood Count 8.2 K/mm3 (4.4-11.0)
[2019-09-28 11:35] LABS: ALB/GLOB Ratio 1.1 RATIO (0.9-2.4); AST(SGOT) 17 U/L (15-37); Alanine Aminotransfer ALT/SGPT 40 U/L (16-61); Albumin, Serum 3.5 g/dL (3.2-5.0); Alkaline Phosphatase 68 U/L (45-117); Anion Gap 5 (5-15); BUN 16 mg/dL (7-18); BUN/Creat Ratio 19.5 RATIO (10-20); Calcium,Total 8.3 mg/dL (8.5-10.1); Chloride 109 mmol/L (98-107); Creatinine, Serum 0.82 mg/dL (0.70-1.30); EST Glomerular Filtration Rate 107 mL/min (>60); Est Glom Filt Rate - Afr Amer 129 mL/min (>60); Globulin 3.3 g/dL (2.2-4.2); Glucose 110 mg/dL (74-106); Potassium 4.3 mmol/L (3.5-5.1); Protein, Total 6.8 g/dL (6.4-8.2); Sodium Level 138 mmol/L (136-145); Thyroid Stim Hormone (TSH) 2.09 uIU/mL (0.358-3.74)
[2019-09-28 11:57] LABS: HIV - WCH Non-Reactive (Nonreactive)
[2019-09-29 05:06] LABS: HEPATITIS B SURFACE AG Negative (Negative); Hepatitis A IgM Antibody Negative (Negative); Hepatitis B Core AB IgM Negative (Negative)
[2019-09-29 13:03] LABS: Hep C Antibodies <0.1 s/co ratio (0.0-0.9)
[2019-10-01 12:02] LABS: Rapid Plasmin Reagin (RPR) NONREACTIVE (NONREACTIVE)
== END ==
PROVIDERS: Family Provider Internal Medicine; PCP Internal Medicine
DX: F11.21 Opioid dependence, in remission (principal)
CPT/HCPCS: 36415; 80053; 80074; 84443; 85025; 86592; 86703

== ENCOUNTER 2019-10-14 09:39 | Emergency (ER) | payer MEDICAID, SELFPAY ==
[2019-10-14 09:41] VITALS: BP 158/122; PULSE 73; RESP 20; TEMP 36.4; O2SAT 98; BMI 29.7
--- NOTE | 2019-10-14 09:58 | ED.RN ---
pt becomes very angry at this rn when talking about pt getting his methadone on tuesday. pt then admits it was tuesday he was unable to obtain. pt becomes very agitated when this rn states we do not give methadone at this facility. pt begins to yell and curse at this rn. this rn explained that other possible solutions exist. pt apologizes
--- NOTE | 2019-10-14 10:27 | ED.VIS.GEN ---
History of Present Illness Chief Complaint: Anxiety Narrative: Patient was triaged I went into room 15 to see the patient and he was not there I searched for him as did staff we were unable to find him he was not in the bathroom at this time we assume he eloped from the emergency department was never seen by myself or the attending physician Past Medical History - Allergies and Home Meds Allergies/Adverse Reactions: Allergies No Known Allergies Allergy (Verified 10/14/19 09:43) Primary Care Physician: NOT,DEFINED [Primary Care Provider] - Surgical History: appendectomy Smoking Status: Current every day smoker - Family History Maternal Family History: Family History (Last Reviewed 07/18/19 @ 15:20 by Marsha Saha) Mother Diabetes Uncle Cancer Family History: Reports: No pertinent history Physical Exam Vital Signs/Narrative: Vital Signs Temp Pulse Resp BP Pulse Ox 10/14/19 09:41 97.6 F L 73 20 H 158/122 H 98 ED Disposition - Plan for ED Patient: Referrals: NOT,DEFINED [Primary Care Provider] -
--- NOTE | 2019-12-10 12:51 | CM.ED ---
SOCIAL WORK ATTEMPTED TO CONTACT PATIENT TO UPDATE ON APPROVED ED CARE PLAN. UNABLE TO LEAVE A MESSAGE. COPY OF CARE PLAN ALONG WITH RESOURCES MAILED TO PATIENT VIA CERTIFIED MAIL THIS DATE. CALL TO DR. CABRERA'S OFFICE TO UPDATE. COPY OF CARE PLAN FAXED. Gabe JONES MSW, DESK INTERVIEWER.
== END 2019-10-14 11:50 | disposition left against medical advice (07) ==
PROVIDERS: Emergency Provider Physician Assistant Medical
DX: F41.9 Anxiety disorder, unspecified (principal)
CPT/HCPCS: 99281

== ENCOUNTER → 2019-12-07 | Outpatient (CLI) | payer MEDICAID, SELFPAY ==
[2019-12-08 05:06] LABS: HEPATITIS B SURFACE AG Negative (Negative); Hepatitis A AB, Total Negative (Negative); Hepatitis A IgM Antibody Negative (Negative); Hepatitis B Core AB IgM Negative (Negative); Hepatitis B Core Ab Total Negative (Negative); Hepatitis C Ab <0.1 s/co ratio (0.0-0.9)
[2019-12-08 15:09] LABS: Hep B Surface Antibodies Non Reactive (.)
== END | disposition home or self-care (01) ==
LOC: LAB 12:46
DX: F11.21 Opioid dependence, in remission (principal)
CPT/HCPCS: 36415; 86704; 86705; 86706; 86708; 86709; 86803; 87340

== ENCOUNTER 2020-01-13 09:18 | Emergency (ER) | payer MEDICAID, SELFPAY ==
[2020-01-13 09:19] VITALS: BP 182/80; PULSE 79; RESP 18; TEMP 36.4; O2SAT 99; BMI 32.3
--- NOTE | 2020-01-13 09:34 | ED.VIS.LOWEX ---
History of Present Illness Chief Complaint: Lower Extremity Injury Informant: Patient Occurred: Weeks - 1 week Mechanism/Context: - - no injury Onset: Weeks - 1 week Context: Gradual Onset Timing: Continuous Quality of Pain: Aching Location: right leg Current Severity: Mild Maximum Severity: Mild Worsened by: movement Relieved by: nothing Associated Symptoms: Negative for: Parasthesia, Weakness, Loss of Funtion Narrative: 49-year-old male history of chronic back pain currently on methadone presents to the emergency department with right leg pain and swelling. It is been progressively worsening for the last 1 week. He denies trauma. He denies recent travel or surgery, or history of DVT or PE. He is not anticoagulated. He has no history of A. fib. Denies any numbness tingling or weakness. No worsening back pain than his chronic pain. No chest pain shortness of breath or hemoptysis. No upper respiratory symptoms no fevers no vomiting no diarrhea urinating normally Tetanus Immunization: Unknown Prior similar symptoms: Yes Recent Illness/Hospitalization: No Past Medical History - Allergies and Home Meds Allergies/Adverse Reactions: Allergies No Known Allergies Allergy (Verified 01/13/20 09:22) Primary Care Physician: Care Physician,No Primary [Primary Care Provider] - Prior records reviewed: Yes Past Medical History: - - chronic back pain Surgical History: appendectomy Lives: Alone Smoking Status: Current every day smoker Alcohol: Occasional Drugs: None - Family History Maternal Family History: Family History (Last Reviewed 07/18/19 @ 15:20 by Marsha Saha) Mother Diabetes Uncle Cancer Family History: Reports: No pertinent history Review of Systems All systems negative except as indicated General: Denies: Chills, Fever, Malaise Eyes: Denies: Visual changes - bilaterally, Blurred Vision - bilaterally, Diplopia ENT: Denies: Rhinorrhea, Sore throat Cardiovascular: Denies: Chest pain, Palpitations, Heart racing Respiratory: Denies: Dyspnea, Cough, Sputum, Dyspnea on exertion, Orthopnea, Paroxysmal nocturnal dyspnea Gastrointestinal: Denies: Abdominal pain, Nausea, Vomiting, Diarrhea, Constipation, Melena, Hematochezia Genitourinary: Denies: Dysuria, Hematuria, Frequency Musculoskeletal: Reports: Swelling, Extremity Pain. Denies: Myalgias, Arthralgias, Neck pain, Back pain Skin: Denies: Rash, Abscess, Abrasions, Wounds Neurological: Denies: Headache, Weakness, Parasthesia, Numbness Psych: Denies: Depression, Anxiety Physical Exam Vital Signs/Narrative: Vital Signs Temp Pulse Resp BP Pulse Ox 01/13/20 09:19 97.5 F L 79 18 182/80 H 99 Inital Vital Signs reviewed: Yes - Extremity Exam Right Tib fib: - - Mild swelling right leg that is not appreciably more swollen than the left leg. No redness no palpable cords no sign of infection or trauma compartments are soft DP and PT pulses are normal bilaterally. No active range of motion of both lower extremities General: Well nourished, Well developed Head: Normocephalic, Atraumatic Eyes: Perrl, EOMI ENT: No Trauma, Moist Mucous Membranes Neck: Nontender, Full ROM Cardiovascular: Regular rate, Regular rhythm Respiratory: No distress, CTA bilaterally, Chest nontender Abdomen: Soft, Nontender, Nondistended, Normal bowel sounds, No masses Back: Nontender Skin: Normal color, No rash Neurological: Alert, Oriented x3, Normal Strength, Normal Sensation, Normal Gait Psychological: Normal affect, Normal Mood Diagnostic/Tx/Re-eval - Medical Decision Making After evaluating the patient I ordered basic labs as well as a right lower extremity ultrasound. When the nurse went back into the room to evaluate for blood draw patient had eloped from the emergency department. She was able to see him walking at the front doors and he told her that he needed to leave and would not be returning. ED Disposition - Plan for ED Patient: Disposition: Home or Assisted Living Diagnosis: Right leg swelling Referrals: Care Physician,No Primary [Primary Care Provider] -
--- NOTE | 2020-01-13 09:44 | ED.RN ---
PT WALKED OUT OF ROOM AND GOT COFFEE. EXPLAINED HE NEEDED TO STAY IN THE ROOM AND HAVE A MASK ON AND PT RESPONDED TAT HE WAS LEAVING. HE DID NOT WANT THE ULTRASOUND OR ANYTHING DONE SINCE HE WAS GETTING NOTHING FOR IS PAIN UNTIL THEN. PHYSICIAN NOTIFIED.
--- NOTE | 2020-01-13 09:45 | ED.DCSUM_ITS ---
- ER Visit Summary Date of Service: 01/13/20 Chief Complaint: [Right leg swelling] History of Present Illness: The patient is a 49 M [presents with right leg swelling for the last 2 weeks. Patient denies any trauma. He denies recent travel or surgery. He denies any chest pain or shortness of breath. He denies recent illness. No history of PE or DVT. He tells me otherwise he has no medical history. Does have history of some chronic back pain and is currently on methadone.] Patient was seen with physician welder assistant Nicole Physical Examination: [HEENT-PERRLA, EOMI. Cranial nerves II through XII grossly intact. TMs clear. Mucous membranes moist. No adenopathy. Cardiovascular-regular rate and rhythm without murmur or ectopy Lungs-clear to auscultation, chest wall stable without crepitus or subcu emphysema Abdomen-normoactive bowel sounds, soft, nontender, no rebound or rigidity, no peritoneal signs. Extremities-intact ?4, normal range of motion, normal pulses, atraumatic. Right leg-patient does have some varicose veins noted. He does have +1 edema. Negative Homans sign. He does have some faint erythema noted. Left leg also with +1 edema.] Test Results: [We ordered a venous Doppler of the right lower extremity as well as CBC and basic metabolic profile however patient left prior to treatment completion. Patient told the nurse that he got a phone call and needed to leave.] Emergency Department Course and Treatment: [] Treatment Plan: [] Disposition: [Left prior to treatment completion] Impression: [Right leg swelling-etiology uncertain] This note was generated with [employer] dictation software. It may contain incorrect words, spelling, and punctuation that were not noted in review of the chart prior to signing ED Disposition - Plan for ED Patient: Referrals: Care Physician,No Primary [Primary Care Provider] -
== END 2020-01-13 09:58 | disposition home or self-care (01) ==
LOC: ED 09:55
PROVIDERS: Emergency Provider Physician Assistant Medical
DX: M79.89 Other specified soft tissue disorders (principal); F17.200 Nicotine dependence, unspecified, uncomplicated; M54.9 Dorsalgia, unspecified; G89.29 Other chronic pain; Z79.899 Other long term (current) drug therapy
CPT/HCPCS: 99281; 99282

== ENCOUNTER 2020-02-16 18:02 | Emergency (ER) | payer MEDICAID, SELFPAY ==
[2020-02-16 18:03] VITALS: BP 149/116; PULSE 94; RESP 20; TEMP 36.9; O2SAT 99; BMI 36.6
[2020-02-16] MEDS: 0.9% Normal Saline 1,000 ML 1000 ML IV (19:16)
--- NOTE | 2020-02-16 19:16 | ED.VIS.GEN ---
History of Present Illness Chief Complaint: Abd Pain Informant: Patient Onset: Today Narrative: Patient presents the emergency room with vomiting diarrhea stating that these symptoms have been present since around 5 AM this morning. States he went to bed last night feeling fine. No fevers. He states his back hurts a thinks it is in spasm and would like to have a Valium. Of note the patient does have a care plan and specifically addresses Valium. He denies any abdominal distention. He notes he is had a prior appendectomy. Past Medical History - Allergies and Home Meds Allergies/Adverse Reactions: Allergies No Known Allergies Allergy (Verified 02/16/20 18:07) Primary Care Physician: Jasmin Torres MD [STAFF PHYSICIAN] - (for primary care) Surgical History: appendectomy Smoking Status: Current every day smoker - Family History Maternal Family History: Family History (Last Reviewed 07/18/19 @ 15:20 by Marsha Saha) Mother Diabetes Uncle Cancer Family History: Reports: No pertinent history Review of Systems General: Denies: Chills, Fever, Sweats Eyes: Denies: Visual changes - bilaterally, Diplopia ENT: Denies: Rhinorrhea, Sore throat Cardiovascular: Denies: Chest pain, Palpitations Respiratory: Denies: Dyspnea, Cough, Dyspnea on exertion Gastrointestinal: Reports: Nausea, Vomiting, Diarrhea. Denies: Abdominal pain, Melena, Hematochezia Genitourinary: Denies: Dysuria, Hematuria, Frequency Musculoskeletal: Denies: Back pain, Extremity Pain Skin: Denies: Rash, Wounds Neurological: Denies: Headache, Weakness, Numbness Physical Exam Vital Signs/Narrative: Vital Signs Temp Pulse Resp BP Pulse Ox 02/16/20 18:03 98.4 F 94 20 H 149/116 H 99 Inital Vital Signs reviewed: Yes General: Well nourished, Well developed, No Acute Distress Head: Normocephalic, Atraumatic Eyes: Perrl, EOMI ENT: Moist mucous membranes, No rhinorrhea Neck: Supple, Nontender Cardiovascular: Regular rate, Regular rhythm, No murmurs Respiratory: No distress, CTA bilaterally, Chest nontender Abdomen: Soft, Nontender, Nondistended, Normal bowel sounds Back: Nontender, Normal Inspection Extremities: Nontender, No edema Skin: Normal color, No rash Neurological: Alert, Oriented x3, Cranial nerves II-XII grossly intact, Normal Strength, Normal Sensation Psychological: Normal affect, Normal Mood Diagnostic/Tx/Re-eval - Medical Decision Making Patient received IV fluids and Zofran. I believe this is most likely a viral gastroenteritis. His abdominal exam is benign. There is no distention. There is no pain guarding or rebound. After treatment the patient was reassessed and has not had any further vomiting or diarrhea. Tolerating p.o. ED Disposition - Plan for ED Patient: Disposition: Home or Assisted Living Diagnosis: Gastroenteritis Instructions: ED Viral Gastroenteritis Prescriptions: Ondansetron [Zofran Odt] 4 mg PO Q6H PRN PRN #20 tab PRN Reason: Nausea Transmission Status: Received by DOROTA CHAPARRO-1952 [facility] Referrals: Jasmin Torres MD [STAFF PHYSICIAN] - (for primary care) Additional Instructions: I would recommend Imodium antidiarrheal medication for the diarrhea. Please take the Zofran for vomiting. Orally hydrate.
[2020-02-16] MEDS: Ondansetron 4 MG/2 ML Vial IV (19:19)
[2020-02-16] MEDS: Loperamide 2 MG Capsule 4 MG PO (19:24)
[2020-02-16 19:58] VITALS: BP 160/91; PULSE 93; RESP 18; O2SAT 95
--- NOTE | 2020-02-16 20:49 | CM.ED ---
Social Work Consult: ED Care Plan Met with patient in room. Introduced self as well as licensed social worker role. Patient is laying in bed and stating to not want to speak with this licensed social worker at this time. This licensed social worker did inquire if patient has been able to establish a PCP, patient stating no. This licensed social worker offering to provide in-network providers for patient, patient declining stating I know how to get a doctor. Patient not wanting to speak further. Updated Dr. Narayanan on above. Dr. Narayanan aware that patient is currently on an ED Care Plan. Reema Lui MSW, JUAN DANIEL
== END 2020-02-16 21:15 | disposition home or self-care (01) ==
PROVIDERS: Emergency Provider Emergency Medicine
DX: K52.9 Noninfective gastroenteritis and colitis, unspecified (principal); F17.210 Nicotine dependence, cigarettes, uncomplicated
CPT/HCPCS: 96361; 96374; 99285; J7030; A4216; J2405

== ENCOUNTER 2020-10-29 20:26 | Emergency (ER) | payer MEDICAID, SELFPAY ==
[2020-10-29 20:27] VITALS: BP 159/106; PULSE 121; RESP 18; TEMP 37.2; O2SAT 96; BMI 37.5
--- NOTE | 2020-10-29 20:39 | EKG12_ITS ---
Test Reason : MENTAL HEALTH Blood Pressure : / mmHG Vent. Rate : 119 BPM Atrial Rate : 119 BPM P-R Int : 138 ms QRS Dur : 098 ms QT Int : 324 ms P-R-T Axes : 066 048 039 degrees QTc Int : 455 ms Sinus tachycardia Otherwise normal ECG Confirmed by VIOLETTE ZAMORA, INDER ([id number]), news assignment editor MAIKOL ELENA ([id number]) on 10/31/2020 11:09:46 AM Referred By: MIKE Confirmed By:INDER OAKES MD
--- NOTE | 2020-10-29 20:39 | ED.VIS.GEN ---
History of Present Illness Chief Complaint: Mental Health Narrative: Patient is a 50-year-old male who was brought in by police due to odd behavior. Apparently the neighbor had called for possible domestic. Patient was yelling and fighting with his neighbor. On police arrival he was screaming in his apartment. He then exhibited paranoia. He stated that the police were keeping people there in a shelter. When the fire department arrived he was claiming that they were in on it as well and keeping people in shelter and pointed to the fire station. They also report that they have been called to his home previously as he was having hallucinations and claiming there were little people under the car. At this time patient has no complaints. He states that he was just fighting with his neighbor yelling through the thin wall and the police thought he was talking to himself. Past Medical History - Allergies and Home Meds Allergies/Adverse Reactions: Allergies No Known Allergies Allergy (Verified 02/16/20 18:07) Primary Care Physician: Care Physician,No Primary [Primary Care Provider] - Past Medical History: None Surgical History: appendectomy Smoking Status: Current every day smoker - Family History Maternal Family History: Family History (Last Reviewed 07/18/19 @ 15:20 by Marsha Saha) Mother Diabetes Uncle Cancer Family History: Reports: No pertinent history Review of Systems All systems negative except as indicated General: Denies: Fever Eyes: Denies: Visual changes - bilaterally ENT: Denies: Bilateral ear pain Cardiovascular: Denies: Chest pain Respiratory: Denies: Dyspnea Gastrointestinal: Denies: Abdominal pain, Vomiting Skin: Denies: Rash Neurological: Denies: Headache Hematologic: Denies: Easy bruising Allergy: Denies: Uticaria Physical Exam Vital Signs/Narrative: Vital Signs Temp Pulse Resp BP Pulse Ox 10/29/20 20:27 99 F 121 H 18 159/106 H 96 Inital Vital Signs reviewed: Yes General: Well nourished Head: Normocephalic Eyes: EOMI ENT: Moist mucous membranes Neck: Supple Cardiovascular: Regular rhythm, Tachycardia Respiratory: No distress Abdomen: Soft Skin: Normal color Neurological: Alert, Oriented x3, - - At this time answering questions appropriately patient denies any hallucinations. Psychological: Normal affect Diagnostic/Tx/Re-eval Laboratory Results 10/29/20 10/29/20 10/29/20 20:55 20:55 20:55 WBC 10.3 RBC 6.23 H Hgb 16.7 H Hct 51.3 MCV 82.3 MCH 26.8 L MCHC 32.6 RDW Std Deviation 45.5 H RDW Coeff of Brenda 15.7 H Plt Count 243 MPV 10.2 Immature Gran % (Auto) 0.700 Neut % (Auto) 67.1 Lymph % (Auto) 22.7 [place] % (Auto) 7.1 Eos % (Auto) 1.5 Baso % (Auto) 0.9 Absolute Neuts (auto) 6.9 Absolute Lymphs (auto) 2.34 Nucleated RBC % 0 Sodium 138 Potassium 3.6 Chloride 105 Carbon Dioxide 26.0 Anion Gap 7 BUN 13 Creatinine 0.98 Estim Creat Clear Calc 104.18 Est GFR (MDRD) Af Amer 105 Est GFR (MDRD) Non-Af 87 BUN/Creatinine Ratio 13.3 Glucose 194 H Calcium 9.5 Urine Opiates Screen Urine Methadone Screen Ur Barbiturates Screen Ur Phencyclidine Scrn Ur Amphetamines Screen U Methamphetamin-MDMA U Benzodiazepines Scrn Urine Cocaine Screen U Cannabinoids Screen Ur Drug Screen Comment Ethyl Alcohol 4.0 10/29/20 21:00 WBC RBC Hgb Hct MCV MCH MCHC RDW Std Deviation RDW Coeff of Brenda Plt Count MPV Immature Gran % (Auto) Neut % (Auto) Lymph % (Auto) [place] % (Auto) Eos % (Auto) Baso % (Auto) Absolute Neuts (auto) Absolute Lymphs (auto) Nucleated RBC % Sodium Potassium Chloride Carbon Dioxide Anion Gap BUN Creatinine Estim Creat Clear Calc Est GFR (MDRD) Af Amer Est GFR (MDRD) Non-Af BUN/Creatinine Ratio Glucose Calcium Urine Opiates Screen NEGATIVE Urine Methadone Screen NEGATIVE Ur Barbiturates Screen NEGATIVE Ur Phencyclidine Scrn NEGATIVE Ur Amphetamines Screen NEGATIVE U Methamphetamin-MDMA NEGATIVE U Benzodiazepines Scrn NEGATIVE Urine Cocaine Screen NEGATIVE U Cannabinoids Screen NEGATIVE Ur Drug Screen Comment Ethyl Alcohol - Medical Decision Making EKG shows sinus tachycardia at a rate of 119. Laboratory studies are unremarkable with negative drug screen normal alcohol. Patient has been answering all questions appropriately for me. He does not appear acutely psychotic or internally stimulated. We had crisis speak to the patient who agreed he is denying any hallucinations he does not appear delusional or paranoid. Do not feel he meets criteria for psychiatric hospitalization. The patient was discharged. Heart rate was improved on reevaluation. ED Disposition - Plan for ED Patient: Disposition: Home or Assisted Living Diagnosis: Encounter for medical screening examination Instructions: ED Medical Screening Exam, Nonemergent Referrals: Care Physician,No Primary [Primary Care Provider] -
[2020-10-29 21:05] LABS: Absolute Lymphocyte Count 2.34 X10^3/uL (0.83-4.51); Absolute Neutrophil Count 6.9 X10^3/uL (2.0-7.7); Basophil# 0.09 X10^3/uL; Basophil% 0.9 % (0-1); Eosinophil# 0.15 X10^3/uL; Eosinophils% 1.5 % (0-5); Hematocrit 51.3 % (40-54); Hemoglobin 16.7 g/dL (13.0-16.5); Lymphocyte # 2.34 X10^3/ul (4.0); Lymphocyte % 22.7 % (19-41); Mean Corp Hgb Conc 32.6 g/dL (32-36); Mean Corpuscular Hgb 26.8 pg (27.0-32.0); Mean Corpuscular Volume 82.3 fL (80-94); Mean Platelet Vol. 10.2 fl (6.2-12.0); Monocyte# 0.73 X10^3/uL; Monocyte% 7.1 % (0-10); NRBC Flagged by Analyzer 0 % (0-5); Neutrophil # 6.92 X10^3/uL (2.7-7.7); Neutrophil % 67.1 % (47-70); Platelet Count 243 K/mm3 (150-450); RBC Distribution Width CV 15.7 % (11.6-14.6); RBC Distribution Width SD 45.5 fl (35.1-43.9); Red Blood Count 6.23 M/mm3 (4.6-6.2); White Blood Count 10.3 K/mm3 (4.4-11.0)
[2020-10-29 21:17] LABS: Anion Gap 7 (5-15); BUN 13 mg/dL (7-18); BUN/Creat Ratio 13.3 RATIO (10-20); Calcium,Total 9.5 mg/dL (8.5-10.1); Chloride 105 mmol/L (98-107); Creatinine, Serum 0.98 mg/dL (0.70-1.30); EST Glomerular Filtration Rate 87 mL/min (>60); Est Glom Filt Rate - Afr Amer 105 mL/min (>60); Estimated Creatinine Clearance 104.18 ml/min; Glucose 194 mg/dL (74-106); Potassium 3.6 mmol/L (3.5-5.1); Sodium Level 138 mmol/L (136-145)
[2020-10-29 21:40] LABS: Amphetamine Urine VISTA NEGATIVE (<1000 ng/mL); Barbiturate Urine VISTA NEGATIVE (< 200 ng/mL); Benzodiazepine Urine VISTA NEGATIVE (< 200 ng/mL); Cocaine Urine VISTA NEGATIVE (< 300 ng/mL); Ecstacy Urine VISTA NEGATIVE (< 500 ng/mL); Methadone Urine VISTA NEGATIVE (< 300 ng/mL); PCP Urine VISTA NEGATIVE (< 25 ng/mL); THC Urine VISTA NEGATIVE (< 50 ng/mL); Vista UDS pH Range 6
--- NOTE | 2020-10-29 22:12 | ED.RN ---
PAGED CRISIS, AND FAXED THE REPORT, APURVA IS TELEHEALTH CASE MANAGER
[2020-10-29 22:44] VITALS: BP 175/113; PULSE 113; RESP 18; O2SAT 97
== END 2020-10-29 23:40 | disposition home or self-care (01) ==
PROVIDERS: Emergency Provider Emergency Medicine
DX: Z13.30 Encounter for screening examination for mental health and behavioral disorders, unspecified (principal); F17.200 Nicotine dependence, unspecified, uncomplicated
CPT/HCPCS: 80048; 80307; 82077; 85025; 93005; 99284

== ENCOUNTER 2021-09-04 17:55 | Inpatient (IN) | payer MEDICAID, SELFPAY ==
[2021-09-04] VITALS (8 sets, daily range): BP systolic 133–152; BP diastolic 72–122; PULSE 105–124; RESP 14–32; TEMP 36.4–37.7; O2SAT 89–94; BMI 35.9; BMI 34.9
--- NOTE | 2021-09-04 18:21 | EKG12_ITS ---
Test Reason : DYSRHYTHMIA Blood Pressure : / mmHG Vent. Rate : 117 BPM Atrial Rate : 117 BPM P-R Int : 132 ms QRS Dur : 086 ms QT Int : 322 ms P-R-T Axes : 053 035 030 degrees QTc Int : 449 ms Sinus tachycardia Otherwise normal ECG Confirmed by HAROON ZAMORA, RADHA ([id number]), image editor JOSE CARROLL ([id number]) on 09/07/2021 10:17:19 AM Referred By: HÉCTOR Confirmed By:RADHA PATIÑO MD
--- NOTE | 2021-09-04 18:29 | EDS_ITS ---
HPI History of Present Illness Chief Complaint: Confusion Informant: patient Onset/Context/Timing Onset: Days (4) Context: Gradual Onset Timing: Continuous Quality: Weakness, fatigue Location: Generalized Worsened by: Nothing Relieved by: Nothing Narrative Narrative: Patient presents with not feeling well for the past 4 days. Patient states it is gradually getting worse. Patient admits to some weakness and fatigue. Patient states nothing makes it worse and nothing makes it better. Patient admits to some subjective fevers. Patient also admits to some cough and shortness of breath. Patient also admits to some chest pain and sore throat. EMS reports that the patient's blood sugar was over 500. Patient does admit to some urinary frequency but denies any dysuria or hematuria. Patient denies any history of diabetes. [facility] Medical History ADHD (attention deficit hyperactivity disorder) Anxiety Chronic back pain Herniated disc Home Medications NK 09/04/21 [History Last Taken Unknown] Allergy/AdvReac Type Severity Reaction Status Date / Time No Known Allergies Allergy Verified 02/16/20 18:07 Family History Mother Diabetes Uncle Cancer Surgical History History of appendectomy History of tonsillectomy Social History Smoking Status: Current every day smoker tobacco type: cigarettes Tobacco: How many years used: 30 alcohol intake: never substance use type: does not use what type of physical activity do you participate in: walking ROS ROS ED Constitutional Constitutional ED: Reports fever(s) and subjective; Denies chills Eyes Eyes: Denies blurry vision or change in vision ENT ENT ED: Reports sore throat; Denies rhinorrhea Cardiovascular Cardiovascular: Reports chest pain; Denies palpitations Respiratory/Chest Respiratory/Chest: Reports cough and dyspnea Gastrointestinal Gastrointestinal: Denies nausea or vomiting Genitourinary Genitourinary ED: Reports urinary frequency; Denies dysuria or hematuria Musculoskeletal Musculoskeletal: Reports back pain; Denies neck pain Integumentary Reports rash; Denies abscess Neurologic Neurologic: Denies headache(s) or weakness Allergic/Immunologic Allergic/Immunologic ED: Denies mouth swelling or urticaria EXAM Physical Exam Const Vital Signs: 09/04/21 17:57 09/04/21 19:38 Temperature 99.9 F H Temperature Source Oral Pulse Rate 124 H 110 H Respiratory Rate 32 H 27 H Blood Pressure 139/72 H 147/100 H Blood Pressure Mean 94 115 Pulse Ox 89 Oxygen Delivery Method Room Air Positive well nourished and well developed General Appearance ED: well developed HEENT Reports moist mucous membranes Neck supple and no JVD Resp normal respiratory effort and clear to auscultation bilaterally Cardio regular rhythm and no murmurs Rate: tachycardic GI normal to inspection, nondistended, normoactive bowel sounds and non-tender Palpation: soft Extremity normal to inspection General Extremety ED: Negative for edema or tenderness General Extremity: Negative for edema Neuro oriented x3, CN's II-XII intact bilaterally and no sensory deficits noted Sensorium / Orientation: alert Motor Exam: strength 5/5 throughout Psych mental status grossly normal MDM MDM MDM Narrative Medical decision making narrative: Patient was given IV fluids. CBC shows white blood cell count of 2.9. Platelets were 140. Comprehensive metabolic profile showed an elevated glucose of 476. Anion gap was normal. BUN and creatinine were normal. Serum acetone was negative. Serum osmolality was 297. Calculated osmolality was 301. Urinalysis does not show any evidence of urinary tract infection. Case was discussed with the hospitalist. He recommended obtaining a CT scan of the abdomen and pelvis prior to going to the floor. This was ordered. Patient understands and is agreeable with the plan. All questions were answered. Lab Data Attestation: I reviewed the patient's lab results. Labs: Laboratory Results - last 24 hr 09/04/21 09/04/21 09/04/21 18:27 18:27 18:27 WBC 2.9 L RBC 5.84 Hgb 15.5 Hct 47.4 MCV 81.2 MCH 26.5 L MCHC 32.7 RDW Std Deviation 40.4 RDW Coeff of Brenda 13.8 Plt Count 140 L MPV 11.5 Immature Gran % (Auto) 2.100 H Neut % (Auto) 76.0 H Lymph % (Auto) 16.0 L [place] % (Auto) 4.9 Eos % (Auto) 0.0 Baso % (Auto) 1.0 Absolute Neuts (auto) 2.2 Absolute Lymphs (auto) 0.46 L Nucleated RBC % 0 Differential Comment SCANNED Diff Path Review May foll Sodium 135 L Potassium 4.2 Chloride 103 Carbon Dioxide 22.0 Anion Gap 10 BUN 13 Creatinine 0.94 Estim Creat Clear Calc 108.61 Est GFR (MDRD) Af Amer 110 Est GFR (MDRD) Non-Af 91 BUN/Creatinine Ratio 13.9 Glucose 476 H* Serum Osmolality Calcium 9.0 Total Bilirubin 0.50 AST 60 H ALT 69 H Alkaline Phosphatase 98 Total Protein 7.4 Albumin 3.1 L Globulin 4.3 H Albumin/Globulin Ratio 0.7 L Urine Color Urine Clarity Urine pH Ur Specific [place] Urine Protein Urine Glucose (UA) Urine Ketones Urine Occult Blood Urine Nitrite Urine Bilirubin Urine Urobilinogen Ur Leukocyte Esterase Urine RBC Urine WBC Ur Squamous Epith Cells Urine Bacteria Urine Mucus Acetone Level NEGATIVE 09/04/21 09/04/21 19:12 20:25 WBC RBC Hgb Hct MCV MCH MCHC RDW Std Deviation RDW Coeff of Brenda Plt Count MPV Immature Gran % (Auto) Neut % (Auto) Lymph % (Auto) [place] % (Auto) Eos % (Auto) Baso % (Auto) Absolute Neuts (auto) Absolute Lymphs (auto) Nucleated RBC % Differential Comment Diff Path Review Sodium Potassium Chloride Carbon Dioxide Anion Gap BUN Creatinine Estim Creat Clear Calc Est GFR (MDRD) Af Amer Est GFR (MDRD) Non-Af BUN/Creatinine Ratio Glucose Serum Osmolality 297 H Calcium Total Bilirubin AST ALT Alkaline Phosphatase Total Protein Albumin Globulin Albumin/Globulin Ratio Urine Color Yellow Urine Clarity Clear Urine pH 6.0 Ur Specific [place] 1.010 Urine Protein 30 H Urine Glucose (UA) 1000 H Urine Ketones 50 H Urine Occult Blood 25 H Urine Nitrite Negative Urine Bilirubin Negative Urine Urobilinogen Normal Ur Leukocyte Esterase Negative Urine RBC 0 SEEN Urine WBC 0 SEEN Ur Squamous Epith Cells 0 SEEN Urine Bacteria 0 SEEN Urine Mucus 0 SEEN Acetone Level ABG Data ABG results: ABG 09/04/21 19:25 Specimen Type GREGORIA VBG pH 7.44 H VBG pO2 35 VBG HCO3 21 L VBG Total CO2 22 L VBG O2 Sat (Calc) 71 H VBG Base Excess -3 L POC Mix VBG pCO2 Pt Tmp 31.2 L O2 Delivery Device Room Air Discharge Plan Dx/Rx/DC Orders Clinical Impression: Hyperosmolar hyperglycemic state (HHS) Disposition Disposition: Acute Care Hospital [facility]
[2021-09-04] MEDS: 0.9% Normal Saline 1,000 ML 1000 ML IV ×2 (19:13→20:52)
[2021-09-04 19:18] LABS: Bacteria 0 SEEN /hpf (None Seen); Mucous, Urine 0 SEEN /hpf (<or=2+); Red Blood Cells-Urine 0 SEEN /hpf (0-5); Squamous Epithelial Cells - UA 0 SEEN /hpf (0-5); White Blood Cells 0 SEEN /hpf (0-5)
[2021-09-04 19:19] LABS: Absolute Lymphocyte Count 0.46 X10^3/uL (0.83-4.51); Absolute Neutrophil Count 2.2 X10^3/uL (2.0-7.7); Basophil# 0.03 X10^3/uL; Hematocrit 47.4 % (40-54); Hemoglobin 15.5 g/dL (13.0-16.5); Lymphocyte # 0.46 X10^3/ul (0.83-4.51); Mean Corp Hgb Conc 32.7 g/dL (32-36); Mean Corpuscular Hgb 26.5 pg (27.0-32.0); Mean Corpuscular Volume 81.2 fL (80-94); Mean Platelet Vol. 11.5 fl (6.2-12.0); Monocyte# 0.14 X10^3/uL; Monocyte% 4.9 % (0-10); NRBC Flagged by Analyzer 0 % (0-5); Neutrophil # 2.18 X10^3/uL (2.7-7.7); POSITIVE DIFFERENTIAL YES; POSITIVE MORPHOLOGY YES; Platelet Count 140 K/mm3 (150-450); RBC Distribution Width CV 13.8 % (11.6-14.6); RBC Distribution Width SD 40.4 fl (35.1-43.9); Red Blood Count 5.84 M/mm3 (4.6-6.2); White Blood Count 2.9 K/mm3 (4.4-11.0)
[2021-09-04 19:20] LABS: ALB/GLOB Ratio 0.7 RATIO (0.9-2.4); AST(SGOT) 60 U/L (15-37); Alanine Aminotransfer ALT/SGPT 69 U/L (16-61); Albumin, Serum 3.1 g/dL (3.2-5.0); Alkaline Phosphatase 98 U/L (45-117); Anion Gap 10 (5-15); BUN 13 mg/dL (7-18); BUN/Creat Ratio 13.9 RATIO (10-20); Chloride 103 mmol/L (98-107); Creatinine, Serum 0.94 mg/dL (0.70-1.30); EST Glomerular Filtration Rate 91 mL/min (>60); Est Glom Filt Rate - Afr Amer 110 mL/min (>60); Estimated Creatinine Clearance 108.61 ml/min; Globulin 4.3 g/dL (2.2-4.2); Glucose 476 mg/dL (74-106); Potassium 4.2 mmol/L (3.5-5.1); Protein, Total 7.4 g/dL (6.4-8.2); Sodium Level 135 mmol/L (136-145)
[2021-09-04 19:22] LABS: Differential Indicated SCAN CRITERIA MET
[2021-09-04 19:27] LABS: Color, Urine Yellow (Yellow); Glucose, Dipstick 1000 mg/dl (Normal); Ketone-Dipstick 50 mg/dl (Negative); Leukocyte Esterase-Dipstick Negative /ul (Negative); Nitrite-Dipstick Negative (Negative); Occult Blood-Urine 25 /ul (Negative); Protein-Dipstick 30 mg/dl (Negative); Urine Bilirubin Dipstick Negative (Negative); Urine Clarity Clear (Clear); Urine Urobilinogen Normal (Normal)
[2021-09-04 19:31] LABS: Blood Gas Specimen Type VEN; O2 Delivery Device Room Air; VBG BASE EXCESS -3 mmol/L (-1.0-3.5); VBG Bicarbonate 21 mmol/L (22-26); VBG PO2 35 mmHg (25-40); VBG SO2 71 % (50-70); VBG TCO2 22 mmol/L (23-33); VBG pCO2 31.2 mmHg (41-51); VBG pH 7.44 (7.32-7.42)
[2021-09-04] MEDS: Ondansetron 4 MG/2 ML Vial IV (19:37)
[2021-09-04] MEDS: Mag Hydrox/Al Hydrox/Simeth 30 ML UDC PO (19:40)
[2021-09-04 19:44] LABS: Differential Comment SCANNED
--- NOTE | 2021-09-04 20:13 | ED.RN ---
Family calls and patient says okay to update them. they are upset we wont get him home and explained we cannot cover a squad for him and he will need to callfor a friend or family to take him home, or take a taxi. They are reporting they cannot take him home because they are too far away and he has no one else and no means to pay for a cab. They want a police commanding officer to take him home and explained that is not a resource we have available, but patient is ordered for a hospitalist eval and probable admit. They will call back in 2 hours for an update.
--- NOTE | 2021-09-04 20:16 | PCM.HP.STD ---
[facility] - General General Date of Service: 09/04/21 Chief Complaint: Confusion HPI Narrative ELENO LEBLANC, is a 50 M with a significant history of ADHD; anxiety; tobacco abuse and chronic back pain who was sent to the emergency department because of confusion. Patient came with a squad. Patient is unable to elucidate further on the confusion. However he reports generalized abdominal pain that has been going on for about a week. He described his abdominal pain as tightness with intensity of 8 out of 10. The pain radiates to his chest; and into his face. He reports that he feels flushed. He reports anorexia, polyuria and polydipsia. [facility] Medical History ADHD (attention deficit hyperactivity disorder) Anxiety Chronic back pain Herniated disc Home Medications NK 09/04/21 [History Last Taken Unknown] Allergy/AdvReac Type Severity Reaction Status Date / Time No Known Allergies Allergy Verified 02/16/20 18:07 Family History Mother Diabetes Uncle Cancer Surgical History History of appendectomy History of tonsillectomy Social History Smoking Status: Current every day smoker tobacco type: cigarettes Tobacco: How many years used: 30 alcohol intake: never substance use type: does not use what type of physical activity do you participate in: walking ROS ROS Narrative Constitutional: Reports fatigue. Denies fever, chills, and change in weight Eyes: Denies blurry vision, change in eye color, change in vision, discharge from eye(s), double vision, erythema, eye pain, loss of vision or other HEENT: Denies abnormal hearing, dysphagia, ear pain, epistaxis, hearing loss, nasal congestion, nasal discharge, post nasal drip, sinus pressure, sore throat or other Cardiovascular: Reports chest pain. Denies palpitation Respiratory/Chest: Reports shortness of breath. Denies cough, excessive phlegm production. Gastrointestinal: Reports abdominal pain, nausea and vomiting. Denies coffee ground emesis, constipation, diarrhea, dyspepsia, hematemesis, hematochezia, loose stools, melena, or other Genitourinary: Reports increased frequency of urination. Denies burning urination, hematuria, or other Musculoskeletal: Denies arthralgias, back pain, joint pain, joint stiffness, joint swelling, myalgias, neck pain or other Neurologic: Denies abnormal gait, abnormal speech, confusion, disequilibrium, dizziness, focal weakness, headache(s), numbness, paresthesias, seizure-like activity, seizures, syncope, tingling, tremor(s) or other Psychiatric: Denies anxiety, depression, homicidal ideation, suicidal ideation or other Endocrinology: Denies change in body appearance, cold intolerance, excessive sweating, heat intolerance, polydipsia, polyuria or other Hematologic/Lymphatic: Denies anemia, easy bleeding, easy bruising, lymphadenopathy or other Integumentary: Denies rashes Allergic/Immunologic: Denies rhinitis, hives, eczema, asthma or other Vital Signs Vital Signs Vital Signs: 09/04/21 17:57 09/04/21 19:38 Temperature 99.9 F H Temperature Source Oral Pulse Rate 124 H 110 H Respiratory Rate 32 H 27 H Blood Pressure 139/72 H 147/100 H Blood Pressure Mean 94 115 Pulse Ox 89 Oxygen Delivery Method Room Air Weight Weight: 123.5 kg Body Mass Index (BMI) 35.9 Physical Exam Narrative Physical exam: General: Well-nourished, well-developed. Head: Normocephalic, atraumatic, no tenderness Eyes: PERRLA, EOMI ENT, no trauma, moist mucous membranes, no rhinorrhea Neck: Nontender, full range of motion, no spinal tenderness, deformities, step-off CVS: Regular rate and rhythm. S1-S2 present. No murmur, gallop or rub. Respiratory : Tachypnea with use of accessory muscles of respiration. Clear to auscultation bilaterally, chest wall nontender, no wheezing Abdomen: Soft, nontender, nondistended, normal bowel sounds, no masses : Deferred Back: Nontender, no CVA tenderness, no midline spinal tenderness, deformities, step-offs Extremities: Nontender full range of motion, no trauma Skin: Normal color, no trauma, abrasions Neuro: Alert, oriented, cranial nerves II through XII grossly intact. With some confusion Psychiatry: Anxious. Results Lab / Micro Data Result Diagrams: 09/04/21 18:27 09/04/21 18:27 Labs: Laboratory Results - last 24 hr 09/04/21 18:27: WBC 2.9 L, RBC 5.84, Hgb 15.5, Hct 47.4, MCV 81.2, MCH 26.5 L, MCHC 32.7, RDW Std Deviation 40.4, RDW Coeff of Brenda 13.8, Plt Count 140 L, MPV 11.5, Immature Gran % (Auto) 2.100 H, Neut % (Auto) 76.0 H, Lymph % (Auto) 16.0 L, [place] % (Auto) 4.9, Eos % (Auto) 0.0, Baso % (Auto) 1.0, Absolute Neuts (auto) 2.2, Absolute Lymphs (auto) 0.46 L, Nucleated RBC % 0, Differential Comment SCANNED, Diff Path Review January09/04/21 18:27: Sodium 135 L, Potassium 4.2, Chloride 103, Carbon Dioxide 22.0, Anion Gap 10, BUN 13, Creatinine 0.94, Estim Creat Clear Calc 108.61, Est GFR (MDRD) Af Amer 110, Est GFR (MDRD) Non-Af 91, BUN/Creatinine Ratio 13.9, Glucose 476 H*, Calcium 9.0, Total Bilirubin 0.50, AST 60 H, ALT 69 H, Alkaline Phosphatase 98, Total Protein 7.4, Albumin 3.1 L, Globulin 4.3 H, Albumin/Globulin Ratio 0.7 L 09/04/21 18:27: Acetone Level NEGATIVE 09/04/21 19:12: Urine Color Yellow, Urine Clarity Clear, Urine pH 6.0, Ur Specific [place] 1.010, Urine Protein 30 H, Urine Glucose (UA) 1000 H, Urine Ketones 50 H, Urine Occult Blood 25 H, Urine Nitrite Negative, Urine Bilirubin Negative, Urine Urobilinogen Normal, Ur Leukocyte Esterase Negative, Urine RBC 0 SEEN, Urine WBC 0 SEEN, Ur Squamous Epith Cells 0 SEEN, Urine Bacteria 0 SEEN, Urine Mucus 0 SEEN ABG Data ABG results: ABG 09/04/21 19:25 Specimen Type GREGORIA VBG pH 7.44 H VBG pO2 35 VBG HCO3 21 L VBG Total CO2 22 L VBG O2 Sat (Calc) 71 H VBG Base Excess -3 L POC Mix VBG pCO2 Pt Tmp 31.2 L O2 Delivery Device Room Air Assessment & Plan Assessment/Plan (1) Hyperosmolar hyperglycemic state (HHS): PLAN: HHS Patient has no previous history of diabetes mellitus. However he reported there is a family history of diabetes. Serum glucose 476 acetone level negative. Anion gap of 10 Sodium 135, . Corrected sodium 141 Insulin drip started from emergency department; continue Completed IV bolus of normal saline and normal saline infusion Because of potassium of 4.2 we will start patient on normal saline with 20 mEq potassium chloride to 250 mL/h and de-escalate to half normal saline with 20 mEq potassium glinides 150 mL's per hour. BMP every 4 hours to calculate anion gap. N.p.o. for now except meds and water. A1c ordered Admitted to ICU Zofran as needed for nausea/vomiting Because of abdominal pain discussed emergent department doctor will get CAT scan of patient belly. Review of Emergency department labs showed a leukopenia of 2.9; bandemia of 2.1%; neutrophilia of 76% and lymphopenia of 16%. Repeat CBC in a.m. Tobacco abuse Counseled Declined nicotine patch. DVT prophylaxis: Subcutaneous Lovenox ordered. Charges/Coding Visit Charges Inpatient E&M: 40187 Init Hosp L3
--- NOTE | 2021-09-04 20:59 | CT_ITS ---
STUDY: CT ABDOMEN AND PELVIS WITH CONTRAST REASON FOR EXAM: Male, 50 years old. Effusion and agitation. Sick for 4 to 5 days. Fever, weakness, fatigue, cough and shortness of breath. Sore throat. Hyperglycemia. History of appendectomy. RADIATION DOSAGE (If Supplied By Facility): CTDIvol = ( 18.70 ) mGy, DLP = ( 1458.64 ) mGycm TECHNIQUE: Transaxial images were obtained from the dome of the diaphragm to the symphysis pubis with oral contrast. 100 mL of ISOVUE-370 was administered. Sagittal and coronal images were reconstructed. Individualized dose optimization techniques were used for this CT. COMPARISON: 05/01/2018. FINDINGS: Patchy groundglass infiltrates posteriorly at both lung bases. The visualized portions of the heart are within normal limits. There is decreased attenuation of the liver consistent with steatosis. There is focal sparing in the gallbladder fossa and portal hilum. Normal gallbladder and extrahepatic biliary system. Normal spleen. Normal pancreas. Normal bilateral adrenal glands. Normal right kidney. Normal left kidney. Normal ureters. Normal visualized stomach. Normal small intestine. Normal colon. There is non-visualization of the appendix. Minimal atherosclerotic changes without aneurysm or dissection. Normal inferior vena cava. Nonspecific subcentimeter retroperitoneal lymphadenopathy. Normal urinary bladder. Prostate. No pelvic lymphadenopathy. No free air or free fluid is seen within the peritoneal cavity. Umbilical hernia of omental fat. Left inguinal hernia of omental fat. Abdominal wall is otherwise unremarkable. Normal osseous structures. CT/Abdomen/Pelvis WITH Contrast IMPRESSION: 1. Bibasilar groundglass infiltrates. 2. Hepatic steatosis. 3. Enlargement of the umbilical hernia when compared to prior study. 4. New left inguinal hernia of omental fat. 5. No other major interval change. Electronically Signed: Scott Alcantara DO at 23:17 EST Tel [phone], Service support ,
[2021-09-04 21:15] LABS: Osmolality, Serum 297 mOsm/KG (275-295)
[2021-09-04 21:51] LABS: Bedside Glucose 324 mg/dL (70-110)
--- NOTE | 2021-09-04 22:06 | ED.RN ---
Report called to ICU and theyre aware patient to go to CT at 2244 and will bring him up after
[2021-09-04 22:40] LABS: Bedside Glucose 318 mg/dL (70-110)
[2021-09-04] MEDS: KCL 20MEQ in 0.9% NS 20 MEQ/1,000 ML IV.SOLN. 250 MEQ IV (23:55)
--- NOTE | 2021-09-04 23:57 | NURSING ---
PANDEMIC DOCUMENTATION DATE: 09/04/21 TIME: 6660
[2021-09-05] VITALS (27 sets, daily range): BP systolic 103–152; BP diastolic 59–91; PULSE 81–104; RESP 16–39; TEMP 36.4–36.7; O2SAT 82–97
[2021-09-05] MEDS: Acetaminophen 325 MG Tablet 650 MG PO (00:18)
[2021-09-05] MEDS: Ondansetron 4 MG/2 ML Vial IV ×2 (00:19→16:57)
[2021-09-05 00:31] LABS: Anion Gap 8 (5-15); BUN 10 mg/dL (7-18); BUN/Creat Ratio 12.9 RATIO (10-20); Calcium,Total 8.2 mg/dL (8.5-10.1); Chloride 106 mmol/L (98-107); Creatinine, Serum 0.77 mg/dL (0.70-1.30); EST Glomerular Filtration Rate 114 mL/min (>60); Est Glom Filt Rate - Afr Amer 138 mL/min (>60); Estimated Creatinine Clearance 132.59 ml/min; Glucose 292 mg/dL (74-106); Potassium 4.7 mmol/L (3.5-5.1); Sodium Level 137 mmol/L (136-145)
[2021-09-05 01:11] LABS: Bedside Glucose 283 mg/dL (70-110)
[2021-09-05 01:11] LABS: Bedside Glucose 276 mg/dL (70-110)
[2021-09-05 01:11] LABS: Bedside Glucose 319 mg/dL (70-110)
[2021-09-05 03:21] LABS: Bedside Glucose 248 mg/dL (70-110)
[2021-09-05 03:24] LABS: Absolute Neutrophil Count 2.4 X10^3/uL (2.0-7.7); Basophil# 0.01 X10^3/uL; Basophil% 0.3 % (0-1); Hematocrit 40.7 % (40-54); Hemoglobin 13.2 g/dL (13.0-16.5); Lymphocyte % 21.4 % (19-41); Mean Corp Hgb Conc 32.4 g/dL (32-36); Mean Corpuscular Hgb 26.5 pg (27.0-32.0); Mean Corpuscular Volume 81.6 fL (80-94); Mean Platelet Vol. 10.3 fl (6.2-12.0); Monocyte# 0.16 X10^3/uL; Monocyte% 4.9 % (0-10); NRBC Flagged by Analyzer 0 % (0-5); Neutrophil # 2.36 X10^3/uL (2.7-7.7); Neutrophil % 72.2 % (47-70); POSITIVE MORPHOLOGY YES; Platelet Count 118 K/mm3 (150-450); RBC Distribution Width CV 13.9 % (11.6-14.6); RBC Distribution Width SD 40.8 fl (35.1-43.9); Red Blood Count 4.99 M/mm3 (4.6-6.2); White Blood Count 3.3 K/mm3 (4.4-11.0)
[2021-09-05 03:30] LABS: Differential Indicated SCAN CRITERIA MET
[2021-09-05 03:45] LABS: Anion Gap 7 (5-15); BUN 9 mg/dL (7-18); Calcium,Total 7.6 mg/dL (8.5-10.1); Chloride 107 mmol/L (98-107); Creatinine, Serum 0.64 mg/dL (0.70-1.30); EST Glomerular Filtration Rate 140 mL/min (>60); Est Glom Filt Rate - Afr Amer 170 mL/min (>60); Estimated Creatinine Clearance 159.52 ml/min; Glucose 245 mg/dL (74-106); Potassium 3.8 mmol/L (3.5-5.1); Sodium Level 136 mmol/L (136-145)
[2021-09-05 06:01] LABS: Bedside Glucose 252 mg/dL (70-110)
[2021-09-05 06:40] LABS: Differential Comment SCANNED
[2021-09-05 08:11] LABS: Bedside Glucose 216 mg/dL (70-110)
[2021-09-05 08:11] LABS: Bedside Glucose 254 mg/dL (70-110)
[2021-09-05 09:06] LABS: Bedside Glucose 223 mg/dL (70-110)
[2021-09-05 09:06] LABS: Bedside Glucose 226 mg/dL (70-110)
--- NOTE | 2021-09-05 09:06 | NURSING ---
went in to check patient blood sugar at 0900 insulin gtt pump was shut off, pt states he turned it off because it was beeping, this RN turned pump back on and instructed patient that he cant turn off the IV pumps and to press call button if IV pump alarms-verbalizes understanding, pump was shut off sometime between 0815 and 0900. will not adjust rate of pump based off of this blood glucose since insulin gtt was off
[2021-09-05 10:16] LABS: Bedside Glucose 190 mg/dL (70-110)
[2021-09-05] MEDS: oxyCODONE 5 MG Tablet PO ×3 (11:13→23:08)
[2021-09-05] MEDS: Insulin Lispro 100 UNIT/ML INSULN.PEN SC ×3 (11:13→21:26)
[2021-09-05 11:16] LABS: Hemoglobin A1c 13.1 % (3.8-5.6)
[2021-09-05 11:20] LABS: Bedside Glucose 208 mg/dL (70-110)
[2021-09-05 11:50] LABS: D-Dimer Quantitative (DVT/PE) 1.07 FEU/ug/m (0.27-0.49)
--- NOTE | 2021-09-05 12:26 | CT_ITS ---
STUDY: CTA CHEST REASON FOR EXAM: Male, 50 years old. D dimer elevated RADIATION DOSAGE (If Supplied By Facility): CTDIvol = ( 13.85 ) mGy, DLP = ( 522.84 ) mGycm TECHNIQUE: The examination was performed with the intravenous administration of IV 100mL Isovue-370. Post-processing of the angiographic images was performed, with multiplanar reformation and 3D reconstruction. Individualized dose optimization techniques were used for this CT. COMPARISON: CT of the abdomen dated 09/04/2021 FINDINGS: Life-support and tubes and lines: 1. No life-support noted. No evidence of pneumothorax. CTA: PULMONARY ARTERIES: There is normal configuration and contrast opacification of pulmonary outflow tract, main pulmonary arteries, segmental and intersegmental pulmonary arteries bilaterally without evidence of intraluminal filling defects. AORTIC ARCH: The aortic arch and descending aorta have normal configuration. No evidence of dissection or aneurysmal dilatation. HEART: Cardiac contour is normal. No evidence pericardial effusion. CT CHEST: LUNGS: [Extensive diffuse diffuse interstitial and hazy parenchymal groundglass infiltrate throughout all lung zones. No effusion. No masses identified. PLEURAL SPACES: Unremarkable, no effusion or pneumothorax.. MEDIASTINUM AND LYMPH NODES: Unremarkable. No significant adenopathy. BONES: Unremarkable ABDOMEN: Diffuse hepatic steatosis and borderline hepatomegaly noted. Other: None CT/CTA Chest W/WO Contrast IMPRESSION: 1. No CTA evidence of pulmonary embolism. 2. No CTA evidence of aortic aneurysm or dissection 3. Normal CT appearance of the heart and pericardium. 4. Extensive diffuse multi lobar interstitial and hazy parenchymal infiltrate consistent with atypical multilobar pneumonia. 5. Hepatic steatosis. Borderline hepatomegaly suspected. Electronically Signed: Wilner Pulliam MD at 16:37 EST Tel , Service support ,
--- NOTE | 2021-09-05 14:19 | PN.HOSP_ITS ---
Subjective Subjective Follow-up on HHS/respiratory failure/acute COVID-19 pneumonia: Patient was seen and examined. He was admitted with [facility] and managed on insulin drip. His blood sugars 193. Overnight, he is requiring 8 L of oxygen. He was not on oxygen at home. He denied any past medical problems. Continues to complain about pain from his chest to his pelvis radiating to his back. Objective Data Objective Data Vital Signs: Vital Signs Temp Pulse Resp BP Pulse Ox 97.6 F L 83 24 H 110/60 94 09/05/21 12:00 09/05/21 13:00 09/05/21 13:00 09/05/21 13:00 09/05/21 13:00 Oxygen Flow Rate (L/min) 8 Oxygen Delivery Method High Flow Weight: 122.3 kg Body Mass Index (BMI) 34.9 Intake & Output: Intake and Output for Last 24 Hours 09/03/21 09/04/21 09/05/21 23:59 23:59 23:59 Intake Total 2100.0 / 2341.5 2901.73 / 2901.73 Output Total 400 / 400 Balance 2100.0 / 2141.5 2501.73 / 2501.73 Lab / Micro Data Result Diagrams: 09/05/21 03:18 09/05/21 03:18 Labs: Laboratory Results - last 24 hr 09/04/21 18:27: WBC 2.9 L, RBC 5.84, Hgb 15.5, Hct 47.4, MCV 81.2, MCH 26.5 L, MCHC 32.7, RDW Std Deviation 40.4, RDW Coeff of Brenda 13.8, Plt Count 140 L, MPV 11.5, Immature Gran % (Auto) 2.100 H, Neut % (Auto) 76.0 H, Lymph % (Auto) 16.0 L, [place] % (Auto) 4.9, Eos % (Auto) 0.0, Baso % (Auto) 1.0, Absolute Neuts (auto) 2.2, Absolute Lymphs (auto) 0.46 L, Nucleated RBC % 0, Differential Comment SCANNED, Diff Path Review January09/04/21 18:27: Sodium 135 L, Potassium 4.2, Chloride 103, Carbon Dioxide 22.0, Anion Gap 10, BUN 13, Creatinine 0.94, Estim Creat Clear Calc 108.61, Est GFR (MDRD) Af Amer 110, Est GFR (MDRD) Non-Af 91, BUN/Creatinine Ratio 13.9, Glucose 476 H*, Calcium 9.0, Total Bilirubin 0.50, AST 60 H, ALT 69 H, Alkaline Phosphatase 98, Total Protein 7.4, Albumin 3.1 L, Globulin 4.3 H, Albumin/Globulin Ratio 0.7 L 09/04/21 18:27: Acetone Level NEGATIVE 09/04/21 19:12: Urine Color Yellow, Urine Clarity Clear, Urine pH 6.0, Ur Specific [place] 1.010, Urine Protein 30 H, Urine Glucose (UA) 1000 H, Urine Ketones 50 H, Urine Occult Blood 25 H, Urine Nitrite Negative, Urine Bilirubin Negative, Urine Urobilinogen Normal, Ur Leukocyte Esterase Negative, Urine RBC 0 SEEN, Urine WBC 0 SEEN, Ur Squamous Epith Cells 0 SEEN, Urine Bacteria 0 SEEN, Urine Mucus 0 SEEN 09/04/21 20:25: Serum Osmolality 297 H 09/04/21 21:42: POC Glucose 324 H 09/04/21 22:33: POC Glucose 318 H 09/04/21 23:20: POC Glucose 319 H 09/04/21 23:55: Sodium 137, Potassium 4.7, Chloride 106, Carbon Dioxide 23.0, Anion Gap 8, BUN 10, Creatinine 0.77, Estim Creat Clear Calc 132.59, Est GFR (MDRD) Af Amer 138, Est GFR (MDRD) Non-Af 114, BUN/Creatinine Ratio 12.9, Glucose 292 H, Calcium 8.2 L 09/05/21 00:05: POC Glucose 283 H 09/05/21 01:04: POC Glucose 276 H 09/05/21 03:17: POC Glucose 248 H 09/05/21 03:18: Sodium 136, Potassium 3.8, Chloride 107, Carbon Dioxide 22.0, Anion Gap 7, BUN 9, Creatinine 0.64 L, Estim Creat Clear Calc 159.52, Est GFR (MDRD) Af Amer 170, Est GFR (MDRD) Non-Af 140, BUN/Creatinine Ratio 14.0, Glucose 245 H, Calcium 7.6 L 09/05/21 03:18: WBC 3.3 L, RBC 4.99, Hgb 13.2, Hct 40.7, MCV 81.6, MCH 26.5 L, MCHC 32.4, RDW Std Deviation 40.8, RDW Coeff of Brenda 13.9, Plt Count 118 L, MPV 10.3, Immature Gran % (Auto) 1.200 H, Neut % (Auto) 72.2 H, Lymph % (Auto) 21.4, [place] % (Auto) 4.9, Eos % (Auto) 0.0, Baso % (Auto) 0.3, Absolute Neuts (auto) 2.4, Absolute Lymphs (auto) 0.70 L, Nucleated RBC % 0, Differential Comment SCANNED 09/05/21 03:58: Hemoglobin A1c 13.1 H 09/05/21 03:58: B-Natriuretic Peptide 43.0 09/05/21 05:01: POC Glucose 252 H 09/05/21 06:10: POC Glucose 223 H 09/05/21 07:01: POC Glucose 254 H 09/05/21 07:58: POC Glucose 216 H 09/05/21 09:02: POC Glucose 226 H 09/05/21 10:08: POC Glucose 190 H 09/05/21 10:52: COVID-19 (CALLIE) Detected 09/05/21 11:08: POC Glucose 208 H 09/05/21 11:15: D-Dimer Quant (PE/DVT) 1.07 H* ABG Data ABG results: ABG 09/04/21 19:25 Specimen Type GREGORIA VBG pH 7.44 H VBG pO2 35 VBG HCO3 21 L VBG Total CO2 22 L VBG O2 Sat (Calc) 71 H VBG Base Excess -3 L POC Mix VBG pCO2 Pt Tmp 31.2 L O2 Delivery Device Room Air Radiography Diagnostic Testing: Radiology Impression Abdomen/Pelvis CT 09/04/21 20:59 IMPRESSION: 1. Bibasilar groundglass infiltrates. 2. Hepatic steatosis. 3. Enlargement of the umbilical hernia when compared to prior study. 4. New left inguinal hernia of omental fat. 5. No other major interval change. Electronically Signed: Scott Alcantara DO at 23:17 EST Tel [phone], Service support , Physical Exam Narrative Physical exam: General: Alert, Oriented x3, Cooperative, No apparent distress, Well developed HEENT: Atraumatic Oral: Moist Mucosa Neck: Supple Lungs: Diminished to auscultation Cardiovascular: HS I+II, regular, no murmurs Abdomen: Bowel Sounds Present, Soft, Non Tender Extremities: No edema Assessment & Plan Assessment/Plan (1) Hyperosmolar hyperglycemic state (HHS): (2) Acute respiratory failure with hypoxia: (3) Elevated d-dimer: (4) Pneumonia due to COVID-19 virus: (5) Type II diabetes mellitus with hyperosmolarity, uncontrolled: PLAN: 1. Acute HHS, patient with no previous history of DM Newly diagnosed diabetic Blood sugars are controlled Transition from insulin drip to Lantus 20 units daily with insulin sliding scale HbA1c is 13.1 Dietitian consulted 2. Acute hypoxic respiratory failure secondary to acute COVID-19 pneumonia Patient is currently on 8 L of oxygen Bilateral infiltrates noted on CT of the abdomen and pelvis Start on Decadron and remdesivir Patient stated that his symptoms started about a week ago Medical Social Consultant consult 3. Elevated D-dimer, concerning for acute PE Get CTA of the chest 4. Nicotine abuse/dependence, declined nicotine patch Charges/Coding Visit Charges Inpatient E&M: 92784 Subs Hosp L3
[2021-09-05 14:55] LABS: Alkaline Phosphatase 73 U/L (45-117)
--- NOTE | 2021-09-05 16:52 | CASEMGMT ---
RYLEE LEPE Assessment: TC to pt for initial transition planning/care coordination assessment. RYLEE LEPE introduced self and role at [facility], pt voices understanding and consents to assessment. Pt is A/O x4 and answers all questions appropriately at this time. Care providers, pharmacy, and demographics verified/updated. Admitting Dx: hyperosmolar hyperglycemic state PCP:Pt denies. Currently pt does not want a list of healthcare providers. Will follow and try again. Specialists:Pt denies. [facility]erred [facility]acy: [facility] Insurance: [facility] Community Plan [employer] Prescription Benefit: yes LW/HPOA: Pt denies having a LW/DPOA and denies need for info regarding AD. LNOK: Marybeth Connolly, mother Living Arrangements: Pt lives with a female friend in an apt that has an elevator to enter. Pt reports he is I in ADL's and denies concerns at home. Transportation: Pt drives self and denies concerns with transportation. DME/HHC/SNF: Pt denies having any DME, previous HHC or SNF stays. Pt was dx with COVID and tested here today at [facility]. Pt states he is not aware that his friend has covid. He is able to quarantine from her using separate bedrooms and bathrooms as they do this already. Discussed local in network DME companies should pt need O2, pt denies preference. Pt does have family who can provide him with groceries and supplies. Pt states no concerns with going home at time of dc. Pt states no further concerns/needs. CM to follow. Advised pt to ask CM if any further question/concerns/needs arise, voices understanding. Pt Goal: Home Plan: Home, follow for need for glucometer and supplies, O2 and HHC. RYLEE LEPE to provide pt with local healthcare directory when pt is feeling better.
[2021-09-05] MEDS: 0.9% Saline Lock 10 ML Syringe IV (16:57)
[2021-09-05] MEDS: Enoxaparin 120 MG/0.8 ML Syringe SC (16:57)
[2021-09-05 17:41] LABS: Bedside Glucose 221 mg/dL (70-110)
[2021-09-05] MEDS: Furosemide 40 MG/4 ML Vial IV (20:13)
[2021-09-05 21:40] LABS: Bedside Glucose 263 mg/dL (70-110)
[2021-09-06] VITALS (18 sets, daily range): BP systolic 105–131; BP diastolic 63–86; PULSE 66–101; RESP 20–34; TEMP 36.6–36.8; O2SAT 89–97
[2021-09-06] MEDS: Ondansetron 4 MG/2 ML Vial IV (02:53)
[2021-09-06] MEDS: 0.9% Saline Lock 10 ML Syringe IV ×3 (02:53→22:08)
[2021-09-06 02:56] LABS: Absolute Lymphocyte Count 0.91 X10^3/uL (0.83-4.51); Absolute Neutrophil Count 3.9 X10^3/uL (2.0-7.7); Basophil# 0.01 X10^3/uL; Basophil% 0.2 % (0-1); Hematocrit 44.2 % (40-54); Hemoglobin 14.9 g/dL (13.0-16.5); Lymphocyte # 0.91 X10^3/ul (0.83-4.51); Lymphocyte % 17.8 % (19-41); Mean Corp Hgb Conc 33.7 g/dL (32-36); Mean Corpuscular Hgb 27.2 pg (27.0-32.0); Mean Corpuscular Volume 80.7 fL (80-94); Mean Platelet Vol. 9.8 fl (6.2-12.0); Monocyte# 0.25 X10^3/uL; Monocyte% 4.9 % (0-10); NRBC Flagged by Analyzer 0 % (0-5); Neutrophil # 3.92 X10^3/uL (2.7-7.7); Neutrophil % 76.5 % (47-70); Platelet Count 166 K/mm3 (150-450); RBC Distribution Width CV 13.8 % (11.6-14.6); RBC Distribution Width SD 40.5 fl (35.1-43.9); Red Blood Count 5.48 M/mm3 (4.6-6.2); White Blood Count 5.1 K/mm3 (4.4-11.0)
[2021-09-06 03:16] LABS: ALB/GLOB Ratio 0.6 RATIO (0.9-2.4); AST(SGOT) 64 U/L (15-37); Alanine Aminotransfer ALT/SGPT 56 U/L (16-61); Albumin, Serum 2.5 g/dL (3.2-5.0); Alkaline Phosphatase 83 U/L (45-117); Anion Gap 8 (5-15); BUN 10 mg/dL (7-18); BUN/Creat Ratio 13.6 RATIO (10-20); Chloride 101 mmol/L (98-107); Cholesterol 120 mg/dL (200); Creatinine, Serum 0.74 mg/dL (0.70-1.30); EST Glomerular Filtration Rate 120 mL/min (>60); Est Glom Filt Rate - Afr Amer 146 mL/min (>60); Estimated Creatinine Clearance 137.97 ml/min; Globulin 4.3 g/dL (2.2-4.2); Glucose 269 mg/dL (74-106); High Density Lipoprotein 41 mg/dL; Potassium 3.8 mmol/L (3.5-5.1); Protein, Total 6.8 g/dL (6.4-8.2); Sodium Level 132 mmol/L (136-145); Triglycerides 100 mg/dL; Very Low Density Lipoprotein 20 mg/dL (5-40)
[2021-09-06] MEDS: oxyCODONE 5 MG Tablet PO ×3 (05:58→18:43)
--- NOTE | 2021-09-06 07:24 | CON.PCM.CC_ITS ---
Assessment & Plan Assessment/Plan (1) Type II diabetes mellitus with hyperosmolarity, uncontrolled: (2) Acute respiratory failure with hypoxia: (3) Pneumonia due to COVID-19 virus: (4) Hyperosmolar hyperglycemic state (HHS): PLAN: RECOMMENDATIONS: 1. Agree with Decadron (09/16/2021) and Remdesivir (09/09/2021) 2. Transition to insulin for blood sugar control 3. Consider ID consult for baricitinib 4. No further fluid boluses. Agree with diuretics intermittently 5. Transition to Airvo for better control of hypoxia 6. Add vitamin C and zinc 7. Encourage Acapella, incentive spirometer and prone positioning IMPRESSIONS: 1. Acute hypoxic respiratory failure secondary to COVID-19 pneumonia Patient received significant fluid resuscitation prior to the diagnosis of COVID-19. Would recommend against aggressive fluid resuscitation at this time. Agree with intermittent diuretics as tolerated. Patient should be transition to Airvo. Encourage Acapella, incentive spirometer and prone positioning. Patient appears to have poor insight into the overall condition. Patient is unvaccinated and may have an underlying asthma versus COPD that may complicate clinical course. 2. New onset diabetes mellitus with hyperosmolar state Patient's hemoglobin A1c is suggestive of long-term diabetes mellitus that likely has not been treated secondary to a failure to present to her PCP. Given patient's need for Decadron therapy, anticipate insulin therapy at this time. Basal insulin and sliding scale have already been ordered. P.o. options could be evaluated as an outpatient, but will be difficult to control given need for steroids. 3. Hepatic steatosis/obesity/advanced age/smoker/poor primary care/nonvaccinated status Complicates care, management, recovery and prognosis. Patient does not have significant wheezing on exam at this time, but bronchodilators could be added empirically. Patient is on steroids secondary to problem #1. We will have to monitor closely for complications of hepatic function. HPI Consult Data Date of Consult: 09/06/21 HPI Narrative HPI Narrative: ELENO LEBLANC is a 50 M, with past medical history listed below, who presents to [facility] on 09/04/2021 secondary to 4 days of progressive weakness and fatigue. Patient had reported some subjective fevers, cough and worsening shortness of breath. Patient had also reported some sore throat. Patient attributed some chest pain to his cough. On EMS arrival, patient was noted to have blood sugars over 500. At that time, patient reported some urinary frequency, but denied dysuria or hematuria. Patient does not have a history of diabetes at baseline per his report. In the ER, patient had temperature of 99.9 ?F, tachypnea at 32 breaths/min and tachycardic 124 bpm. Patient was 89% on room air. Laboratory work-up showed a white blood cell count of 2.9, hemoglobin of 15.5 and a platelet count of 140. Glucose was elevated at 476 and patient had a mild bump in ALT and AST. UA was unremarkable and a venous blood gas showed adequate pH. Patient did not have an anion gap or acetone levels. The patient was placed on insulin drip, aggressively hydrated and transferred to the intensive care unit for further evaluation. Since being in the intensive care unit, patient has tested positive for COVID- 19. Patient has had progressive hypoxia and is currently requiring 15 L nasal cannula to maintain saturations. For this reason, pulmonary was consulted for recommendations. Patient reports generalized body aches. Patient is also had exacerbation of his chronic back pain that he attributes to a nonproductive paroxysmal type cough. Patient denies any current nausea, vomiting or diarrhea. No bleeding has been reported. Patient does have a history of smoking, but denies COPD or asthma. P atient states he does not follow with a physician regularly. Review of systems otherwise negative from a constitutional, HEENT, respiratory, cardiovascular, GI, genitourinary, musculoskeletal, skin, neurologic, psychiatric and hematologic system unless stated above. [facility] Medical History ADHD (attention deficit hyperactivity disorder) Anxiety Chronic back pain Herniated disc Home Medications NK 09/04/21 [History Last Taken Unknown] Allergy/AdvReac Type Severity Reaction Status Date / Time No Known Allergies Allergy Verified 02/16/20 18:07 Family History Mother Diabetes Uncle Cancer Surgical History History of appendectomy History of tonsillectomy Social History Smoking Status: Current every day smoker tobacco type: cigarettes Tobacco: How many years used: 30 alcohol intake: never substance use type: does not use what type of physical activity do you participate in: walking ROS ROS Narrative See HPI Physical Exam Const alert General Appearance: cooperative, in distress Positive for moderate and ill appearing Positive for acutely HEENT normocephalic and head/scalp atraumatic HEENT Narrative: Alopecia noted. Crowded posterior pharynx Eyes PERRL and EOMs intact bilaterally Sclera: sclera abnormal Positive for bilateral Details: scleral injection Neck full ROM Chest inspection of chest normal Chest: symmetrical chest wall rise; Negative for crepitus Resp Auscultation: diminished lung sounds; Negative for rales, rhonchi or wheezes Cardio regular rhythm, S1 normal heart sound, S2 normal heart sound, no murmurs, no rub, no gallops and no JVD Rate: tachycardic GI normal to inspection, nondistended, normoactive bowel sounds Inspection: pannus present Extremity no clubbing, cyanosis or edema Skin no rashes or lesions noted Neuro oriented x3, CN's II-XII intact bilaterally, moves all extremities and no focal motor deficits Psych cooperative Activity / Motor Behavior: restless Mood & Affect: anxious Lab / Micro Data Result Diagrams: 09/06/21 02:43 09/06/21 02:43 Labs: Laboratory Results - last 24 hr 09/05/21 03:18: Alkaline Phosphatase 73 09/05/21 03:58: Hemoglobin A1c 13.1 H 09/05/21 03:58: B-Natriuretic Peptide 43.0 09/05/21 06:10: POC Glucose 223 H 09/05/21 07:01: POC Glucose 254 H 09/05/21 07:58: POC Glucose 216 H 09/05/21 09:02: POC Glucose 226 H 09/05/21 10:08: POC Glucose 190 H 09/05/21 10:52: COVID-19 (CALLIE) Detected 09/05/21 11:08: POC Glucose 208 H 09/05/21 11:15: D-Dimer Quant (PE/DVT) 1.07 H* 09/05/21 16:53: POC Glucose 221 H 09/05/21 21:19: POC Glucose 263 H 09/06/21 02:43: Sodium 132 L, Potassium 3.8, Chloride 101, Carbon Dioxide 23.0, Anion Gap 8, BUN 10, Creatinine 0.74, Estim Creat Clear Calc 137.97, Est GFR (MDRD) Af Amer 146, Est GFR (MDRD) Non-Af 120, BUN/Creatinine Ratio 13.6, Glucose 269 H, Calcium 8.0 L, Total Bilirubin 0.70, AST 64 H, ALT 56, Alkaline Phosphatase 83, Total Protein 6.8, Albumin 2.5 L, Globulin 4.3 H, Albumin/Globulin Ratio 0.6 L, Triglycerides 100, Cholesterol 120, LDL Cholesterol 59, VLDL Cholesterol 20, HDL Cholesterol 41 09/06/21 02:43: WBC 5.1, RBC 5.48, Hgb 14.9, Hct 44.2, MCV 80.7, MCH 27.2, MCHC 33.7, RDW Std Deviation 40.5, RDW Coeff of Brenda 13.8, Plt Count 166, MPV 9.8, Immature Gran % (Auto) 0.600, Neut % (Auto) 76.5 H, Lymph % (Auto) 17.8 L, [place] % (Auto) 4.9, Eos % (Auto) 0.0, Baso % (Auto) 0.2, Absolute Neuts (auto) 3.9, Absolute Lymphs (auto) 0.91, Nucleated RBC % 0 Radiology Impression Chest CTA 09/05/21 12:26 IMPRESSION: 1. No CTA evidence of pulmonary embolism. 2. No CTA evidence of aortic aneurysm or dissection 3. Normal CT appearance of the heart and pericardium. 4. Extensive diffuse multi lobar interstitial and hazy parenchymal infiltrate consistent with atypical multilobar pneumonia. 5. Hepatic steatosis. Borderline hepatomegaly suspected. Electronically Signed: Wilner Pulliam MD at 16:37 EST Tel , Service support , Charges/Coding Visit Charges Inpatient E&M: 85162 Init Hosp L3
[2021-09-06] MEDS: Insulin Lispro 100 UNIT/ML INSULN.PEN SC ×4 (08:48→22:06)
[2021-09-06] MEDS: Enoxaparin 40 MG/0.4 ML Syringe SC ×2 (08:48→22:08)
[2021-09-06] MEDS: QUEtiapine 25 MG Tablet 50 MG PO (08:49)
[2021-09-06] MEDS: dexAMETHasone 4 MG/ML Vial 6 MG IV (08:49)
[2021-09-06] MEDS: Ascorbic Acid 500 MG Tablet 1000 MG PO ×2 (08:49→22:05)
[2021-09-06 09:40] LABS: Bedside Glucose 252 mg/dL (70-110)
--- NOTE | 2021-09-06 10:53 | PCM.PN.HOSP ---
Subjective Subjective Follow-up on HHS/respiratory failure/acute COVID-19 pneumonia: Patient was seen and examined. Objective Data Objective Data Vital Signs: Vital Signs Temp Pulse Resp BP Pulse Ox 98.1 F 95 26 H 105/81 H 89 09/06/21 00:00 09/06/21 08:00 09/06/21 07:00 09/06/21 07:00 09/06/21 07:44 Oxygen Flow Rate (L/min) 15 Oxygen Delivery Method Nasal Cannula Weight: 122.3 kg Body Mass Index (BMI) 34.9 Intake & Output: Intake and Output for Last 24 Hours 09/04/21 09/05/21 09/06/21 23:59 23:59 23:59 Intake Total 2100.0 / 2341.5 4311.73 / 4311.73 250 / 250 Output Total 2100 / 2100 300 / 300 Balance 2100.0 / 2141.5 2211.73 / 2211.73 -50 / -50 Lab / Micro Data Result Diagrams: 09/06/21 02:43 09/06/21 02:43 Labs: Laboratory Results - last 24 hr 09/05/21 03:18: Alkaline Phosphatase 73 09/05/21 03:58: Hemoglobin A1c 13.1 H 09/05/21 03:58: B-Natriuretic Peptide 43.0 09/05/21 10:52: COVID-19 (CALLIE) Detected 09/05/21 11:08: POC Glucose 208 H 09/05/21 11:15: D-Dimer Quant (PE/DVT) 1.07 H* 09/05/21 16:53: POC Glucose 221 H 09/05/21 21:19: POC Glucose 263 H 09/06/21 02:43: Sodium 132 L, Potassium 3.8, Chloride 101, Carbon Dioxide 23.0, Anion Gap 8, BUN 10, Creatinine 0.74, Estim Creat Clear Calc 137.97, Est GFR (MDRD) Af Amer 146, Est GFR (MDRD) Non-Af 120, BUN/Creatinine Ratio 13.6, Glucose 269 H, Calcium 8.0 L, Total Bilirubin 0.70, AST 64 H, ALT 56, Alkaline Phosphatase 83, Total Protein 6.8, Albumin 2.5 L, Globulin 4.3 H, Albumin/Globulin Ratio 0.6 L, Triglycerides 100, Cholesterol 120, LDL Cholesterol 59, VLDL Cholesterol 20, HDL Cholesterol 41 09/06/21 02:43: WBC 5.1, RBC 5.48, Hgb 14.9, Hct 44.2, MCV 80.7, MCH 27.2, MCHC 33.7, RDW Std Deviation 40.5, RDW Coeff of Brenda 13.8, Plt Count 166, MPV 9.8, Immature Gran % (Auto) 0.600, Neut % (Auto) 76.5 H, Lymph % (Auto) 17.8 L, [place] % (Auto) 4.9, Eos % (Auto) 0.0, Baso % (Auto) 0.2, Absolute Neuts (auto) 3.9, Absolute Lymphs (auto) 0.91, Nucleated RBC % 0 09/06/21 08:22: POC Glucose 252 H Radiography Diagnostic Testing: Radiology Impression Chest CTA 09/05/21 12:26 IMPRESSION: 1. No CTA evidence of pulmonary embolism. 2. No CTA evidence of aortic aneurysm or dissection 3. Normal CT appearance of the heart and pericardium. 4. Extensive diffuse multi lobar interstitial and hazy parenchymal infiltrate consistent with atypical multilobar pneumonia. 5. Hepatic steatosis. Borderline hepatomegaly suspected. Electronically Signed: Wilner Pulliam MD at 16:37 EST Tel , Service support , Physical Exam Narrative Physical exam: General: Alert, Oriented x3, Cooperative, No apparent distress, Well developed HEENT: Atraumatic Oral: Moist Mucosa Neck: Supple Lungs: Diminished to auscultation Cardiovascular: HS I+II, regular, no murmurs Abdomen: Bowel Sounds Present, Soft, Non Tender Extremities: No edema Assessment & Plan Assessment/Plan (1) Hyperosmolar hyperglycemic state (HHS): (2) Acute respiratory failure with hypoxia: (3) Elevated d-dimer: (4) Pneumonia due to COVID-19 virus: (5) Type II diabetes mellitus with hyperosmolarity, uncontrolled: PLAN: 1. Acute hypoxic respiratory failure secondary to acute COVID-19 pneumonia, worsening Currently on 15L of oxygen CTA chest showed extensive diffuse multi-lobar interstitial infiltrates Continue on Decadron and Remdesivir Planishing Hammer Operator following 2. Acute HHS, patient with no previous history of DM Newly diagnosed diabetic, HbA1c is 13.1 BS are fairly controlled Continue on increased Lantus 25 units QHS, continue with ISS Dietitian consulted 3. Elevated D-dimer, CTA of the chest is negative 4. Nicotine abuse/dependence, declined nicotine patch 5. DVT PPx- Lovenox SC BID Charges/Coding Visit Charges Inpatient E&M: 04496 Subs Hosp L3
[2021-09-06 13:06] LABS: Bedside Glucose 299 mg/dL (70-110)
[2021-09-06 17:25] LABS: Bedside Glucose 302 mg/dL (70-110)
[2021-09-06] MEDS: Acetaminophen 325 MG Tablet 650 MG PO (22:05)
[2021-09-06] MEDS: MELATONIN 10 MG TABLET PO (22:30)
[2021-09-06 23:21] LABS: Bedside Glucose 385 mg/dL (70-110)
[2021-09-07] VITALS (16 sets, daily range): BP systolic 103–117; BP diastolic 71–82; PULSE 66–88; RESP 18–20; TEMP 35.4–36.4; O2SAT 89–97
[2021-09-07] MEDS: oxyCODONE 5 MG Tablet PO ×4 (02:10→21:01)
[2021-09-07 04:17] LABS: Absolute Lymphocyte Count 1.05 X10^3/uL (0.83-4.51); Absolute Neutrophil Count 3.3 X10^3/uL (2.0-7.7); Basophil# 0.02 X10^3/uL; Basophil% 0.4 % (0-1); Hematocrit 44.7 % (40-54); Hemoglobin 14.4 g/dL (13.0-16.5); Lymphocyte # 1.05 X10^3/ul (0.83-4.51); Lymphocyte % 22.1 % (19-41); Mean Corp Hgb Conc 32.2 g/dL (32-36); Mean Corpuscular Hgb 26.4 pg (27.0-32.0); Mean Platelet Vol. 10.8 fl (6.2-12.0); Monocyte# 0.29 X10^3/uL; Monocyte% 6.1 % (0-10); NRBC Flagged by Analyzer 0 % (0-5); Neutrophil # 3.34 X10^3/uL (2.7-7.7); Neutrophil % 70.1 % (47-70); Platelet Count 187 K/mm3 (150-450); RBC Distribution Width CV 14.6 % (11.6-14.6); RBC Distribution Width SD 41.1 fl (35.1-43.9); Red Blood Count 5.45 M/mm3 (4.6-6.2); White Blood Count 4.8 K/mm3 (4.4-11.0)
[2021-09-07 05:27] LABS: ALB/GLOB Ratio 0.6 RATIO (0.9-2.4); AST(SGOT) 51 U/L (15-37); Alanine Aminotransfer ALT/SGPT 51 U/L (16-61); Albumin, Serum 2.3 g/dL (3.2-5.0); Alkaline Phosphatase 80 U/L (45-117); Anion Gap 8 (5-15); BUN 18 mg/dL (7-18); BUN/Creat Ratio 28.6 RATIO (10-20); Calcium,Total 7.7 mg/dL (8.5-10.1); Chloride 103 mmol/L (98-107); Creatinine, Serum 0.63 mg/dL (0.70-1.30); EST Glomerular Filtration Rate 144 mL/min (>60); Est Glom Filt Rate - Afr Amer 174 mL/min (>60); Estimated Creatinine Clearance 162.05 ml/min; Globulin 4.1 g/dL (2.2-4.2); Glucose 284 mg/dL (74-106); Potassium 3.8 mmol/L (3.5-5.1); Protein, Total 6.4 g/dL (6.4-8.2); Sodium Level 135 mmol/L (136-145)
--- NOTE | 2021-09-07 07:11 | PN.CC_ITS ---
Assessment & Plan Assessment/Plan (1) Type II diabetes mellitus with hyperosmolarity, uncontrolled: (2) Acute respiratory failure with hypoxia: (3) Pneumonia due to COVID-19 virus: (4) Hyperosmolar hyperglycemic state (HHS): PLAN: RECOMMENDATIONS: 1. Continue heated high flow and wean FiO2 to maintain oxygen saturations at or above 90%. 2. Continue remdesivir and Decadron to complete treatment courses. 3. ID consultation for potential baricitinib. 4. Encourage incentive spirometer use and mobilize patient as tolerated. 5. Continue prophylactic Lovenox. 6. Diuresis as needed to assist in maintaining euvolemic state. IMPRESSIONS: 1. Acute hypoxic respiratory failure secondary to COVID-19 pneumonia The patient initially presented to the hospital on September 04 with confusion in the setting of hyperosmolar hyperglycemic state. The patient did receive a significant amount of volume resuscitation as a consequence of the a forementioned. He then went on to develop respiratory failure and was also found to be positive for COVID-19. He is currently requiring heated high flow with a high FiO2 requirement to maintain appropriate saturations. The patient has already been initiated on remdesivir, prophylactic Lovenox and Decadron. Infectious diseases consultation will be obtained for potential baricitinib. Will attempt gentle diuresis today as tolerated by hemodynamics and renal function. 2. New onset diabetes mellitus with hyperosmolar state The patient's hemoglobin A1c is suggestive of long-term diabetes mellitus that likely has not been treated secondary to a failure to present to PCP. HHS has resolved. We will plan to continue basal and sliding scale insulin coverage with additional dose titration as needed. 3. Hepatic steatosis/obesity/advanced age/smoker/poor primary care/nonvaccinated status Complicates care, management, recovery and prognosis. Encourage incentive spirometer use and mobilize patient as tolerated. This note was generated with [employer] dictation software. It may contain incorrect words, spelling, and punctuation that were not noted in checking the note before signing. Subjective Subjective The patient was seen and examined at the bedside this morning. Events from the last 24 hours have been reviewed. The patient is currently afebrile, he modynamically stable and maintaining appropriate oxygen saturations on Airvo heated high flow with an FiO2 requirement of 90% and flow rate of 60 L/min. The patient is currently documented to be overall net +2.8 L for the hospitalization. Liver and renal function are stable. The patient remains on remdesivir, Decadron and prophylactic Lovenox. Objective Data Objective Data The patient's most recent lab work, culture data and imaging studies have all been personally reviewed. Covid PCR was positive on September 05. Vital Signs: Vital Signs Temp Pulse Resp BP Pulse Ox 97.5 F L 72 20 H 103/76 92 09/07/21 02:00 09/07/21 04:37 09/07/21 02:00 09/07/21 02:00 09/07/21 04:37 Oxygen Flow Rate (L/min) 15 Oxygen Delivery Method High Flow Weight: 120.6 kg Body Mass Index (BMI) 34.9 Intake & Output: Intake and Output for Last 24 Hours 09/05/21 09/06/21 09/07/21 23:59 23:59 23:59 Intake Total 4311.73 / 4311.73 1460 / 1460 Output Total 2100 / 2100 2800 / 2800 175 / 175 Balance 2211.73 / 2211.73 -1340 / -1340 -175 / -175 Lab / Micro Data Attestation: I reviewed the patient's lab results. Result Diagrams: 09/07/21 04:00 09/07/21 04:40 Labs: Laboratory Results - last 24 hr 09/06/21 08:22: POC Glucose 252 H 09/06/21 12:06: POC Glucose 299 H 09/06/21 16:49: POC Glucose 302 H 09/06/21 22:03: POC Glucose 385 H 09/07/21 04:00: WBC 4.8, RBC 5.45, Hgb 14.4, Hct 44.7, MCV 82.0, MCH 26.4 L, MCHC 32.2, RDW Std Deviation 41.1, RDW Coeff of Brenda 14.6, Plt Count 187, MPV 10.8, Immature Gran % (Auto) 1.300 H, Neut % (Auto) 70.1 H, Lymph % (Auto) 22.1, [place] % (Auto) 6.1, Eos % (Auto) 0.0, Baso % (Auto) 0.4, Absolute Neuts (auto) 3.3, Absolute Lymphs (auto) 1.05, Nucleated RBC % 0 09/07/21 04:00: Sodium Cancelled, Potassium Cancelled, Chloride Cancelled, Carbon Dioxide Cancelled, Anion Gap Cancelled, BUN Cancelled, Creatinine Cancelled, Estim Creat Clear Calc Cancelled, Est GFR (MDRD) Af Amer Cancelled, Est GFR (MDRD) Non-Af Cancelled, BUN/Creatinine Ratio Cancelled, Glucose Cancelled, Calcium Cancelled, Total Bilirubin Cancelled, AST Cancelled, ALT Cancelled, Alkaline Phosphatase Cancelled, Total Protein Cancelled, Albumin Cancelled, Globulin Cancelled, Albumin/Globulin Ratio Cancelled 09/07/21 04:40: Sodium 135 L, Potassium 3.8, Chloride 103, Carbon Dioxide 24.0, Anion Gap 8, BUN 18, Creatinine 0.63 L, Estim Creat Clear Calc 162.05, Est GFR (MDRD) Af Amer 174, Est GFR (MDRD) Non-Af 144, BUN/Creatinine Ratio 28.6 H, Glucose 284 H, Calcium 7.7 L, Total Bilirubin 0.60, AST 51 H, ALT 51, Alkaline Phosphatase 80, Total Protein 6.4, Albumin 2.3 L, Globulin 4.1, Albumin/Globulin Ratio 0.6 L Physical Exam Const alert General Appearance: cooperative and ill appearing Nutritional Appearance: obese HEENT normocephalic and head/scalp atraumatic Eyes PERRL and EOMs intact bilaterally Neck supple General: trachea midline Chest inspection of chest normal Resp Effort and Inspection: tachypneic Auscultation: diminished lung sounds Cardio regular rate and regular rhythm GI normal to inspection, nondistended, normoactive bowel sounds Extremity no clubbing, cyanosis or edema Skin no rashes or lesions noted Neuro moves all extremities and no focal motor deficits Psych Mood & Affect: anxious Charges/Coding Visit Charges Inpatient E&M: 88162 Subs Hosp L3
[2021-09-07] MEDS: Insulin Lispro 100 UNIT/ML INSULN.PEN SC ×4 (08:59→21:05)
[2021-09-07] MEDS: dexAMETHasone 4 MG/ML Vial 6 MG IV (09:01)
[2021-09-07] MEDS: Ascorbic Acid 500 MG Tablet 1000 MG PO ×2 (09:01→23:15)
[2021-09-07] MEDS: QUEtiapine 25 MG Tablet PO (09:01)
[2021-09-07] MEDS: Enoxaparin 40 MG/0.4 ML Syringe SC ×2 (09:01→21:02)
[2021-09-07 09:21] LABS: Bedside Glucose 271 mg/dL (70-110)
[2021-09-07] MEDS: Furosemide 40 MG/4 ML Vial IV (11:38)
[2021-09-07 12:10] LABS: Bedside Glucose 346 mg/dL (70-110)
--- NOTE | 2021-09-07 13:42 | PN.HOSP_ITS ---
Subjective Subjective Patient seen and examined. He had no active complaints. Review of systems otherwise negative. He remains on air Vo. He does appear to have a flat affect. His nurse also informs me that patient seems to be more anxious than usual. Objective Data Objective Data Vital Signs: Vital Signs Temp Pulse Resp BP Pulse Ox 97 F L 71 20 H 109/82 H 96 09/07/21 08:00 09/07/21 12:00 09/07/21 08:00 09/07/21 08:00 09/07/21 11:46 Oxygen Flow Rate (L/min) 60 Oxygen Delivery Method Airvo Weight: 265 lb 14.04 oz Body Mass Index (BMI) 34.9 Intake & Output: Intake and Output for Last 24 Hours 09/05/21 09/06/21 09/07/21 23:59 23:59 23:59 Intake Total 4311.73 / 4311.73 1460 / 1460 240 / 240 Output Total 2100 / 2100 2800 / 2800 475 / 475 Balance 2211.73 / 2211.73 -1340 / -1340 -235 / -235 Lab / Micro Data Result Diagrams: 09/07/21 04:00 09/07/21 04:40 Labs: Laboratory Results - last 24 hr 09/06/21 16:49: POC Glucose 302 H 09/06/21 22:03: POC Glucose 385 H 09/07/21 04:00: WBC 4.8, RBC 5.45, Hgb 14.4, Hct 44.7, MCV 82.0, MCH 26.4 L, MCHC 32.2, RDW Std Deviation 41.1, RDW Coeff of Brenda 14.6, Plt Count 187, MPV 10.8, Immature Gran % (Auto) 1.300 H, Neut % (Auto) 70.1 H, Lymph % (Auto) 22.1, [place] % (Auto) 6.1, Eos % (Auto) 0.0, Baso % (Auto) 0.4, Absolute Neuts (auto) 3.3, Absolute Lymphs (auto) 1.05, Nucleated RBC % 0 09/07/21 04:00: Sodium Cancelled, Potassium Cancelled, Chloride Cancelled, Carbon Dioxide Cancelled, Anion Gap Cancelled, BUN Cancelled, Creatinine Cancelled, Estim Creat Clear Calc Cancelled, Est GFR (MDRD) Af Amer Cancelled, Est GFR (MDRD) Non-Af Cancelled, BUN/Creatinine Ratio Cancelled, Glucose Cancelled, Calcium Cancelled, Total Bilirubin Cancelled, AST Cancelled, ALT Cancelled, Alkaline Phosphatase Cancelled, Total Protein Cancelled, Albumin Cancelled, Globulin Cancelled, Albumin/Globulin Ratio Cancelled 09/07/21 04:40: Sodium 135 L, Potassium 3.8, Chloride 103, Carbon Dioxide 24.0, Anion Gap 8, BUN 18, Creatinine 0.63 L, Estim Creat Clear Calc 162.05, Est GFR (MDRD) Af Amer 174, Est GFR (MDRD) Non-Af 144, BUN/Creatinine Ratio 28.6 H, Glucose 284 H, Calcium 7.7 L, Total Bilirubin 0.60, AST 51 H, ALT 51, Alkaline Phosphatase 80, Total Protein 6.4, Albumin 2.3 L, Globulin 4.1, Albumin/Globulin Ratio 0.6 L 09/07/21 04:40: C-React Prot Ext Range 117.00 H 09/07/21 08:59: POC Glucose 271 H 09/07/21 11:36: POC Glucose 346 H Physical Exam Const alert, oriented x3 and no apparent distress Exam Limitations: no limitations HEENT head/scalp atraumatic and moist oral mucous membranes Head and Scalp: normocephalic Eyes PERRL, EOMs intact bilaterally and conjunctivae normal Neck no lymphadenopathy Resp Resp Narrative: diminished breath sounds bibasally, no wheezes or crackles. On Airvo Cardio regular rate, regular rhythm, S1 normal heart sound, S2 normal heart sound and no murmurs GI normal to inspection, nondistended, normoactive bowel sounds, soft to palpation, non-tender and non-distended Extremity normal to inspection, full ROM and no clubbing, cyanosis or edema Peripheral Pulses: Yes pulses 2+ throughout Skin no rashes or lesions noted Neuro oriented x3, CN's II-XII intact bilaterally and moves all extremities Sensorium / Orientation: awake and alert Psych affect normal Assessment & Plan Assessment/Plan (1) Pneumonia due to COVID-19 virus: (2) Acute respiratory failure with hypoxia: (3) Hyperosmolar hyperglycemic state (HHS): (4) Type II diabetes mellitus with hyperosmolarity, uncontrolled: PLAN: #Acute hypoxic respiratory failure due to COVID 19 pneumonia * now on AirVO * critical care on board. * on remdesivir and decadron * itrate oxygen to maintain sas >90% * breathing treatment with bronchodilators * diurese as needed to maintain euvolemic status * #Type 2 diabetes mellitus * Was admitted with HHS which is now resolved. He is a newly diagnosed diabetic and A1c was 13.1. * On Lantus 25 units nightly. Insulin sliding scale. Accu-Cheks AC at bedtime. * Dietitian consulted to give advice about diabetic diet. * #Anxiety and agitation: Patient has been anxious and agitated. Started on Seroquel 25 mg daily. Will consider increasing the dose if his agitation worsens. DVT prophylaxis: Lovenox Charges/Coding Visit Charges Inpatient E&M: 17166 Subs Hosp L3
[2021-09-07 17:40] LABS: Bedside Glucose 358 mg/dL (70-110)
[2021-09-07] MEDS: Acetaminophen 325 MG Tablet 650 MG PO (21:01)
[2021-09-07 21:15] LABS: Bedside Glucose 340 mg/dL (70-110)
--- NOTE | 2021-09-07 21:20 | PCM.CONS.GEN ---
Assessment & Plan Assessment/Plan (1) Type II diabetes mellitus with hyperosmolarity, uncontrolled: (2) Pneumonia due to COVID-19 virus: PLAN: Sx started around 08/31. Isolate until 09/20. Unvaccinated, encouraged vaccine after discharge once out of iso. On dex, remdesivir. On 15L or higher for over 48 hours, so will not do baricitinib. Will follow, thank you (3) Acute respiratory failure with hypoxia: HPI Consult Data Date of Consult: 09/07/21 HPI Narrative HPI Narrative: ELENO LEBLANC, is a 50 M who presented 09/04 with 4 days not feeling well, cough, dyspnea, sore throat, fever, aches. Unvaccinated. Lives with roommate who is feeling fine, vaccinated. Came to ED, admitted on dx and remdesivir. Feeling a little better. Full ROS performed and neg except as noted above. FOR[facility], [facility] Medical History ADHD (attention deficit hyperactivity disorder) Anxiety Chronic back pain Herniated disc Home Medications NK 09/04/21 [History Last Taken Unknown] Allergy/AdvReac Type Severity Reaction Status Date / Time No Known Allergies Allergy Verified 02/16/20 18:07 Family History Mother Diabetes Uncle Cancer Surgical History History of appendectomy History of tonsillectomy Social History Smoking Status: Current every day smoker tobacco type: cigarettes Tobacco: How many years used: 30 alcohol intake: never substance use type: does not use what type of physical activity do you participate in: walking Physical Exam Const alert and oriented x3 General Appearance: cooperative Exam Limitations: no limitations HEENT normocephalic and head/scalp atraumatic Eyes PERRL and EOMs intact bilaterally Neck supple and No nodes Resp Auscultation: diminished lung sounds Cardio regular rate and regular rhythm GI soft to palpation, non-tender and non-distended Extremity no clubbing, cyanosis or edema Skin no rashes or lesions noted Neuro CN's II-XII intact bilaterally Lab / Micro Data Result Diagrams: 09/07/21 04:00 09/07/21 04:40 Labs: Laboratory Results - last 24 hr 09/06/21 22:03: POC Glucose 385 H 09/07/21 04:00: WBC 4.8, RBC 5.45, Hgb 14.4, Hct 44.7, MCV 82.0, MCH 26.4 L, MCHC 32.2, RDW Std Deviation 41.1, RDW Coeff of Brenda 14.6, Plt Count 187, MPV 10.8, Immature Gran % (Auto) 1.300 H, Neut % (Auto) 70.1 H, Lymph % (Auto) 22.1, [place] % (Auto) 6.1, Eos % (Auto) 0.0, Baso % (Auto) 0.4, Absolute Neuts (auto) 3.3, Absolute Lymphs (auto) 1.05, Nucleated RBC % 0 09/07/21 04:00: Sodium Cancelled, Potassium Cancelled, Chloride Cancelled, Carbon Dioxide Cancelled, Anion Gap Cancelled, BUN Cancelled, Creatinine Cancelled, Estim Creat Clear Calc Cancelled, Est GFR (MDRD) Af Amer Cancelled, Est GFR (MDRD) Non-Af Cancelled, BUN/Creatinine Ratio Cancelled, Glucose Cancelled, Calcium Cancelled, Total Bilirubin Cancelled, AST Cancelled, ALT Cancelled, Alkaline Phosphatase Cancelled, Total Protein Cancelled, Albumin Cancelled, Globulin Cancelled, Albumin/Globulin Ratio Cancelled 09/07/21 04:40: Sodium 135 L, Potassium 3.8, Chloride 103, Carbon Dioxide 24.0, Anion Gap 8, BUN 18, Creatinine 0.63 L, Estim Creat Clear Calc 162.05, Est GFR (MDRD) Af Amer 174, Est GFR (MDRD) Non-Af 144, BUN/Creatinine Ratio 28.6 H, Glucose 284 H, Calcium 7.7 L, Total Bilirubin 0.60, AST 51 H, ALT 51, Alkaline Phosphatase 80, Total Protein 6.4, Albumin 2.3 L, Globulin 4.1, Albumin/Globulin Ratio 0.6 L 09/07/21 04:40: C-React Prot Ext Range 117.00 H 09/07/21 08:59: POC Glucose 271 H 09/07/21 11:36: POC Glucose 346 H 09/07/21 16:43: POC Glucose 358 H 12/13/21 21:05: POC Glucose 340 H
[2021-09-08] VITALS (15 sets, daily range): BP systolic 110–141; BP diastolic 58–81; PULSE 62–95; RESP 18–22; TEMP 36.2–36.9; O2SAT 91–97
[2021-09-08] MEDS: Acetaminophen 325 MG Tablet 650 MG PO ×3 (03:22→18:33)
[2021-09-08] MEDS: oxyCODONE 5 MG Tablet PO ×3 (03:23→18:33)
[2021-09-08] MEDS: Insulin Lispro 100 UNIT/ML INSULN.PEN SC ×4 (07:04→23:02)
[2021-09-08 07:11] LABS: Bedside Glucose 270 mg/dL (70-110)
[2021-09-08 09:08] LABS: Pathologist Review Reviewed
[2021-09-08 10:57] LABS: Absolute Lymphocyte Count 1.18 X10^3/uL (0.83-4.51); Absolute Neutrophil Count 4.2 X10^3/uL (2.0-7.7); Basophil# 0.02 X10^3/uL; Basophil% 0.3 % (0-1); Eosinophil# 0.01 X10^3/uL; Eosinophils% 0.2 % (0-5); Hematocrit 44.6 % (40-54); Hemoglobin 14.4 g/dL (13.0-16.5); Lymphocyte # 1.18 X10^3/ul (0.83-4.51); Lymphocyte % 20.3 % (19-41); Mean Corp Hgb Conc 32.3 g/dL (32-36); Mean Corpuscular Hgb 26.3 pg (27.0-32.0); Mean Corpuscular Volume 81.5 fL (80-94); Mean Platelet Vol. 10.2 fl (6.2-12.0); Monocyte# 0.28 X10^3/uL; Monocyte% 4.8 % (0-10); NRBC Flagged by Analyzer 0 % (0-5); Neutrophil # 4.24 X10^3/uL (2.7-7.7); Platelet Count 263 K/mm3 (150-450); RBC Distribution Width CV 13.6 % (11.6-14.6); RBC Distribution Width SD 40.3 fl (35.1-43.9); Red Blood Count 5.47 M/mm3 (4.6-6.2); White Blood Count 5.8 K/mm3 (4.4-11.0)
[2021-09-08 11:21] LABS: ALB/GLOB Ratio 0.5 RATIO (0.9-2.4); AST(SGOT) 41 U/L (15-37); Alanine Aminotransfer ALT/SGPT 53 U/L (16-61); Albumin, Serum 2.1 g/dL (3.2-5.0); Alkaline Phosphatase 88 U/L (45-117); Anion Gap 9 (5-15); BUN 15 mg/dL (7-18); BUN/Creat Ratio 24.5 RATIO (10-20); Chloride 104 mmol/L (98-107); Creatinine, Serum 0.61 mg/dL (0.70-1.30); EST Glomerular Filtration Rate 149 mL/min (>60); Est Glom Filt Rate - Afr Amer 180 mL/min (>60); Estimated Creatinine Clearance 167.37 ml/min; Globulin 4.4 g/dL (2.2-4.2); Glucose 214 mg/dL (74-106); Potassium 3.6 mmol/L (3.5-5.1); Protein, Total 6.5 g/dL (6.4-8.2); Sodium Level 137 mmol/L (136-145)
[2021-09-08] MEDS: QUEtiapine 25 MG Tablet PO (11:30)
[2021-09-08] MEDS: Enoxaparin 40 MG/0.4 ML Syringe SC ×2 (11:39→23:02)
--- NOTE | 2021-09-08 11:56 | PN.HOSP_ITS ---
Subjective Subjective Patient seen and examined. He complained of pleuritic chest pain with breathing in and out. He denied any coughing. He remains on air Vo. Review of systems otherwise negative. He has remained hemodynamically stable otherwise Objective Data Objective Data Vital Signs: Vital Signs Temp Pulse Resp BP Pulse Ox 98.4 F 79 22 H 115/58 L 97 09/08/21 11:00 09/08/21 11:00 09/08/21 11:00 09/08/21 11:00 09/08/21 11:00 Oxygen Flow Rate (L/min) 60 Oxygen Delivery Method Airvo Weight: 267 lb Body Mass Index (BMI) 34.9 Intake & Output: Intake and Output for Last 24 Hours 09/06/21 09/07/21 09/08/21 23:59 23:59 23:59 Intake Total 1460 / 1460 740 / 740 Output Total 2800 / 2800 1575 / 1575 Balance -1340 / -1340 -835 / -835 Lab / Micro Data Result Diagrams: 09/08/21 07:44 09/08/21 07:44 Labs: Laboratory Results - last 24 hr 09/04/21 18:27: Diff Path Review Reviewed 09/07/21 11:36: POC Glucose 346 H 09/07/21 16:43: POC Glucose 358 H 09/07/21 21:05: POC Glucose 340 H 09/08/21 07:03: POC Glucose 270 H 09/08/21 07:44: WBC 5.8, RBC 5.47, Hgb 14.4, Hct 44.6, MCV 81.5, MCH 26.3 L, MCHC 32.3, RDW Std Deviation 40.3, RDW Coeff of Brenda 13.6, Plt Count 263, MPV 10.2, Immature Gran % (Auto) 1.400 H, Neut % (Auto) 73.0 H, Lymph % (Auto) 20.3, [place] % (Auto) 4.8, Eos % (Auto) 0.2, Baso % (Auto) 0.3, Absolute Neuts (auto) 4.2, Absolute Lymphs (auto) 1.18, Nucleated RBC % 0 09/08/21 07:44: Sodium 137, Potassium 3.6, Chloride 104, Carbon Dioxide 24.0, Anion Gap 9, BUN 15, Creatinine 0.61 L, Estim Creat Clear Calc 167.37, Est GFR (MDRD) Af Amer 180, Est GFR (MDRD) Non-Af 149, BUN/Creatinine Ratio 24.5 H, Glucose 214 H, Calcium 8.0 L, Total Bilirubin 0.50, AST 41 H, ALT 53, Alkaline Phosphatase 88, Total Protein 6.5, Albumin 2.1 L, Globulin 4.4 H, Albumin/Globulin Ratio 0.5 L Physical Exam Const alert, oriented x3 and no apparent distress Exam Limitations: no limitations HEENT head/scalp atraumatic and moist oral mucous membranes Head and Scalp: normocephalic Eyes PERRL, EOMs intact bilaterally and conjunctivae normal Neck no lymphadenopathy Resp Resp Narrative: diminished breath sounds bibasally, no wheezes or crackles. Still on Airvo Cardio regular rate, regular rhythm, S1 normal heart sound, S2 normal heart sound and no murmurs GI normal to inspection, nondistended, normoactive bowel sounds, soft to palpation, non-tender and non-distended Extremity normal to inspection, full ROM and no clubbing, cyanosis or edema Peripheral Pulses: Yes pulses 2+ throughout Skin no rashes or lesions noted Neuro oriented x3, CN's II-XII intact bilaterally and moves all extremities Sensorium / Orientation: awake and alert Psych Psych Narrative: flat affect Assessment & Plan Assessment/Plan (1) Pneumonia due to COVID-19 virus: (2) Acute respiratory failure with hypoxia: (3) Hyperosmolar hyperglycemic state (HHS): (4) Type II diabetes mellitus with hyperosmolarity, uncontrolled: PLAN: #Acute hypoxic respiratory failure due to COVID 19 pneumonia * still on AirVO * critical care on board. * on remdesivir and decadron * titrate oxygen to maintain sas >90% * breathing treatment with bronchodilators * diurese as needed to maintain euvolemic status * #Type 2 diabetes mellitus * He is a newly diagnosed diabetic and A1c was 13.1. * On Lantus 25 units nightly. Insulin sliding scale. Accu-Cheks AC at bedtime. * Dietitian consulted to give advice about diabetic diet. * #Anxiety and agitation:on seroquel DVT prophylaxis: Lovenox Charges/Coding Visit Charges Inpatient E&M: 39711 Subs Hosp L3
[2021-09-08] MEDS: dexAMETHasone 4 MG/ML Vial 6 MG IV (12:24)
--- NOTE | 2021-09-08 14:10 | PCM.PN.INT ---
Assessment & Plan Assessment/Plan (1) Type II diabetes mellitus with hyperosmolarity, uncontrolled: (2) Acute respiratory failure with hypoxia: (3) Pneumonia due to COVID-19 virus: (4) Hyperosmolar hyperglycemic state (HHS): PLAN: RECOMMENDATIONS: 1. Continue heated high flow and wean FiO2 to maintain oxygen saturations at or above 90%. 2. Continue remdesivir and Decadron to complete treatment courses. 3. Encourage incentive spirometer use and mobilize patient as tolerated. 4. Continue prophylactic Lovenox. 5. Diuresis as needed to assist in maintaining euvolemic state. IMPRESSIONS: 1. Acute hypoxic respiratory failure secondary to COVID-19 pneumonia The patient initially presented to the hospital on September 04 with confusion in the setting of hyperosmolar hyperglycemic state. The patient did receive a significant amount of volume resuscitation as a consequence of the aforementioned. He then went on to develop respiratory failure and was also found to be positive for COVID-19. He is currently requiring heated high flow with a high FiO2 requirement to maintain appropriate saturations. The patient has already been initiated on remdesivir, prophylactic Lovenox and Decadron. The patient was not felt to be a candidate for baricitinib following evaluation by infectious diseases. Diuretics can be utilized as needed to maintain euvolemic state. 2. New onset diabetes mellitus with hyperosmolar state The patient's hemoglobin A1c is suggestive of long-term diabetes mellitus that likely has not been treated secondary to a failure to present to PCP. HHS has resolved. We will plan to continue basal and sliding scale insulin coverage with additional dose titration as needed. 3. Hepatic steatosis/obesity/advanced age/smoker/poor primary care/nonvaccinated status Complicates care, management, recovery and prognosis. Encourage incentive spirometer use and mobilize patient as tolerated. This note was generated with [employer] dictation software. It may contain incorrect words, spelling, and punctuation that were not noted in checking the note before signing. Subjective Subjective The patient was seen and examined at the bedside this morning. Events from the last 24 hours have been reviewed. The patient is currently afebrile, hemodynamically stable and maintaining appropriate oxygen saturations on Airvo heated high flow with an FiO2 requirement of 60% and flow rate of 60 L/min. The patient is currently documented to be overall net +2.3 L for the hospitalization. Liver and renal function are stable. The patient remains on remdesivir, Decadron and prophylactic Lovenox. The patient was not felt to be a candidate for baricitinib by infectious diseases. Objective Data Objective Data The patient's most recent lab work, culture data and imaging studies have all been personally reviewed. Covid PCR was positive on September 05. Vital Signs: Vital Signs Temp Pulse Resp BP Pulse Ox 98.4 F 95 22 H 115/58 L 93 09/08/21 11:00 09/08/21 12:19 09/08/21 11:00 09/08/21 11:00 09/08/21 12:19 Oxygen Flow Rate (L/min) 60 Oxygen Delivery Method Airvo Weight: 121.109 kg Body Mass Index (BMI) 34.9 Intake & Output: Intake and Output for Last 24 Hours 09/06/21 09/07/21 09/08/21 23:59 23:59 23:59 Intake Total 1460 / 1460 740 / 740 240 / 240 Output Total 2800 / 2800 1575 / 1575 Balance -1340 / -1340 -835 / -835 240 / 240 Lab / Micro Data Attestation: I reviewed the patient's lab results. Result Diagrams: 09/08/21 07:44 09/08/21 07:44 Labs: Laboratory Results - last 24 hr 09/04/21 18:27: Diff Path Review Reviewed 09/07/21 16:43: POC Glucose 358 H 09/07/21 21:05: POC Glucose 340 H 09/08/21 07:03: POC Glucose 270 H 09/08/21 07:44: WBC 5.8, RBC 5.47, Hgb 14.4, Hct 44.6, MCV 81.5, MCH 26.3 L, MCHC 32.3, RDW Std Deviation 40.3, RDW Coeff of Brenda 13.6, Plt Count 263, MPV 10.2, Immature Gran % (Auto) 1.400 H, Neut % (Auto) 73.0 H, Lymph % (Auto) 20.3, [place] % (Auto) 4.8, Eos % (Auto) 0.2, Baso % (Auto) 0.3, Absolute Neuts (auto) 4.2, Absolute Lymphs (auto) 1.18, Nucleated RBC % 0 09/08/21 07:44: Sodium 137, Potassium 3.6, Chloride 104, Carbon Dioxide 24.0, Anion Gap 9, BUN 15, Creatinine 0.61 L, Estim Creat Clear Calc 167.37, Est GFR (MDRD) Af Amer 180, Est GFR (MDRD) Non-Af 149, BUN/Creatinine Ratio 24.5 H, Glucose 214 H, Calcium 8.0 L, Total Bilirubin 0.50, AST 41 H, ALT 53, Alkaline Phosphatase 88, Total Protein 6.5, Albumin 2.1 L, Globulin 4.4 H, Albumin/Globulin Ratio 0.5 L Physical Exam Const alert General Appearance: cooperative Nutritional Appearance: obese HEENT normocephalic and head/scalp atraumatic Eyes PERRL and EOMs intact bilaterally Neck supple General: trachea midline Chest inspection of chest normal Resp no use of accessory muscles Auscultation: diminished lung sounds Cardio regular rate and regular rhythm GI normal to inspection, nondistended, normoactive bowel sounds Extremity no clubbing, cyanosis or edema Skin no rashes or lesions noted Neuro moves all extremities and no focal motor deficits Psych Mood & Affect: anxious Charges/Coding Visit Charges Inpatient E&M: 44643 Subs Hosp L3
[2021-09-08 14:46] LABS: Bedside Glucose 234 mg/dL (70-110)
[2021-09-08] MEDS: 0.9% Saline Lock 10 ML Syringe IV (17:02)
[2021-09-08 17:21] LABS: Bedside Glucose 300 mg/dL (70-110)
[2021-09-08] MEDS: MELATONIN 10 MG TABLET PO (23:07)
[2021-09-08] MEDS: Ascorbic Acid 500 MG Tablet 1000 MG PO (23:07)
[2021-09-08 23:15] LABS: Bedside Glucose 363 mg/dL (70-110)
[2021-09-09] VITALS (14 sets, daily range): BP systolic 119–133; BP diastolic 68–82; PULSE 65–99; RESP 16–26; TEMP 36.2–37.1; O2SAT 92–95
[2021-09-09] MEDS: Acetaminophen 325 MG Tablet 650 MG PO ×3 (02:48→15:32)
[2021-09-09] MEDS: oxyCODONE 5 MG Tablet PO ×4 (02:48→21:30)
[2021-09-09] MEDS: Insulin Lispro 100 UNIT/ML INSULN.PEN SC ×4 (06:16→21:30)
[2021-09-09 06:25] LABS: Bedside Glucose 181 mg/dL (70-110)
[2021-09-09 07:03] LABS: Absolute Lymphocyte Count 1.02 X10^3/uL (0.83-4.51); Absolute Neutrophil Count 3.7 X10^3/uL (2.0-7.7); Basophil# 0.02 X10^3/uL; Basophil% 0.4 % (0-1); Hematocrit 38.4 % (40-54); Lymphocyte # 1.02 X10^3/ul (0.83-4.51); Lymphocyte % 19.8 % (19-41); Mean Corp Hgb Conc 33.9 g/dL (32-36); Mean Corpuscular Hgb 26.6 pg (27.0-32.0); Mean Corpuscular Volume 78.5 fL (80-94); Mean Platelet Vol. 9.6 fl (6.2-12.0); Monocyte# 0.26 X10^3/uL; Monocyte% 5.1 % (0-10); NRBC Flagged by Analyzer 0 % (0-5); Neutrophil # 3.71 X10^3/uL (2.7-7.7); Neutrophil % 72.2 % (47-70); POSITIVE MORPHOLOGY YES; Platelet Count 256 K/mm3 (150-450); RBC Distribution Width CV 13.6 % (11.6-14.6); RBC Distribution Width SD 38.9 fl (35.1-43.9); Red Blood Count 4.89 M/mm3 (4.6-6.2); White Blood Count 5.1 K/mm3 (4.4-11.0)
[2021-09-09 07:05] LABS: Differential Indicated SCAN CRITERIA MET
[2021-09-09 07:39] LABS: ALB/GLOB Ratio 0.5 RATIO (0.9-2.4); AST(SGOT) 31 U/L (15-37); Alanine Aminotransfer ALT/SGPT 47 U/L (16-61); Albumin, Serum 1.9 g/dL (3.2-5.0); Alkaline Phosphatase 81 U/L (45-117); Anion Gap 5 (5-15); BUN 11 mg/dL (7-18); BUN/Creat Ratio 23.8 RATIO (10-20); Calcium,Total 7.6 mg/dL (8.5-10.1); Chloride 107 mmol/L (98-107); Creatinine, Serum 0.46 mg/dL (0.70-1.30); EST Glomerular Filtration Rate 205 mL/min (>60); Est Glom Filt Rate - Afr Amer 248 mL/min (>60); Estimated Creatinine Clearance 221.94 ml/min; Globulin 3.9 g/dL (2.2-4.2); Glucose 161 mg/dL (74-106); Potassium 3.3 mmol/L (3.5-5.1); Protein, Total 5.8 g/dL (6.4-8.2); Sodium Level 138 mmol/L (136-145)
[2021-09-09 07:53] LABS: Reactive Lymphocyte RARE
[2021-09-09] MEDS: dexAMETHasone 4 MG/ML Vial 6 MG IV (09:07)
[2021-09-09] MEDS: QUEtiapine 25 MG Tablet PO (09:07)
[2021-09-09] MEDS: Enoxaparin 40 MG/0.4 ML Syringe SC ×2 (09:08→21:29)
[2021-09-09] MEDS: Ascorbic Acid 500 MG Tablet 1000 MG PO ×2 (09:08→21:29)
[2021-09-09] MEDS: 0.9% Saline Lock 10 ML Syringe IV (09:20)
--- NOTE | 2021-09-09 12:43 | PN.HOSP_ITS ---
Subjective Subjective Patient seen and examined. He had no active complaints. Review of systems is otherwise negative. He remains on BIPAP. Review of systems is otherwise negative. I was informed by his nurse yesterday that his family had informed him that patient was schizophrenic, but had not been compliant with his meds. i asked patient about his schizophrenia diagnosis today, but said he didnt know he had schizophrenia, and didnt want to talk about it. Review of systems is otherwise negative. Objective Data Objective Data Vital Signs: Vital Signs Temp Pulse Resp BP Pulse Ox 98.3 F 99 18 133/74 H 93 09/09/21 09:22 09/09/21 09:22 09/09/21 09:22 09/09/21 09:22 09/09/21 09:22 Oxygen Flow Rate (L/min) 55 Oxygen Delivery Method Airvo Weight: 267 lb Body Mass Index (BMI) 34.9 Intake & Output: Intake and Output for Last 24 Hours 09/07/21 09/08/21 09/09/21 23:59 23:59 23:59 Intake Total 740 / 740 610 / 610 300 / 300 Output Total 1575 / 1575 600 / 600 Balance -835 / -835 610 / 310 -300 / -300 Lab / Micro Data Result Diagrams: 09/09/21 06:30 09/09/21 06:30 Labs: Laboratory Results - last 24 hr 09/08/21 11:35: POC Glucose 234 H 09/08/21 17:01: POC Glucose 300 H 09/08/21 22:57: POC Glucose 363 H 09/09/21 06:15: POC Glucose 181 H 09/09/21 06:30: WBC 5.1, RBC 4.89, Hgb 13.0, Hct 38.4 L, MCV 78.5 L, MCH 26.6 L, MCHC 33.9, RDW Std Deviation 38.9, RDW Coeff of Brenda 13.6, Plt Count 256, MPV 9.6, Immature Gran % (Auto) 2.500 H, Neut % (Auto) 72.2 H, Lymph % (Auto) 19.8, [place] % (Auto) 5.1, Eos % (Auto) 0.0, Baso % (Auto) 0.4, Absolute Neuts (auto) 3.7, Absolute Lymphs (auto) 1.02, Nucleated RBC % 0, Reactive Lymphocytes RARE 09/09/21 06:30: Sodium 138, Potassium 3.3 L, Chloride 107, Carbon Dioxide 26.0, Anion Gap 5, BUN 11, Creatinine 0.46 L, Estim Creat Clear Calc 221.94, Est GFR (MDRD) Af Amer 248, Est GFR (MDRD) Non-Af 205, BUN/Creatinine Ratio 23.8 H, Glucose 161 H, Calcium 7.6 L, Total Bilirubin 0.50, AST 31, ALT 47, Alkaline Phosphatase 81, Total Protein 5.8 L, Albumin 1.9 L, Globulin 3.9, Albumin/Globulin Ratio 0.5 L Physical Exam Const alert, oriented x3 and no apparent distress Exam Limitations: no limitations HEENT head/scalp atraumatic and moist oral mucous membranes Head and Scalp: normocephalic Eyes PERRL, EOMs intact bilaterally and conjunctivae normal Neck no lymphadenopathy Resp Resp Narrative: diminished breath sounds bibasally, no wheezes or crackles. Still on Airvo Cardio regular rate, regular rhythm, S1 normal heart sound, S2 normal heart sound and no murmurs GI normal to inspection, nondistended, normoactive bowel sounds, soft to palpation, non-tender and non-distended Extremity normal to inspection, full ROM and no clubbing, cyanosis or edema Peripheral Pulses: Yes pulses 2+ throughout Skin no rashes or lesions noted Neuro oriented x3, CN's II-XII intact bilaterally and moves all extremities Sensorium / Orientation: awake and alert Psych Psych Narrative: flat affect Assessment & Plan Assessment/Plan (1) Pneumonia due to COVID-19 virus: (2) Acute respiratory failure with hypoxia: (3) Hyperosmolar hyperglycemic state (HHS): (4) Type II diabetes mellitus with hyperosmolarity, uncontrolled: PLAN: #Acute hypoxic respiratory failure due to COVID 19 pneumonia * still on AirVO * critical care on board. * on remdesivir and decadron * titrate oxygen to maintain sas >90% * breathing treatment with bronchodilators * diurese as needed to maintain euvolemic status * #Hypokalemia: K is 3.3. Will replace and trend. #Type 2 diabetes mellitus * He is a newly diagnosed diabetic and A1c was 13.1. * On Lantus 25 units nightly. Insulin sliding scale. Accu-Cheks AC at bedtime. * #Schizophrenia * patient reportedly has a diagnosis of schizophrenia. Patient however says that he doesnt want to talk about his schizophrenia and as far as he is concerned, he doesnt have schizophrenia * #Anxiety and agitation:on seroquel DVT prophylaxis: Lovenox 40mg bid Charges/Coding Visit Charges Inpatient E&M: 88238 Subs Hosp L2
[2021-09-09 13:00] LABS: Bedside Glucose 261 mg/dL (70-110)
[2021-09-09 16:01] LABS: Bedside Glucose 255 mg/dL (70-110)
[2021-09-09 21:40] LABS: Bedside Glucose 307 mg/dL (70-110)
[2021-09-10] VITALS (18 sets, daily range): BP systolic 132–136; BP diastolic 67–86; PULSE 67–105; RESP 16–28; TEMP 36.3–36.8; O2SAT 91–95
[2021-09-10] MEDS: oxyCODONE 5 MG Tablet PO ×3 (03:26→22:11)
[2021-09-10] MEDS: Insulin Lispro 100 UNIT/ML INSULN.PEN SC ×4 (06:53→22:09)
[2021-09-10 07:00] LABS: Bedside Glucose 157 mg/dL (70-110)
--- NOTE | 2021-09-10 09:38 | PCS.PANDOC ---
PANDEMIC DOCUMENTATION INITIATED: Date: 05/11/2021 Time: 190
--- NOTE | 2021-09-10 11:25 | PN.HOSP_ITS ---
Subjective Subjective Patient seen and examined. He remains on air Vo. He complains of back pain from lying in bed for too long. REview of systems is otherwise negative. He has otherwise remained hemodynamically stable. Objective Data Objective Data Vital Signs: Vital Signs Temp Pulse Resp BP Pulse Ox 98.1 F 97 28 H 132/67 H 91 09/10/21 03:25 09/10/21 10:00 09/10/21 07:42 09/10/21 03:25 09/10/21 10:00 Oxygen Flow Rate (L/min) 55 Oxygen Delivery Method Airvo Weight: 266 lb 1.567 oz Body Mass Index (BMI) 34.9 Intake & Output: Intake and Output for Last 24 Hours 09/08/21 09/09/21 09/10/21 23:59 23:59 23:59 Intake Total 610 / 610 550 / 550 Output Total 800 / 800 Balance 610 / 310 -250 / -250 Lab / Micro Data Result Diagrams: 09/09/21 06:30 09/09/21 06:30 Labs: Laboratory Results - last 24 hr 09/09/21 12:41: POC Glucose 261 H 09/09/21 15:36: POC Glucose 255 H 09/09/21 21:25: POC Glucose 307 H 09/10/21 06:51: POC Glucose 157 H Physical Exam Const alert, oriented x3 and no apparent distress Exam Limitations: no limitations HEENT head/scalp atraumatic and moist oral mucous membranes Head and Scalp: normocephalic Eyes PERRL, EOMs intact bilaterally and conjunctivae normal Neck no lymphadenopathy Resp Resp Narrative: diminished breath sounds bibasally, no wheezes or crackles. Still on Airvo Cardio regular rate, regular rhythm, S1 normal heart sound, S2 normal heart sound and no murmurs GI normal to inspection, nondistended, normoactive bowel sounds, soft to palpation, non-tender and non-distended Extremity normal to inspection, full ROM and no clubbing, cyanosis or edema Skin no rashes or lesions noted Neuro oriented x3, CN's II-XII intact bilaterally and moves all extremities Sensorium / Orientation: awake and alert Psych affect normal Psych Narrative: flat affect Assessment & Plan Assessment/Plan (1) Pneumonia due to COVID-19 virus: (2) Acute respiratory failure with hypoxia: (3) Hyperosmolar hyperglycemic state (HHS): (4) Type II diabetes mellitus with hyperosmolarity, uncontrolled: PLAN: #Acute hypoxic respiratory failure due to COVID 19 pneumonia * still on AirVO * critical care on board. * on remdesivir and decadron * titrate oxygen to maintain sas >90% * breathing treatment with bronchodilators * diurese as needed to maintain euvolemic status * #Hypokalemia:resolved. #Type 2 diabetes mellitus * He is a newly diagnosed diabetic and A1c was 13.1. * On Lantus 25 units nightly. Insulin sliding scale. Accu-Cheks AC at bedtime. * #Schizophrenia * patient reportedly has a diagnosis of schizophrenia. Patient however says that he doesnt want to talk about his schizophrenia and as far as he is concerned, he doesnt have schizophrenia * recommend follow up with his psychiatrist on outpatient basis * #Anxiety and agitation:on seroquel DVT prophylaxis: Lovenox 40mg bid Charges/Coding Visit Charges Inpatient E&M: 07019 Subs Hosp L2
[2021-09-10] MEDS: Enoxaparin 40 MG/0.4 ML Syringe SC ×2 (11:31→22:10)
[2021-09-10] MEDS: 0.9% Saline Lock 10 ML Syringe IV (11:31)
[2021-09-10] MEDS: Ascorbic Acid 500 MG Tablet 1000 MG PO ×2 (11:31→22:11)
[2021-09-10] MEDS: dexAMETHasone 4 MG/ML Vial 6 MG IV (11:32)
[2021-09-10] MEDS: QUEtiapine 25 MG Tablet PO (11:32)
[2021-09-10 12:11] LABS: Bedside Glucose 281 mg/dL (70-110)
[2021-09-10 19:11] LABS: Bedside Glucose 392 mg/dL (70-110)
[2021-09-10 19:11] LABS: Bedside Glucose 403 mg/dL (70-110)
[2021-09-10] MEDS: Acetaminophen 325 MG Tablet 650 MG PO (22:11)
[2021-09-10 22:56] LABS: Bedside Glucose 287 mg/dL (70-110)
[2021-09-11] VITALS (16 sets, daily range): BP systolic 113–134; BP diastolic 67–89; PULSE 57–114; RESP 16–20; TEMP 36.3–36.9; O2SAT 90–96
[2021-09-11] MEDS: Insulin Lispro 100 UNIT/ML INSULN.PEN SC ×4 (05:46→21:26)
[2021-09-11] MEDS: oxyCODONE 5 MG Tablet PO ×3 (05:47→20:57)
[2021-09-11 06:00] LABS: Bedside Glucose 238 mg/dL (70-110)
[2021-09-11 08:54] LABS: Hematocrit 43.8 % (40-54); Hemoglobin 14.1 g/dL (13.0-16.5); Mean Corp Hgb Conc 32.2 g/dL (32-36); Mean Corpuscular Hgb 26.6 pg (27.0-32.0); Mean Corpuscular Volume 82.5 fL (80-94); Mean Platelet Vol. 9.3 fl (6.2-12.0); POSITIVE COUNT YES; POSITIVE MORPHOLOGY YES; Platelet Count 321 K/mm3 (150-450); RBC Distribution Width CV 13.7 % (11.6-14.6); Red Blood Count 5.31 M/mm3 (4.6-6.2)
[2021-09-11 08:55] LABS: Differential Indicated MANUAL DIFF
[2021-09-11 09:21] LABS: Anion Gap 6 (5-15); BUN 12 mg/dL (7-18); BUN/Creat Ratio 16.6 RATIO (10-20); Calcium,Total 8.4 mg/dL (8.5-10.1); Chloride 103 mmol/L (98-107); Creatinine, Serum 0.72 mg/dL (0.70-1.30); EST Glomerular Filtration Rate 123 mL/min (>60); Est Glom Filt Rate - Afr Amer 148 mL/min (>60); Glucose 205 mg/dL (74-106); Potassium 3.5 mmol/L (3.5-5.1); Sodium Level 138 mmol/L (136-145)
[2021-09-11 09:29] LABS: Basophil 1 % (0-1); Eosinophil 2 % (0-5); Lymphocyte 11 % (19-41); Metamyelocyte 6 % (0-1); Monocyte 4 % (0-10); Myelocyte 1 % (0-0); Neutrophil-Band 2 % (0-5); Neutrophil-Segmented 73 % (47-70); Platelet Estimate ADEQUATE (ADEQ); Red Cell Morphology NORM C+C NORMAL (NORM C&C); Total Cells Counted 100 (MANUAL DIFF)
[2021-09-11 09:30] LABS: Absolute Lymphocyte Count 0.88 X10^3/uL (0.83-4.51); Lymphocyte # 0.88 X10^3/ul (0.83-4.51); Neutrophil # 6.03 X10^3/uL (2.7-7.7)
[2021-09-11] MEDS: Enoxaparin 40 MG/0.4 ML Syringe SC ×2 (10:00→20:56)
[2021-09-11] MEDS: QUEtiapine 25 MG Tablet PO (10:00)
[2021-09-11] MEDS: Ascorbic Acid 500 MG Tablet 1000 MG PO ×2 (10:01→20:56)
[2021-09-11] MEDS: dexAMETHasone 4 MG/ML Vial 6 MG IV (10:29)
[2021-09-11] MEDS: 0.9% Saline Lock 10 ML Syringe IV (10:30)
--- NOTE | 2021-09-11 11:04 | PCM.PN.INT ---
Assessment & Plan Assessment/Plan (1) Type II diabetes mellitus with hyperosmolarity, uncontrolled: (2) Acute respiratory failure with hypoxia: (3) Pneumonia due to COVID-19 virus: (4) Hyperosmolar hyperglycemic state (HHS): PLAN: RECOMMENDATIONS: 1. Wean supplemental oxygen for saturations greater than 90%. 2. Continue Decadron to complete 10 days of therapy. 3. Encourage incentive spirometer use and mobilize patient as tolerated. 4. Continue prophylactic Lovenox. 5. Diuresis as needed to assist in maintaining euvolemic state. IMPRESSIONS: 1. Acute hypoxic respiratory failure secondary to COVID-19 pneumonia The patient initially presented to the hospital on September 04 with confusion in the setting of hyperosmolar hyperglycemic state. The patient did receive a significant amount of volume resuscitation as a consequence of the aforementioned. He then went on to develop respiratory failure and was also found to be positive for COVID-19. The patient has completed a treatment course of remdesivir and remains on prophylactic Lovenox and Decadron. He was not felt to be a candidate for baricitinib. Oxygenation status is slowly improving. Continue to wean as tolerated for saturations greater than 90%. Diuretics can be utilized as needed to maintain euvolemic state. 2. New onset diabetes mellitus with hyperosmolar state The patient's hemoglobin A1c is suggestive of long-term diabetes mellitus that likely has not been treated secondary to a failure to present to PCP. HHS has resolved. We will plan to continue basal and sliding scale insulin coverage with additional dose titration as needed. 3. Hepatic steatosis/obesity/advanced age/smoker/poor primary care/nonvaccinated status Complicates care, management, recovery and prognosis. Encourage incentive spirometer use and mobilize patient as tolerated. This note was generated with [employer] dictation software. It may contain incorrect words, spelling, and punctuation that were not noted in checking the note before signing. Subjective Subjective The patient was seen and examined at the bedside this morning. Events from the last 24 hours have been reviewed. The patient is currently afebrile, hemodynamically stable and maintaining appropriate oxygen saturations on nasal cannula oxygen at 12 L/min. The patient is currently documented to be overall net +2 L for the hospitalization. Renal function remains stable. The patient has completed his treatment course of remdesivir and remains on Decadron and prophylactic Lovenox. The patient was not felt to be a candidate for baricitinib by infectious diseases. Objective Data Objective Data The patient's most recent lab work, culture data and imaging studies have all been personally reviewed. Covid PCR was positive on September 05. Vital Signs: Vital Signs Temp Pulse Resp BP Pulse Ox 97.4 F L 89 16 134/89 H 90 09/11/21 10:10 09/11/21 10:10 09/11/21 10:10 09/11/21 10:10 09/11/21 10:10 Oxygen Flow Rate (L/min) 12 Oxygen Delivery Method Nasal Cannula Weight: 118.705 kg Body Mass Index (BMI) 34.9 Intake & Output: Intake and Output for Last 24 Hours 09/09/21 09/10/21 09/11/21 23:59 23:59 23:59 Intake Total 550 / 550 Output Total 800 / 800 400 / 400 Balance -250 / -250 -400 / -400 Lab / Micro Data Attestation: I reviewed the patient's lab results. Result Diagrams: 09/11/21 08:40 09/11/21 08:40 Labs: Laboratory Results - last 24 hr 09/10/21 11:19: POC Glucose 281 H 09/10/21 18:01: POC Glucose 403 H 09/10/21 18:03: POC Glucose 392 H 09/10/21 22:08: POC Glucose 287 H 09/11/21 05:45: POC Glucose 238 H 09/11/21 08:40: WBC 8.0, RBC 5.31, Hgb 14.1, Hct 43.8, MCV 82.5 D, MCH 26.6 L, MCHC 32.2 D, RDW Std Deviation 41.0, RDW Coeff of Brenda 13.7, Plt Count 321, MPV 9.3, Neut % (Auto) Not Reportable, Absolute Neuts (auto) 6.0, Absolute Lymphs (auto) 0.88, Total Counted 100, Neutrophils % (Manual) 73 H, Band Neutrophils % 2, Lymphocytes % (Manual) 11 L, Monocytes % (Manual) 4, Eosinophils % (Manual) 2, Basophils % (Manual) 1, Metamyelocytes % 6 H, Myelocytes % 1 H, Diff Path Review January, Platelet Estimate ADEQUATE, RBC Morphology NORM C+C 09/11/21 08:40: Sodium 138, Potassium 3.5, Chloride 103, Carbon Dioxide 29.0, Anion Gap 6, BUN 12, Creatinine 0.72, Estim Creat Clear Calc 141.80, Est GFR (MDRD) Af Amer 148, Est GFR (MDRD) Non-Af 123, BUN/Creatinine Ratio 16.6, Glucose 205 H, Calcium 8.4 L Physical Exam Const alert General Appearance: cooperative Nutritional Appearance: obese HEENT normocephalic and head/scalp atraumatic Eyes PERRL and EOMs intact bilaterally Neck supple General: trachea midline Chest inspection of chest normal Resp normal respiratory effort Auscultation: diminished lung sounds Cardio regular rate and regular rhythm GI normal to inspection, nondistended, normoactive bowel sounds Extremity no clubbing, cyanosis or edema Skin no rashes or lesions noted Neuro moves all extremities and no focal motor deficits Psych Mood & Affect: flat affect Charges/Coding Visit Charges Inpatient E&M: 27059 Subs Hosp L2
--- NOTE | 2021-09-11 11:23 | PN.HOSP_ITS ---
Subjective Subjective Patient seen and examined. He had no complaints. He had been weaned down to 12 L of oxygen was not of air Vo. Objective Data Objective Data Vital Signs: Vital Signs Temp Pulse Resp BP Pulse Ox 97.4 F L 89 16 134/89 H 90 09/11/21 10:10 09/11/21 10:10 09/11/21 10:10 09/11/21 10:10 09/11/21 10:10 Oxygen Flow Rate (L/min) 12 Oxygen Delivery Method Nasal Cannula Weight: 261 lb 11.2 oz Body Mass Index (BMI) 34.9 Intake & Output: Intake and Output for Last 24 Hours 09/09/21 09/10/21 09/11/21 23:59 23:59 23:59 Intake Total 550 / 550 Output Total 800 / 800 400 / 400 Balance -250 / -250 -400 / -400 Lab / Micro Data Result Diagrams: 09/11/21 08:40 09/11/21 08:40 Labs: Laboratory Results - last 24 hr 09/10/21 11:19: POC Glucose 281 H 09/10/21 18:01: POC Glucose 403 H 09/10/21 18:03: POC Glucose 392 H 09/10/21 22:08: POC Glucose 287 H 09/11/21 05:45: POC Glucose 238 H 09/11/21 08:40: WBC 8.0, RBC 5.31, Hgb 14.1, Hct 43.8, MCV 82.5 D, MCH 26.6 L, MCHC 32.2 D, RDW Std Deviation 41.0, RDW Coeff of Brenda 13.7, Plt Count 321, MPV 9.3, Neut % (Auto) Not Reportable, Absolute Neuts (auto) 6.0, Absolute Lymphs (auto) 0.88, Total Counted 100, Neutrophils % (Manual) 73 H, Band Neutrophils % 2, Lymphocytes % (Manual) 11 L, Monocytes % (Manual) 4, Eosinophils % (Manual) 2, Basophils % (Manual) 1, Metamyelocytes % 6 H, Myelocytes % 1 H, Diff Path Review May , Platelet Estimate ADEQUATE, RBC Morphology NORM C+C 09/11/21 08:40: Sodium 138, Potassium 3.5, Chloride 103, Carbon Dioxide 29.0, Anion Gap 6, BUN 12, Creatinine 0.72, Estim Creat Clear Calc 141.80, Est GFR (MDRD) Af Amer 148, Est GFR (MDRD) Non-Af 123, BUN/Creatinine Ratio 16.6, Glucose 205 H, Calcium 8.4 L Physical Exam Const alert, oriented x3 and no apparent distress Exam Limitations: no limitations HEENT head/scalp atraumatic and moist oral mucous membranes Head and Scalp: normocephalic Eyes PERRL, EOMs intact bilaterally and conjunctivae normal Neck no lymphadenopathy Resp Resp Narrative: diminished breath sounds bibasally, no wheezes or crackles. Now on 12L of oxygen. Cardio regular rate, regular rhythm, S1 normal heart sound, S2 normal heart sound and no murmurs GI normal to inspection, nondistended, normoactive bowel sounds, soft to palpation, non-tender and non-distended Extremity normal to inspection, full ROM and no clubbing, cyanosis or edema Skin no rashes or lesions noted Neuro oriented x3, CN's II-XII intact bilaterally and moves all extremities Sensorium / Orientation: awake and alert Psych Psych Narrative: flat affect Assessment & Plan Assessment/Plan (1) Pneumonia due to COVID-19 virus: (2) Acute respiratory failure with hypoxia: (3) Hyperosmolar hyperglycemic state (HHS): (4) Type II diabetes mellitus with hyperosmolarity, uncontrolled: PLAN: #Acute hypoxic respiratory failure due to COVID 19 pneumonia * on remdesivir and decadron * completed a 5 day course of remdesivir. To complete a 10 day course of decadron. * titrate oxygen to maintain >90% * breathing treatment with bronchodilators * diurese as needed to maintain euvolemic status * #Hypokalemia:resolved. #Type 2 diabetes mellitus * He is a newly diagnosed diabetic and A1c was 13.1. * On Lantus 25 units nightly. Insulin sliding scale. Accu-Cheks AC at bedtime. * #Schizophrenia * patient reportedly has a diagnosis of schizophrenia. Patient however says that he doesnt want to talk about his schizophrenia and as far as he is concerned, he doesnt have schizophrenia * recommend follow up with his psychiatrist on outpatient basis * #Anxiety and agitation:on seroquel. Has improved significantly. DVT prophylaxis: Lovenox 40mg bid Charges/Coding Visit Charges Inpatient E&M: 43079 Subs Hosp L2
[2021-09-11] MEDS: Acetaminophen 325 MG Tablet 650 MG PO ×2 (12:14→20:56)
[2021-09-11 12:20] LABS: Bedside Glucose 268 mg/dL (70-110)
[2021-09-11 16:51] LABS: Bedside Glucose 377 mg/dL (70-110)
[2021-09-11 21:36] LABS: Bedside Glucose 297 mg/dL (70-110)
[2021-09-12] VITALS (9 sets, daily range): BP systolic 122–138; BP diastolic 72–87; PULSE 57–89; RESP 16–18; TEMP 36.3–36.9; O2SAT 90–96
[2021-09-12] MEDS: oxyCODONE 5 MG Tablet PO ×3 (04:33→21:13)
[2021-09-12] MEDS: Acetaminophen 325 MG Tablet 650 MG PO ×3 (04:33→21:13)
[2021-09-12] MEDS: Insulin Lispro 100 UNIT/ML INSULN.PEN SC ×4 (06:12→21:19)
[2021-09-12 06:20] LABS: Bedside Glucose 206 mg/dL (70-110)
[2021-09-12] MEDS: Ascorbic Acid 500 MG Tablet 1000 MG PO ×2 (10:00→21:13)
[2021-09-12] MEDS: dexAMETHasone 4 MG Tablet 6 MG PO (11:05)
[2021-09-12] MEDS: Famotidine 20 MG Tablet PO (11:06)
[2021-09-12] MEDS: Enoxaparin 40 MG/0.4 ML Syringe SC ×2 (11:07→21:14)
[2021-09-12] MEDS: QUEtiapine 25 MG Tablet PO (11:07)
--- NOTE | 2021-09-12 11:53 | PN.HOSP_ITS ---
Subjective Subjective Patient seen and examined. He had no active complaints today and review of systems otherwise negative. He is up to 13 L of oxygen via nasal cannula. Objective Data Objective Data Vital Signs: Vital Signs Temp Pulse Resp BP Pulse Ox 97.5 F L 84 16 132/72 H 90 09/12/21 11:40 09/12/21 11:40 09/12/21 11:40 09/12/21 11:40 09/12/21 11:40 Oxygen Flow Rate (L/min) 12 Oxygen Delivery Method High Flow Weight: 262 lb 5.601 oz Body Mass Index (BMI) 34.9 Intake & Output: Intake and Output for Last 24 Hours 09/10/21 09/11/21 09/12/21 23:59 23:59 23:59 Intake Total 1300 / 1300 1100 / 1100 Output Total 400 / 400 1000 / 1000 1600 / 1600 Balance -400 / -400 300 / 300 -500 / -500 Lab / Micro Data Result Diagrams: 09/11/21 08:40 09/11/21 08:40 Labs: Laboratory Results - last 24 hr 09/11/21 12:05: POC Glucose 268 H 09/11/21 16:32: POC Glucose 377 H 09/11/21 21:24: POC Glucose 297 H 09/12/21 06:10: POC Glucose 206 H Physical Exam Const alert, oriented x3 and no apparent distress Exam Limitations: no limitations HEENT head/scalp atraumatic and moist oral mucous membranes Head and Scalp: normocephalic Eyes PERRL, EOMs intact bilaterally and conjunctivae normal Neck no lymphadenopathy Resp Resp Narrative: diminished breath sounds bibasally, no wheezes or crackles. Now on 13L of oxygen. Cardio regular rate, regular rhythm, S1 normal heart sound, S2 normal heart sound and no murmurs GI normal to inspection, nondistended, normoactive bowel sounds, soft to palpation, non-tender and non-distended Extremity normal to inspection, full ROM and no clubbing, cyanosis or edema Peripheral Pulses: Yes pulses 2+ throughout Skin no rashes or lesions noted Neuro oriented x3, CN's II-XII intact bilaterally and moves all extremities Sensorium / Orientation: awake and alert Psych Psych Narrative: flat affect Assessment & Plan Assessment/Plan (1) Pneumonia due to COVID-19 virus: (2) Acute respiratory failure with hypoxia: (3) Hyperosmolar hyperglycemic state (HHS): (4) Type II diabetes mellitus with hyperosmolarity, uncontrolled: PLAN: #Acute hypoxic respiratory failure due to COVID 19 pneumonia * on remdesivir and decadron * completed a 5 day course of remdesivir. To complete a 10 day course of decadron. * titrate oxygen to maintain >90% * breathing treatment with bronchodilators * diurese as needed to maintain euvolemic status * on 13L of oxygen * #Hypokalemia:resolved. #Type 2 diabetes mellitus * He is a newly diagnosed diabetic and A1c was 13.1. * On Lantus 25 units nightly. Insulin sliding scale. Accu-Cheks AC at bedtime. * #Schizophrenia * not on иван meds. * recommend follow up with his psychiatrist on outpatient basis * #Anxiety and agitation:on seroquel. Has improved significantly. DVT prophylaxis: Lovenox 40mg bid Charges/Coding Visit Charges Inpatient E&M: 47129 Subs Hosp L2
[2021-09-12 12:30] LABS: Bedside Glucose 243 mg/dL (70-110)
[2021-09-12 17:06] LABS: Bedside Glucose 355 mg/dL (70-110)
[2021-09-12 22:11] LABS: Bedside Glucose 302 mg/dL (70-110)
[2021-09-13 00:32] VITALS: PULSE 53; O2SAT 91
--- NOTE | 2021-09-13 01:10 | NURSING ---
Pt's pulse ox not reading at nurse's station. This RN walked back to pt's room, pt heard yelling loudly inside room Get the hell out of my apartment!! Get out of here!!. Call placed into pt's room, this RN stated Harrison, this is your nurse. Is there anything I can help you with? Pt responded I don't care who you are! I'm getting out of here!. Via room camera, pt noted to be sitting in recliner chair, putting on his street clothes with oxygen off. Asif RN entered room to apply new pulse ox senor to pt, and reapply oxygen. Pt cooperative at this time with care.
[2021-09-13 01:36] VITALS: BP 124/73; PULSE 55; RESP 18; TEMP 36.6; O2SAT 97
--- NOTE | 2021-09-13 01:41 | NURSING ---
This RN entered room to assess pt and take vital signs. Pt cooperative with assessment and vitals assessment, however he stated I'm getting out of here in the morning. My oxygen is reading fine on that monitor. This RN explained to pt that he is on a high amount of oxygen that he needs at this time, and without it he would have a hard time breathing. Pt continued to state he still wants to leave in the morning.
--- NOTE | 2021-09-13 04:50 | NURSING ---
Security and Dr. Reyes notified.
--- NOTE | 2021-09-13 04:51 | NURSING ---
Addendum entered by Jennifer Cardoza 09/13/21 05:01: Pt wanting this RN to call pt's mother to come pick him up. Attempt to call number for pt's mother number, however number was disconnected. Pt insistent on wanting to leave at this moment. [place] [employer] escorted pt off the floor. Original Note: This RN entered room due to pt's oxygen not reading at the nurse's station. Pt frustrated stated he is leaving now. Pt removed peripheral IV himself, and stormed out of his pt room and to the nurse's station. Pt yelling at the nurse's station, wanting to leave. Dr Tierney present on floor, speaking to pt about refusing treatment.
--- NOTE | 2021-09-13 05:30 | PCM.HOSP.N ---
Hospitalist Note Patient became belligerent with nursing on the evening of 09/12/2021, he stated to the nurses that he would be leaving in the morning, nurses talked with him and told him that he was on high flow oxygen and that he would not survive if he left the hospital, he seemed understand this. At approximately 4:50 AM this morning, patient became very agitated and came up to the nurses station and demanded to be discharged, I came out and talk with him briefly but the patient was angry and did not agree to stay in the hospital. Patient understood that if he left the hospital that he could because of his need for oxygen. Patient seemed understand this but still demanded to be discharged. Security escorted the patient out of the hospital.
--- NOTE | 2021-09-13 08:12 | NURSING ---
family called in this morning very frustrated that they did not receive phone call about pt leaving against medical advice. this RN explained that the night cleaner attempted to reach family but the number listed was disconnected. read phone number back to family and they verbalized that the phone number listed was incorrect. did not provide updated phone number. discussed with family that even though pt has schizophrenia, we cannot hold pt here against his will unless he is suicidal or homicidal and pt did not express any desire to harm himself. also explained that our nurses and doctor spoke with pt about the risk of leaving against medical advice without oxygen and pt still adamant to leave. explained that pt left our unit escorted by [place] police department.
[2021-09-14 10:26] LABS: Pathologist Review Reviewed
== END 2021-09-13 05:05 | disposition left against medical advice (07) | DRG 137 ==
LOC: ED 21:38 → ICU 21:55 → MS2 09-07 19:00
PROVIDERS: Internal Medicine; Internal Medicine Critical Care Medicine; Admitting Provider Hospitalist; Emergency Provider Emergency Medicine; Visit Provider Student in an Organized Health Care Education/Training Program
DX: U07.1 COVID-19 (principal); J12.82 Pneumonia due to coronavirus disease 2019; E11.00 Type 2 diabetes mellitus with hyperosmolarity without nonketotic hyperglycemic-hyperosmolar coma (NKHHC); E87.6 Hypokalemia; F41.9 Anxiety disorder, unspecified; F17.210 Nicotine dependence, cigarettes, uncomplicated; J96.01 Acute respiratory failure with hypoxia; E66.9 Obesity, unspecified; K76.0 Fatty (change of) liver, not elsewhere classified; Z28.3 Underimmunization status; Z68.34 Body mass index [BMI] 34.0-34.9, adult
CPT/HCPCS: 36415; 71275; 74177; 80048; 80053; 80061; 81001; 82009; 82803; 82962; 83036; 83880; 83930; 84075; 85025; 85027; 85379; 86140; 87635; 93005; 94003; 94660; 94762; 97802; 97803; 99285; 99406; J7030; J7050; Q9967; U0005; A4216; J1940; J2405; U0003

== ENCOUNTER 2023-06-09 03:30 | Emergency (ER) | payer MEDICAID, SELFPAY ==
[2023-06-09 03:31] VITALS: BP 148/101; PULSE 91; RESP 23; TEMP 36.4; O2SAT 97; BMI 35.9
--- NOTE | 2023-06-09 03:35 | RAD_ITS ---
INDICATION: chest pain EXAMINATION/TECHNIQUE: X-RAY - XR Chest 1 View COMPARISON: February 23, 2019. FINDINGS: LINES/DEVICES: None. LUNGS: No consolidation, edema or effusion. No pneumothorax. MEDIASTINUM AND CARDIOVASCULAR STRUCTURES: Cardiac silhouette not enlarged. Dense was once BONES AND SOFT TISSUES: Unremarkable. RAD/Chest 1 View (Portable) IMPRESSION: No radiographic evidence of acute cardiopulmonary disease. Electronically Signed: Frank Robin MD at 4:35 EDT ,
--- NOTE | 2023-06-09 03:35 | EKG12_ITS ---
Test Reason : CP Blood Pressure : / mmHG Vent. Rate : 081 BPM Atrial Rate : 081 BPM P-R Int : 160 ms QRS Dur : 100 ms QT Int : 380 ms P-R-T Axes : 010 036 023 degrees QTc Int : 441 ms Normal sinus rhythm Normal ECG Confirmed by RADHA PATIÑO MD ([id number]), senior editor NIYA MYLES ([id number]) on 06/09/2023 1:28:27 PM Referred By: [place] Confirmed By:RADHA PATIÑO MD
--- NOTE | 2023-06-09 03:44 | ED.VIS.CHEST ---
HPI History of Present Illness Chief Complaint: Chest Pain Detail of Chief Complaint: Lower sternal chest pain that started around 3 PM yesterday. Informant: patient Onset/Context/Timing Onset: Today and Yesterday Activity at onset: gradual Timing: Continuous Quality: Positive for Aching and Dull Location: Substernal Current Severity: Mild Maximum Severity: Mild Worsened By: Nothing; Not Worsened By Exertion or Breathing Relieved By: Nothing Associated Symptoms: Negative for Nausea, Vomiting, Diaphoresis, Dyspnea, Cough, Fever, Lightheadedness, Acid Reflux or Palpitations Narrative Narrative: 52-year-old male does not have a primary care physician and rarely ever sees a doctor. States has had low back pain for about 3 weeks worse with movement. Yesterday around 3 PM he developed lower sternal chest discomfort. No radiation. No shortness of breath. No diaphoresis. No nausea. It was not exertional. He denies recent exertional chest pain. He denies any cardiac history. Denies ever having a stress test or heart catheterization. He does smoke about 2 packs of cigarettes a day. No history of DVT or PE. He has had negative CTA of his chest about 2 years ago. No leg pain or swelling. No hemoptysis. No PE or DVT risk factors. Prior Similar Symptoms: No Recent Illness/Hospitalization: No CVD Risk Factors: Positive for Diabetes; Negative for Hypertension PE Risk Factors: Negative for Recent Travel/Surgery, Recent Immobilization, Prior DVT or PE or OCP + Smoking + >/=35 TAD Risk Factors: Negative for Marfan's Syndrome [facility] Medical History ADHD (attention deficit hyperactivity disorder) Anxiety Chronic back pain Herniated disc Schizophrenia Home Medications NK 09/04/21 [History Last Taken Unknown] Allergy/AdvReac Type Severity Reaction Status Date / Time No Known Allergies Allergy Verified 02/16/20 18:07 Family History Mother Diabetes Uncle Cancer Surgical History History of appendectomy History of tonsillectomy Social History Smoking Status: Current every day smoker tobacco type: cigarettes Tobacco: How many years used: 30 alcohol intake: never substance use type: does not use what type of physical activity do you participate in: walking ROS ROS ED ROS Narrative Chest discomfort. Lower back discomfort. No exertional chest pain no dyspnea. No hemoptysis. Review of Systems ROS Unobtainable: Denies due to encephalopathy Constitutional Constitutional ED: Denies chills or fever(s) Eyes Eyes: Reports none ENT ENT ED: Denies ear pain Cardiovascular Cardiovascular: Reports as per HPI and chest pain; Denies orthopnea, palpitations or racing heartbeat Respiratory/Chest Respiratory/Chest: Denies cough, dyspnea, dyspnea on exertion or orthopnea Gastrointestinal Gastrointestinal: Denies abdominal pain, constipation, diarrhea, melena, nausea or vomiting Genitourinary Genitourinary ED: Denies dysuria Musculoskeletal Musculoskeletal: Reports back pain; Denies arthralgias Integumentary Denies abscess Neurologic Neurologic: Denies headache(s) Psychiatric Psychiatric: Denies anxiety Endocrine Endocrinology: Denies cold intolerance Hematologic/Lymphatic Hematologic/Lymphatic: Denies easy bleeding or easy bruising Allergic/Immunologic Allergic/Immunologic ED: Denies mouth swelling or tongue swelling EXAM Physical Exam Narrative Exam Narrative: Well-appearing 52-year-old male brought in by squad. Vital signs stable afebrile. Pulse ox 97% on room air no signs hypoxia. He is in no distress. HEENT exam unremarkable neck nontender no JVD. No lymphadenopathy. Lungs clear to auscultation bilaterally. Heart regular rhythm rate about 80 no murmur. Chest wall and ribs nontender. Abdomen soft nontender normal bowel sounds no peritoneal signs. Moves all 4 extremities. Equal symmetrical radial pulses. Senior Accountant strength. Dorsi plantarflexion intact. Calves are nontender without edema or cords. Back he complains of lower back discomfort. Lumbar but is not reproducibly tender there is no signs of trauma. Neurologically is awake and alert with no focal motor deficits. Const Vital Signs: 06/09/23 03:31 06/09/23 03:35 06/09/23 03:37 Temperature 97.5 F L Temperature Source Temporal Pulse Rate 91 Respiratory Rate 23 H Respiratory Effort Normal Blood Pressure 148/101 H Blood Pressure Mean 116 Pulse Ox 97 Oxygen Delivery Method Room Air Room Air Positive well nourished, well developed and obese; Negative for cachectic, contractures or unkempt General Appearance ED: well developed and NAD; Negative for unkempt, cachectic, contractures or pallor Nutritional Appearance: obese; Negative for cachectic HEENT Reports moist mucous membranes; Denies dry mucous membranes normocephalic and atraumatic; Negative for trauma or tenderness Mouth ED: No dry mucous membranes Mouth: No dry mucous membranes Eyes PERRL and EOMs intact bilaterally General Eye ED: Negative for pale conjunctiva or scleral icterus Neck no lymphadenopathy, supple and no JVD General: Negative for tenderness Chest Wall inspection of chest normal and palpation of chest normal Chest: Negative for tenderness Resp normal respiratory effort and clear to auscultation bilaterally Effort and Inspection: Negative for respiratory distress Auscultation: Negative for rales, rhonchi or wheezes Cardio regular rate, regular rhythm, S1 normal heart sound, S2 normal heart sound and no murmurs Rate: Negative for bradycardia or tachycardic Peripheral Pulses: pulses 2+ throughout GI normal to inspection, nondistended, normoactive bowel sounds, soft to palpation, non-tender, non-distended and no masses Auscultation: Negative for hyperactive bowel sounds Back/Spine no CVA tenderness and no thoracic nor lumbar tenderness General Back: Negative for CVA tenderness Cervical Spine: Negative for cervical spine tenderness Extremity normal to inspection General Extremety ED: Negative for edema, pulses abnormal or tenderness General Extremity: Negative for edema or pulses abnormal Neuro oriented x3 and CN's II-XII intact bilaterally Sensorium / Orientation: awake, alert, oriented to person, oriented to place and oriented to time; Negative for confused, lethargic or stuporous Motor Exam: strength 5/5 throughout Psych mental status grossly normal Appearance: Negative for unkempt Attitude: No agitated Mood & Affect: Negative for depressed, anxious or tearful Skin no rashes or lesions noted and no wounds General Skin Exam: Negative for jaundice or pallor Rashes: No rashes noted Trauma: Negative for abrasion Heart Score History: Slightly/Non-Suspicious ECG: Normal Age: >45 - <65 years Risk Factors: 1 or 2 Risk Factors Troponin: </= Normal Limit Score: 2 MDM MDM MDM Narrative Medical decision making narrative: 52-year-old male with nonexertional noncardiac sounding chest pain has been ongoing now for 13 hours. No history of DVT or PE or risk factors. Pain is not reproducible. He also has low back pain not upper back pain this does not sound like a dissection or aneurysm. Low back pain sounds musculoskeletal has been for the last 3 weeks. He will undergo a cardiac work-up. He has risk factors with his smoking history and his diabetes. He does not regularly see a physician. Initial EKG is unremarkable. He was already treated with aspirin per squad. Will undergo cardiac work-up. Repeat exam patient is doing well at 4:15 AM. Pain is resolved. Exam is unchanged and benign. We went over his normal test results EKG and chest x-ray. Currently is normal sinus rhythm on the monitor. Patient requested to speak with crisis that he was recently kicked out of his apartment. On the chart he has a history of schizophrenia he does not know if he does or not. He denies having auditory or visual hallucinations. He denies being suicidal or homicidal. Atridox to crisis unless something else becomes evident he will be discharged home. He has been having chest discomfort for 13 hours I do not think he needs a repeat troponin. Crisis did speak with the patient via phone. He is doing well at 4:40 AM. They are comfortable with him being discharged home as of my. History & Record Review Discussion w/independent historian: Patient Additional record(s) reviewed:: Prior inpatient record, Prior outpatient record, Prior ED visit and Prior labs Lab Data Attestation: I reviewed the patient's lab results. Lab results narrative: CBC shows white count 13.7. H&H of 15 and 49. Platelets 256. Electrolytes show a gap of 5 normal BUN and creatinine of 5 and 0.7. Glucose 127. Troponin 5. Labs: Laboratory Results - last 24 hr 06/09/23 06/09/23 03:20 03:47 WBC 13.7 H RBC 5.59 Hgb 15.4 Hct 49.3 MCV 88.2 MCH 27.5 MCHC 31.2 L RDW Std Deviation 52.6 H RDW Coeff of Brenda 16.4 H Plt Count 256 MPV 9.9 Immature Gran % (Auto) 1.000 H Neut % (Auto) 74.4 H Lymph % (Auto) 15.8 L Stevens % (Auto) 6.8 Eos % (Auto) 1.1 Baso % (Auto) 0.9 Absolute Neuts (auto) 10.2 H Absolute Lymphs (auto) 2.16 Nucleated RBC % 0 Sodium 140 Potassium 3.7 Chloride 111 H Carbon Dioxide 24.0 Anion Gap 5 BUN 5 L Creatinine 0.79 Estim Creat Clear Calc 126.42 Est GFR (MDRD) Af Amer 133 Est GFR (MDRD) Non-Af 110 BUN/Creatinine Ratio 6.3 L Glucose 127 H Calcium 8.6 Troponin I High Sens 5 POC Glucose 139 H Radiography Chest X-Ray - ED: 1 View, Read by ED Physician, Heart, Lungs, Mediastinum, Bony Structures, No Acute Disease and Chronic Changes Diagnostic Testing: Clinical Impression(s) from Imaging Studies Chest X-Ray 06/09/23 03:35 IMPRESSION: No radiographic evidence of acute cardiopulmonary disease. Electronically Signed: Frank Robin MD at 4:35 EDT , Chest x-ray, portable, single view interpreted by myself shows no acute abnormality. Chronic changes due to smoking history. Normal cardiac silhouette. Normal mediastinum and aortic knob. No acute infiltrates. Rhythm Strip Rhythm Strip: Sinus Rhythm Rate: 81 Ectopy: None EKG Initial EKG: Attestation: I personally reviewed and interpreted this EKG as follows: Interpretation: Sinus Rhythm and No Acute Injury Pattern Comments: Normal sinus rhythm rate of 81 no acute signs of RI or ischemia. Discharge Plan Triage Chief Complaint: Chest Pain ED Provider: Reggie Ribeiro Dx/Rx/DC Orders Clinical Impression: History of tobacco abuse, History of diabetes mellitus, Chest pain Instructions: ED Chest Pain, Uncertain Cause Prescriptions: No Action NK Primary Care Provider: Care Physician,No Primary Referrals: Counseling,Center [Group of Physicians] - As soon as possible Jordy Navarrete MD [Non-Staff] - As soon as possible Care Physician,No Primary [Primary Care Provider] - Activity Restrictions/Additional Instructions: Your test tonight were normal. Long-term if to stop smoking and will negatively affect your lungs. Follow-up with a local primary care physician. Follow-up with counseling center as needed. Disposition Disposition: Home, Self Care
[2023-06-09 03:45] LABS: Absolute Lymphocyte Count 2.16 X10^3/uL (0.83-4.51); Absolute Neutrophil Count 10.2 X10^3/uL (2.0-7.7); Basophil# 0.12 X10^3/uL; Basophil% 0.9 % (0-1); Eosinophil# 0.15 X10^3/uL; Eosinophils% 1.1 % (0-5); Hematocrit 49.3 % (40-54); Hemoglobin 15.4 g/dL (13.0-16.5); Lymphocyte # 2.16 X10^3/ul (0.83-4.51); Lymphocyte % 15.8 % (19-41); Mean Corp Hgb Conc 31.2 g/dL (32-36); Mean Corpuscular Hgb 27.5 pg (27.0-32.0); Mean Corpuscular Volume 88.2 fL (80-94); Mean Platelet Vol. 9.9 fl (6.2-12.0); Monocyte# 0.93 X10^3/uL; Monocyte% 6.8 % (0-10); NRBC Flagged by Analyzer 0 % (0-5); Neutrophil # 10.16 X10^3/uL (2.7-7.7); Neutrophil % 74.4 % (47-70); Platelet Count 256 K/mm3 (150-450); RBC Distribution Width CV 16.4 % (11.6-14.6); RBC Distribution Width SD 52.6 fl (35.1-43.9); Red Blood Count 5.59 M/mm3 (4.6-6.2); White Blood Count 13.7 K/mm3 (4.4-11.0)
[2023-06-09 04:03] LABS: Anion Gap 5 (5-15); BUN 5 mg/dL (7-18); BUN/Creat Ratio 6.3 RATIO (10-20); Calcium,Total 8.6 mg/dL (8.5-10.1); Chloride 111 mmol/L (98-107); Creatinine, Serum 0.79 mg/dL (0.70-1.30); EST Glomerular Filtration Rate 110 mL/min (>60); Est Glom Filt Rate - Afr Amer 133 mL/min (>60); Estimated Creatinine Clearance 126.42 ml/min; Glucose 127 mg/dL (74-106); Potassium 3.7 mmol/L (3.5-5.1); Sodium Level 140 mmol/L (136-145); Troponin-I HS (w/2H Reflex) 5 pg/mL (3.0-78.0)
[2023-06-09 04:05] LABS: Bedside Glucose 139 mg/dL (74-106)
[2023-06-09 04:40] VITALS: BP 136/75; RESP 15
[2023-06-09 05:41] LABS: Reflex Troponin-HS? (from REC) Y
[2023-06-09] MEDS: Ibuprofen 600 MG Tablet PO (06:47)
== END 2023-06-09 06:58 | disposition home or self-care (01) ==
LOC: ED 04:46
PROVIDERS: Emergency Provider Emergency Medicine; Visit Provider Emergency Medicine
DX: R07.89 Other chest pain (principal); E11.9 Type 2 diabetes mellitus without complications; M54.50 Low back pain, unspecified; F17.210 Nicotine dependence, cigarettes, uncomplicated; E66.9 Obesity, unspecified
CPT/HCPCS: 71045; 80048; 82962; 84484; 85025; 93005; 99285

== ENCOUNTER 2023-06-10 12:47 | Emergency (ER) | payer MEDICAID, SELFPAY ==
[2023-06-10 12:48] VITALS: BP 144/82; PULSE 95; RESP 18; TEMP 36.3; O2SAT 99; BMI 35.1
--- NOTE | 2023-06-10 13:17 | CM.ED ---
Social Work SW reviewed patient's chart and provided a copy of patient's care plan to ED MD to review potential obstacles and solutions. SW remains available if needs arise. SW updated by RYLEE Scruggs of patient's presentation yesterday as patient is recently homeless, voiced feeling suicidal (at discharge) and was seen by [facility] and provided resources as well as a follow up appointment at [facility]. Sonal Mei [employer], JUAN DANIEL
--- NOTE | 2023-06-10 13:20 | EX.ED.DYSGE1 ---
HPI History of Present Illness Chief Complaint: Lower Extremity Injury Narrative Narrative: Patient is a 52-year-old male who is presenting to the ER today with chief complaint bilateral leg pain and generalized weakness. Patient has a longstanding history of lower back pain, lumbar radiculopathy. Patient says that he has no PCP. Patient has not seen anybody about his back, no chiropractors, no specialist. Patient states he is having a harder time walking at home. He does have access to a cane and walker, he is not using them. Patient has extremely poor hygiene, patient smells of body odor. Patient has had no recent falls. No loss of urination or bowels, no saddle anesthesia, cauda equina, no urinary or bowel incontinence. Patient has no new falls, no new recent injuries. Patient has no abdominal pain, nausea or vomiting. No other acute complaints. [facility] Medical History ADHD (attention deficit hyperactivity disorder) Anxiety Chronic back pain Herniated disc Schizophrenia Home Medications methocarbamol 500 mg tablet 500 mg PO TID PRN muscle pain #10 tabs 06/10/23 [Rx Last Taken Unknown] Allergy/AdvReac Type Severity Reaction Status Date / Time No Known Allergies Allergy Verified 06/10/23 12:47 Family History Mother Diabetes Uncle Cancer Surgical History History of appendectomy History of tonsillectomy Social History Smoking Status: Current every day smoker tobacco type: cigarettes Tobacco: How many years used: 30 alcohol intake: never substance use type: does not use what type of physical activity do you participate in: walking ROS ROS ED ROS Narrative REVIEW OF SYSTEMS: Unless otherwise stated in this report the patient's positive and negative responses for review of systems for constitutional, eyes, ENT, cardiovascular, respiratory, gastrointestinal, neurological, , musculoskeletal, and integument systems and related systems to the presenting problem are either stated in the history of present illness or were not pertinent or were negative for the symptoms and/or complaints related to the presenting medical problem. EXAM Physical Exam Narrative Exam Narrative: Vital signs reviewed and patient is not hypoxic. General: The patient appears well and in no apparent distress. Patient is resting comfortably on cart. Not toxic, lethargic, or listless. Poor hygiene, poor body odor. Skin: Warm, dry, no pallor noted. There is no rash noted. Head: Normocephalic, atraumatic Eye: Normal conjunctiva, no drainage, EOMI. PERRL. Ears, Nose, Mouth, and Throat: oral mucosa is moist. Nares patent. Mouth without vesicles. Cardiovascular: Regular Rate and Rhythm, no murmurs, gallops, or rubs Respiratory: Patient is in no distress, no accessory muscle use, lungs are clear to auscultation, no wheezing, rales or rhonchi Back: Patient has moderate tenderness to palpation to the left paralumbar soft tissue, moderate tenderness to left piriformis muscle, mild tenderness to palpation to the right paralumbar area and no tenderness to palpation to the right piriformis muscle. Positive straight leg raising test on the left mild. No straight leg raise pain on the right. No signs of saddle anesthesia or cauda equina. non-tender, no CVA tenderness bilaterally to percussion. NO CTLS midline or paraspinal tenderness to palpation, Besides the above listed. GI: Soft, no tenderness to palpation, no masses appreciated. No rebound, guarding, or rigidity noted. Musculoskeletal: The patient has full range of motion of all extremities and joints with no difficulty. Patient has no motor, no sensory deficits. Neurological: A&O x4, normal speech, no focal neurological deficits. Psychiatric: Cooperative Const Vital Signs: 06/10/23 12:48 Temperature 97.3 F L Temperature Source Temporal Pulse Rate 95 Respiratory Rate 18 Blood Pressure 144/82 H Blood Pressure Mean 102 Pulse Ox 99 Oxygen Delivery Method Room Air MDM MDM MDM Narrative Medical decision making narrative: Patient has no acute findings on today's testing. Patient was educated using ice, patient understands importance of following up with PCP, health department, and doing ice and stretching exercises at home. There were shown to him at bedside and on discharge paperwork. Patient understands that he can follow-up with a chiropractor as well if needed. Lab Data Attestation: I reviewed the patient's lab results. Labs: Laboratory Results - last 24 hr 06/10/23 13:35 WBC 10.7 RBC 5.35 Hgb 14.7 Hct 45.8 MCV 85.6 MCH 27.5 MCHC 32.1 RDW Std Deviation 49.8 H RDW Coeff of Brenda 16.1 H Plt Count 235 MPV 9.4 Sodium 140 Potassium 3.7 Chloride 112 H Carbon Dioxide 24.0 Anion Gap 4 L BUN 8 Creatinine 0.76 Estim Creat Clear Calc 131.41 Est GFR (MDRD) Af Amer 139 Est GFR (MDRD) Non-Af 115 BUN/Creatinine Ratio 10.5 Glucose 159 H Calcium 8.6 Total Creatine Kinase 253 Discharge Plan Triage Chief Complaint: Lower Extremity Injury ED Provider: Hi Angel Dx/Rx/DC Orders Clinical Impression: Chronic lumbar pain, Bilateral lumbar radiculopathy Instructions: ED Back Pain (Acute or Chronic), ED Sciatica Prescriptions: New methocarbamol 500 mg tablet 500 mg PO TID PRN (Reason: muscle pain) Qty: 10 0RF Primary Care Provider: Care Physician,No Primary Referrals: Evaristo Hudson MD [Med Staff - Active Staff] - Care Physician,No Primary [Primary Care Provider] - Activity Restrictions/Additional Instructions: You need to establish a PCP or family doctor. PCP has been referred to you, or the health department in the county you live in. Perform ice, stretching exercises. You may follow-up with a chiropractor as well for help and care. Use ice not heat. Alternate Tylenol and anti-inflammatories every 6 hours to help with pain. Disposition Disposition: Home, Self Care Discharge Date/Time: 06/10/23 15:29
[2023-06-10] MEDS: 0.9% Normal Saline (1000mL) 1,000 ML 999 ML IV (13:35)
[2023-06-10 13:40] LABS: Hematocrit 45.8 % (40-54); Hemoglobin 14.7 g/dL (13.0-16.5); Mean Corp Hgb Conc 32.1 g/dL (32-36); Mean Corpuscular Hgb 27.5 pg (27.0-32.0); Mean Corpuscular Volume 85.6 fL (80-94); Mean Platelet Vol. 9.4 fl (6.2-12.0); Platelet Count 235 K/mm3 (150-450); RBC Distribution Width CV 16.1 % (11.6-14.6); RBC Distribution Width SD 49.8 fl (35.1-43.9); Red Blood Count 5.35 M/mm3 (4.6-6.2); White Blood Count 10.7 K/mm3 (4.4-11.0)
[2023-06-10 13:58] LABS: Anion Gap 4 (5-15); BUN 8 mg/dL (7-18); BUN/Creat Ratio 10.5 RATIO (10-20); CPK Total, Creatine Kinase 253 U/L (39-308); Calcium,Total 8.6 mg/dL (8.5-10.1); Chloride 112 mmol/L (98-107); Creatinine, Serum 0.76 mg/dL (0.70-1.30); EST Glomerular Filtration Rate 115 mL/min (>60); Est Glom Filt Rate - Afr Amer 139 mL/min (>60); Estimated Creatinine Clearance 131.41 ml/min; Glucose 159 mg/dL (74-106); Potassium 3.7 mmol/L (3.5-5.1); Sodium Level 140 mmol/L (136-145)
[2023-06-10] MEDS: Orphenadrine 60 MG/2 ML Ampul IM (14:46)
[2023-06-10] MEDS: Ketorolac 15 MG/ML Vial IV (14:46)
== END 2023-06-10 15:29 | disposition home or self-care (01) ==
PROVIDERS: Emergency Provider Emergency Medicine; Visit Provider Emergency Medicine
DX: M54.16 Radiculopathy, lumbar region (principal); G89.29 Other chronic pain; F17.210 Nicotine dependence, cigarettes, uncomplicated
CPT/HCPCS: 80048; 82550; 85027; 96361; 96372; 96374; 99282; J7030